=== PATIENT | male | born 1945 | race Caucasian/White ===

== ENCOUNTER 2019-12-03 16:23 | Inpatient (IN) ==
--- NOTE | 2019-12-03 16:55 | Emergency Department Note ---
History of Present Illness General Chief complaint: Illness Time Seen by Provider: 12/03/19 16:38 History of Present Illness This is a 74-year-old male with a complex past medical history that presents to the emergency department via ambulance/president and chief executive officer escort from [facility] where he currently is incarcerated with complaints of "illness". Patient notes that about 5 days ago perhaps even little bit longer he began with vomiting. He notes generalized weakness as well. Nausea and vomiting occur e very time he eats. No bowel movement x5 days. Per report he was evaluated at the [facility] and labs were drawn and he was found to be with elevated creatinine above 4, GFR near 15 with BUN above 150. Patient currently denies any pain, fever, chills, chest pain or shortness of breath. He notes he feels slightly nauseous and last vomited on the ambulance ride here. He denies eating or drinking over the past several days noting that every time he goes to try this he starts to vomit. Home Medications Home Medications Medication Instructions Recorded Confirmed Type atorvastatin 20 mg tablet 20 mg PO HS 04/16/19 12/03/19 History glimepiride 2 mg tablet 2 mg PO DAILY 04/16/19 12/03/19 History nitroglycerin 0.4 mg sublingual 0.4 mg SL DIRECTED PRN 04/16/19 12/03/19 History tablet potassium chloride 10 mEq 20 meq PO DAILY 04/16/19 12/03/19 History tablet,extended release aspirin [Aspirin Low Dose] 81 mg PO DAILY 12/03/19 12/03/19 History bumetanide 4 mg PO BID 12/03/19 12/03/19 History carvedilol 12.5 mg PO BID 12/03/19 12/03/19 History levalbuterol tartrate [Xopenex HFA] 2 inh INHALATION QID PRN 12/03/19 12/03/19 History lisinopril 10 mg PO DAILY 12/03/19 12/03/19 History metolazone 2.5 mg PO DAILY 12/03/19 12/03/19 History warfarin 6 mg PO DAILY 12/03/19 12/03/19 History Allergies Allergy/AdvReac Type Severity Reaction Status Date / Time No Known Allergies Allergy Verified 12/03/19 19:05 Past Med/Surg History Medical History Myocardial infarct Syncope Surgical History H/O heart artery stent S/P triple vessel bypass Family History Grandmother Diabetes Social History Smoking Status: Former smoker Hx Alcohol Use: No Hx Substance Use: No Preferred Language: Estonian Communication Ability: Effective Backup Operator Required: No Beliefs That Will Affect Care: Adventism Adventism Beliefs: jainism- no blood marital status: Single Current Living Situation: Other Current Living Situation Comment: snf Feels Safe at Home: Yes Assistive Devices: None Review of Systems A total of 10 systems reviewed and were otherwise negative Physical Exam Vital Signs Vital Signs - 24 hr 12/03/19 16:25 12/03/19 16:30 12/03/19 16:49 Temperature 36.5 C Temperature Source Oral Pulse Rate 81 87 81 Pulse Rate from SpO2 Sensor 84 Pulse Rhythm Regular Regular Respiratory Rate 14 24 14 Respiratory Effort / Characteristics Non-Labored Spontaneous Respiratory Depth Normal Respiratory Pattern Regular Blood Pressure 130/100 130/100 Blood Pressure Mean 110 121 Pulse Oximetry 99 94 99 Oxygen Delivery Method Room Air Room Air Sepsis Recent Fever Within 48 Hours No Sepsis New/Unexplained Change in Mental Status No Sepsis Action Taken by Nursing No Action Required 12/03/19 17:01 12/03/19 18:01 12/03/19 18:31 Temperature Temperature Source Pulse Rate 82 85 83 Pulse Rate from SpO2 Sensor 88 61 48 L Pulse Rhythm Respiratory Rate 14 18 16 Respiratory Effort / Characteristics Respiratory Depth Respiratory Pattern Blood Pressure 115/82 128/71 113/71 Blood Pressure Mean 93 89 79 Pulse Oximetry 100 98 97 Oxygen Delivery Method Sepsis Recent Fever Within 48 Hours Sepsis New/Unexplained Change in Mental Status Sepsis Action Taken by Nursing 12/03/19 19:01 Temperature Temperature Source Pulse Rate 87 Pulse Rate from SpO2 Sensor 64 Pulse Rhythm Respiratory Rate 19 Respiratory Effort / Characteristics Respiratory Depth Respiratory Pattern Blood Pressure 123/55 L Blood Pressure Mean 61 Pulse Oximetry 100 Oxygen Delivery Method Sepsis Recent Fever Within 48 Hours Sepsis New/Unexplained Change in Mental Status Sepsis Action Taken by Nursing VITAL SIGNS - Vital signs and nursing notes were reviewed. Stable and afebrile. GENERAL -74-year-old male appearing his stated age who is in no acute distress. Communicates well with provider and answers questions appropriately. SKIN - Without rashes. No meningeal or petechial rash. HEAD - NC/AT. EYES - PERRL with EOMI bilaterally. Sclera anicteric. EARS - No deformities of external structures noted on gross examination bilaterally. NOSE - Midline and without cyanosis. No epistaxis or purulent drainage noted. MOUTH/OROPHARYNX - Without perioral cyanosis. Buccal mucosa pink and moist and without leukoplakia. Tongue midline with equal elevation of palate bilaterally. No tonsillar hypertrophy, erythema, or exudates noted. Fair dentition noted. NECK - Neck with FROM. No nuchal rigidity. LUNGS - Chest wall symmetric without accessory muscle use, intercostals retractions, or central cyanosis. Normal vesicular breath sounds CTA B/L. No wheezes, rales, or rhonchi appreciated. CARDIAC -no definite murmur. ABDOMEN - Abdominal contour normal without pulsations or visible masses. BS normoactive all four quadrants. No tenderness, palpable masses, hepatosplenomegaly, or ascites noted. EXTREMITIES - No clubbing or peripheral cyanosis. No pretibial edema present. +5/5 strength noted in UE/LE bilaterally. NEUROLOGIC - Cranial nerves II through XII grossly intact. PSYCH - A&O, and cooperates fully with examiner. Pt is very pleasant and interacts well with examiner. Course Administered Medications Carvedilol (Carvedilol 12.5 Mg Tab) 12.5 mg PO BID [facility] Stop: 01/02/20 21:59 Last Admin: 12/03/19 22:30 Dose: Not Given Documented by: [id number] Potassium Chloride/Sodium Chloride (Normal Saline W/20 Meq Kcl) 20 meq in 1,000 mls @ 80 mls/hr IV .[id number] DANIELLE Stop: 01/02/20 21:59 Last Admin: 12/03/19 22:07 Dose: 80 mls/hr Documented by: [id number] Insulin Glargine (Insulin Glargine Solostar 100 Units/Ml 3 Ml Pen) 5 units SC BID [facility] Stop: 01/02/20 22:14 Last Admin: 12/03/19 22:30 Dose: Not Given Documented by: [id number] Ondansetron HCl (Ondansetron Inj 2 Mg/Ml 2 Ml Vial) 4 mg IV Q6H PRN PRN Reason: Nausea Stop: 01/02/20 22:11 Last Admin: 12/03/19 22:26 Dose: 4 mg Documented by: [id number] Polyethylene Glycol (Polyethylene (Miralax) 17 Gm Pack) 34 gm PO BID [facility] Stop: 01/02/20 21:35 Last Admin: 12/03/19 22:07 Dose: Not Given Documented by: [id number] Discontinued Medications Sodium Chloride (Nss) 500 mls @ 80 mls/hr IV .[id number] [facility] Stop: 01/02/20 17:29 Last Infusion: 12/03/19 21:36 Dose: 0 mls/hr Documented by: [id number] Admin: 12/03/19 18:28 Dose: 80 mls/hr Documented by: [id number] Warfarin Sodium (Warfarin Sod 3 Mg Tab) 3 mg PO ONE ONE Stop: 12/03/19 21:37 Last Admin: 12/03/19 22:08 Dose: Not Given Documented by: [id number] Medical Decision Making Laboratory Data Result diagrams: 12/03/19 17:13 12/03/19 17:13 Lab Results 12/03/19 12/03/19 12/03/19 Range/Units 17:13 17:13 17:13 WBC 6.32 (4.8-10.8) K/uL RBC 4.89 (4.7-6.1) M/uL Hgb 15.5 (14.0-18.0) g/dL Hct 43.7 (42-52) % MCV 89.4 (80-100) fL MCH 31.7 (25-34) pg MCHC 35.5 (32-36) g/dL RDW Std Deviation 43.8 (36.4-46.3) fL RDW Coeff of Tommie 13.4 (11.5-14.5) % Plt Count 156 (130-400) K/uL MPV 11.8 H (7.4-10.4) fL Immature Gran % (Auto) 0.0 % Neut % (Auto) 84.6 % Lymph % (Auto) 11.1 % Pendleton % (Auto) 4.0 % Eos % (Auto) 0.3 % Baso % (Auto) 0.0 % Neut # (Auto) 5.35 (1.4-6.5) K/uL Lymph # (Auto) 0.70 L (1.2-3.4) K/uL Pendleton # (Auto) 0.25 (0.11-0.59) K/uL Eos # (Auto) 0.02 (0-0.5) K/uL Baso # (Auto) 0.00 (0-0.2) K/uL Immature Gran # (Auto) 0.00 (0.00-0.02) K/uL PT 33.6 H (9.0-12.0) Seconds INR 3.4 H (0.9-1.1) APTT 37.9 H (21.0-31.0) Seconds PTT Ratio 1.4 Sodium 129 L (136-145) mmol/L Potassium 3.0 L (3.5-5.1) mmol/L Chloride 82 L (98-107) mmol/L Carbon Dioxide 30 (21-32) mmol/L Anion Gap 17.0 H (3-11) BUN 195 H (7-18) mg/dl Creatinine 4.64 H* (0.6-1.4) mg/dl Est Cr Clr Drug Dosing 13.3 ml/min Est GFR ( Amer) 13.5 Est GFR (Non-Af Amer) 11.6 BUN/Creatinine Ratio 42.3 H (10-20) Glucose 177 H (70-99) mg/dl Lactate (0.4-2.0) mmol/L Calcium 8.6 (8.5-10.1) mg/dl Magnesium 3.3 H (1.8-2.4) mg/dl Total Bilirubin 1.6 H (0.2-1) mg/dl AST 20 (15-37) U/L ALT 25 (12-78) U/L Alkaline Phosphatase 63 (45-117) U/L Troponin I 0.043 (0-0.045) ng/ml Total Protein 8.3 H (6.4-8.2) gm/dl Albumin 4.1 (3.4-5.0) gm/dl Globulin 4.2 H (2.5-4.0) gm/dl Albumin/Globulin Ratio 1.0 (0.9-2) Lipase 413 H (73-393) U/L TSH 0.476 (0.300-4.500) uIu/ml 12/03/19 Range/Units 17:53 WBC (4.8-10.8) K/uL RBC (4.7-6.1) M/uL Hgb (14.0-18.0) g/dL Hct (42-52) % MCV (80-100) fL MCH (25-34) pg MCHC (32-36) g/dL RDW Std Deviation (36.4-46.3) fL RDW Coeff of Tommie (11.5-14.5) % Plt Count (130-400) K/uL MPV (7.4-10.4) fL Immature Gran % (Auto) % Neut % (Auto) % Lymph % (Auto) % Pendleton % (Auto) % Eos % (Auto) % Baso % (Auto) % Neut # (Auto) (1.4-6.5) K/uL Lymph # (Auto) (1.2-3.4) K/uL Pendleton # (Auto) (0.11-0.59) K/uL Eos # (Auto) (0-0.5) K/uL Baso # (Auto) (0-0.2) K/uL Immature Gran # (Auto) (0.00-0.02) K/uL PT (9.0-12.0) Seconds INR (0.9-1.1) APTT (21.0-31.0) Seconds PTT Ratio Sodium (136-145) mmol/L Potassium (3.5-5.1) mmol/L Chloride (98-107) mmol/L Carbon Dioxide (21-32) mmol/L Anion Gap (3-11) BUN (7-18) mg/dl Creatinine (0.6-1.4) mg/dl Est Cr Clr Drug Dosing ml/min Est GFR ( Amer) Est GFR (Non-Af Amer) BUN/Creatinine Ratio (10-20) Glucose (70-99) mg/dl Lactate 1.4 (0.4-2.0) mmol/L Calcium (8.5-10.1) mg/dl Magnesium (1.8-2.4) mg/dl Total Bilirubin (0.2-1) mg/dl AST (15-37) U/L ALT (12-78) U/L Alkaline Phosphatase (45-117) U/L Troponin I (0-0.045) ng/ml Total Protein (6.4-8.2) gm/dl Albumin (3.4-5.0) gm/dl Globulin (2.5-4.0) gm/dl Albumin/Globulin Ratio (0.9-2) Lipase (73-393) U/L TSH (0.300-4.500) uIu/ml Imaging Data Radiologist's Impression: SINGLE VIEW CHEST CLINICAL HISTORY: Vomiting. FINDINGS: An AP, portable, upright chest radiograph is obtained. No prior studies are available for comparison at the time of dictation. A single lead cardiac AICD partially obscures the left mid chest. The patient is status post midline sternotomy. The heart is enlarged noting atherosclerotic calcification of the thoracic aorta. The pulmonary vasculature is noncongested. The lungs and pleural spaces are clear. No pneumothorax is seen. The skeletal structures are osteopenic. The bony thorax is grossly intact. IMPRESSION: 1. Cardiomegaly and AICD. There is no radiographic evidence of congestive failure. 2. No airspace consolidation or pleural effusion is identified. ACT 112: Negative or not required by law. Electronically signed by: Jairo Mccrary M.D. 12/03/2019 5:[address] SCAN OF THE ABDOMEN AND PELVIS WITHOUT IV CONTRAST CLINICAL HISTORY: Vomiting. COMPARISON STUDY: No priors. TECHNIQUE: CT scan of the abdomen and pelvis is performed from the lung bases to the proximal femora. Images are reviewed in the axial, sagittal, and coronal planes. IV contrast was not administered for this examination due to poor renal function. Note that the examination is suboptimal without oral and IV contrast. A dose lowering technique was utilized adhering to the principles of ALARA. CT DOSE: 290.01 mGy.cm FINDINGS: Lung bases: The patient is status post midline sternotomy. The heart is enlarged and without pericardial effusion. An AICD lead is noted. The coronary arteries are densely calcified. A small hiatal hernia is observed. A 3 mm right middle lobe pulmonary nodule is seen on image #30. The lung bases are otherwise clear noting dependent atelectasis. Liver: The unenhanced liver is normal in size, contour, and attenuation. There is no intrahepatic biliary ductal dilatation. A 2.6 cm cyst is noted in the left lobe. Gallbladder: Unremarkable. Spleen: Normal in size and attenuation. Pancreas: The unenhanced pancreas is mildly atrophic and grossly unremarkable. Adrenal glands: Unremarkable. Kidneys: The unenhanced kidneys demonstrate cortical atrophy and are without hydronephrosis. There are no renal calculi identified. Numerous bilateral renal cysts measure up to 9 cm. Abdominal vasculature: The abdominal aorta is normal in course and caliber noting advanced atherosclerotic calcification. Bowel: There is mild to moderate colonic fecal retention. No bowel obstruction is seen. The appendix is well-visualized and normal. Peritoneum: There is no intraperitoneal free air or abdominal ascites. There is a fat-containing umbilical hernia. Lymphadenopathy: None. Pelvic viscera: The prostate gland is mildly enlarged and heterogeneous noting median lobe hypertrophy. The bladder is normal as imaged. A small fat-containing inguinal hernia seen on the right. Skeletal structures: The skeletal structures are osteopenic. There is mild to moderate lumbosacral spondylosis. A large posterior discussed by complex is seen at L4-L5. A benign-appearing lesion in the right femoral neck likely represents an enchondroma or hemangioma. No lytic or blastic lesions are seen. IMPRESSION: 1. There are no acute infectious or inflammatory findings in the abdomen or pelvis. 2. Moderate colonic fecal retention. No bowel obstruction is seen. 3. Cardiomegaly and AICD. 4. Additional findings as above. ACT 112: Negative or not required by law. Electronically signed by: Jairo Mccrary M.D. 12/03/2019 5:51 PM [facility] Narrative Patient was seen and evaluated as above in room A02. Review was performed of nursing notes and vital signs. I did review pertinent previous visits and patient history. After obtaining a thorough history and physical examination the above work up was performed. He presents to us today via ambulance and chief privacy officer escort with nausea, vomiting, no bowel movement x5 days. The patient denies eating or drinking anything for the past several days because every time he goes to do so he vomits. IV access was established. Labs were drawn. Chest x-ray was obtained and was negative for any emergent process. A CT scan of the abdomen and pelvis was also obtained with results as above. Moderate colonic fecal retention noted. Laboratory work-up reveals no leukocytosis or anemia. INR 3.4. Patient does have several metabolic disturbances to include that of hyponatremia, hypokalemia as well as an anion gap of 17. BUN and creatinine are significantly elevated. Glucose 177. Urinalysis does not reveal any infectious process. Given the patient's significant elevation in his creatinine and BUN I do believe that further evaluation and management in the inpatient setting is warranted. Gentle hydration was ordered here with plan for inpatient management. Patient was educated upon recommendations and will be admitted to the hospital. Case discussed with the hospitalist. Please refer to further documentation regarding his stay. In the evaluation and treatment of this patient the following differential diagnoses were entertained: Renal failure, obstruction, metabolic disturbance, malignancy, COVID-19, MA, among others. Impression & Plan Acute kidney injury, Hypokalemia, Acute hyponatremia Discharge Plan Visit Data Chief Complaint: Illness ED Provider: You Paz ED Midlevel Provider: Morro Gaona Discharge Problem: Acute kidney injury, Hypokalemia, Acute hyponatremia Patient Disposition: Admitted As Inpatient Condition: Good Discharge Instructions Interventions: ED Discharge Assessment Last Done: 12/03/19 20:40
--- NOTE | 2019-12-03 17:04 | XRay Report ---
SINGLE VIEW CHEST CLINICAL HISTORY: Vomiting. FINDINGS: An AP, portable, upright chest radiograph is obtained. No prior studies are available for c omparison at the time of dictation. A single lead cardiac AICD partially obscures the left mid chest. The patient is status post midline sternotomy. The heart is enlarged noting atherosclerotic calcific ation of the thoracic aorta. The pulmonary vasculature is noncongested. The lungs and pleural spaces are clear. No pneumothorax is seen. The skeletal structures are osteopenic. The bony thorax is grossl y intact. IMPRESSION: 1. Cardiomegaly and AICD. There is no radiographic evidence of congestive failure. 2. No airspace consolidation or pleural effusion is identified. ACT 112: Negative or not required by law. Electronically signed by: Jairo Mccrary M.D. 12/03/2019 5:02 PM
[2019-12-03 17:28] LABS: Eosinophils # (auto) 0.02 K/uL (0-0.5); Eosinophils % (auto) 0.3 %; Hematocrit (blood only) 43.7 % (42-52); Hemoglobin 15.5 g/dL (14.0-18.0); Lymphocytes % (auto) 11.1 %; Mean Corpuscular Hemoglobin 31.7 pg (25-34); Mean Corpuscular Hgb Conc 35.5 g/dL (32-36); Mean Corpuscular Volume 89.4 fL (80-100); Mean Platelet Volume 11.8 fL (7.4-10.4); Monocytes # (auto) 0.25 K/uL (0.11-0.59); Neutrophils # (auto) 5.35 K/uL (1.4-6.5); Neutrophils % (auto) 84.6 %; Platelet Count 156 K/uL (130-400); RDW Coefficient of Variation 13.4 % (11.5-14.5); RDW Standard Deviation 43.8 fL (36.4-46.3); Red Blood Count 4.89 M/uL (4.7-6.1); White Blood Count 6.32 K/uL (4.8-10.8)
[2019-12-03] MEDS ORDERED: SODIUM CHLORIDE 0.9% 500 ML IV SCH (17:30)
[2019-12-03 17:40] LABS: INR 3.4 (0.9-1.1); Partial Thromboplastin Ratio 1.4; Partial Thromboplastin Time 37.9 Seconds (21.0-31.0); Prothrombin Time 33.6 Seconds (9.0-12.0)
--- NOTE | 2019-12-03 17:52 | CT Scan Report ---
CT SCAN OF THE ABDOMEN AND PELVIS WITHOUT IV CONTRAST CLINICAL HISTORY: Vomiting. COMPARISON STUDY: No priors. TECHNIQUE: CT scan of the abdomen and pelvis is performed from the lung bases to the proximal femora. Images are reviewed in the axial, sagittal, and coronal planes. IV contrast was not administered for this examination due to poor renal function. Note that the examination is suboptimal without oral an d IV contrast. A dose lowering technique was utilized adhering to the principles of ALARA. CT DOSE: 290.01 mGy.cm FINDINGS: Lung bases: The patient is status post midline sternotomy. The heart is enlarged and without pericard ial effusion. An AICD lead is noted. The coronary arteries are densely calcified. A small hiatal félix ia is observed. A 3 mm right middle lobe pulmonary nodule is seen on image #30. The lung bases are ot herwise clear noting dependent atelectasis. Liver: The unenhanced liver is normal in size, contour, and attenuation. There is no intrahepatic ignacia iary ductal dilatation. A 2.6 cm cyst is noted in the left lobe. Gallbladder: Unremarkable. Spleen: Normal in size and attenuation. Pancreas: The unenhanced pancreas is mildly atrophic and grossly unremarkable. Adrenal glands: Unremarkable. Kidneys: The unenhanced kidneys demonstrate cortical atrophy and are without hydronephrosis. There ar e no renal calculi identified. Numerous bilateral renal cysts measure up to 9 cm. Abdominal vasculature: The abdominal aorta is normal in course and caliber noting advanced atheroscle rotic calcification. Bowel: There is mild to moderate colonic fecal retention. No bowel obstruction is seen. The appendix is well-visualized and normal. Peritoneum: There is no intraperitoneal free air or abdominal ascites. There is a fat-containing umbi lical hernia. Lymphadenopathy: None. Pelvic viscera: The prostate gland is mildly enlarged and heterogeneous noting median lobe hypertroph y. The bladder is normal as imaged. A small fat-containing inguinal hernia seen on the right. Skeletal structures: The skeletal structures are osteopenic. There is mild to moderate lumbosacral sp ondylosis. A large posterior discussed by complex is seen at L4-L5. A benign-appearing lesion in the right femoral neck likely represents an enchondroma or hemangioma. No lytic or blastic lesions are se en. IMPRESSION: 1. There are no acute infectious or inflammatory findings in the abdomen or pelvis. 2. Moderate colonic fecal retention. No bowel obstruction is seen. 3. Cardiomegaly and AICD. 4. Additional findings as above. ACT 112: Negative or not required by law. Electronically signed by: Jairo Mccrary M.D. 12/03/2019 5:51 PM
[2019-12-03 18:22] LABS: Albumin Level 4.1 gm/dl (3.4-5.0); BUN Creatinine Ratio 42.3 (10-20); Bilirubin,Total 1.6 mg/dl (0.2-1); Calcium 8.6 mg/dl (8.5-10.1); Creatinine Clr Calc Pharmacy 13.3 ml/min; Est GFR (African American) 13.5; Est GFR (Non-African American) 11.6; Globulin 4.2 gm/dl (2.5-4.0); Magnesium 3.3 mg/dl (1.8-2.4); Thyroid Stimulating Hormone 0.476 uIu/ml (0.300-4.500); Total Protein 8.3 gm/dl (6.4-8.2); Troponin I 0.043 ng/ml (0-0.045)
--- NOTE | 2019-12-03 19:14 | History & Physical Report ---
Date of Service December 03, 2019 Assessment & Plan (1) Acute kidney injury: Suspect secondary to overdiuresis in setting of nausea and not eating. Walker catheter placed in ER due to concern for urinary retention with BPH and moderate fecal impaction - can likely be removed if Cr/BUN improving, having bowel movements and UO good. Hold bumex, metolazone, lisinopril. Gentle hydration to avoid hypervolemia in setting of chronic congestive heart failure. Consult nephrology given large bilateral renal cysts and to assist in management of suspected uremic encephalopathy. (2) Uremic encephalopathy: Suspect this is causing his lethargy and nausea. Monitor with BMP daily. Management for EVERETT as above. (3) Nausea & vomiting: Suspect secondary to uremic encephalopathy +/- moderate fecal retention. MiraLAX 34 g BID. (4) Constipation: MiraLAX 34 g twice daily as above Monitor for BM. (5) Chronic congestive heart failure: Request prior notes from Dr Rich. No current acute exacerbation. (6) Type 2 diabetes mellitus: HbA1c with a.m. labs Hold outpatient medications: glimepiride. BSG ACHS Start Lantus 5 units SQ BID, NovoLog ACHS for correction and carb coverage. (7) Enlarged prostate: Previously seen by urology in March. Should follow-up with urology due to heterogeneous nature of his prostate. Start tamsulosin 0.4 mg p.o. at bedtime (8) Acute hyponatremia: Suspect secondary to diuretic use and dehydration and will replace with NSS as above with repeat BMP in a.m. (9) Hypokalemia: Suspect secondary to diuretics. Repeat BMP with a.m. labs. Replace cautiously in IV fluids as above. (10) Hypertension: Continue carvedilol 12.5 mg p.o. twice daily (11) Atherosclerotic heart disease: Troponin negative on admission. No chest pain or shortness of breath. Continue aspirin 81 mg p.o. daily, carvedilol 12.5 mg p.o. twice daily, atorvastatin 20 mg p.o. at bedtime Hold lisinopril as above. (12) Ischemic cardiomyopathy: Notable history of this. HIM request for prior note from his calender wind up tender. (13) Atrial fibrillation: Continue anticoagulation with warfarin but a reduced dose due to supratherapeutic INR. Warfarin 3 mg daily (usually 4.5mg PO daily as per patient). Repeat PT/INR with a.m. labs (14) Hypercholesterolemia: Continue atorvastatin 20 mg p.o. at bedtime (15) DVT prophylaxis: Continue warfarin as above. INR 3.3. Admission and Anticipated Discharge Date Admission Date: December 03, 2019 History of Present Illness Chief Complaint: Abnormal labs, nausea and vomiting Primary Care Provider: REGINALD Severino Alis Bonilla is a 74-year-old male from [facility] sent to the ER today due to nausea and vomiting with very poor oral intake over the last 5-7 days. He had labs taken at the [facility] concerning for acute kidney injury therefore was sent to the ER for further work-up. The patient confirms having nausea and vomiting with reduced appetite for the last 5 to 7 days. He is unsure what started this but does not normally have any nausea or vomiting. No hematemesis. No abdominal pain. Associated no bowel movement for the last 2 days. He denies any tenesmus, melena, bright red blood in stool, constipation or diarrhea. With regards to his acute kidney injury. He does reports a history of urinary frequency but this is not changed recently other than the last few days when his urine is more concentrated and he has been urinating less often. No gross hematuria, dysuria, back pain, change in urine smell. Discussed with nurse of the infirmary at the [facility] who was unfamiliar with the patient however was able to looks up some prior baseline labs below: 08/22 BUN 36, Cr 1.9. 11/15 BUN 135, Cr 3.73 11/19 BUN 157, Cr 4.11 Allergies Allergy/AdvReac Type Severity Reaction Status Date / Time No Known Allergies Allergy Verified 12/03/19 19:05 Home Medications Home Medications Medication Instructions Recorded Confirmed Type atorvastatin 20 mg tablet 20 mg PO HS 04/16/19 12/03/19 History glimepiride 2 mg tablet 2 mg PO DAILY 04/16/19 12/03/19 History nitroglycerin 0.4 mg sublingual 0.4 mg SL DIRECTED PRN 04/16/19 12/03/19 History tablet potassium chloride 10 mEq 20 meq PO DAILY 04/16/19 12/03/19 History tablet,extended release aspirin [Aspirin Low Dose] 81 mg PO DAILY 12/03/19 12/03/19 History bumetanide 4 mg PO BID 12/03/19 12/03/19 History carvedilol 12.5 mg PO BID 12/03/19 12/03/19 History levalbuterol tartrate [Xopenex HFA] 2 inh INHALATION QID PRN 12/03/19 12/03/19 History lisinopril 10 mg PO DAILY 12/03/19 12/03/19 History metolazone 2.5 mg PO DAILY 12/03/19 12/03/19 History warfarin 6 mg PO DAILY 12/03/19 12/03/19 History Past Med/Surg History Medical History Myocardial infarct Syncope Surgical History H/O heart artery stent S/P triple vessel bypass Family History Grandmother Diabetes Social History Smoking Status: Former smoker Hx Alcohol Use: No Hx Substance Use: No Preferred Language: [place] Communication Ability: Effective Analysis Specialist Required: No Beliefs That Will Affect Care: Anglican Anglican Beliefs: hinduism-n o blood marital status: Single Current Living Situation: Other Current Living Situation Comment: [facility] Feels Safe at Home: Yes Assistive Devices: Glasses Review of Systems Review of Systems: All systems reviewed & are unremarkable except as noted in HPI & below He does note a history of congestive heart failure under Dr. Rich who he last saw 8-9 months ago. He reports last hospitalization for heart failure was 7-8 months ago in [place]. He has history of CAD with prior bypass. He denies any chest pain, shortness of breath, claudication, palpitations, syncope. He does note presyncope with dizziness Physical Exam Constitutional: well developed; + not well nourished and no acute distress Eyes: + anicteric sclerae; normal pupil size ENMT: Ears: no external ear abnormality Nose: no external nose abnormality Mouth: + dry oral mucous membranes Neck: trachea midline, no thyromegaly Respiratory: normal respiratory effort, lungs clear to auscultation Cardiovascular: Rate/Rhythm: regular rate and + irregularly irregular Heart Sounds: no murmur Vessels: no JVD Extremities: normal capillary refill and + pedal edema (1+ to mid shins b/l equal); no calf tenderness Gastrointestinal (Abdomen): normal bowel sounds, soft, nontender, no hepatosplenomegaly Musculoskeletal: no cyanosis or clubbing, extremities motor strength 5/5 Skin: no rashes, warm and dry (healing scabs on b/l LE without any areas of concerning cellulitis) Neurologic: moves all extremities and awake; no focal motor deficits and not confused Psychiatric: A+Ox3, euthymic affect Genitourinary: no CVA tenderness Lymphatic: no inguinal lymphadenopathy Results & Data Results & Data ([facility]) Vital Signs (Past 12 Hours) Vital Signs Temp Pulse Resp BP Pulse Ox 12/03/19 18:01 85 18 128/71 98 12/03/19 17:01 82 14 115/82 100 12/03/19 16:49 81 14 99 12/03/19 16:30 87 24 130/100 94 12/03/19 16:25 36.5 C 81 14 130/100 99 Diagnostic Findings SINGLE VIEW CHEST IMPRESSION: 1. Cardiomegaly and AICD. There is no radiographic evidence of congestive failure. 2. No airspace consolidation or pleural effusion is identified. CT SCAN OF THE ABDOMEN AND PELVIS WITHOUT IV CONTRAST IMPRESSION: 1. There are no acute infectious or inflammatory findings in the abdomen or pelvis. 2. Moderate colonic fecal retention. No bowel obstruction is seen. 3. Cardiomegaly and AICD. 4. Additional findings as above. ECG Indication: other (EVERETT, irregular rhythm) Rate (beats per minute): 88 Rhythm: atrial fibrillation Findings: + other (Nonspecific intraventricular conduction block); no acute ischemic change Comparison ECG Date: no prior available Code Status & VTE Plan Code Status DNR/DNI as per patient wishes VTE Prophylaxis Plan VTE Prophylaxis will be ordered: Yes PG Care Time/CCT Total # of Minutes Spent Total Time Spent with Patient: Total time spent is greater than 50% in coordination of care (as documented) at patient's floor/unit and/or counseling patient: Coding Level of Care Code 95502 Initial Inpt Care Lvl 3 Diagnoses Acute kidney injury N17.9 Uremic encephalopathy G93.49; N19 Nausea & vomiting R11.2 Constipation K59.00 Chronic congestive heart failure I50.9 Type 2 diabetes mellitus E11.9 Enlarged prostate N40.0 Acute hyponatremia E87.1 Hypokalemia E87.6 Hypertension I10 Atherosclerotic heart disease I25.10 Ischemic cardiomyopathy I25.5 Atrial fibrillation I48.91 Hypercholesterolemia E78.00 DVT prophylaxis Z29.9
[2019-12-03 19:49] LABS: Appearance Urine Clear (Clear); Bacteria Urine Automated Negative (Negative); Bilirubin Urine Negative (Negative); Blood Urine Trace (Negative); Color Urine Yellow; Glucose Urine UA Negative (Negative); Ketones Urine Negative (Negative); Leukocyte Esterase Urine Negative (Negative); Nitrite Urine Negative (Negative); Protein Urine Negative (Negative); RBC Urine Automated 0-4 /hpf (0-4); Specific Gravity Urine 1.012 (1.000-1.030); Urobilinogen Urine Negative (Negative); WBC Urine Automated 0 /hpf (0-5); pH Urine 5.5 (4.5-7.5)
[2019-12-03] MEDS ORDERED: ACETAMINOPHEN 325 MG TAB PO PRN (21:36)
[2019-12-03] MEDS ORDERED: WARFARIN SOD 3 MG TAB PO ONE (21:36)
[2019-12-03] MEDS ORDERED: GLUCOSE 40% GEL 15 GM TUBE PO PRN (22:06)
[2019-12-03] MEDS ORDERED: DEXTROSE 50% 50 ML SYRINGE IV PRN (22:06)
[2019-12-03] MEDS ORDERED: CARBOHYDRATES FOR HYPOGLYCEMIA PO PRN (22:06)
[2019-12-03] MEDS ORDERED: GLUCOSE 10 TABS/TUBE PO PRN (22:06)
[2019-12-03] MEDS ORDERED: GLUCAGON FOR INJ 1 MG VIAL SQ PRN (22:06)
[2019-12-03] MEDS: NSS + 20MEQ KCL 20 MEQ/1,000 ML BAG IV SCH (22:07)
[2019-12-03] MEDS: POLYETHYLENE (MIRALAX) 17 GM PACK PO SCH (22:07)
[2019-12-03] MEDS ORDERED: ONDANSETRON INJ 2 MG/ML 2 ML VIAL IV PRN (22:12)
[2019-12-03] MEDS: carvediloL 12.5 MG TAB PO SCH (22:30)
[2019-12-03] MEDS: INSULIN GLARGINE SOLOSTAR 100 UNITS/ML 3 ML PEN SC SCH (22:30)
[2019-12-04 07:50] LABS: INR 3.7 (0.9-1.1); Prothrombin Time 36.7 Seconds (9.0-12.0)
[2019-12-04 07:59] LABS: BUN Creatinine Ratio 42.8 (10-20); Creatinine Clr Calc Pharmacy 13.7 ml/min; Est GFR (African American) 14.6; Est GFR (Non-African American) 12.6; Potassium 2.8 mmol/L (3.5-5.1)
[2019-12-04] MEDS: carvediloL 12.5 MG TAB PO SCH ×2 (08:43→21:15)
[2019-12-04] MEDS: ASPIRIN 81 MG ECTAB PO SCH (08:43)
[2019-12-04] MEDS: HEPARIN SOD 5,000 UNIT/0.5 ML VIAL SQ SCH ×2 (08:44→08:59)
[2019-12-04] MEDS: POLYETHYLENE (MIRALAX) 17 GM PACK PO SCH ×2 (08:44→21:16)
[2019-12-04] MEDS: INSULIN ASPART 100 UNITS/ML 3 ML PEN SC SCH ×5 (08:46→21:16)
[2019-12-04] MEDS: INSULIN GLARGINE SOLOSTAR 100 UNITS/ML 3 ML PEN SC SCH ×3 (08:47→21:15)
[2019-12-04] MEDS: NSS + 20MEQ KCL 20 MEQ/1,000 ML BAG IV SCH ×2 (10:46→23:18)
--- NOTE | 2019-12-04 11:46 | Nephrology Consultation ---
Date of Consultation December 04, 2019 Assessment & Plan (1) Acute kidney injury: * EVERETT due to dehydration in the setting of ongoing JINA, thiazide and loop diuretic * Hold lisinopril, metolazone and bumex * Urinalysis negative for protein. Urine microscopy negative for blood * Abdominal CT without contrast was negative for obstruction * Cr trending down w/ gentle hydration * Will order urine Na & Cr * Continue IV hydration w/ 0.9NS + 20 mEq KCl at 80 cc/hr * Monitor PRP (2) Chronic kidney disease: * Hospitalist admission note reports baseline Cr 1.9 08/22 * Abdominal CT films reviewed today: bilateral large simple cysts and cortical thinning. No intervention required for cysts. No mass is present. Cysts do not appear to be causing mechanical obstruction (3) Hypokalemia: * Agree w/ IV repletion (4) Hypertension: * Currently w/ relative hypotension * Continue to hold JINA, thiazide and loop diuretic History of Present Illness Reason for Consultation: EVERETT on CKD Attending Physician: Carlos Donovan, DO History of Present Illness Mr. 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 Gaines for evaluation of EVERETT on CKD. Medical records in the EMR were reviewed today and are summarized as follows: Mr. Bonilla had CKD w/ baseline Cr 1.9 (08/22). He has never undergone evaluation by a Aed Trainer or Urologist in the past. He denies difficulty voiding, gross hematuria, foamy urine, flank pain or kidney stones. He has not been using NSAIDS. His medical history is significant for AODM, HTN, BPH, atrial fibrillation, ICM s/p AICD. He is a [employer] and does not accept blood products. Mr. Bonilla reports a 5 day h/o constipation and recurrent N/V. He continued his medications including JINA, thiazide diuretic and loop diuretic. Mr. Bonilla presented to the [facility] yesterday where lab testing revealed BUN 157, Cr 4.11. Mr. Bonilla was then admitted to [facility] for ongoing medical management and IV hydration. Urinalysis was negative for protein. Urine microscopy was negative for blood. Abdominal CT without contrast revealed cortical atrophy and was negative for hydronephrosis. Numerous bilateral kidney cysts seen, some measuring up to 9 cm Allergies Allergy/AdvReac Type Severity Reaction Status Date / Time No Known Allergies Allergy Verified 12/03/19 19:05 Home Medications Home Medications Medication Instructions Recorded Confirmed Type atorvastatin 20 mg tablet 20 mg PO HS 04/16/19 12/03/19 History glimepiride 2 mg tablet 2 mg PO DAILY 04/16/19 12/03/19 History nitroglycerin 0.4 mg sublingual 0.4 mg SL DIRECTED PRN 04/16/19 12/03/19 History tablet potassium chloride 10 mEq 20 meq PO DAILY 04/16/19 12/03/19 History tablet,extended release aspirin [Aspirin Low Dose] 81 mg PO DAILY 12/03/19 12/03/19 History bumetanide 4 mg PO BID 12/03/19 12/03/19 History carvedilol 12.5 mg PO BID 12/03/19 12/03/19 History levalbuterol tartrate [Xopenex HFA] 2 inh INHALATION QID PRN 12/03/19 12/03/19 History lisinopril 10 mg PO DAILY 12/03/19 12/03/19 History metolazone 2.5 mg PO DAILY 12/03/19 12/03/19 History warfarin 6 mg PO DAILY 12/03/19 12/03/19 History Patient History Medical History Atherosclerotic heart disease Chronic congestive heart failure Enlarged prostate Hypertension Ischemic cardiomyopathy Myocardial infarct Syncope Type 2 diabetes mellitus Surgical History H/O heart artery stent S/P triple vessel bypass Family History Grandmother Diabetes Social History Smoking Status: Former smoker Hx Alcohol Use: No Hx Substance Use: No Preferred Language: Yakut Communication Ability: Effective Patient Service Representative Required: No Beliefs That Will Affect Care: Sikh Sikh Beliefs: faith- no blood marital status: Single Current Living Situation: Other Current Living Situation Comment: [facility] Feels Safe at Home: Yes Assistive Devices: Glasses Review of Systems Constitutional: + weakness; no fever Eyes: no problem reported Ear, Nose, Mouth, Throat: no problem reported Respiratory: no dyspnea Cardiovascular: no chest pain and no edema Gastrointestinal: + nausea and + vomiting; no abdominal pain and no diarrhea/loose stools Genitourinary: no dysuria, no urinary hesitancy and no hematuria Musculoskeletal: no back pain Integumentary: no rash Neurologic: no dizziness Physical Exam Constitutional: + ill appearing; not in distress Eyes: PERRL, conjunctivae normal, anicteric sclerae ENMT: external ear and nose normal, oropharynx normal Neck: trachea midline, no thyromegaly Respiratory: normal respiratory effort, lungs clear to auscultation Cardiovascular: Rate/Rhythm: + irregularly irregular (AICD palpable beneath L clavicle) Gastrointestinal (Abdomen): Inspection/Auscultation: + hypoactive bowel sounds Percussion/Palpation: abdomen soft; abdomen nontender and no guarding Musculoskeletal: Extremities: no cyanosis Skin: no rashes, warm and dry Neurologic: awake; not confused Results & Data ([facility]) Vital Signs (Past 12 Hours) Vital Signs Temp Pulse Pulse Resp BP Pulse Ox 12/04/19 07:53 36.5 C 73 18 100/67 97 12/04/19 07:31 75 Laboratory Results Laboratory Tests 12/03/19 12/03/19 12/04/19 17:13 19:30 07:20 WBC 6.32 Hgb 15.5 Hct 43.7 Plt Count 156 Sodium 132 L Potassium 2.8 L Chloride 89 L Carbon Dioxide 31 BUN 186 H Creatinine 4.34 H D Glucose 154 H Calcium 8.0 L Urine Color Yellow Urine Appearance Clear Urine pH 5.5 Ur Specific Santa Claus 1.012 Urine Protein Negative Urine Glucose (UA) Negative Urine Ketones Negative Urine Blood Trace H Urine RBC (Auto) 0-4 PG Care Time/CCT Total # of Minutes Spent Total Time Spent with Patient: Total time spent is greater than 50% in coordination of care (as documented) at patient's floor/unit and/or counseling patient: Coding Level of Care Code 88485 Inpt Consult Level 5 Diagnoses Acute kidney injury N17.9 Chronic kidney disease N18.9 Hypokalemia E87.6 Hypertension I10
[2019-12-04 12:21] LABS: Creatinine Urine Random 53.1 mg/dl
[2019-12-04] MEDS ORDERED: POTASSIUM CHLORIDE 20 MEQ TABCR PO STA (15:37)
--- NOTE | 2019-12-04 15:40 | Hospitalist Progress Note ---
Date of Service December 04, 2019 Assessment & Plan (1) Acute kidney injury: Suspect secondary to overdiuresis in setting of nausea and not eating. Holloway catheter placed in ER due to concern for urinary retention with BPH and moderate fecal impaction - keep holloway today, likely d/c tomorrow Hold bumex, metolazone, lisinopril. Gentle hydration to avoid hypervolemia in setting of chronic congestive heart failure. Cr down to 4.3 from 4.6, K low at 2.[address] Avina, continue IV fluids, repeat labs tomorrow (2) Uremic encephalopathy: Suspect this was cause of lethargy, nausea resolved today, mental status clear, eating well, no nausea (3) Nausea & vomiting: Suspect secondary to uremic encephalopathy +/- moderate fecal retention. MiraLAX 34 g BID until he moves bowels (4) Constipation: MiraLAX 34 g twice daily as above Monitor for BM. (5) Chronic congestive heart failure: Request prior notes from Dr Rich. No current acute exacerbation. (6) Type 2 diabetes mellitus: HbA1c with a.m. labs Hold outpatient medications: glimepiride. BSG ACHS Start Lantus 5 units SQ BID, NovoLog ACHS for correction and carb coverage. (7) Enlarged prostate: Previously seen by urology in March. Should follow-up with urology due to heterogeneous nature of his prostate. Start tamsulosin 0.4 mg p.o. at bedtime (8) Acute hyponatremia: Suspect secondary to diuretic use and dehydration and will replace with NSS Na 132 today (9) Hypokalemia: Suspect secondary to diuretics. 2.8 today, will give 40mEq PO and start 20mEq TID repeat tomorrow AM (10) Hypertension: Continue carvedilol 12.5 mg p.o. twice daily (11) Atherosclerotic heart disease: Troponin negative on admission. No chest pain or shortness of breath. Continue aspirin 81 mg p.o. daily, carvedilol 12.5 mg p.o. twice daily, atorvastatin 20 mg p.o. at bedtime Hold lisinopril as above. (12) Ischemic cardiomyopathy: Notable history of this. 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 (13) Atrial fibrillation: Continue anticoagulation with warfarin but a reduced dose due to supratherapeutic INR. Warfarin 3 mg daily (usually 4.5mg PO daily as per patient). Repeat PT/INR today is 3.7 hold Coumadin (14) Hypercholesterolemia: Continue atorvastatin 20 mg p.o. at bedtime (15) DVT prophylaxis: INR 3.7 Admission and Anticipated Discharge Date Admission Date: December 03, 2019 Subjective patient doing well, says his appetite is better, he could not eat for a few days he is making clear urine via holloway discussed with Dr. Avina, he agrees with IV fluids, holding diuretics and JINA labs reviewed, K low at 2.8, Cr down slightly at 4.3 CBC is normal, INR is 3.7 discussed with patient that he will be here several days to watch renal function improve no other complaints Review of Systems Review of Systems: All systems reviewed & are unremarkable except as noted in Subjective Physical Exam Constitutional: WD/WN, vitals as above Eyes: PERRL, conjunctivae normal, anicteric sclerae ENMT: external ear and nose normal, oropharynx normal Neck: trachea midline, no thyromegaly Respiratory: normal respiratory effort, lungs clear to auscultation Cardiovascular: RRR, no murmur, no edema Gastrointestinal (Abdomen): normal bowel sounds, soft, nontender, no hepatosplenomegaly Musculoskeletal: no cyanosis or clubbing, extremities motor strength 5/5 Skin: no rashes, warm and dry Neurologic: patellar DTR's 2+ bilat, sensation intact and PERRL, EOMI, accommodation nl, no face palsy, no dysarthria Psychiatric: A+Ox3, euthymic affect Lymphatic: no cervical or axillary lymphadenopathy Results & Data Results & Data ([facility]) Vital Signs (Past 12 Hours) Vital Signs Temp Pulse Pulse Resp BP Pulse Ox 12/04/19 07:53 36.5 C 73 18 100/67 97 12/04/19 07:31 75 Laboratory Results Laboratory Results - last 24 hr 12/03/19 12/03/19 12/03/19 17:13 17:13 17:13 WBC 6.32 RBC 4.89 Hgb 15.5 Hct 43.7 MCV 89.4 MCH 31.7 MCHC 35.5 RDW Std Deviation 43.8 RDW Coeff of [place] 13.4 Plt Count 156 MPV 11.8 H Immature Gran % (Auto) 0.0 Neut % (Auto) 84.6 Lymph % (Auto) 11.1 [place] % (Auto) 4.0 Eos % (Auto) 0.3 Baso % (Auto) 0.0 Neut # (Auto) 5.35 Lymph # (Auto) 0.70 L [place] # (Auto) 0.25 Eos # (Auto) 0.02 Baso # (Auto) 0.00 Immature Gran # (Auto) 0.00 PT 33.6 H INR 3.4 H APTT 37.9 H PTT Ratio 1.4 Sodium 129 L Potassium 3.0 L Chloride 82 L Carbon Dioxide 30 Anion Gap 17.0 H BUN 195 H Creatinine 4.64 H* Est Cr Clr Drug Dosing 13.3 Est GFR ( Amer) 13.5 Est GFR (Non-Af Amer) 11.6 BUN/Creatinine Ratio 42.3 H Glucose 177 H POC Glucose Lactate Calcium 8.6 Magnesium 3.3 H Total Bilirubin 1.6 H AST 20 ALT 25 Alkaline Phosphatase 63 Troponin I 0.043 Total Protein 8.3 H Albumin 4.1 Globulin 4.2 H Albumin/Globulin Ratio 1.0 Lipase 413 H TSH 0.476 Urine Color Urine Appearance Urine pH Ur Specific [place] Urine Protein Urine Glucose (UA) Urine Ketones Urine Blood Urine Nitrite Urine Bilirubin Urine Urobilinogen Ur Leukocyte Esterase Urine WBC (Auto) Urine RBC (Auto) U Hyaline Cast (Auto) U Epithel Cells (Auto) Urine Bacteria (Auto) Ur Random Creatinine Ur Random Sodium Nasal Screen MRSA (PCR) Digoxin 12/03/19 12/03/19 12/03/19 17:53 19:27 19:30 WBC RBC Hgb Hct MCV MCH MCHC RDW Std Deviation RDW Coeff of [place] Plt Count MPV Immature Gran % (Auto) Neut % (Auto) Lymph % (Auto) [place] % (Auto) Eos % (Auto) Baso % (Auto) Neut # (Auto) Lymph # (Auto) [place] # (Auto) Eos # (Auto) Baso # (Auto) Immature Gran # (Auto) PT INR APTT PTT Ratio Sodium Potassium Chloride Carbon Dioxide Anion Gap BUN Creatinine Est Cr Clr Drug Dosing Est GFR ( Amer) Est GFR (Non-Af Amer) BUN/Creatinine Ratio Glucose POC Glucose Lactate 1.4 Calcium Magnesium Total Bilirubin AST ALT Alkaline Phosphatase Troponin I Total Protein Albumin Globulin Albumin/Globulin Ratio Lipase TSH Urine Color Yellow Urine Appearance Clear Urine pH 5.5 Ur Specific [place] 1.012 Urine Protein Negative Urine Glucose (UA) Negative Urine Ketones Negative Urine Blood Trace H Urine Nitrite Negative Urine Bilirubin Negative Urine Urobilinogen Negative Ur Leukocyte Esterase Negative Urine WBC (Auto) 0 Urine RBC (Auto) 0-4 U Hyaline Cast (Auto) 1-5 U Epithel Cells (Auto) 5-10 H Urine Bacteria (Auto) Negative Ur Random Creatinine Ur Random Sodium Nasal Screen MRSA (PCR) Digoxin 0.1 L 12/03/19 12/03/19 12/04/19 22:17 22:50 07:20 WBC RBC Hgb Hct MCV MCH MCHC RDW Std Deviation RDW Coeff of [place] Plt Count MPV Immature Gran % (Auto) Neut % (Auto) Lymph % (Auto) [place] % (Auto) Eos % (Auto) Baso % (Auto) Neut # (Auto) Lymph # (Auto) [place] # (Auto) Eos # (Auto) Baso # (Auto) Immature Gran # (Auto) PT INR APTT PTT Ratio Sodium 132 L Potassium 2.8 L Chloride 89 L Carbon Dioxide 31 Anion Gap 13.0 H BUN 186 H Creatinine 4.34 H D Est Cr Clr Drug Dosing 13.7 Est GFR ( Amer) 14.6 Est GFR (Non-Af Amer) 12.6 BUN/Creatinine Ratio 42.8 H Glucose 154 H POC Glucose 155 H Lactate Calcium 8.0 L Magnesium Total Bilirubin AST ALT Alkaline Phosphatase Troponin I Total Protein Albumin Globulin Albumin/Globulin Ratio Lipase TSH Urine Color Urine Appearance Urine pH Ur Specific [place] Urine Protein Urine Glucose (UA) Urine Ketones Urine Blood Urine Nitrite Urine Bilirubin Urine Urobilinogen Ur Leukocyte Esterase Urine WBC (Auto) Urine RBC (Auto) U Hyaline Cast (Auto) U Epithel Cells (Auto) Urine Bacteria (Auto) Ur Random Creatinine Ur Random Sodium Nasal Screen MRSA (PCR) Negative Digoxin 12/04/19 12/04/19 12/04/19 07:20 07:26 11:38 WBC RBC Hgb Hct MCV MCH MCHC RDW Std Deviation RDW Coeff of [place] Plt Count MPV Immature Gran % (Auto) Neut % (Auto) Lymph % (Auto) [place] % (Auto) Eos % (Auto) Baso % (Auto) Neut # (Auto) Lymph # (Auto) [place] # (Auto) Eos # (Auto) Baso # (Auto) Immature Gran # (Auto) PT 36.7 H INR 3.7 H APTT PTT Ratio Sodium Potassium Chloride Carbon Dioxide Anion Gap BUN Creatinine Est Cr Clr Drug Dosing Est GFR ( Amer) Est GFR (Non-Af Amer) BUN/Creatinine Ratio Glucose POC Glucose 184 H 208 H Lactate Calcium Magnesium Total Bilirubin AST ALT Alkaline Phosphatase Troponin I Total Protein Albumin Globulin Albumin/Globulin Ratio Lipase TSH Urine Color Urine Appearance Urine pH Ur Specific [place] Urine Protein Urine Glucose (UA) Urine Ketones Urine Blood Urine Nitrite Urine Bilirubin Urine Urobilinogen Ur Leukocyte Esterase Urine WBC (Auto) Urine RBC (Auto) U Hyaline Cast (Auto) U Epithel Cells (Auto) Urine Bacteria (Auto) Ur Random Creatinine Ur Random Sodium Nasal Screen MRSA (PCR) Digoxin 12/04/19 11:51 WBC RBC Hgb Hct MCV MCH MCHC RDW Std Deviation RDW Coeff of [place] Plt Count MPV Immature Gran % (Auto) Neut % (Auto) Lymph % (Auto) [place] % (Auto) Eos % (Auto) Baso % (Auto) Neut # (Auto) Lymph # (Auto) [place] # (Auto) Eos # (Auto) Baso # (Auto) Immature Gran # (Auto) PT INR APTT PTT Ratio Sodium Potassium Chloride Carbon Dioxide Anion Gap BUN Creatinine Est Cr Clr Drug Dosing Est GFR ( Amer) Est GFR (Non-Af Amer) BUN/Creatinine Ratio Glucose POC Glucose Lactate Calcium Magnesium Total Bilirubin AST ALT Alkaline Phosphatase Troponin I Total Protein Albumin Globulin Albumin/Globulin Ratio Lipase TSH Urine Color Urine Appearance Urine pH Ur Specific [place] Urine Protein Urine Glucose (UA) Urine Ketones Urine Blood Urine Nitrite Urine Bilirubin Urine Urobilinogen Ur Leukocyte Esterase Urine WBC (Auto) Urine RBC (Auto) U Hyaline Cast (Auto) U Epithel Cells (Auto) Urine Bacteria (Auto) Ur Random Creatinine 53.1 Ur Random Sodium 42 Nasal Screen MRSA (PCR) Digoxin Medications Administered Current Inpatient Medications Acetaminophen (Acetaminophen 325 Mg Tab) 650 mg PO Q4H PRN PRN Reason: Pain or Fever Stop: 01/02/20 21:35 Aspirin (Aspirin 81 Mg Ectab) 81 mg PO DAILY [facility] Stop: 01/03/20 08:59 Last Admin: 12/04/19 08:43 Dose: 81 mg Documented by: Atorvastatin Calcium (Atorvastatin 20 Mg Tab) 20 mg PO HS [facility] Stop: 01/03/20 20:59 Carvedilol (Carvedilol 12.5 Mg Tab) 12.5 mg PO BID [facility] Stop: 01/02/20 21:59 Last Admin: 12/04/19 08:43 Dose: 12.5 mg Documented by: Dextrose (Dextrose 50% 50 Ml Syringe) 25 - 50 ml IV UD PRN; Protocol PRN Reason: Hypoglycemia Protocol Stop: 01/02/20 22:05 Glucagon (Glucagon For Inj 1 Mg Vial) 1 mg SQ UD PRN; Protocol PRN Reason: Hypoglycemia Protocol Stop: 01/02/20 22:05 Glucose (Glucose 10 Tabs/Tube) 4 - 8 tabs PO UD PRN; Protocol PRN Reason: Hypoglycemia Protocol Stop: 01/02/20 22:05 Glucose (Glucose 40% Gel 15 Gm Tube) 15 - 30 gm PO UD PRN; Protocol PRN Reason: Hypoglycemia Protocol Stop: 01/02/20 22:05 Potassium Chloride/Sodium Chloride (Normal Saline W/20 Meq Kcl) 20 meq in 1,000 mls @ 80 mls/hr IV .[id number] DANIELLE Stop: 01/02/20 21:59 Last Admin: 12/04/19 10:46 Dose: 80 mls/hr Documented by: Insulin Aspart (Insulin Aspart 100 Units/Ml 3 Ml Pen) 0 units SC ACHS [facility] Stop: 01/03/20 07:29 Last Admin: 12/04/19 12:23 Dose: Not Given Documented by: Insulin Glargine (Insulin Glargine Solostar 100 Units/Ml 3 Ml Pen) 5 units SC BID [facility] Stop: 01/02/20 22:14 Last Admin: 12/04/19 08:59 Dose: Not Given Documented by: Miscellaneous (Carbohydrates For Hypoglycemia ) 15 - 30 gm PO UD PRN PRN Reason: Hypoglycemia Protocol Stop: 01/02/20 22:05 Ondansetron HCl (Ondansetron Inj 2 Mg/Ml 2 Ml Vial) 4 mg IV Q6H PRN PRN Reason: Nausea Stop: 01/02/20 22:11 Last Admin: 12/03/19 22:26 Dose: 4 mg Documented by: Polyethylene Glycol (Polyethylene (Miralax) 17 Gm Pack) 34 gm PO BID [facility] Stop: 01/02/20 21:35 Last Admin: 12/04/19 08:44 Dose: 17 gm Documented by: Potassium Chloride (Potassium Chloride 20 Meq Tabcr) 20 meq PO TID DANIELLE Stop: 01/03/20 20:59 Tamsulosin HCl (Tamsulosin Hcl 0.4 Mg Cap) 0.4 mg PO HS DANIELLE Stop: 01/03/20 20:59 Warfarin Sodium (Warfarin Sod 3 Mg Tab) 3 mg PO DAILY@1600 [facility] Stop: 01/03/20 15:59 PG Care Time/CCT Total # of Minutes Spent Total Time Spent with Patient: Total time spent is greater than 50% in coordination of care (as documented) at patient's floor/unit and/or counseling patient: Coding Level of Care Code 66104 Subseq Hosp Care Lvl 3 Diagnoses Acute kidney injury N17.9 Uremic encephalopathy G93.49; N19 Nausea & vomiting R11.2 Constipation K59.00 Chronic congestive heart failure I50.9 Type 2 diabetes mellitus E11.9 Enlarged prostate N40.0 Acute hyponatremia E87.1 Hypokalemia E87.6 Hypertension I10 Atherosclerotic heart disease I25.10 Ischemic cardiomyopathy I25.5 Atrial fibrillation I48.91 Hypercholesterolemia E78.00 DVT prophylaxis Z29.9
[2019-12-04] MEDS ORDERED: WARFARIN SOD 3 MG TAB PO SCH (16:00)
--- NOTE | 2019-12-04 16:00 | Electrocardiogram Report ---
Test Reason : Blood Pressure : / mmHG Vent. Rate : 088 BPM Atrial Rate : 100 BPM P-R Int : 000 ms QRS Dur : 180 ms QT Int : 502 ms P-R-T Axes : 000 -70 104 degrees QTc Int : 607 ms Atrial fibrillation Left axis deviation Non-specific intra-ventricular conduction block Abnormal ECG No previous ECGs available Confirmed by Cholo Mosquera ([id number]) on 12/04/2019 4:00:19 PM Referred By: Mere MONTELONGO Confirmed By:Cholo Mosquera
[2019-12-04] MEDS: TAMSULOSIN HCL 0.4 MG CAP PO SCH (21:15)
[2019-12-04] MEDS: POTASSIUM CHLORIDE 20 MEQ TABCR PO SCH (21:15)
[2019-12-04] MEDS: ATORVASTATIN 20 MG TAB PO SCH (21:16)
[2019-12-05 06:56] LABS: Hematocrit (blood only) 37.1 % (42-52); Hemoglobin 12.9 g/dL (14.0-18.0); Mean Corpuscular Hemoglobin 31.3 pg (25-34); Mean Corpuscular Hgb Conc 34.8 g/dL (32-36); Mean Platelet Volume 11.3 fL (7.4-10.4); Platelet Count 113 K/uL (130-400); RDW Coefficient of Variation 13.5 % (11.5-14.5); RDW Standard Deviation 44.5 fL (36.4-46.3); Red Blood Count 4.12 M/uL (4.7-6.1); White Blood Count 6.36 K/uL (4.8-10.8)
[2019-12-05 07:13] LABS: INR 3.7 (0.9-1.1); Prothrombin Time 36.7 Seconds (9.0-12.0)
[2019-12-05 07:57] LABS: Albumin Globulin Ratio 0.9 (0.9-2); Albumin Level 3.1 gm/dl (3.4-5.0); BUN Creatinine Ratio 42.8 (10-20); Bilirubin,Total 0.9 mg/dl (0.2-1); Calcium 7.2 mg/dl (8.5-10.1); Creatinine Clr Calc Pharmacy 16.7 ml/min; Est GFR (African American) 18.6; Globulin 3.3 gm/dl (2.5-4.0); Potassium 3.4 mmol/L (3.5-5.1); Total Protein 6.4 gm/dl (6.4-8.2)
[2019-12-05] MEDS: POLYETHYLENE (MIRALAX) 17 GM PACK PO SCH ×2 (08:28→20:13)
[2019-12-05] MEDS: POTASSIUM CHLORIDE 20 MEQ TABCR PO SCH ×3 (08:28→20:12)
[2019-12-05] MEDS: carvediloL 12.5 MG TAB PO SCH ×2 (08:29→20:11)
[2019-12-05] MEDS: ASPIRIN 81 MG ECTAB PO SCH (08:29)
[2019-12-05] MEDS: INSULIN ASPART 100 UNITS/ML 3 ML PEN SC SCH ×4 (08:50→21:21)
[2019-12-05] MEDS: INSULIN GLARGINE SOLOSTAR 100 UNITS/ML 3 ML PEN SC SCH ×2 (08:51→21:21)
--- NOTE | 2019-12-05 10:07 | Nephrology Progress Note ---
Date of Service December 05, 2019 Assessment & Plan (1) Acute kidney injury: * [place] due to dehydration in the setting of ongoing JINA, thiazide and loop diuretic * Hold lisinopril, metolazone and bumex * Urinalysis negative for protein. Urine microscopy negative for blood * Abdominal CT without contrast was negative for obstruction * Cr trending down w/ gentle hydration (4.6 --> 3.5) * FeNa 2% but patient remains clinically volume contracted * Continue IV hydration w/ 0.9NS + 20 mEq KCl at 80 cc/hr * Monitor PRP (2) Chronic kidney disease: * Hospitalist admission note reports baseline Cr 1.9 08/22 * Abdominal CT films reviewed today: bilateral large simple cysts and cortical thinning. No intervention required for cysts. No mass is present. Cysts do not appear to be causing mechanical obstruction (3) Hypokalemia: * Agree w/ IV repletion (4) Hypertension: * Currently w/ relative hypotension * Continue to hold JINA, thiazide and loop diuretic Admission and Anticipated Discharge Date Admission Date: December 03, 2019 Subjective Mr. Bonilla was seen & examined in his hospital room this morning. He reports that his nausea is mildly improved. He denied flank discomfort Review of Systems Constitutional: + weakness; no fever Eyes: no problem reported Respiratory: no dyspnea Cardiovascular: no chest pain Gastrointestinal: no vomiting Physical Exam Constitutional: + ill appearing; not in distress Eyes: PERRL, conjunctivae normal, anicteric sclerae ENMT: external ear and nose normal, oropharynx normal Neck: trachea midline, no thyromegaly Respiratory: normal respiratory effort, lungs clear to auscultation Cardiovascular: Rate/Rhythm: + irregularly irregular (AICD palpable beneath L clavicle) Gastrointestinal (Abdomen): Inspection/Auscultation: + hypoactive bowel sounds Percussion/Palpation: abdomen soft; abdomen nontender and no guarding Musculoskeletal: Extremities: no cyanosis Skin: no rashes, warm and dry Neurologic: awake; not confused Results & Data ([facility]) Vital Signs (Past 12 Hours) Vital Signs Temp Pulse Pulse Resp BP Pulse Ox 12/05/19 07:14 36.6 C 88 18 103/61 95 12/05/19 07:11 99 H 12/05/19 00:00 75 12/04/19 23:17 36.5 C 78 18 105/75 99 Laboratory Results Laboratory Tests 12/05/19 12/05/19 06:31 06:31 WBC 6.36 Hgb 12.9 L Hct 37.1 L Plt Count 113 L Sodium 139 D Potassium 3.4 L D Chloride 101 Carbon Dioxide 29 BUN 152 H Creatinine 3.56 H D Glucose 116 H PG Care Time/CCT Total # of Minutes Spent Total Time Spent with Patient: Total time spent is greater than 50% in coordination of care (as documented) at patient's floor/unit and/or counseling patient: Coding Level of Care Code 07365 Subseq Hosp Care Lvl 3 Diagnoses Acute kidney injury N17.9 Chronic kidney disease N18.9 Hypokalemia E87.6 Hypertension I10
--- NOTE | 2019-12-05 12:00 | Hospitalist Progress Note ---
Date of Service December 05, 2019 Assessment & Plan (1) Acute kidney injury: Suspect secondary to overdiuresis in setting of nausea and not eating. Holloway catheter placed in ER due to concern for urinary retention with BPH and moderate fecal impaction - keep holloway today, likely d/c tomorrow Hold bumex, metolazone, lisinopril. Gentle hydration to avoid hypervolemia in setting of chronic congestive heart failure. Cr down to 3.5 from 4.3, K low at 3.4 but improved from yesterday appreciate consult from Dr. Avina, continue IV fluids, repeat labs tomorrow will d/c holloway as he is making a lot of urine, no concerns for oliguria (2) Uremic encephalopathy: Suspect this was cause of lethargy, nausea resolved today, mental status clear, eating well, no nausea (3) Nausea & vomiting: Suspect secondary to uremic encephalopathy +/- moderate fecal retention. MiraLAX 34 g BID until he moves bowels, no report of BM today (4) Constipation: MiraLAX 34 g twice daily as above Monitor for BM. (5) Chronic congestive heart failure: Request prior notes from Dr Rich. No current acute exacerbation. (6) Type 2 diabetes mellitus: HbA1c with a.m. labs Hold outpatient medications: glimepiride. BSG ACHS Start Lantus 5 units SQ BID, NovoLog ACHS for correction and carb coverage. monitor for hypoglycemia (7) Enlarged prostate: Previously seen by urology in March. Should follow-up with urology due to heterogeneous nature of his prostate. Start tamsulosin 0.4 mg p.o. at bedtime (8) Acute hyponatremia: Suspect secondary to diuretic use and dehydration and will replace with NSS Na 139 (9) Hypokalemia: Suspect secondary to diuretics. continue Pot Chloride 20mEq TID K up to 3.4 today from 2.8 (10) Hypertension: Continue carvedilol 12.5 mg p.o. twice daily (11) Atherosclerotic heart disease: Troponin negative on admission. No chest pain or shortness of breath. Continue aspirin 81 mg p.o. daily, carvedilol 12.5 mg p.o. twice daily, atorvastatin 20 mg p.o. at bedtime Hold lisinopril as above. (12) Ischemic cardiomyopathy: Notable history of this. 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 (13) Atrial fibrillation: Continue anticoagulation with warfarin but a reduced dose due to supratherapeutic INR. Warfarin 3 mg daily (usually 4.5mg PO daily as per patient). Repeat PT/INR today is 3.7 continue to hold Coumadin (14) Hypercholesterolemia: Continue atorvastatin 20 mg p.o. at bedtime (15) DVT prophylaxis: INR 3.7 Admission and Anticipated Discharge Date Admission Date: December 03, 2019 Subjective patient doing okay, says he gets full quickly, not a great appetite, no vomiting has an intermittent cough, says this is chronic, no dyspnea he has no fever/chills, no abdominal pain making a lot of urine via holloway, will discontinue today Cr down to 3.5 and BUN down to 152, K is up to 3.4 on oral replacement discussed with Dr. Avina, appreciate his input on tele he is sinus but with intermittent afib with RVR, mostly well controlled Review of Systems Review of Systems: All systems reviewed & are unremarkable except as noted in Subjective Physical Exam Constitutional: WD/WN, vitals as above Eyes: PERRL, conjunctivae normal, anicteric sclerae ENMT: external ear and nose normal, oropharynx normal Neck: trachea midline, no thyromegaly Respiratory: normal respiratory effort, lungs clear to auscultation Cardiovascular: RRR, no murmur, no edema Gastrointestinal (Abdomen): normal bowel sounds, soft, nontender, no hepatosplenomegaly Musculoskeletal: no cyanosis or clubbing, extremities motor strength 5/5 Skin: no rashes, warm and dry Neurologic: patellar DTR's 2+ bilat, sensation intact and PERRL, EOMI, accommodation nl, no face palsy, no dysarthria Psychiatric: A+Ox3, euthymic affect Lymphatic: no cervical or axillary lymphadenopathy Results & Data Results & Data ([facility]) Vital Signs (Past 12 Hours) Vital Signs Temp Pulse Pulse Resp BP Pulse Ox 12/05/19 11:23 36.7 C 69 18 95/55 L 98 12/05/19 07:14 36.6 C 88 18 103/61 95 12/05/19 07:11 99 H 12/05/19 00:00 75 Laboratory Results Laboratory Results - last 24 hr 12/04/19 12/04/19 12/04/19 11:51 16:46 20:22 WBC RBC Hgb Hct MCV MCH MCHC RDW Std Deviation RDW Coeff of Tommie Plt Count MPV PT INR Sodium Potassium Chloride Carbon Dioxide Anion Gap BUN Creatinine Est Cr Clr Drug Dosing Est GFR ( Amer) Est GFR (Non-Af Amer) BUN/Creatinine Ratio Glucose POC Glucose 133 H 180 H Calcium Total Bilirubin AST ALT Alkaline Phosphatase Total Protein Albumin Globulin Albumin/Globulin Ratio Ur Random Creatinine 53.1 Ur Random Sodium 42 12/05/19 12/05/19 12/05/19 06:31 06:31 06:31 WBC 6.36 RBC 4.12 L Hgb 12.9 L Hct 37.1 L MCV 90.0 MCH 31.3 MCHC 34.8 RDW Std Deviation 44.5 RDW Coeff of Tommie 13.5 Plt Count 113 L MPV 11.3 H PT 36.7 H INR 3.7 H Sodium 139 D Potassium 3.4 L D Chloride 101 Carbon Dioxide 29 Anion Gap 9.0 BUN 152 H Creatinine 3.56 H D Est Cr Clr Drug Dosing 16.7 Est GFR ( Amer) 18.6 Est GFR (Non-Af Amer) 16.0 BUN/Creatinine Ratio 42.8 H Glucose 116 H POC Glucose Calcium 7.2 L Total Bilirubin 0.9 D AST 16 ALT 18 Alkaline Phosphatase 46 Total Protein 6.4 D Albumin 3.1 L Globulin 3.3 Albumin/Globulin Ratio 0.9 Ur Random Creatinine Ur Random Sodium 12/05/19 12/05/19 07:31 11:30 WBC RBC Hgb Hct MCV MCH MCHC RDW Std Deviation RDW Coeff of Tommie Plt Count MPV PT INR Sodium Potassium Chloride Carbon Dioxide Anion Gap BUN Creatinine Est Cr Clr Drug Dosing Est GFR ( Amer) Est GFR (Non-Af Amer) BUN/Creatinine Ratio Glucose POC Glucose 138 H 271 H Calcium Total Bilirubin AST ALT Alkaline Phosphatase Total Protein Albumin Globulin Albumin/Globulin Ratio Ur Random Creatinine Ur Random Sodium Medications Administered Current Inpatient Medications Acetaminophen (Acetaminophen 325 Mg Tab) 650 mg PO Q4H PRN PRN Reason: Pain or Fever Stop: 01/02/20 21:35 Aspirin (Aspirin 81 Mg Ectab) 81 mg PO DAILY DANIELLE Stop: 01/03/20 08:59 Last Admin: 12/05/19 08:29 Dose: 81 mg Documented by: Atorvastatin Calcium (Atorvastatin 20 Mg Tab) 20 mg PO HS DANIELLE Stop: 01/03/20 20:59 Last Admin: 12/04/19 21:16 Dose: 20 mg Documented by: Carvedilol (Carvedilol 12.5 Mg Tab) 12.5 mg PO BID DANIELLE Stop: 01/02/20 21:59 Last Admin: 12/05/19 08:29 Dose: 12.5 mg Documented by: Dextrose (Dextrose 50% 50 Ml Syringe) 25 - 50 ml IV UD PRN; Protocol PRN Reason: Hypoglycemia Protocol Stop: 01/02/20 22:05 Glucagon (Glucagon For Inj 1 Mg Vial) 1 mg SQ UD PRN; Protocol PRN Reason: Hypoglycemia Protocol Stop: 01/02/20 22:05 Glucose (Glucose 10 Tabs/Tube) 4 - 8 tabs PO UD PRN; Protocol PRN Reason: Hypoglycemia Protocol Stop: 01/02/20 22:05 Glucose (Glucose 40% Gel 15 Gm Tube) 15 - 30 gm PO UD PRN; Protocol PRN Reason: Hypoglycemia Protocol Stop: 01/02/20 22:05 Potassium Chloride/Sodium Chloride (Normal Saline W/20 Meq Kcl) 20 meq in 1,000 mls @ 80 mls/hr IV .[id number] DANIELLE Stop: 01/02/20 21:59 Last Admin: 12/04/19 23:18 Dose: 80 mls/hr Documented by: Insulin Aspart (Insulin Aspart 100 Units/Ml 3 Ml Pen) 0 units SC ACHS [facility] Stop: 01/03/20 07:29 Last Admin: 12/05/19 08:50 Dose: Not Given Documented by: Insulin Glargine (Insulin Glargine Solostar 100 Units/Ml 3 Ml Pen) 5 units SC BID DANIELLE Stop: 01/02/20 22:14 Last Admin: 12/05/19 08:51 Dose: Not Given Documented by: Miscellaneous (Carbohydrates For Hypoglycemia ) 15 - 30 gm PO UD PRN PRN Reason: Hypoglycemia Protocol Stop: 01/02/20 22:05 Ondansetron HCl (Ondansetron Inj 2 Mg/Ml 2 Ml Vial) 4 mg IV Q6H PRN PRN Reason: Nausea Stop: 01/02/20 22:11 Last Admin: 12/03/19 22:26 Dose: 4 mg Documented by: Polyethylene Glycol (Polyethylene (Miralax) 17 Gm Pack) 34 gm PO BID [facility] Stop: 01/02/20 21:35 Last Admin: 12/05/19 08:28 Dose: 34 gm Documented by: Potassium Chloride (Potassium Chloride 20 Meq Tabcr) 20 meq PO TID DANIELLE Stop: 01/03/20 20:59 Last Admin: 12/05/19 08:28 Dose: 20 meq Documented by: Tamsulosin HCl (Tamsulosin Hcl 0.4 Mg Cap) 0.4 mg PO HS DANIELLE Stop: 01/03/20 20:59 Last Admin: 12/04/19 21:15 Dose: 0.4 mg Documented by: PG Care Time/CCT Total # of Minutes Spent Total Time Spent with Patient: Total time spent is greater than 50% in coordination of care (as documented) at patient's floor/unit and/or counseling patient: Coding Level of Care Code 10685 Subseq Hosp Care Lvl 3 Diagnoses Acute kidney injury N17.9 Uremic encephalopathy G93.49; N19 Nausea & vomiting R11.2 Constipation K59.00 Chronic congestive heart failure I50.9 Type 2 diabetes mellitus E11.9 Enlarged prostate N40.0 Acute hyponatremia E87.1 Hypokalemia E87.6 Hypertension I10 Atherosclerotic heart disease I25.10 Ischemic cardiomyopathy I25.5 Atrial fibrillation I48.91 Hypercholesterolemia E78.00 DVT prophylaxis Z29.9
[2019-12-05] MEDS: NSS + 20MEQ KCL 20 MEQ/1,000 ML BAG IV SCH (12:30)
[2019-12-05] MEDS: TAMSULOSIN HCL 0.4 MG CAP PO SCH (20:11)
[2019-12-05] MEDS: ATORVASTATIN 20 MG TAB PO SCH (20:12)
[2019-12-06] MEDS: NSS + 20MEQ KCL 20 MEQ/1,000 ML BAG IV SCH ×2 (00:18→12:54)
[2019-12-06 06:23] LABS: INR 2.2 (0.9-1.1)
[2019-12-06 06:46] LABS: BUN Creatinine Ratio 42.1 (10-20); Calcium 7.3 mg/dl (8.5-10.1); Est GFR (African American) 23.1; Est GFR (Non-African American) 19.9; Potassium 3.8 mmol/L (3.5-5.1)
[2019-12-06] MEDS: INSULIN ASPART 100 UNITS/ML 3 ML PEN SC SCH ×4 (08:47→20:34)
[2019-12-06] MEDS: POTASSIUM CHLORIDE 20 MEQ TABCR PO SCH ×3 (08:48→20:28)
[2019-12-06] MEDS: carvediloL 12.5 MG TAB PO SCH ×2 (08:48→20:26)
[2019-12-06] MEDS: ASPIRIN 81 MG ECTAB PO SCH (08:48)
[2019-12-06] MEDS: INSULIN GLARGINE SOLOSTAR 100 UNITS/ML 3 ML PEN SC SCH ×2 (08:48→20:34)
[2019-12-06] MEDS: POLYETHYLENE (MIRALAX) 17 GM PACK PO SCH (08:49)
[2019-12-06] MEDS ORDERED: DOCUSATE SODIUM 100 MG CAP PO PRN (09:11)
--- NOTE | 2019-12-06 09:29 | Nephrology Progress Note ---
Date of Service December 06, 2019 Assessment & Plan (1) Acute kidney injury: * [place] due to dehydration in the setting of ongoing JINA, thiazide and loop diuretic * Continue to hold lisinopril, metolazone and bumex * Urinalysis negative for protein. Urine microscopy negative for blood * Abdominal CT without contrast was negative for obstruction * Cr trending down w/ gentle hydration (4.6 --> 2.9) * FeNa 2% but patient remains clinically volume contracted * Continue IV hydration w/ 0.9NS + 20 mEq KCl at 80 cc/hr * Monitor PRP (2) Chronic kidney disease: * Hospitalist admission note reports baseline Cr 1.9 08/22 * Abdominal CT 12/03/19: bilateral large simple cysts and cortical thinning. No intervention required for cysts. No mass is present. Cysts do not appear to be causing mechanical obstruction (3) Hypokalemia: * Corrected w/ IV supplementation * Patient is receiving 20 mEq KCl in IVF (4) Hypertension: * Currently w/ relative hypotension * Continue to hold JINA, thiazide and loop diuretic (5) Constipation: * Patient has been on BID Miralax * c/o hard stool. Will add PRN stool softener Admission and Anticipated Discharge Date Admission Date: December 03, 2019 Subjective Mr. Bonilla was seen & examined in his hospital room this morning. He is tolerating IV hydration without dyspnea. His only complaint is constipation. He denies difficulty voiding or flank discomfort Review of Systems Constitutional: + weakness; no fever Eyes: no problem reported Respiratory: no dyspnea Cardiovascular: no chest pain Gastrointestinal: + constipation; no abdominal pain and no vomiting Genitourinary: no dysuria and no hematuria Physical Exam Constitutional: + ill appearing; not in distress Eyes: PERRL, conjunctivae normal, anicteric sclerae ENMT: external ear and nose normal, oropharynx normal Neck: trachea midline, no thyromegaly Respiratory: normal respiratory effort, lungs clear to auscultation Cardiovascular: Rate/Rhythm: + irregularly irregular (AICD palpable beneath L clavicle) Gastrointestinal (Abdomen): Inspection/Auscultation: + hypoactive bowel sounds Percussion/Palpation: abdomen soft; abdomen nontender and no guarding Musculoskeletal: Extremities: no cyanosis Skin: no rashes, warm and dry Neurologic: awake; not confused Results & Data ([place]) Vital Signs (Past 12 Hours) Vital Signs Temp Pulse Pulse Resp BP Pulse Ox 12/06/19 07:57 36.5 C 71 18 119/72 97 12/06/19 07:23 62 12/06/19 04:09 36.8 C 102 H 19 119/84 94 12/06/19 01:21 89 12/06/19 00:06 36.6 C 79 19 110/76 96 Laboratory Results Laboratory Tests 12/05/19 12/06/19 06:31 05:38 WBC 6.36 Hgb 12.9 L Hct 37.1 L Plt Count 113 L Sodium 141 Potassium 3.8 Chloride 107 Carbon Dioxide 27 BUN 125 H Creatinine 2.97 H D Glucose 123 H PG Care Time/CCT Total # of Minutes Spent Total Time Spent with Patient: Total time spent is greater than 50% in coordination of care (as documented) at patient's floor/unit and/or counseling patient: Coding Level of Care Code 80357 Subseq Hosp Care Lvl 3 Diagnoses Acute kidney injury N17.9 Chronic kidney disease N18.9 Hypokalemia E87.6 Hypertension I10 Constipation K59.00
--- NOTE | 2019-12-06 15:51 | Hospitalist Progress Note ---
Date of Service December 06, 2019 Assessment & Plan (1) Acute kidney injury: Suspect secondary to overdiuresis in setting of nausea and not eating. Holloway catheter placed in ER due to concern for urinary retention with BPH and moderate fecal impaction - keep holloway today, likely d/c tomorrow Hold bumex, metolazone, lisinopril. Gentle hydration to avoid hypervolemia in setting of chronic congestive heart failure. Cr down to 2.97 from 4.3, K up to 3.8 but improved from yesterday appreciate consult from Dr. Avina, continue IV fluids, repeat labs tomorrow making urine after holloway removed (2) Uremic encephalopathy: Suspect this was cause of lethargy, nausea resolved today, mental status clear, eating well, no nausea (3) Nausea & vomiting: Suspect secondary to uremic encephalopathy +/- moderate fecal retention. MiraLAX 34 g BID, he moved bowels today, very hard stool back off Miralax to daily (4) Constipation: BM today (5) Chronic congestive heart failure: Request prior notes from Dr Rich. No current acute exacerbation. (6) Type 2 diabetes mellitus: HbA1c with a.m. labs Hold outpatient medications: glimepiride. BSG ACHS Start Lantus 5 units SQ BID, NovoLog ACHS for correction and carb coverage. monitor for hypoglycemia (7) Enlarged prostate: Previously seen by urology in March. Should follow-up with urology due to heterogeneous nature of his prostate. Start tamsulosin 0.4 mg p.o. at bedtime (8) Acute hyponatremia: Suspect secondary to diuretic use and dehydration and will replace with NSS Na 141 (9) Hypokalemia: Suspect secondary to diuretics. continue Pot Chloride 20mEq TID K up to 3.8 (10) Hypertension: Continue carvedilol 12.5 mg p.o. twice daily (11) Atherosclerotic heart disease: Troponin negative on admission. No chest pain or shortness of breath. Continue aspirin 81 mg p.o. daily, carvedilol 12.5 mg p.o. twice daily, atorvastatin 20 mg p.o. at bedtime Hold lisinopril as above. (12) Ischemic cardiomyopathy: Notable history of this. 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 (13) Atrial fibrillation: Repeat PT/INR today is 2.2 resume Coumadin at 3mg daily (14) Hypercholesterolemia: Continue atorvastatin 20 mg p.o. at bedtime (15) DVT prophylaxis: INR 2.2 Admission and Anticipated Discharge Date Admission Date: December 03, 2019 Subjective patient doing fine today eating a little bit, no nausea Cr improving steadily, down to 2.97, K is 3.8, INR 2.2 having some brief runs of V tach on monitor, brief afib with RVR Review of Systems Review of Systems: All systems reviewed & are unremarkable except as noted in Subjective Physical Exam Constitutional: WD/WN, vitals as above Eyes: PERRL, conjunctivae normal, anicteric sclerae ENMT: external ear and nose normal, oropharynx normal Neck: trachea midline, no thyromegaly Respiratory: normal respiratory effort, lungs clear to auscultation Cardiovascular: RRR, no murmur, no edema Gastrointestinal (Abdomen): normal bowel sounds, soft, nontender, no hepatosplenomegaly Musculoskeletal: no cyanosis or clubbing, extremities motor strength 5/5 Skin: no rashes, warm and dry Neurologic: patellar DTR's 2+ bilat, sensation intact and PERRL, EOMI, accommodation nl, no face palsy, no dysarthria Psychiatric: A+Ox3, euthymic affect Lymphatic: no cervical or axillary lymphadenopathy Results & Data Results & Data ([facility]) Vital Signs (Past 12 Hours) Vital Signs Temp Pulse Pulse Resp BP Pulse Ox 12/06/19 07:57 36.5 C 71 18 119/72 97 12/06/19 07:23 62 12/06/19 04:09 36.8 C 102 H 19 119/84 94 Laboratory Results Laboratory Results - last 24 hr 12/05/19 12/05/19 12/06/19 16:27 20:45 05:38 PT INR Sodium 141 Potassium 3.8 Chloride 107 Carbon Dioxide 27 Anion Gap 8.0 BUN 125 H Creatinine 2.97 H D Est Cr Clr Drug Dosing 20.0 Est GFR ( Amer) 23.1 Est GFR (Non-Af Amer) 19.9 BUN/Creatinine Ratio 42.1 H Glucose 123 H POC Glucose 200 H 274 H Calcium 7.3 L 12/06/19 12/06/19 12/06/19 05:38 07:54 12:02 PT 22.0 H INR 2.2 H Sodium Potassium Chloride Carbon Dioxide Anion Gap BUN Creatinine Est Cr Clr Drug Dosing Est GFR ( Amer) Est GFR (Non-Af Amer) BUN/Creatinine Ratio Glucose POC Glucose 122 H 262 H Calcium Medications Administered Current Inpatient Medications Acetaminophen (Acetaminophen 325 Mg Tab) 650 mg PO Q4H PRN PRN Reason: Pain or Fever Stop: 01/02/20 21:35 Aspirin (Aspirin 81 Mg Ectab) 81 mg PO DAILY DANIELLE Stop: 01/03/20 08:59 Last Admin: 12/06/19 08:48 Dose: 81 mg Documented by: Atorvastatin Calcium (Atorvastatin 20 Mg Tab) 20 mg PO HS DANIELLE Stop: 01/03/20 20:59 Last Admin: 12/05/19 20:12 Dose: 20 mg Documented by: Carvedilol (Carvedilol 12.5 Mg Tab) 12.5 mg PO BID DANIELLE Stop: 01/02/20 21:59 Last Admin: 12/06/19 08:48 Dose: 12.5 mg Documented by: Dextrose (Dextrose 50% 50 Ml Syringe) 25 - 50 ml IV UD PRN; Protocol PRN Reason: Hypoglycemia Protocol Stop: 01/02/20 22:05 Docusate Sodium (Docusate Sodium 100 Mg Cap) 100 mg PO DAILY PRN PRN Reason: Constipation Stop: 01/05/20 09:10 Last Admin: 12/06/19 14:21 Dose: 100 mg Documented by: Glucagon (Glucagon For Inj 1 Mg Vial) 1 mg SQ UD PRN; Protocol PRN Reason: Hypoglycemia Protocol Stop: 01/02/20 22:05 Glucose (Glucose 10 Tabs/Tube) 4 - 8 tabs PO UD PRN; Protocol PRN Reason: Hypoglycemia Protocol Stop: 01/02/20 22:05 Glucose (Glucose 40% Gel 15 Gm Tube) 15 - 30 gm PO UD PRN; Protocol PRN Reason: Hypoglycemia Protocol Stop: 01/02/20 22:05 Potassium Chloride/Sodium Chloride (Normal Saline W/20 Meq Kcl) 20 meq in 1,000 mls @ 80 mls/hr IV .[id number] DANIELLE Stop: 01/02/20 21:59 Last Admin: 12/06/19 12:54 Dose: 80 mls/hr Documented by: Insulin Aspart (Insulin Aspart 100 Units/Ml 3 Ml Pen) 0 units SC ACHS DANIELLE Stop: 01/03/20 07:29 Last Admin: 12/06/19 12:31 Dose: Not Given Documented by: Insulin Glargine (Insulin Glargine Solostar 100 Units/Ml 3 Ml Pen) 5 units SC BID [facility] Stop: 01/02/20 22:14 Last Admin: 12/06/19 08:48 Dose: Not Given Documented by: Miscellaneous (Carbohydrates For Hypoglycemia ) 15 - 30 gm PO UD PRN PRN Reason: Hypoglycemia Protocol Stop: 01/02/20 22:05 Ondansetron HCl (Ondansetron Inj 2 Mg/Ml 2 Ml Vial) 4 mg IV Q6H PRN PRN Reason: Nausea Stop: 01/02/20 22:11 Last Admin: 12/03/19 22:26 Dose: 4 mg Documented by: Polyethylene Glycol (Polyethylene (Miralax) 17 Gm Pack) 34 gm PO BID [facility] Stop: 01/02/20 21:35 Last Admin: 12/06/19 08:49 Dose: 34 gm Documented by: Potassium Chloride (Potassium Chloride 20 Meq Tabcr) 20 meq PO TID DANIELLE Stop: 01/03/20 20:59 Last Admin: 12/06/19 14:21 Dose: 20 meq Documented by: Tamsulosin HCl (Tamsulosin Hcl 0.4 Mg Cap) 0.4 mg PO HS [facility] Stop: 01/03/20 20:59 Last Admin: 12/05/19 20:11 Dose: 0.4 mg Documented by: PG Care Time/CCT Total # of Minutes Spent Total Time Spent with Patient: Total time spent is greater than 50% in coordination of care (as documented) at patient's floor/unit and/or counseling patient: Coding Level of Care Code 82354 Subseq Hosp Care Lvl 3 Diagnoses Acute kidney injury N17.9 Uremic encephalopathy G93.49; N19 Nausea & vomiting R11.2 Constipation K59.00 Chronic congestive heart failure I50.9 Type 2 diabetes mellitus E11.9 Enlarged prostate N40.0 Acute hyponatremia E87.1 Hypokalemia E87.6 Hypertension I10 Atherosclerotic heart disease I25.10 Ischemic cardiomyopathy I25.5 Atrial fibrillation I48.91 Hypercholesterolemia E78.00 DVT prophylaxis Z29.9
[2019-12-06] MEDS: TAMSULOSIN HCL 0.4 MG CAP PO SCH (20:27)
[2019-12-06] MEDS: ATORVASTATIN 20 MG TAB PO SCH (20:29)
[2019-12-06] MEDS ORDERED: WARFARIN SOD 4 MG TAB PO ONE (21:00)
[2019-12-06] MEDS: DOCUSATE SODIUM 100 MG CAP PO SCH (22:01)
[2019-12-07] MEDS: NSS + 20MEQ KCL 20 MEQ/1,000 ML BAG IV SCH ×2 (01:03→13:32)
[2019-12-07] MEDS: DOCUSATE SODIUM 100 MG CAP PO SCH ×2 (08:01→21:25)
[2019-12-07] MEDS: ASPIRIN 81 MG ECTAB PO SCH (08:01)
[2019-12-07] MEDS: POLYETHYLENE (MIRALAX) 17 GM PACK PO SCH (08:01)
[2019-12-07] MEDS: POTASSIUM CHLORIDE 20 MEQ TABCR PO SCH ×2 (08:01→13:32)
[2019-12-07] MEDS: INSULIN ASPART 100 UNITS/ML 3 ML PEN SC SCH ×4 (08:02→21:24)
[2019-12-07] MEDS: INSULIN GLARGINE SOLOSTAR 100 UNITS/ML 3 ML PEN SC SCH ×2 (08:02→21:23)
[2019-12-07] MEDS: carvediloL 12.5 MG TAB PO SCH ×2 (08:56→21:25)
[2019-12-07 09:26] LABS: BUN Creatinine Ratio 35.3 (10-20); Calcium 7.8 mg/dl (8.5-10.1); Creatinine Clr Calc Pharmacy 25.5 ml/min; Est GFR (Non-African American) 26.7; Potassium 4.3 mmol/L (3.5-5.1)
[2019-12-07 10:19] LABS: Hematocrit (blood only) 37.1 % (42-52); Hemoglobin 12.3 g/dL (14.0-18.0); Mean Corpuscular Hemoglobin 31.4 pg (25-34); Mean Corpuscular Hgb Conc 33.2 g/dL (32-36); Mean Corpuscular Volume 94.6 fL (80-100); Mean Platelet Volume 11.7 fL (7.4-10.4); Platelet Count 121 K/uL (130-400); RDW Coefficient of Variation 14.2 % (11.5-14.5); RDW Standard Deviation 48.6 fL (36.4-46.3); Red Blood Count 3.92 M/uL (4.7-6.1); White Blood Count 7.55 K/uL (4.8-10.8)
--- NOTE | 2019-12-07 11:59 | Nephrology Progress Note ---
Date of Service December 07, 2019 Assessment & Plan (1) Acute kidney injury: Acute kidney injury in the setting of volume depletion, creatinine peaked to 4.6, now improved to 2.3, with baseline creatinine around 1.6. Urinalysis unremarkable. No postrenal obstruction. Blood pressure well controlled. Voiding normally. Kidney function continues to improve slowly, creatinine 2.3 this morning, electrolyte acceptable. --continue to monitor renal function with daily renal panel while inpatient --okay to discharge when medically stable, encouraged to keep adequate p.o. intake, avoid all nephrotoxic medication including NSAIDs. 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 Renal function has been slowly improving, creatinine down to 2.3, electrolyte acceptable. Blood pressure controlled, voiding OK. Review of Systems Review of Systems: All systems reviewed & are unremarkable except as noted in HPI & below Physical Exam Constitutional: well developed and well nourished; no acute distress Respiratory: normal respiratory effort, lungs clear to auscultation Cardiovascular: RRR, no murmur, no edema Neurologic: moves all extremities and awake; not confused Psychiatric: A+Ox3, euthymic affect Results & Data ([facility]) Vital Signs (Past 12 Hours) Vital Signs Temp Pulse Pulse Resp BP Pulse Ox 12/07/19 08:08 36.5 C 109 H 18 103/69 97 12/07/19 00:00 87 PG Care Time/CCT Total # of Minutes Spent Total Time Spent with Patient: Total time spent is greater than 50% in coordination of care (as documented) at patient's floor/unit and/or counseling patient: Coding Level of Care Code 30291 Subseq Hosp Care Lvl 3 Diagnoses Acute kidney injury N17.9 Acute hyponatremia E87.1 Hypertension I10 Chronic kidney disease N18.9 Hypokalemia E87.6
--- NOTE | 2019-12-07 15:32 | Hospitalist Progress Note ---
Date of Service December 07, 2019 Assessment & Plan (1) Acute kidney injury: Suspect secondary to overdiuresis in setting of nausea and not eating. Holloway catheter placed in ER due to concern for urinary retention with BPH and moderate fecal impaction - holloway out Hold bumex, metolazone, lisinopril. Gentle hydration to avoid hypervolemia in setting of chronic congestive heart failure. Cr down to 2.33 from 4.3, K is 4.1 will stop fluids, check Cr in the morning, if it continues to improve then likely d/c back to [facility] tomorrow (2) Uremic encephalopathy: Suspect this was cause of lethargy, nausea resolved today, mental status clear, eating well, no nausea (3) Nausea & vomiting: Suspect secondary to uremic encephalopathy +/- moderate fecal retention. MiraLAX 34 g BID, he moved bowels yesterday and today back off Miralax to daily no vomiting today (4) Constipation: BM yesterday and today, feeling much better (5) Chronic congestive heart failure: Request prior notes from Dr Rich. No current acute exacerbation. (6) Type 2 diabetes mellitus: HbA1c with a.m. labs Hold outpatient medications: glimepiride. BSG ACHS Start Lantus 5 units SQ BID, NovoLog ACHS for correction and carb coverage. monitor for hypoglycemia, no episodes (7) Enlarged prostate: Previously seen by urology in March. Should follow-up with urology due to heterogeneous nature of his prostate. Start tamsulosin 0.4 mg p.o. at bedtime (8) Acute hyponatremia: Suspect secondary to diuretic use and dehydration and will replace with NSS resolved (9) Hypokalemia: Suspect secondary to diuretics. stop Pot Chloride 20mEq TID K up to 4.1 (10) Hypertension: Continue carvedilol 12.5 mg p.o. twice daily (11) Atherosclerotic heart disease: Troponin negative on admission. No chest pain or shortness of breath. Continue aspirin 81 mg p.o. daily, carvedilol 12.5 mg p.o. twice daily, atorvastatin 20 mg p.o. at bedtime Hold lisinopril as above. (12) Ischemic cardiomyopathy: Notable history of this. HIM request for prior note from his c ardiologist. (13) Atrial fibrillation: no INR today, check tomorrow continue Coumadin at 3mg daily (14) Hypercholesterolemia: Continue atorvastatin 20 mg p.o. at bedtime (15) DVT prophylaxis: INR 2.2 yesterday Admission and Anticipated Discharge Date Admission Date: December 03, 2019 Subjective patient doing well, moved his bowels, eating all of his food Cr and BUN coming down further, continue fluids for today electrolytes are stable discussed with him that he will be here at least another day no acute changes had a few runs fo V tach on monitor but this has been common he has an ICD Review of Systems Review of Systems: All systems reviewed & are unremarkable except as noted in Subjective Physical Exam Constitutional: WD/WN, vitals as above Eyes: PERRL, conjunctivae normal, anicteric sclerae ENMT: external ear and nose normal, oropharynx normal Neck: trachea midline, no thyromegaly Respiratory: normal respiratory effort, lungs clear to auscultation Cardiovascular: RRR, no murmur, no edema Gastrointestinal (Abdomen): normal bowel sounds, soft, nontender, no hepatosplenomegaly Musculoskeletal: no cyanosis or clubbing, extremities motor strength 5/5 Skin: no rashes, warm and dry Neurologic: patellar DTR's 2+ bilat, sensation intact and PERRL, EOMI, accommodation nl, no face palsy, no dysarthria Psychiatric: A+Ox3, euthymic affect Lymphatic: no cervical or axillary lymphadenopathy Results & Data Results & Data ([facility]) Vital Signs (Past 12 Hours) Vital Signs Temp Pulse Resp BP Pulse Ox 12/07/19 15:12 36.5 C 99 H 21 112/77 96 12/07/19 11:57 36.8 C 68 18 115/72 98 12/07/19 08:08 36.5 C 109 H 18 103/69 97 Laboratory Results Laboratory Results - last 24 hr 12/06/19 12/06/19 12/07/19 16:22 20:24 07:57 WBC RBC Hgb Hct MCV MCH MCHC RDW Std Deviation RDW Coeff of Tommie Plt Count MPV Sodium Potassium Chloride Carbon Dioxide Anion Gap BUN Creatinine Est Cr Clr Drug Dosing Est GFR ( Amer) Est GFR (Non-Af Amer) BUN/Creatinine Ratio Glucose POC Glucose 183 H 139 H 139 H Calcium 12/07/19 12/07/19 12/07/19 08:16 08:16 11:50 WBC 7.55 RBC 3.92 L Hgb 12.3 L Hct 37.1 L MCV 94.6 MCH 31.4 MCHC 33.2 RDW Std Deviation 48.6 H RDW Coeff of Tommie 14.2 Plt Count 121 L MPV 11.7 H Sodium 141 Potassium 4.3 Chloride 109 H Carbon Dioxide 26 Anion Gap 6.0 BUN 82 H Creatinine 2.33 H D Est Cr Clr Drug Dosing 25.5 Est GFR ( Amer) 31.0 Est GFR (Non-Af Amer) 26.7 BUN/Creatinine Ratio 35.3 H Glucose 146 H POC Glucose 221 H Calcium 7.8 L Medications Administered Current Inpatient Medications Acetaminophen (Acetaminophen 325 Mg Tab) 650 mg PO Q4H PRN PRN Reason: Pain or Fever Stop: 01/02/20 21:35 Aspirin (Aspirin 81 Mg Ectab) 81 mg PO DAILY DANIELLE Stop: 01/03/20 08:59 Last Admin: 12/07/19 08:01 Dose: 81 mg Documented by: Atorvastatin Calcium (Atorvastatin 20 Mg Tab) 20 mg PO HS DANIELLE Stop: 01/03/20 20:59 Last Admin: 12/06/19 20:29 Dose: 20 mg Documented by: Carvedilol (Carvedilol 12.5 Mg Tab) 12.5 mg PO BID DANIELLE Stop: 01/02/20 21:59 Last Admin: 12/07/19 08:56 Dose: 12.5 mg Documented by: Dextrose (Dextrose 50% 50 Ml Syringe) 25 - 50 ml IV UD PRN; Protocol PRN Reason: Hypoglycemia Protocol Stop: 01/02/20 22:05 Docusate Sodium (Docusate Sodium 100 Mg Cap) 100 mg PO BID DANIELLE Stop: 01/05/20 20:59 Last Admin: 12/07/19 08:01 Dose: 100 mg Documented by: Glucagon (Glucagon For Inj 1 Mg Vial) 1 mg SQ UD PRN; Protocol PRN Reason: Hypoglycemia Protocol Stop: 01/02/20 22:05 Glucose (Glucose 10 Tabs/Tube) 4 - 8 tabs PO UD PRN; Protocol PRN Reason: Hypoglycemia Protocol Stop: 01/02/20 22:05 Glucose (Glucose 40% Gel 15 Gm Tube) 15 - 30 gm PO UD PRN; Protocol PRN Reason: Hypoglycemia Protocol Stop: 01/02/20 22:05 Potassium Chloride/Sodium Chloride (Normal Saline W/20 Meq Kcl) 20 meq in 1,000 mls @ 80 mls/hr IV .[id number] DANIELLE Stop: 01/02/20 21:59 Last Admin: 12/07/19 13:32 Dose: 80 mls/hr Documented by: Insulin Aspart (Insulin Aspart 100 Units/Ml 3 Ml Pen) 0 units SC ACHS DANIELLE Stop: 01/03/20 07:29 Last Admin: 12/07/19 12:26 Dose: Not Given Documented by: Insulin Glargine (Insulin Glargine Solostar 100 Units/Ml 3 Ml Pen) 5 units SC BID DANIELLE Stop: 01/02/20 22:14 Last Admin: 12/07/19 08:02 Dose: Not Given Documented by: Miscellaneous (Carbohydrates For Hypoglycemia ) 15 - 30 gm PO UD PRN PRN Reason: Hypoglycemia Protocol Stop: 01/02/20 22:05 Ondansetron HCl (Ondansetron Inj 2 Mg/Ml 2 Ml Vial) 4 mg IV Q6H PRN PRN Reason: Nausea Stop: 01/02/20 22:11 Last Admin: 12/03/19 22:26 Dose: 4 mg Documented by: Polyethylene Glycol (Polyethylene (Miralax) 17 Gm Pack) 17 gm PO DAILY DANIELLE Stop: 01/06/20 08:59 Last Admin: 12/07/19 08:01 Dose: 17 gm Documented by: Potassium Chloride (Potassium Chloride 20 Meq Tabcr) 20 meq PO TID DANIELLE Stop: 01/03/20 20:59 Last Admin: 12/07/19 13:32 Dose: 20 meq Documented by: Tamsulosin HCl (Tamsulosin Hcl 0.4 Mg Cap) 0.4 mg PO HS DANIELLE Stop: 01/03/20 20:59 Last Admin: 12/06/19 20:27 Dose: 0.4 mg Documented by: PG Care Time/CCT Total # of Minutes Spent Total Time Spent with Patient: Total time spent is greater than 50% in coordination of care (as documented) at patient's floor/unit and/or counseling patient: Coding Level of Care Code 67893 Subseq Hosp Care Lvl 3 Diagnoses Acute kidney injury N17.9 Uremic encephalopathy G93.49; N19 Nausea & vomiting R11.2 Constipation K59.00 Chronic congestive heart failure I50.9 Type 2 diabetes mellitus E11.9 Enlarged prostate N40.0 Acute hyponatremia E87.1 Hypokalemia E87.6 Hypertension I10 Atherosclerotic heart disease I25.10 Ischemic cardiomyopathy I25.5 Atrial fibrillation I48.91 Hypercholesterolemia E78.00 DVT prophylaxis Z29.9
[2019-12-07] MEDS ORDERED: WARFARIN SOD 3 MG TAB PO SCH (16:00)
[2019-12-07] MEDS: TAMSULOSIN HCL 0.4 MG CAP PO SCH (21:24)
[2019-12-07] MEDS: ATORVASTATIN 20 MG TAB PO SCH (21:25)
[2019-12-08 07:48] LABS: INR 1.9 (0.9-1.1); Prothrombin Time 19.1 Seconds (9.0-12.0)
[2019-12-08 07:55] LABS: Albumin Level 2.8 gm/dl (3.4-5.0); BUN Creatinine Ratio 30.4 (10-20); Calcium 7.7 mg/dl (8.5-10.1); Est GFR (African American) 36.2; Est GFR (Non-African American) 31.2; Phosphorus 2.1 mg/dl (2.5-4.9); Potassium 4.2 mmol/L (3.5-5.1)
[2019-12-08] MEDS: INSULIN ASPART 100 UNITS/ML 3 ML PEN SC SCH ×2 (08:02→12:03)
[2019-12-08] MEDS: INSULIN GLARGINE SOLOSTAR 100 UNITS/ML 3 ML PEN SC SCH (08:25)
[2019-12-08] MEDS: carvediloL 12.5 MG TAB PO SCH (08:39)
[2019-12-08] MEDS: ASPIRIN 81 MG ECTAB PO SCH (08:39)
[2019-12-08] MEDS: DOCUSATE SODIUM 100 MG CAP PO SCH (08:40)
[2019-12-08] MEDS: POLYETHYLENE (MIRALAX) 17 GM PACK PO SCH (08:41)
--- NOTE | 2019-12-08 12:08 | Nephrology Progress Note ---
Date of Service December 08, 2019 Assessment & Plan (1) Acute kidney injury: Acute kidney injury in the setting of volume depletion, creatinine peaked to 4.6, now improved to 2.3, with baseline creatinine around 1.6. Urinalysis unremarkable. No postrenal obstruction. Blood pressure well controlled. Voiding normally. Kidney function continues to improve slowly, creatinine 2.1 this morning, electrolyte acceptable. --continue to monitor renal function with daily renal panel while inpatient --okay to discharge when medically stable, encouraged to keep adequate p.o. intake, avoid all nephrotoxic medication including NSAIDs. Will follow while inpatient, after discharge patient will follow with supervisor frame sample and pattern with correctional facility. (2) Acute hyponatremia: (3) Hypertension: * Currently w/ relative hypotension * Continue to hold JINA, thiazide and loop diuretic (4) Chronic kidney disease: * Hospitalist admission note reports baseline Cr 1.9 08/22 * Abdominal CT 12/03/19: bilateral large simple cysts and cortical thinning. No intervention required for cysts. No mass is present. Cysts do not appear to be causing mechanical obstruction (5) Hypokalemia: * Corrected w/ IV supplementation * Patient is receiving 20 mEq KCl in IVF Admission and Anticipated Discharge Date Admission Date: December 03, 2019 Yasmany Snell was seen and examined in his room this am. Renal function has been slowly improving, creatinine down to 2.1, electrolyte acceptable. Blood pressure controlled, voiding OK. overall feeling well, denies any specific symptom except feeling thirsty. Review of Systems Review of Systems: All systems reviewed & are unremarkable except as noted in HPI & below Physical Exam Constitutional: well developed and well nourished; no acute distress Respiratory: normal respiratory effort, lungs clear to auscultation Cardiovascular: RRR, no murmur, no edema Neurologic: moves all extremities and awake; not confused Psychiatric: A+Ox3, euthymic affect Results & Data ([facility]) Vital Signs (Past 12 Hours) Vital Signs Temp Pulse Pulse Pulse Resp BP BP 12/08/19 10:28 37 C 97 H 109 H 18 116/80 127/88 12/08/19 07:17 37 C 84 109 H 18 116/80 Pulse Ox 12/08/19 10:28 94 12/08/19 07:17 94 PG Care Time/CCT Total # of Minutes Spent Total Time Spent with Patient: Total time spent is greater than 50% in coordination of care (as documented) at patient's floor/unit and/or counseling patient: Coding Level of Care Code 37958 Subseq Hosp Care Lvl 3 Diagnoses Acute kidney injury N17.9 Acute hyponatremia E87.1 Hypertension I10 Chronic kidney disease N18.9 Hypokalemia E87.6
--- NOTE | 2019-12-10 21:40 | Discharge Summary ---
Date of Service December 08, 2019 Admission HPI Per Admitting Provider Alis Bonilla is a 74-year-old male from [facility] sent to the ER today due to nausea and vomiting with very poor oral intake over the last 5-7 days. He had labs taken at the senior living concerning for acute kidney injury therefore was sent to the ER for further work-up. The patient confirms having nausea and vomiting with reduced appetite for the last 5 to 7 days. He is unsure what started this but does not normally have any nausea or vomiting. No hematemesis. No abdominal pain. Associated no bowel movement for the last 2 days. He denies any tenesmus, melena, bright red blood in stool, constipation or yadiel rrhea. With regards to his acute kidney injury. He does reports a history of urinary frequency but this is not changed recently other than the last few days when his urine is more concentrated and he has been urinating less often. No gross hematuria, dysuria, back pain, change in urine smell. Discussed with nurse of the infirmary at the senior living who was unfamiliar with the patient however was able to looks up some prior baseline labs below: 08/22 BUN 36, Cr 1.9. 11/15 BUN 135, Cr 3.73 11/19 BUN 157, Cr 4.11 Principal Diagnosis acute kidney injury Discharge Exam Constitutional WD/WN, vitals as above Eyes PERRL, conjunctivae normal, anicteric sclerae ENMT external ear and nose normal, oropharynx normal Neck trachea midline, no thyromegaly Respiratory normal respiratory effort, lungs clear to auscultation Cardiovascular RRR, no murmur, no edema Gastrointestinal (Abdomen) normal bowel sounds, soft, nontender, no hepatosplenomegaly Musculoskeletal no cyanosis or clubbing, extremities motor strength 5/5 Skin no rashes, warm and dry Neurologic patellar DTR's 2+ bilat, sensation intact and PERRL, EOMI, accommodation nl, no face palsy, no dysarthria Psychiatric A+Ox3, euthymic affect Lymphatic no cervical or axillary lymphadenopathy Discharge Data Allergies Allergy/AdvReac Type Severity Reaction Status Date / Time No Known Allergies Allergy Verified 12/03/19 19:05 Consultations 12/03/19 18:54 ED Decision to Admit Stat 12/03/19 21:36 Consult Nephrology Routine 12/03/19 22:17 Consult Health Information Management Routine Ordered Studies 12/03/19 16:47 CT abd pelvis wo con Stat Hospital Course (1) Acute kidney injury: Suspect secondary to overdiuresis in setting of nausea and not eating. Holloway catheter placed in ER due to concern for urinary retention with BPH and moderate fecal impaction - holloway out Hold bumex, metolazone, lisinopril. Gentle hydration to avoid hypervolemia in setting of chronic congestive heart failure. Cr down to 2.0 from 4.3, K is normal no further fluids continue to hold Bumex, metolazone, lisinopril nephrology recommends repeat labs in a few days, follow up with [facility] motorboat operator might want to use diuretic PRN in the future (2) Uremic encephalopathy: Suspect this was cause of lethargy, nausea resolved for three days, mental status clear, eating well, no nausea (3) Nausea & vomiting: Suspect secondary to uremic encephalopathy +/- moderate fecal retention. MiraLAX 34 g BID, he moved bowels yesterday and today back off Miralax to daily, use Colace to keep stools soft no vomiting today (4) Constipation: BM yesterday and today, feeling much better (5) Chronic congestive heart failure: Request prior notes from Dr Rich. No current acute exacerbation. again, due to severe EVERETT would suggest using Bumex PRN, base off his weights (6) Type 2 diabetes mellitus: HbA1c with a.m. labs BSG ACHS Start Lantus 5 units SQ BID, NovoLog ACHS for correction and carb coverage. monitor for hypoglycemia, no episodes will reduce glimepiride on discharge due to Cr being 2.0 (7) Enlarged prostate: Previously seen by urology in March. Should follow-up with urology due to heterogeneous nature of his prostate. Start tamsulosin 0.4 mg p.o. at bedtime, tolerating well, use on discharge (8) Acute hyponatremia: Suspect secondary to diuretic use and dehydration and will replace with NSS resolved (9) Hypokalemia: Suspect secondary to diuretics. stop Pot Chloride 20mEq TID K up to 4.1 (10) Hypertension: Continue carvedilol 12.5 mg p.o. twice daily (11) Atherosclerotic heart disease: Troponin negative on admission. No chest pain or shortness of breath. Continue aspirin 81 mg p.o. daily, carvedilol 12.5 mg p.o. twice daily, atorvastatin 20 mg p.o. at bedtime Hold lisinopril as above. (12) Ischemic cardiomyopathy: Notable history of this. 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 (13) Atrial fibrillation: INR is 1.9 reduced his dose of Coumadin to 3mg repeat INR in two to three days, may need to increase Coumadin to 4mg (14) Hypercholesterolemia: Continue atorvastatin 20 mg p.o. at bedtime Total Time Total Time Spent Total Time Spent (In Minutes): 33 minutes Total Time Includes: Examination of the Patient, Discharge Planning, Medication Reconciliation and Communication With Other Providers (provided verbal sign out to provider at [facility]) Discharge Plan Discharge Items Patient Disposition: Correctional Facility Reason For Visit: EVERETT Discharge Diagnosis: Acute kidney injury due to excessive diuretics Condition on Discharge: Good Goals: repeat BMP in three days follow up with motorboat operator through senior living system Activity: Resume your previous activity Non-emergency contact: Primary Care Provider Call non-emergency contact if: you have any medication questions and your symptoms worsen Follow-up/Referrals: Mere MONTELONGO [Primary Care Provider] - (this week) Diet: Carb Consistent or DM2 and Heart Healthy Addtl Attending Provider Instructions: Medications: - GLIMEPIRIDE: reduced to 1mg daily due to lower GFR - FLOMAX: added to relax prostate and make urinating easier - COLACE: take twice a day to keep stools soft, had really hard stool, constipation while here - MIRALAX: take daily to keep stools regular, if he has loose stools then use as needed - COUMADIN: dose reduced to 3mg daily, INR 3.7 on admission, today it is 1.9, may need to increase to 4mg daily, repeat INR on 12/10 Acute kidney injury on CKD stage III Cr was 4.5 on admission, improved a lot over the past few days, down to 2.0 today, making urine, electrolytes stable had some uremic encephalopathy on admission, resolved quickly, BUN down to 62 from initial value of 195 recommend that you stay well hydrated, drink around 2L total of fluid a day no signs of heart failure while here hold bumex and lisinopril and Zaroxolyn as these were the cause of the EVERETT managing heart failure going forward, would weigh the patient daily and use Bumex 1mg PO as needed for weight gain/edema DM type II: diabetic diet, reduce the glimepiride to 1mg daily due to renal function could probably increase back to 2mg once renal function completely recovers BPH with LUTS: started on Flomax, tolerating well needs repeat BMP and check INR on Monday12/11/19 Pending Studies at Discharge: No Stand-Alone Forms: My [facility] Skilled Items Patient informed of condition?: Yes Discharge Level of Care: Other Communicable Disease: No Discharge Prognosis: Improving Lines: None Urinary Catheter: No Medications and DC Order Prescriptions: New polyethylene glycol 3350 [Miralax] 17 gram Powder In Packet 17 g PO DAILY 30 Days Qty: 30 RF: 0 warfarin 3 mg Tablet 3 mg PO DAILY@1600 30 Days Qty: 30 RF: 3 tamsulosin 0.4 mg Capsule 0.4 mg PO HS 30 Days Qty: 30 RF: 3 docusate sodium 100 mg Capsule 100 mg PO BID 30 Days Qty: 60 RF: 3 glimepiride 1 mg tablet 1 mg PO DAILY Qty: 30 RF: 3 Continued atorvastatin 20 mg tablet 20 mg PO HS RF: 0 nitroglycerin 0.4 mg tablet, sublingual 0.4 mg SL DIRECTED PRN (Reason: Chest Pain) RF: 0 aspirin [Aspirin Low Dose] 81 mg Tablet,Delayed Release (Dr/Ec) 81 mg PO DAILY RF: 0 carvedilol 12.5 mg Tablet 12.5 mg PO BID RF: 0 levalbuterol tartrate [Xopenex HFA] 45 mcg/actuation Hfa Aerosol Inhaler 2 inh INHALATION QID PRN (Reason: Shortness Of Breath) RF: 0 Discontinued glimepiride 2 mg tablet 2 mg PO DAILY RF: 0 potassium chloride 10 mEq tablet extended release 20 meq PO DAILY RF: 0 warfarin 6 mg Tablet 6 mg PO DAILY RF: 0 bumetanide 2 mg Tablet 4 mg PO BID RF: 0 metolazone 2.5 mg Tablet 2.5 mg PO DAILY RF: 0 lisinopril 10 mg Tablet 10 mg PO DAILY RF: 0 Discharge Orders: Discharge Order (Routine); Ordered 12/08/19 Ordered By: Carlos Donovan Admission Data Admit Date/Time: 12/03/19 19:11 Attending Provider: Carlos Donovan Admit Provider: Jim Gaines Primary Care Provider: Mere MONTELONGO Other Providers: Teddy Avina ; Jim Gaines Other Interventions: Discharge Summary Assessment (RN) Last Done: 12/08/19 10:28 Coding Level of Care Code D/C Day Management >30 mins Diagnoses Acute kidney injury N17.9 Uremic encephalopathy G93.49; N19 Nausea & vomiting R11.2 Constipation K59.00 Chronic congestive heart failure I50.9 Type 2 diabetes mellitus E11.9 Enlarged prostate N40.0 Acute hyponatremia E87.1 Hypokalemia E87.6 Hypertension I10 Atherosclerotic heart disease I25.10 Ischemic cardiomyopathy I25.5 Atrial fibrillation I48.91 Hypercholesterolemia E78.00
== END 2019-12-08 12:32 | DRG 683 ==
LOC: ED 16:23 → SUATTDRO 19:11 → 2W 19:11

== ENCOUNTER 2021-03-01 14:06 | Inpatient (IN) ==
[2021-03-01 15:52] LABS: Basophils # (auto) 0.03 K/uL (0-0.2); Basophils % (auto) 0.5 %; Eosinophils # (auto) 0.27 K/uL (0-0.5); Eosinophils % (auto) 4.1 %; Hematocrit (blood only) 37.9 % (42-52); Hemoglobin 11.3 g/dL (14.0-18.0); Immature Granulocytes # (auto) 0.01 K/uL (0.00-0.02); Immature Granulocytes % (auto) 0.2 %; Lymphocytes # (auto) 0.76 K/uL (1.2-3.4); Lymphocytes % (auto) 11.4 %; Mean Corpuscular Hgb Conc 29.8 g/dL (32-36); Mean Corpuscular Volume 97.4 fL (80-100); Mean Platelet Volume 10.9 fL (7.4-10.4); Monocytes # (auto) 0.39 K/uL (0.11-0.59); Monocytes % (auto) 5.9 %; Neutrophils # (auto) 5.19 K/uL (1.4-6.5); Neutrophils % (auto) 77.9 %; Platelet Count 254 K/uL (130-400); RDW Coefficient of Variation 17.8 % (11.5-14.5); RDW Standard Deviation 63.6 fL (36.4-46.3); Red Blood Count 3.89 M/uL (4.7-6.1); White Blood Count 6.65 K/uL (4.8-10.8)
[2021-03-01 16:03] LABS: INR 2.4 (0.9-1.1); Partial Thromboplastin Ratio 1.3; Partial Thromboplastin Time 34.3 Seconds (21.0-31.0); Prothrombin Time 22.7 Seconds (9.0-12.0)
[2021-03-01 16:11] LABS: Alanine Aminotransferase 29 (12-78); Albumin Level 3.2 gm/dl (3.4-5.0); Aspartate Aminotransferase 17 U/L (15-37); BUN Creatinine Ratio 12.7 (10-20); Blood Urea Nitrogen 32 mg/dl (7-18); Calcium 9.3 mg/dl (8.5-10.1); Carbon Dioxide 29 mmol/L (21-32); Chloride 105 mmol/L (98-107); Est GFR (African American) 28.1 ml/min; Est GFR (Non-African American) 24.3 ml/min; Glucose 176 mg/dl (70-99); Sodium 140 mmol/L (136-145)
[2021-03-01 16:13] LABS: Albumin Globulin Ratio 0.7 (0.9-2); Alkaline Phosphatase 68 U/L (45-117); Bilirubin,Total 1.1 mg/dl (0.2-1); Globulin 4.4 gm/dl (2.5-4.0); Total Protein 7.6 gm/dl (6.4-8.2)
--- NOTE | 2021-03-01 16:50 | Electrocardiogram Report ---
Test Reason : Blood Pressure : / mmHG Vent. Rate : 083 BPM Atrial Rate : 083 BPM P-R Int : 192 ms QRS Dur : 150 ms QT Int : 434 ms P-R-T Axes : 073 -68 102 degrees QTc Int : 509 ms Poor data quality, interpretation may be adversely affected Normal sinus rhythm Left axis deviation Non-specific intra-ventricular conduction block Abnormal ECG When compared with ECG of 08-SEP-2020 11:54, Premature ventricular complexes are no longer Present Non-specific intra-ventricular conduction block has replaced Left bundle branch block Confirmed by Americo Chandra ([id number]) on 03/01/2021 4:49:59 PM Referred By: Confirmed By:Eddie Chandra
--- NOTE | 2021-03-01 22:56 | Emergency Department Note ---
Impression & Plan COVID-19, Fluid overload, Failure of outpatient treatment ED Provider Note Name: LAURA [id number] CHANCE Age: 75 Sex: M Arrives Via: Walk-In Informant: Patient, [facility] ED Provider: Chadwick Castro MD Chief Complaint: Leg Swelling Impression: As per impressions above Medical Decision Makin-year-old [facility] with extensive past medical history including type 2 diabetes, hypertension, CAD, cardiomyopathy, A. fib on anticoagulants, CKD arrives for evaluation of worsening leg swelling. He has had a weight gain and increasing leg swelling despite quadrupling his Bumex dose the last few days. On exam he is significantly fluid overloaded with serous drainage from both lower legs. He has crackles of all lungs and chest x-ray is consistent with congestion. Of note he did test positive for COVID-19 as well though has no fevers, chills, significant shortness of breath beyond what would be consistent with his congestive failure. Patient was given 40 mg IV Lasix. [facility] was consulted for further management patient stable throughout Prior Medical Record and Triage/Nursing Notes reviewed by Me Additional history obtained from chart Differentials: Reactive airway disease, pneumonia, pneumothorax, COPD, CHF, infections, cardiac ischemia, pulmonary embolism, musculoskeletal, gastrointestinal, as well as other pathologies. Vital Signs: reviewed and remarkable for no significant abnormalities Interventions: Lasix 40 mg IV Labs:Reviewed and remarkable for Covid positive Imagin view chest x-ray bilateral infiltrates versus fluid overload EKG:Per My Interpretation: Indication Shob: NSR 83 bpm, qtc 509 with intraventricular block similar to previous EKG. No Ectopy. No Ischemia. Compared to EKG 09/08/20, no significant changes. Cardiac/Tele Monitoring: Cardiac Monitoring: An Order was placed for continuous cardiac monitoring. The monitor shows a rate of 80 with a normal sinus rhythm. Consults:Dr. Michaels of [facility] Plan: Disposition:Hospitalization. Condition: Fair History of Present Illness:75-year-old gentleman arrives from jail for evaluation of increasing swelling. Patient notes that over the last week he has had increasing swelling in his legs. He now has weeping from the legs and his legs hurt him. Is associated with worsening shortness of breath and nonproductive cough. Says he feels like he cannot take a deep breath. He has been increasing his Bumex to 10 mg from 2 mg daily only mild urinary output. Patient believes he is gained roughly 10+ pounds in the last week. He denies any fevers, chills, nausea, vomiting, back pain, abdominal pain, abdominal swelling, diarrhea, headache, neck pain, chest pain, syncope nor other symptoms. Patient has a long history of fluid overload usually Bumex works well for him. He previously was admitted about a year and a half ago for fluid overload and renal failure. Patient is not on dialysis. ROS: See above HPI for pertinent positives & negatives. 10 systems reviewed and were otherwise negative. Past Medical History:Cardiomyopathy, CHF, A. fib, type 2 diabetes, CKD, hyp ertension, [place] Past Surgical History:CABG, cardiac stents Family History:See Below Social History:See Below Home Medications:See Below Allergies:No known drug allergies Vitals:Blood Pressure: 147/91, Pulse 90, RR 18, T 36.6C, O2 93% on RA Physical Exam: GENERAL: Patient is tired and unwell appearing and in mild distress. Patient in jail garb EYES: No scleral icterus, unremarkable pupils. ENT: Mucous membranes moist, no nasal congestion. NECK: No masses appreciated, nomeningismus, trachea is midline. RESPIRATORY: Tachypneic, dyspneic. Diffuse crackles all lung young and decreased breath sounds throughout. CARDIOVASCULAR: Irregular.No murmurs, rubs, gallops appreciated. GASTROINTESTINAL: Abdomen soft, non-tender, no peritonitis.Bowel sounds positive.No masses appreciated. BACK: No midline tenderness, no CVA tenderness EXTREMITIES: 4+ pitting edema bilateral lower legs from knees down with serous weeping bilaterally. Otherwise upper extremities normal motion, no cyanosis, no edema. NEUROLOGIC: Alert and oriented, no acute motor or sensory deficits, no focal weakness, cranial nerves grossly intact. SKIN: No rash, no jaundice, no diaphoresis. PSYCH: Appropriate GCS: 15 ED Course: Times/Reassessments: Stable throughout ED visit. I will note the patient was seen after an 8+ hour wait given the extreme volumes associated with COVID-19 pandemic and the exceptional told this is placing on medical facilities. Patient was understanding of this. Chadwick Castro MD Past Med/Surg History Medical History Acute hyponatremia Acute kidney injury Atherosclerotic heart disease coronary artery bypass grafting: Marvin to LAD. Saphenous vein graft to unknown vessel PCI to the 1st diagonal 11/24/2016 Chronic congestive heart failure Enlarged prostate Hypertension Hypokalemia Ischemic cardiomyopathy Myocardial infarct Syncope Type 2 diabetes mellitus Surgical History H/O heart artery stent S/P triple vessel bypass Family History Grandmother Diabetes Social History Smoking Status: Former smoker Tobacco Type: Cigarettes Hx Alcohol Use: No Hx Substance Use: No Preferred Language: Estonian Communication Ability: Effective Grocery Shopper Required: No Beliefs That Will Affect Care: Mosque Mosque Beliefs: confucianist- no blood marital status: Single Current Living Situation: Other Current Living Situation Comment: jail Feels Safe at Home: Yes Assistive Devices: None Allergies Allergies Allergy/AdvReac Type Severity Reaction Status Date / Time No Known Allergies Allergy Verified 03/01/21 22:15 Home Meds Home Medications Medication Instructions Recorded Confirmed atorvastatin 20 mg tablet 20 mg PO HS 04/16/19 03/01/21 nitroglycerin 0.4 mg sublingual 0.4 mg SL DIRECTED PRN 04/16/19 03/01/21 tablet levalbuterol tartrate 45 2 inh INHALATION QID PRN 12/03/19 03/01/21 mcg/actuation aerosol inhaler (Xopenex HFA) bumetanide 2 mg tablet 2 mg PO DAILY tab 06/29/20 03/01/21 glimepiride 1 mg tablet 1 mg PO DAILY tab 06/29/20 03/01/21 metoprolol succinate 50 mg 50 mg PO DAILY 09/08/20 03/01/21 tablet,extended release 24 hr warfarin 4 mg tablet 4 mg PO DAILY 09/08/20 03/01/21 losartan 25 mg tablet 25 mg PO DAILY 03/01/21 03/01/21 paricalcitol 1 mcg capsule 1 mcg PO DAILY 03/01/21 03/01/21 vitamin B complex and vitamin C 1 cap PO DAILY 03/01/21 03/01/21 no.20-folic acid 1 mg capsule Results & Data (ED) Vital Signs Vital Signs - 24 hr 03/01/21 14:22 03/02/21 00:07 03/02/21 00:08 Temperature 36.6 C Temperature Source Temporal Artery Scan Pulse Rate 90 Pulse Rate [Right Finger] 86 Respiratory Rate 18 16 Blood Pressure 147/91 H Blood Pressure [Right Arm] 159/95 H Blood Pressure Mean 109 Blood Pressure Mean [Right Arm] 116 Pulse Oximetry 93 86 L 96 Oxygen Delivery Method Room Air Room Air Nasal Cannula Oxygen Flow Rate 4 Sepsis Recent Fever Within 48 Hours No Sepsis New/Unexplained Change in Mental Status No Sepsis Action Taken by Nursing No Action Required Laboratory Data Result diagrams: 03/01/21 15:30 03/01/21 15:30 Lab Results 03/01/21 03/01/21 03/01/21 Range/Units 15:30 15:30 15:30 WBC 6.65 (4.8-10.8) K/uL RBC 3.89 L (4.7-6.1) M/uL Hgb 11.3 L (14.0-18.0) g/dL Hct 37.9 L (42-52) % MCV 97.4 (80-100) fL MCH 29.0 (25-34) pg MCHC 29.8 L (32-36) g/dL RDW Std Deviation 63.6 H (36.4-46.3) fL RDW Coeff of Tommie 17.8 H (11.5-14.5) % Plt Count 254 (130-400) K/uL MPV 10.9 H (7.4-10.4) fL Immature Gran % (Auto) 0.2 % Neut % (Auto) 77.9 % Lymph % (Auto) 11.4 % [place] % (Auto) 5.9 % Eos % (Auto) 4.1 % Baso % (Auto) 0.5 % Neut # (Auto) 5.19 (1.4-6.5) K/uL Lymph # (Auto) 0.76 L (1.2-3.4) K/uL [place] # (Auto) 0.39 (0.11-0.59) K/uL Eos # (Auto) 0.27 (0-0.5) K/uL Baso # (Auto) 0.03 (0-0.2) K/uL Immature Gran # (Auto) 0.01 (0.00-0.02) K/uL PT 22.7 H (9.0-12.0) Seconds INR 2.4 H (0.9-1.1) APTT 34.3 H (21.0-31.0) Seconds PTT Ratio 1.3 Sodium 140 (136-145) mmol/L Potassium 4.0 (3.5-5.1) mmol/L Chloride 105 (98-107) mmol/L Carbon Dioxide 29 (21-32) mmol/L Anion Gap 6.0 (3-11) BUN 32 H (7-18) mg/dl Creatinine 2.51 H (0.6-1.4) mg/dl Est Cr Clr Drug Dosing Not Reportable Est GFR ( Amer) 28.1 ml/min Est GFR (Non-Af Amer) 24.3 ml/min BUN/Creatinine Ratio 12.7 (10-20) Glucose 176 H (70-99) mg/dl Calcium 9.3 (8.5-10.1) mg/dl Total Bilirubin 1.1 H (0.2-1) mg/dl AST 17 (15-37) U/L ALT 29 (12-78) Alkaline Phosphatase 68 (45-117) U/L Total Protein 7.6 (6.4-8.2) gm/dl Albumin 3.2 L (3.4-5.0) gm/dl Globulin 4.4 H (2.5-4.0) gm/dl Albumin/Globulin Ratio 0.7 L (0.9-2) SARS-CoV-2, RNA, NAAT (NEGATIVE) 03/01/21 Range/Units 23:16 WBC (4.8-10.8) K/uL RBC (4.7-6.1) M/uL Hgb (14.0-18.0) g/dL Hct (42-52) % MCV (80-100) fL MCH (25-34) pg MCHC (32-36) g/dL RDW Std Deviation (36.4-46.3) fL RDW Coeff of Tommie (11.5-14.5) % Plt Count (130-400) K/uL MPV (7.4-10.4) fL Immature Gran % (Auto) % Neut % (Auto) % Lymph % (Auto) % [place] % (Auto) % Eos % (Auto) % Baso % (Auto) % Neut # (Auto) (1.4-6.5) K/uL Lymph # (Auto) (1.2-3.4) K/uL [place] # (Auto) (0.11-0.59) K/uL Eos # (Auto) (0-0.5) K/uL Baso # (Auto) (0-0.2) K/uL Immature Gran # (Auto) (0.00-0.02) K/uL PT (9.0-12.0) Seconds INR (0.9-1.1) APTT (21.0-31.0) Seconds PTT Ratio Sodium (136-145) mmol/L Potassium (3.5-5.1) mmol/L Chloride (98-107) mmol/L Carbon Dioxide (21-32) mmol/L Anion Gap (3-11) BUN (7-18) mg/dl Creatinine (0.6-1.4) mg/dl Est Cr Clr Drug Dosing Est GFR ( Amer) ml/min Est GFR (Non-Af Amer) ml/min BUN/Creatinine Ratio (10-20) Glucose (70-99) mg/dl Calcium (8.5-10.1) mg/dl Total Bilirubin (0.2-1) mg/dl AST (15-37) U/L ALT (12-78) Alkaline Phosphatase (45-117) U/L Total Protein (6.4-8.2) gm/dl Albumin (3.4-5.0) gm/dl Globulin (2.5-4.0) gm/dl Albumin/Globulin Ratio (0.9-2) SARS-CoV-2, RNA, NAAT POSITIVE A* (NEGATIVE) Administered Medications Discontinued Medications Furosemide (Furosemide 40 Mg/4 Ml Vial) 40 mg IV ONE ONE Stop: 03/01/21 23:29 Last Admin: 03/02/21 00:04 Dose: 40 mg Documented by: [id number] Discharge Plan Visit Data Chief Complaint: Swelling/Edema to Extremity Stated Complaint: FLUID RETENTION, PAIN IN BOTH LEGS ED Provider: Chadwick Castro Discharge Problem: COVID-19, Fluid overload, Failure of outpatient treatment Discharge Instructions Interventions: ED Discharge Assessment Last Done: 12/28/21 02:30 Discharge Problem: Fluid overload Qualifiers: Hypervolemia type: unspecified Qualified Code(s): E87.70 - Fluid overload, unspecified
[2021-03-01] MEDS ORDERED: FUROSEMIDE 40 MG/4 ML VIAL IV ONE (23:28)
--- NOTE | 2021-03-02 00:25 | History & Physical Report ---
Date of Service March 02, 2021 Assessment & Plan (1) COVID-19: Plan: 75yo male presenting with Covid-19. Patient complaining of SOB. He is vaccinated x 3 -Admit to medical -Maintain isolation precautions -Check BNP, Procalcitonin, CRP, Ferritin, LDH -Will hold off on steroids for now and see if symptoms improve with diuresis. Saturations are adequate -Tylenol PRN fever - patient has been afebrile thus far (2) Heart failure: Plan: Patient with one month of worsening bilateral LE edema as well as SOB and orthopnea. Suspect worsening CHF - acutely decompensated systolic failure secondary to ischemic cardiomyopathy. Echocardiogram 04/25/2019: Ejection fraction 20%. Severe left atrial dilation. Moderate right atrial dilation. Moderate to severe mitral regurgitation. Moderate to severe tricuspid regurgitation. -Supplemental O2 as needed -Check BNP -Bumex 2mg IV BID -Check chemistry panel BID to assess renal function and electrolytes with diuresis -Daily weights -Strict I/O monitoring -Continue Losartan - monitor renal function -Continue metoprolol (3) Type 2 diabetes mellitus: Plan: Chronic. Blood sugar mildly elevated at present at 178. -Hold Glilpizide -Lantus 5u BID -ISS -Goal blood sugar 100 - 140 -Check A1C in AM (4) Atrial fibrillation: Plan: Rate controlled -Continue Metoprolol -Continue Coumadin. INR at goal at 2.4 -Monitor daily INR (5) Chronic kidney disease: Plan: BUN and Cr near baseline -Monitor renal function with BID BMP -Avoid nephrotoxic agents -Renal dosing where needed (6) Hypertension: Plan: Chronic. Mildly elevated BP -Continue Losartan, Metoprolol -Monitor Plan: F/E/N - Diuresis as above, monitor BMP BID, Heart healthy/CC diet as tolerated ppx - Continue Coumadin as above Code - DNR/DNI Dispo - Admit to medical History of Present Illness Chief Complaint: LE edema, SOB Primary Care Provider: REGINALD Severino Alis Bonilla is a 75yo inmate at [facility] presenting with progressive bilateral LE edema as well as SOB. Patient reports swelling and itching in his lower legs ongoing for at least a month. His legs have started weeping fluid over the last several days. He is on Bumex at baseline which as reportedly been increased to "10 mg/day". Patient states that he urinates very little. He developed some shortness of breath last week and was [facility]. He had a Covid-19 test performed which was NEGATIVE. He denies fever, cough, loss of taste or smell, diarrhea. He has received his Covid-19 vaccinations x 2 as well as booster. Patient was quite surprised to learn that he tested positive for Covid-19 ER Course: Lasix 40mg IV x 1 Allergies Allergy/AdvReac Type Severity Reaction Status Date / Time No Known Allergies Allergy Verified 03/01/21 22:15 Home Medications Medication Instructions Recorded Confirmed Type atorvastatin 20 mg tablet 20 mg PO HS 04/16/19 03/01/21 History nitroglycerin 0.4 mg sublingual 0.4 mg SL DIRECTED PRN 04/16/19 03/01/21 Hist ory tablet levalbuterol tartrate 45 2 inh INHALATION QID PRN 12/03/19 03/01/21 History mcg/actuation aerosol inhaler (Xopenex HFA) bumetanide 2 mg tablet 2 mg PO DAILY tab 06/29/20 03/01/21 History glimepiride 1 mg tablet 1 mg PO DAILY tab 06/29/20 03/01/21 History metoprolol succinate 50 mg 50 mg PO DAILY 09/08/20 03/01/21 History tablet,extended release 24 hr warfarin 4 mg tablet 4 mg PO DAILY 09/08/20 03/01/21 History losartan 25 mg tablet 25 mg PO DAILY 03/01/21 03/01/21 History paricalcitol 1 mcg capsule 1 mcg PO DAILY 03/01/21 03/01/21 History vitamin B complex and vitamin C 1 cap PO DAILY 03/01/21 03/01/21 History no.20-folic acid 1 mg capsule Past Med/Surg History Medical History Acute hyponatremia Acute kidney injury Atherosclerotic heart disease coronary artery bypass grafting: Marvin to LAD. Saphenous vein graft to unknown vessel PCI to the 1st diagonal 11/24/2016 Chronic congestive heart failure Enlarged prostate Hypertension Hypokalemia Ischemic cardiomyopathy Myocardial infarct Syncope Type 2 diabetes mellitus Surgical History H/O heart artery stent S/P triple vessel bypass Family History Grandmother Diabetes Social History Smoking Status: Former smoker Tobacco Type: Cigarettes Hx Alcohol Use: No Hx Substance Use: No Preferred Language: Malian Communication Ability: Effective Recreation Attendant Supervisor Required: No Beliefs That Will Affect Care: Nondenominational Nondenominational Beliefs: sabianism- no blood marital status: Single Current Living Situation: Other Current Living Situation Comment: [facility] Feels Safe at Home: Yes Assistive Devices: None Review of Systems Review of Systems: All systems reviewed & are unremarkable except as noted in HPI & below Physical Exam Physical Exam: General: patient resting comfortably, NAD, non-toxic in appearance, AA&O x 4 Skin: warm, dry, multiple lesions on bilateral LE to include eschar, fluid filled blisters and open sores with serous drainage. No active bleeding or evidence of secondary infection. HEENT: NC/AT, PERRL, EOMI, anicteric sclera, conjunctiva without injection, external ear normal to inspection and nontender, nares patent, moist mucus membranes, dentition intact, no oropharyngeal lesions, neck supple, trachea midline, no LAD, no thyromegaly, no JVD Heart: +S1/S2, regular, no m/r/g Lungs: coarse breath sounds anteriorly with bibasilar crackles Abd: +BS, soft, NT/ND, no masses/organomegaly/ascites Ext: warm, 2+ pulses in UE/LE bilaterally, no clubbing/cyanosis , 3+ pitting edema to knees bilaterally Neuro: nonfocal, patient AA&O x 4, speech intact, no facial droop, moving all extremities on command with equal strength 5/5 Results & Data Results & Data ([facility]) Vital Signs (Past 12 Hours) Vital Signs Temp Pulse Pulse Resp BP BP Pulse Ox 03/02/21 00:08 96 03/02/21 00:07 86 16 159/95 H 86 L 03/01/21 14:22 36.6 C 90 18 147/91 H 93 Laboratory Results Laboratory Results WBC 6.65 K/uL (4.8-10.8) 03/01/21 15:30 RBC 3.89 M/uL (4.7-6.1) L 03/01/21 15:30 Hgb 11.3 g/dL (14.0-18.0) L 03/01/21 15:30 Hct 37.9 % (42-52) L 03/01/21 15:30 MCV 97.4 fL (80-100) 03/01/21 15:30 MCH 29.0 pg (25-34) 03/01/21 15: MCHC 29.8 g/dL (32-36) L 03/01/21 15:30 RDW Std Deviation 63.6 fL (36.4-46.3) H 03/01/21 15: RDW Coeff of Tommie 17.8 % (11.5-14.5) H 03/01/21 15: Plt Count 254 K/uL (130-400) 03/01/21 15: MPV 10.9 fL (7.4-10.4) H 03/01/21 15:30 Immature Gran % (Auto) 0.2 % 03/01/21 15: Neut % (Auto) 77.9 % 03/01/21 15:30 Lymph % (Auto) 11.4 % 03/01/21 15:30 [place] % (Auto) 5.9 % 03/01/21 15:30 Eos % (Auto) 4.1 % 03/01/21 15: Baso % (Auto) 0.5 % 03/01/21 15:30 Neut # (Auto) 5.19 K/uL (1.4-6.5) 03/01/21 15: Lymph # (Auto) 0.76 K/uL (1.2-3.4) L 03/01/21 15:30 [place] # (Auto) 0.39 K/uL (0.11-0.59) 03/01/21 15:30 Eos # (Auto) 0.27 K/uL (0-0.5) 03/01/21 15: Baso # (Auto) 0.03 K/uL (0-0.2) 03/01/21 15: Immature Gran # (Auto) 0.01 K/uL (0.00-0.02) 03/01/21 15: PT 22.7 Seconds (9.0-12.0) H 03/01/21 15:30 INR 2.4 (0.9-1.1) H 03/01/21 15:30 APTT 34.3 Seconds (21.0-31.0) H 03/01/21 15:30 PTT Ratio 1.3 03/01/21 15:30 Sodium 140 mmol/L (136-145) 03/01/21 15:30 Potassium 4.0 mmol/L (3.5-5.1) 03/01/21 15:30 Chloride 105 mmol/L (98-107) 03/01/21 15:30 Carbon Dioxide 29 mmol/L (21-32) 03/01/21 15:30 Anion Gap 6.0 (3-11) 03/01/21 15:30 BUN 32 mg/dl (7-18) H 03/01/21 15:30 Creatinine 2.51 mg/dl (0.6-1.4) H 03/01/21 15:30 Est Cr Clr Drug Dosing Not Reportable 03/01/21 15:30 Est GFR ( Amer) 28.1 ml/min 03/01/21 15:30 Est GFR (Non-Af Amer) 24.3 ml/min 03/01/21 15:30 BUN/Creatinine Ratio 12.7 (10-20) 03/01/21 15:30 Glucose 176 mg/dl (70-99) H 03/01/21 15:30 Calcium 9.3 mg/dl (8.5-10.1) 03/01/21 15:30 Total Bilirubin 1.1 mg/dl (0.2-1) H 03/01/21 15:30 AST 17 U/L (15-37) 03/01/21 15:30 ALT 29 (12-78) 03/01/21 15:30 Alkaline Phosphatase 68 U/L (45-117) 03/01/21 15:30 Total Protein 7.6 gm/dl (6.4-8.2) 03/01/21 15:30 Albumin 3.2 gm/dl (3.4-5.0) L 03/01/21 15:30 Globulin 4.4 gm/dl (2.5-4.0) H 03/01/21 15:30 Albumin/Globulin Ratio 0.7 (0.9-2) L 03/01/21 15:30 SARS-CoV-2, RNA, NAAT POSITIVE (NEGATIVE) A* 03/01/21 23:16 Code Status & VTE Plan VTE Prophylaxis Plan VTE Prophylaxis will be ordered: Yes PG Care Time/CCT Total # of Minutes Spent Total Time Spent with Patient: Total time spent is greater than 50% in coordination of care (as documented) at patient's floor/unit and/or counseling patient: Coding Level of Care Code 15247 Initial Inpt Care Lvl 3 Diagnoses Chronic kidney disease N18.9 Type 2 diabetes mellitus E11.9 Hypertension I10 Atrial fibrillation I48.0 Atrial fibrillation type: paroxysmal COVID-19 U07.1 Heart failure I50.9 (1) Atrial fibrillation Atrial fibrillation type: paroxysmal Qualified Code(s): I48.0 - Paroxysmal atrial fibrillation
[2021-03-02] MEDS ORDERED: GLUCAGON FOR INJ 1 MG VIAL SQ PRN (03:34)
[2021-03-02] MEDS ORDERED: ACETAMINOPHEN 325 MG TAB PO PRN (03:34)
[2021-03-02] MEDS ORDERED: CARBOHYDRATES FOR HYPOGLYCEMIA PO PRN (03:34)
[2021-03-02] MEDS ORDERED: GLUCOSE 40% GEL 15 GM TUBE PO PRN (03:34)
[2021-03-02] MEDS ORDERED: LEVALBUTEROL TARTRATE 15 GM HFA.AER.AD INH PRN (03:34)
[2021-03-02] MEDS ORDERED: GLUCOSE 10 TABS/TUBE PO PRN (03:34)
[2021-03-02] MEDS ORDERED: DEXTROSE 50% 50 ML SYRINGE IV PRN (03:34)
[2021-03-02 06:28] LABS: C Reactive Protein 1.26 mg/dl (0-0.29); Ferritin 174.6 ng/ml (8-388); Magnesium 2.1 mg/dl (1.8-2.4); Phosphorus 2.4 mg/dl (2.5-4.9)
[2021-03-02 06:50] LABS: Appearance Urine Clear (Clear); Bacteria Urine Automated Negative (Negative); Bilirubin Urine Negative (Negative); Blood Urine Negative (Negative); Color Urine Yellow; Epithelial Cell Urine Auto 0-5 /lpf (0-5); Glucose Urine UA Negative (Negative); Ketones Urine Negative (Negative); Leukocyte Esterase Urine Negative (Negative); Nitrite Urine Negative (Negative); Protein Urine 2+ (Negative); RBC Urine Automated 0-4 /hpf (0-4); Specific Gravity Urine 1.013 (1.000-1.030); Urobilinogen Urine Negative (Negative)
--- NOTE | 2021-03-02 07:15 | XRay Report ---
XR chest 1V portable CLINICAL HISTORY: Shortness of breath. COMPARISON STUDY: 01/08/2021 TECHNIQUE: 1 view of the chest FINDINGS: Single frontal view of the chest demonstrates the heart size to again be enlarged status post previou s cardiothoracic surgery and pacer placement. There is evidence for mild central vascular congestion. No peripheral interstitial edema is seen. There is no evidence for pleural effusion. No alveolar opa cities are identified. There is no acute osseous pathology. IMPRESSION: Evidence for mild central interstitial edema characteristic of cardiac decompensation. ACT 112: Negative or not required by law. Electronically signed by: Eliceo Villa M.D. 03/02/2021 7:14 AM
[2021-03-02 07:17] LABS: Estimated Average Glucose 140 mg/dl; Hemoglobin A1C 6.5 % (4.5-5.6)
[2021-03-02] MEDS ORDERED: BUMETANIDE 2 MG in SYRINGE 0 ML IV SCH (09:00)
[2021-03-02] MEDS ORDERED: BUMETANIDE IV BOLUS FROM BAG IV SCH (09:00)
[2021-03-02] MEDS: INSULIN ASPART PER UNIT SC SCH ×4 (09:30→21:23)
[2021-03-02] MEDS: INSULIN GLARGINE SOLOSTAR 100 UNITS/ML 3 ML PEN SC SCH ×2 (09:30→21:24)
[2021-03-02] MEDS: METOPROLOL SUCC 50MG EXT REL TAB PO SCH (09:45)
[2021-03-02] MEDS: LOSARTAN POTASSIUM 25 MG TAB PO SCH (09:45)
[2021-03-02] MEDS: WARFARIN SOD 4 MG TAB PO SCH (16:34)
--- NOTE | 2021-03-02 16:51 | Hospitalist Progress Note ---
Date of Service March 02, 2021 Assessment & Plan (1) Heart failure: Plan: EF of 20% with moderate to severe MR and TR on prior echo -Clinical syndrome fits most with acute exacerbation of chronic systolic CHF, far more than Covid -Increase diuresis given that he still dyspneic and has ongoing rales. Follow closely, follow serial basic metabolic panel -CKD appears to preclude the safe ability to utilize Entresto. Will initiate hydralazine for afterload reduction, and as long as his blood pressure can handle the hydralazine as well as diuresis, then would start nitratesto try to get some semblance of an JINA-like benefit in spite of his CKD -Continue losartan -Continue oxygen and supportive care (2) COVID-19: Plan: Again as above, seems acutely ill from acute on chronic systolic CHF, not Covid pneumonia. Has not really had any characteristic symptoms of Covid, appears much more clinically ill from CHF. Continue to follow closely, but no specific treatment warranted at this time. Further, given that corticosteroids could worsen the CHF situation, will hold off on those for now (3) Type 2 diabetes mellitus: Plan: A1c 6.5, glucose is at goal. Continue current. (4) Atrial fibrillation: Plan: Rate controlled, anticoagulated (5) Chronic kidney disease: Plan: Appears to be around a baseline of stage IV. Follow closely with diuresis. Unfortunately this appears to preclude the ability to use Entresto safely (6) Hypertension: Plan: -Continue Losartan, Metoprolol -Monitor with initiation of hydralazine for additional afterload reduction Plan: F/E/N - Diuresis as above, monitor BMP BID, Heart healthy/CC diet as tolerated ppx - Continue Coumadin as above Code - DNR/DNI Admission and Anticipated Discharge Date Admission Date: March 02, 2021 Subjective Still has fairly significant dyspnea although in discussion with nursing, on 2 to 3 L nasal cannula his pulse ox has been no lower than the low 90s all day. Patient notes that he is feeling much better whenever he sits up and leans forward, but still even significant dyspnea then. Notes shortness of breath started about 3 to 4 days prior to admission. Legs are more swollen than usual 2, although he notes he cannot really correlate if the leg swelling occurred at the same timeframe as the breathing worsening. No fevers chills or body aches. Review of Systems Review of Systems: All systems reviewed & are unremarkable except as noted in HPI & below Physical Exam Physical Exam: In general he is awake and alert, sitting at the edge of the bed leaning forward, appearing a bit tachypneic, complaining of shortness of breath. HEENT normocephalic atraumatic mucous membranes moist. Lungs are diminished bibasilar with faint rales left greater than right no rhonchi no whe ezes mild accessory muscle use. Skin shows no rashes, pallor, icterus outside of venous stasis changes bilateral lower extremities. Bilateral lower extremities have fairly diffuse about 3+ edema with skin tenderness, no erythema, some weeping areas and no open ulcerations. Neuro shows cranial nerves II through XII be grossly intact gross motor and sensory intact. Results & Data Results & Data ([facility]) Vital Signs (Past 12 Hours) Vital Signs Temp Pulse Resp BP BP Pulse Ox 03/02/21 15:34 97.7 F 79 20 141/93 H 98 03/02/21 11:15 97.5 F L 75 20 143/94 H 95 03/02/21 08:51 100.0 F H 84 20 145/102 H 93 03/02/21 06:37 72 16 95 PG Care Time/CCT Total # of Minutes Spent Total Time Spent with Patient: Total time spent is greater than 50% in coordination of care (as documented) at patient's floor/unit and/or counseling patient: Coding Level of Care Code 98606 Subseq Hosp Care Lvl 3 Diagnoses COVID-19 U07.1 Heart failure I50.9 Type 2 diabetes mellitus E11.9 Atrial fibrillation I48.0 Atrial fibrillation type: paroxysmal Chronic kidney disease N18.9 Hypertension I10 (1) Atrial fibrillation Atrial fibrillation type: paroxysmal Qualified Code(s): I48.0 - Paroxysmal atrial fibrillation
[2021-03-02] MEDS: BUMETANIDE 4 MG in SYRINGE 0 ML IV SCH (17:50)
[2021-03-02] MEDS: ATORVASTATIN 20 MG TAB PO SCH (20:45)
[2021-03-02] MEDS: hydrALAZINE 10 MG TAB PO SCH (20:45)
[2021-03-03 06:51] LABS: Basophils # (auto) 0.03 K/uL (0-0.2); Basophils % (auto) 0.5 %; Eosinophils # (auto) 0.49 K/uL (0-0.5); Eosinophils % (auto) 7.5 %; Hematocrit (blood only) 33.8 % (42-52); Hemoglobin 10.4 g/dL (14.0-18.0); Immature Granulocytes # (auto) 0.01 K/uL (0.00-0.02); Immature Granulocytes % (auto) 0.2 %; Lymphocytes # (auto) 0.85 K/uL (1.2-3.4); Lymphocytes % (auto) 12.9 %; Mean Corpuscular Hgb Conc 30.8 g/dL (32-36); Mean Corpuscular Volume 97.4 fL (80-100); Mean Platelet Volume 10.9 fL (7.4-10.4); Monocytes # (auto) 0.33 K/uL (0.11-0.59); Neutrophils # (auto) 4.86 K/uL (1.4-6.5); Neutrophils % (auto) 73.9 %; Platelet Count 211 K/uL (130-400); RDW Coefficient of Variation 17.8 % (11.5-14.5); RDW Standard Deviation 63.4 fL (36.4-46.3); Red Blood Count 3.47 M/uL (4.7-6.1); White Blood Count 6.57 K/uL (4.8-10.8)
[2021-03-03 06:58] LABS: INR 1.9 (0.9-1.1); Prothrombin Time 18.3 Seconds (9.0-12.0)
[2021-03-03 07:22] LABS: BUN Creatinine Ratio 13.9 (10-20); Calcium 8.8 mg/dl (8.5-10.1); Creatinine Clr Calc Pharmacy 24.3 ml/min; Est GFR (African American) 28.4 ml/min; Est GFR (Non-African American) 24.5 ml/min; Potassium 3.7 mmol/L (3.5-5.1)
[2021-03-03] MEDS: hydrALAZINE 10 MG TAB PO SCH ×3 (08:40→20:15)
[2021-03-03] MEDS: LOSARTAN POTASSIUM 25 MG TAB PO SCH (08:41)
[2021-03-03] MEDS: BUMETANIDE 4 MG in SYRINGE 0 ML IV SCH ×3 (08:41→20:09)
[2021-03-03] MEDS: METOPROLOL SUCC 50MG EXT REL TAB PO SCH (08:41)
[2021-03-03] MEDS: INSULIN GLARGINE SOLOSTAR 100 UNITS/ML 3 ML PEN SC SCH ×2 (09:27→20:14)
[2021-03-03] MEDS: INSULIN ASPART PER UNIT SC SCH ×4 (09:27→20:14)
--- NOTE | 2021-03-03 16:34 | Hospitalist Progress Note ---
Date of Service March 03, 2021 Assessment & Plan (1) Heart failure: Plan: EF of 20% with moderate to severe MR and TR on prior echo -Clinical syndrome fits most with acute exacerbation of chronic systolic CHF, far more than Covid Increase Bumex to 3 times daily given that he still sounds fairly wet, is still fairly dyspneic, and creatinine has not risen -CKD appears to preclude the safe ability to utilize Entresto. Continue hydralazine for afterload reduction, and today start nitratesto reduce preload/afterload -Continue losartan -Continue oxygen and supportive care -If does not improve with above measures, consider cardiology consultation and/or dobutamine drip (2) COVID-19: Plan: Again as above, seems acutely ill from acute on chronic systolic CHF, not Covid pneumonia. Has not really had any characteristic symptoms of Covid, appears much more clinically ill from CHF. Continue to follow closely, but no specific treatment warranted at this time. Further, given that corticosteroids could worsen the CHF situation, will hold off on those for now (to clarify I believe his hypoxia is predominantly, if not purely, related to his CHFnot to Covid) (3) Type 2 diabetes mellitus: Plan: A1c 6.5, glucose currently under reasonable controlcontinue current treatment (4) Atrial fibrillation: Plan: Rate controlled, anticoagulatedfollow INR (5) Chronic kidney disease: Plan: Appears to be around a baseline of stage IV. Follow closely with diuresis. Unfortunately this appears to preclude the ability to use Entresto safely. Fortunately creatinine has not shown much of a change (6) Hypertension: Plan: -Continue Losartan, Metoprolol -Monitor with initiation of hydralazine for additional afterload reduction, and nitrates to reduce preload Plan: F/E/N - Diuresis as above, monitor BMP BID, Heart healthy/CC diet as tolerated ppx - Continue Coumadin as above Code - DNR/DNI Admission and Anticipated Discharge Date Admission Date: March 02, 2021 Subjective Legs less swollen, breathing still fairly bad. Does not really feel like the breathing is any better, still having to work hard to breathe, still feeling like there is fluid in his lungs. No fevers chills sweats cough body aches. Review of Systems Review of Systems: All systems reviewed & are unremarkable except as noted in HPI & below Physical Exam Physical Exam: In general he is awake and alert pleasant no distress. Much less dyspneic than when I see him yesterdayhe is now sitting upright in bed (as opposed to yesterday whenever he was sitting on the edge of the bed leaning forward) and he is able to be much more conversational with far less conversational dyspnea. HEENT normocephalic atraumatic mucous membranes moist. Lungs are bibasilar rales and diminished air entry up to about the mid lungfairly similar to yesterdayupper lung clear without rales rhonchi or wheezes, good effort, only really accessory muscle use whenever were talking for a while, at rest none. Extremities show no cyanosis or clubbing, chronic venous stasis changes, edema down to about 2+. Results & Data Results & Data ([facility]) Vital Signs (Past 12 Hours) Vital Signs Temp Pulse Resp BP Pulse Ox 03/03/21 15:47 97.7 F 84 19 139/87 91 03/03/21 07:35 98.2 F 66 18 130/76 98 PG Care Time/CCT Total # of Minutes Spent Total Time Spent with Patient: Total time spent is greater than 50% in coordination of care (as documented) at patient's floor/unit and/or counseling patient: Coding Level of Care Code 66752 Subseq Hosp Care Lvl 3 Diagnoses Heart failure I50.9 COVID-19 U07.1 Type 2 diabetes mellitus E11.9 Atrial fibrillation I48.0 Atrial fibrillation type: paroxysmal Chronic kidney disease N18.9 Hypertension I10 (1) Atrial fibrillation Atrial fibrillation type: paroxysmal Qualified Code(s): I48.0 - Paroxysmal atrial fibrillation
[2021-03-03] MEDS: NITROGLYCERIN 2% OINTMENT 30GM TUBE EXT SCH ×2 (17:38→22:20)
[2021-03-03 17:52] LABS: BUN Creatinine Ratio 15.6 (10-20); Calcium 8.6 mg/dl (8.5-10.1); Est GFR (African American) 26.5 ml/min; Est GFR (Non-African American) 22.8 ml/min; Potassium 3.6 mmol/L (3.5-5.1)
[2021-03-03] MEDS: WARFARIN SOD 4 MG TAB PO SCH (18:21)
[2021-03-03] MEDS: ATORVASTATIN 20 MG TAB PO SCH (20:15)
[2021-03-04] MEDS: NITROGLYCERIN 2% OINTMENT 30GM TUBE EXT SCH ×4 (05:15→22:20)
[2021-03-04 07:20] LABS: BUN Creatinine Ratio 16.7 (10-20); Calcium 8.2 mg/dl (8.5-10.1); Creatinine Clr Calc Pharmacy 24.2 ml/min; Est GFR (African American) 28.3 ml/min; Est GFR (Non-African American) 24.4 ml/min; Potassium 3.4 mmol/L (3.5-5.1)
[2021-03-04] MEDS: INSULIN ASPART PER UNIT SC SCH ×4 (07:37→20:12)
[2021-03-04] MEDS: INSULIN GLARGINE SOLOSTAR 100 UNITS/ML 3 ML PEN SC SCH ×2 (08:53→20:13)
[2021-03-04] MEDS: METOPROLOL SUCC 50MG EXT REL TAB PO SCH (08:54)
[2021-03-04] MEDS: LOSARTAN POTASSIUM 25 MG TAB PO SCH (08:54)
[2021-03-04] MEDS: hydrALAZINE 10 MG TAB PO SCH ×3 (08:54→20:15)
[2021-03-04] MEDS: BUMETANIDE 4 MG in SYRINGE 0 ML IV SCH ×3 (08:54→20:16)
[2021-03-04] MEDS ORDERED: POTASSIUM CHLORIDE CRTAB 20 MEQ TABCR PO STA (09:40)
--- NOTE | 2021-03-04 14:40 | Cardiology Consultation ---
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 Dyspnea: Certainly at risk for decompensated heart failure. His dyspnea seem to worsen in the setting worsening peripheral edema as well. This would all speak to significant decompensation of his known ischemic cardiomyopathy. However, he has affected some diuresis here in the hospital without notable improvement in his symptoms. In fact, he states that his symptoms are worse today. This is despite significant improvement in his lower extremity edema. Unclear of all of his symptoms could be related to pulmonary vascular congestion. However, I think would be reasonable to continue aggressive attempts at volume removal. Currently on high-dose intravenous bumetanide. Think we can add a daily dose of chlorthalidone. Will also add spironolactone. He may benefit from noninvasive ventilation if his symptoms worsen. I think we need to consider additional etiologies for his symptoms to include possible viral pneumonia. With respect to adding inotropes to his regimen to affect diuresis, this could be considered if his symptoms remain refractory. However, I would advocate right heart catheterization in that setting to check ventricular filling pressures. It is also unclear if he progressed to needing intravenous inotropes whether they could be affectively weaned. In that setting, palliative Care consultation would also be of value. 2. Ischemic cardiomyopathy: No current symptoms suggestive of worsening ischemia. He is on low-dose losartan as an outpatient. Also on carvedilol. Nitrates and hydralazine have been added. 3. Coronary disease: History of surgical revascularization. No evidence of worsening ischemia or an acute coronary syndrome 4. Single-chamber ICD. Therapies have been deactivated at the patient's request. No pacing indication. He does have a wide complex QRS, but in the setting of atrial fibrillation without left bundle branch morphology I do not believe there is a role for biventricular pacing. 5. Valvular heart disease: Known to have significant mitral and tricuspid regurgitation. Not a candidate for any intervention. 6. Pulmonary hypertension: Noted on past echocardiography. Likely related to his severe left ventricular dysfunction. History of Present Illness Reason for Consultation: Dyspnea, heart failure Requesting Physician: Jesús Attending Physician: Arvind Espinosa, DO History of Present Illness The patient is a 75-year-old gentleman with a known history of an ischemic cardiomyopathy, congestive heart failure, atrial fibrillation, coronary artery disease and prior implantation of a single-chamber [place] ICD who is incarcerated. He has struggled with decompensated heart failure previously and states that for the past month he has had more difficulty controlling edema and experience worsening dyspnea. Despite escalating doses of oral diuretics at the facility his symptoms had not improved and he was brought to the hospital for evaluation. He denied any symptoms of dizziness, lightheadedness or chest discomfort. He has not been aware of any palpitations. No therapies from his device which actually has been deactivated. He did not report coughing or subjective fevers or chills. At the time I interviewed the patient states that his breathing is worse than it was at the time of admission. He states that the edema in his lower extremities is much improved. Allergies Allergy/AdvReac Type Severity Reaction Status Date / Time No Known Allergies Allergy Verified 03/01/21 22:15 Home Medications Medication Instructions Recorded Confirmed Type atorvastatin 20 mg tablet 20 mg PO HS 04/16/19 03/01/21 History nitroglycerin 0.4 mg sublingual 0.4 mg SL DIRECTED PRN 04/16/19 03/01/21 History tablet levalbuterol tartrate 45 2 inh INHALATION QID PRN 12/03/19 03/01/21 History mcg/actuation aerosol inhaler (Xopenex HFA) bumetanide 2 mg tablet 2 mg PO DAILY tab 06/29/20 03/01/21 History glimepiride 1 mg tablet 1 mg PO DAILY tab 06/29/20 03/01/21 History metoprolol succinate 50 mg 50 mg PO DAILY 09/08/20 03/01/21 History tablet,extended release 24 hr warfarin 4 mg tablet 4 mg PO DAILY 09/08/20 03/01/21 History losartan 25 mg tablet 25 mg PO DAILY 03/01/21 03/01/21 History paricalcitol 1 mcg capsule 1 mcg PO DAILY 03/01/21 03/01/21 History vitamin B complex and vitamin C 1 cap PO DAILY 03/01/21 03/01/21 History no.20-folic acid 1 mg capsule Patient History Medical History Acute hyponatremia Acute kidney injury Atherosclerotic heart disease coronary artery bypass grafting: Marvin to LAD. Saphenous vein graft to unknown vessel PCI to the 1st diagonal 11/24/2016 Chronic congestive heart failure Enlarged prostate Hypertension Hypokalemia Ischemic cardiomyopathy Myocardial infarct Syncope Type 2 diabetes mellitus Surgical History H/O heart artery stent S/P triple vessel bypass Family History Grandmother Diabetes Social History Smoking Status: Former smoker Tobacco Type: Cigarettes Hx Alcohol Use: No Hx Substance Use: No Preferred Language: Czech Communication Ability: Effective Telecom Specialist Required: No Beliefs That Will Affect Care: Yarsani Yarsani Beliefs: Juan Manuelhs Witness marital status: Single Current Living Situation: Other Current Living Situation Comment: Group Home Feels Safe at Home: Yes Assistive Devices: None Review of Systems Review of Systems: Per HPI. Physical Exam Physical Exam: The patient is alert and oriented. Mood and affect appeared normal. He was in mild respiratory distress. He answered all questions appropriately. HEENT: Pupils are equal and reactive to light and accommodation. Extraocular movements are intact. The sclerae are anicteric. Neuro: Cranial nerves intact Lungs: Reduced breath sounds on the right lung. Mid lung to bases. Crackles in the apices and crackles in the left lung field. No expiratory wheezing. Increased respiratory effort Cardiac: Heart demonstrates an irregular rate and rhythm. Normal S1 and S2. No murmurs on examination. Pulses: The patient has palpable radial pulses bilaterally that are equal in intensity Extremities: There was no evidence of hypoperfusion. There is no cyanosis or clubbing. Mild lower extremity edema, primarily in the ankles and feet. Skin: I did not appreciate any rashes on examination today excoriations noted on the right anterior tibial area Results & Data ([facility]) Vital Signs (Past 12 Hours) Vital Signs Temp Pulse Resp BP Pulse Ox 03/04/21 08:11 36.4 C L 74 24 152/87 H 94 Laboratory Results Abnormal Lab Results 03/03/21 03/03/21 03/03/21 17:00 17:08 20:08 Sodium 139 Potassium 3.6 Chloride 105 Carbon Dioxide 30 Anion Gap 4.0 BUN 41 H Creatinine 2.64 H Est Cr Clr Drug Dosing 23.0 Est GFR ( Amer) 26.5 Est GFR (Non-Af Amer) 22.8 BUN/Creatinine Ratio 15.6 Glucose 152 H POC Glucose 154 H 179 H Calcium 8.6 03/04/21 03/04/21 03/04/21 05:51 07:33 11:05 Sodium 142 Potassium 3.4 L Chloride 108 H Carbon Dioxide 27 Anion Gap 8.0 BUN 42 H Creatinine 2.50 H Est Cr Clr Drug Dosing 24.2 Est GFR ( Amer) 28.3 Est GFR (Non-Af Amer) 24.4 BUN/Creatinine Ratio 16.7 Glucose 156 H POC Glucose 149 H 235 H Calcium 8.2 L Diagnostic Findings Chest x-ray obtained on 03/01/2021 revealed pulmonary vascular congestion. Echocardiogram performed 04/25/2019: Ejection fraction 20%. Severe biatrial dilation. Moderate to severe mitral regurgitation. Moderate to severe tricuspid regurgitation. Severely elevated artery pressures ECG Additional Comments: EKG obtained the time admission revealed normal sinus rhythm with nonspecific interventricular conduction delay. PG Care Time/CCT Total # of Minutes Spent Total Time Spent with Patient: Total time spent is greater than 50% in coordination of care (as documented) at patient's floor/unit and/or counseling patient: Coding Level of Care Code 89840 Initial Inpt Care Lvl 3 Diagnoses Atherosclerotic heart disease I25.10 Presence of single chamber implantable cardioverter-defibrillator (ICD) Z95.810 Ischemic cardiomyopathy I25.5 Chronic congestive heart failure I50.9 Atrial fibrillation I48.0 Atrial fibrillation type: paroxysmal Valvular heart disease I38 (1) Atrial fibrillation Atrial fibrillation type: paroxysmal Qualified Code(s): I48.0 - Paroxysmal atrial fibrillation
--- NOTE | 2021-03-04 16:06 | CT Scan Report ---
CT chest diagnostic wo con CT DOSE: 488.13 mGycm HISTORY: persistent dyspnea, CHF, covid TECHNIQUE: Multiaxial CT images of the chest were performed without contrast. A dose lowering techni que was utilized adhering to the principles of ALARA. COMPARISON: Chest 03/01/2021. FINDINGS: There is a moderate to large right and small left pleural effusion. The heart is moderately enlarged. Left-sided pacemaker is noted. No pericardial effusion. Limited views of the upper abdomen demonstrate a 2.6 cm hypodense lesion within the left hepatic lobe. This likely represents a cyst. T he visualized adrenal glands unremarkable. Partially visualized bilateral renal hypodense lesions are also stable and statistically represent cysts. Normal esophagus. No mediastinal or hilar lymphadenop athy. Mild calcified plaque seen throughout the normal caliber thoracic aorta. Subcentimeter mediasti nal lymph nodes do not meet CT criteria for pathologic involvement. There are poststernotomy changes. No fractures within the visualized osseous structures. No pneumothorax. The central airways are junior nt. Mild respiratory motion artifact is noted. Punctate calcified granuloma within the lingula. Mild interlobular septal thickening suggestive of congestive change. A 4 mm groundglass nodule within the right upper lobe on image 75. Consolidation within the right lower lobe posteriorly is nonspecific bu t favors compressive atelectasis from the pleural effusion. IMPRESSION: 1. Mild congestive change with moderate to large right and small left pleural effusions. 2. Moderate cardiomegaly. 3. Consolidation within the right lower lobe posteriorly is nonspecific but favors compressive atelec tasis from the pleural effusion. 4. A 4 mm groundglass nodule within the right upper lobe. Please refer to below summary of Fleischner criteria recommendations for follow-up of incidental CT n odules (Arlyn Jones, Guidelines for management of small pulmonary nodules detected on CT scans: A sta tement from the Fleischner Society, Radiology 237: [phone].) SOLID NODULES Solitary nodule size: <6 mm * Low risk patients: no follow-up needed * high risk patients: optional CT at 12 months Solitary nodule size: 6-8 mm * Low risk patients: follow-up at 6-12 months, then consider further follow-up at 18-24 months * high risk patients: initial follow-up CT at 6-12 months and then at 18-24 months if no change Solitary nodule size: >8 mm * either low or high risk patients - consider follow-up CT at 3 months, and/or CT-PET, and/or biopsy Multiple nodules size: <6 mm * Low risk patients: no routine follow-up * high risk patients: optional CT at 12 months Multiple nodules size: 6-8 mm * Low risk patients: follow-up at 3-6 months, then consider further follow-up at 18-24 months * high risk patients: follow-up at 3-6 months, then at 18-24 months if no change Multiple nodules size: >8 mm * Low risk patients: follow-up at 3-6 months, then consider further follow-up at 18-24 months * high risk patients: follow-up at 3-6 months, then at 18-24 months if no change Note: newly detected indeterminate nodule in persons 35 years of age or older. * Low risk patients: minimal or absent history of smoking and/or other known risk factors * high risk patients: history of smoking or of other known risk factors (e.g. first degree relative with lung cancer, or exposure to asbestos, radon, uranium) * if a nodule up to 8 mm is partly solid or is ground glass further follow-up is required after 24 m onths to exclude possible slow growing adenocarcinoma ([place]) SUBSOLID NODULES Solitary pure ground-glass nodule * nodule size <6 mm - no CT follow-up required * nodule size >=6 mm - follow-up CT at 6-12 months, then every 2 years until 5 years Solitary part-solid nodule * nodule size <6 mm - no CT follow-up required * nodule size >=6 mm - follow-up CT at 3-6 months. If unchanged, and solid component remains <6 mm, then annual follow-up for 5 years Multiple subsolid nodules * nodule size <6 mm - follow-up CT at 3-6 months, consider further follow-up at 2 and 4 years if sta ble * nodule size >=6 mm - follow-up CT at 3-6 months, subsequent management based on the most suspiciou s nodule(s) ACT 112: Negative or not required by law. Electronically signed by: David Nina M.D. 03/04/2021 4:04 PM
[2021-03-04] MEDS: CHLOROTHIAZIDE SODIUM 500 MG in DEXTROSE 5% 50 ML IV SCH (16:07)
[2021-03-04] MEDS: WARFARIN SOD 4 MG TAB PO SCH (16:39)
[2021-03-04] MEDS ORDERED: PHYTONADIONE 5 MG TAB PO ONE (16:45)
--- NOTE | 2021-03-04 16:53 | Hospitalist Progress Note ---
Date of Service March 04, 2021 Assessment & Plan (1) Heart failure: Plan: EF of 20% with moderate to severe MR and TR on prior echo -Clinical syndrome fits most with acute exacerbation of chronic systolic CHF, far more than Covid Was not showing improvementdiscussed with cardiology, asked to see in consult. After consult, cardiology was not sure it was purely CHFwe sent for repeat chest imagingshowing a large right effusion. Probably secondary to CHF, but likely the effusion itself now is largely contributing to his dyspnea. Continue supportive care, reverse Coumadin to try to get INR less than 1.5, ask pulmonary to evaluate for possible thoracentesis. -Continue diuresis, preload, afterload reduction. (2) COVID-19: Plan: Still overall seems acutely ill from acute on chronic systolic CHF, not Covid pneumonia. Has not really had any characteristic symptoms of Covid, appears much more clinically ill from CHF. Continue to follow closely, but no specific treatment warranted at this time. Further, given that corticosteroids could worsen the CHF situation, will hold off on those for now (to clarify I believe his hypoxia is predominantly, if not purely, related to his CHF and effusion to CovidCT lacking appearance of a viral pneumonia pattern corroborating this) (3) Type 2 diabetes mellitus: Plan: A1c 6.5, glucose have been a little high, but in discussion with nursing, he is refusing all of his insulin. (4) Atrial fibrillation: Plan: Rate controlled, anticoagulatedwe will need to reverse INR for thoracentesis (5) Chronic kidney disease: Plan: Appears to be around a baseline of stage IV. Follow closely with diuresis. Unfortunately this appears to preclude the ability to use Entresto safely. Fortunately creatinine has not shown much of a changeserial BMP (6) Hypertension: Plan: -Continue Losartan, Metoprolol -Monitor with initiation of hydralazine for additional afterload reduction, and nitrates to reduce preload Plan: F/E/N - Diuresis as above, monitor BMP BID, Heart healthy/CC diet as tolerated ppx -anticoagulated with Coumadinalthough this will be temporarily held/reversed for possible thoracentesis Code - DNR/DNI Admission and Anticipated Discharge Date Admission Date: March 02, 2021 Subjective ongoing dyspnea not really any better still worse laying flat legs less swollen but otherwise still no real improvement Review of Systems Review of Systems: All systems reviewed & are unremarkable except as noted in HPI & below Physical Exam Physical Exam: gen aao pleasnat but visibly dyspnic. heent nc at mmm. lungs rales base R more than L still somewhat diminished no rhonchi no wheeze good effort skin no rashes no pallor or icterus ext with ~1-2+ improved edema neuro no focal deficits Results & Data Results & Data ([facility]) Vital Signs (Past 12 Hours) Vital Signs Temp Pulse Resp BP BP Pulse Ox 03/04/21 16:42 97.5 F L 81 24 153/97 H 96 03/04/21 15:32 78 18 97 03/04/21 13:50 98.2 F 75 22 158/88 H 94 03/04/21 08:11 97.5 F L 74 24 152/87 H 94 PG Care Time/CCT Total # of Minutes Spent Total Time Spent with Patient: Total time spent is greater than 50% in coordination of care (as documented) at patient's floor/unit and/or counseling patient: Coding Level of Care Code 71125 Subseq Hosp Care Lvl 3 Diagnoses Heart failure I50.9 COVID-19 U07.1 Type 2 diabetes mellitus E11.9 Atrial fibrillation I48.0 Atrial fibrillation type: paroxysmal Chronic kidney disease N18.9 Hypertension I10 (1) Atrial fibrillation Atrial fibrillation type: paroxysmal Qualified Code(s): I48.0 - Paroxysmal atrial fibrillation
[2021-03-04] MEDS: SPIRONOLACTONE 25 MG TAB PO SCH (17:43)
[2021-03-04] MEDS: ATORVASTATIN 20 MG TAB PO SCH (20:14)
[2021-03-05] MEDS: NITROGLYCERIN 2% OINTMENT 30GM TUBE EXT SCH ×3 (04:30→16:35)
[2021-03-05 06:32] LABS: Basophils # (auto) 0.02 K/uL (0-0.2); Basophils % (auto) 0.3 %; Eosinophils # (auto) 0.32 K/uL (0-0.5); Eosinophils % (auto) 4.6 %; Hemoglobin 10.5 g/dL (14.0-18.0); Lymphocytes % (auto) 11.4 %; Mean Corpuscular Hemoglobin 29.7 pg (25-34); Mean Corpuscular Hgb Conc 30.9 g/dL (32-36); Mean Corpuscular Volume 96.3 fL (80-100); Monocytes # (auto) 0.46 K/uL (0.11-0.59); Monocytes % (auto) 6.5 %; Neutrophils # (auto) 5.43 K/uL (1.4-6.5); Neutrophils % (auto) 77.2 %; Platelet Count 219 K/uL (130-400); RDW Coefficient of Variation 17.7 % (11.5-14.5); RDW Standard Deviation 62.5 fL (36.4-46.3); Red Blood Count 3.53 M/uL (4.7-6.1); White Blood Count 7.03 K/uL (4.8-10.8)
[2021-03-05 06:49] LABS: INR 1.5 (0.9-1.1); Prothrombin Time 14.8 Seconds (9.0-12.0)
[2021-03-05 07:02] LABS: BUN Creatinine Ratio 17.8 (10-20); Calcium 8.8 mg/dl (8.5-10.1); Creatinine Clr Calc Pharmacy 22.5 ml/min; Est GFR (African American) 25.9 ml/min; Est GFR (Non-African American) 22.3 ml/min; Potassium 3.5 mmol/L (3.5-5.1)
[2021-03-05] MEDS: INSULIN GLARGINE SOLOSTAR 100 UNITS/ML 3 ML PEN SC SCH ×2 (08:29→20:18)
[2021-03-05] MEDS: INSULIN ASPART PER UNIT SC SCH ×4 (08:29→20:18)
[2021-03-05] MEDS: METOPROLOL SUCC 50MG EXT REL TAB PO SCH (08:30)
[2021-03-05] MEDS: LOSARTAN POTASSIUM 25 MG TAB PO SCH (08:30)
[2021-03-05] MEDS: SPIRONOLACTONE 25 MG TAB PO SCH (08:30)
[2021-03-05] MEDS: BUMETANIDE 4 MG in SYRINGE 0 ML IV SCH (08:31)
[2021-03-05] MEDS: hydrALAZINE 10 MG TAB PO SCH ×3 (08:31→20:18)
--- NOTE | 2021-03-05 09:35 | Pulmonary Consultation ---
Date of Consultation March 05, 2021 Assessment & Plan (1) Valvular heart disease: (2) COVID-19: (3) Fluid overload: Hypervolemia type: unspecified Qualified Code(s): E87.70 - Fluid overload, unspecified (4) Pulmonary nodule: (5) Pleural effusion: Impression: 75-year-old male with known congestive heart failure and severe MR. Admitted with exacerbation/fluid overload. Incidentally found to be Covid positive. He has a 4 mm groundglass pulmonary nodule as well. Recommendations: 1. Pleural effusion: Patient will undergo therapeutic and diagnostic thoracentesis. Suspect the effusion is likely related to elevated left-sided filling pressures. We will send fluid for routine microbiologic and cytologic analysis. Recommend continued diuretics, salt restriction, and fluid restriction. Would not recommend serial thoracentesis as a long-term fluid management strategy. 2. COVID-19: Patient appears to be relatively asymptomatic and there is not significant groundglass opacities on his CT scan. No indication for steroids or additional aggressive intervention currently. Isolation per protocol. 3. Hypoxemic respiratory failure: Secondary to #1 and #2. Continue supplemental oxygen titrated to keep saturations at or above 90%. May need to assess for supplemental oxygen prior to discharge. 4. Pulmonary nodule: Groundglass pulmonary nodule. No prior imaging available for comparison. Recommend a follow-up noncontrast CT scan of the chest in 3 to 6 months. Additional recommendations will be based on results of the patient's pleural fluid analysis and follow-up imaging. History of Present Illness Attending Physician: Arvind Espinosa DO History of Present Illness Asked by the hospitalist service to evaluate this patient with pleural effusion and congestive heart failure. History is obtained from reviewed electronic medical record as well as discussion with patient at bedside. Patient is a 75-year-old male who was admitted 03/02/2021. He is an inmate at [facility]. He has had progressive lower extremity edema and shortness of breath. His legs have been weeping fluid. His Bumex had recently been increased. He is fully vaccinated for Covid but when tested in the emergency room was found to be positive for Covid. Cardiology consultation was obtained. The patient has been diuresing fairly aggressively. His lower extremity edema is markedly better. He has a persistent left pleural effusion. His Coumadin has been held and his INR is 1.5 today. Patient denies fevers chills night sweats. He is coughing and expectorating some brown phlegm. No hemoptysis. He has been eating well. Allergies Allergy/AdvReac Type Severity Reaction Status Date / Time No Known Allergies Allergy Verified 03/01/21 22:15 Home Medications Medication Instructions Recorded Confirmed Type atorvastatin 20 mg tablet 20 mg PO HS 04/16/19 03/01/21 History nitroglycerin 0.4 mg sublingual 0.4 mg SL DIRECTED PRN 04/16/19 03/01/21 History tablet levalbuterol tartrate 45 2 inh INHALATION QID PRN 12/03/19 03/01/21 History mcg/actuation aerosol inhaler (XopeSeeWhy HFA) bumetanide 2 mg tablet 2 mg PO DAILY tab 06/29/20 03/01/21 History glimepiride 1 mg tablet 1 mg PO DAILY tab 06/29/20 03/01/21 History metoprolol succinate 50 mg 50 mg PO DAILY 09/08/20 03/01/21 History tablet,extended release 24 hr warfarin 4 mg tablet 4 mg PO DAILY 09/08/20 03/01/21 History losartan 25 mg tablet 25 mg PO DAILY 03/01/21 03/01/21 History paricalcitol 1 mcg capsule 1 mcg PO DAILY 03/01/21 03/01/21 History vitamin B complex and vitamin C 1 cap PO DAILY 03/01/21 03/01/21 History no.20-folic acid 1 mg capsule Patient History Medical History Acute hyponatremia Acute kidney injury Atherosclerotic heart disease coronary artery bypass grafting: Marvin to LAD. Saphenous vein graft to unknown vessel PCI to the 1st diagonal 11/24/2016 Chronic congestive heart failure Enlarged prostate Hypertension Hypokalemia Ischemic cardiomyopathy Myocardial infarct Syncope Type 2 diabetes mellitus Surgical History H/O heart artery stent S/P triple vessel bypass Family History Grandmother Diabetes Social History Smoking Status: Former smoker Tobacco Type: Cigarettes Hx Alcohol Use: No Hx Substance Use: No Preferred Language: Chilean Communication Ability: Effective Petroleum Analyst Required: No Beliefs That Will Affect Care: Pentecostalism Pentecostalism Beliefs: Jehovahs Witness marital status: Single Current Living Situation: Other Current Living Situation Comment: Alf Feels Safe at Home: Yes Assistive Devices: None Review of Systems Review of Systems: All systems reviewed & are unremarkable except as noted in Subjective Physical Exam Constitutional: WD/WN, vitals as above Neck: trachea midline, no thyromegaly Respiratory: Decreased breath sounds with dullness to percussion at the right lung base. Few basilar crackles. No wheezing Cardiovascular: Heart Sounds: normal S1, normal S2 and + murmur Extremities: + edema Gastrointestinal (Abdomen): normal bowel sounds, soft, nontender, no hepatosplenomegaly Musculoskeletal: Extremities: extremities normal to inspection Skin: no rashes, warm and dry Neurologic: Nonfocal exam Lymphatic: no cervical lymphadenopathy Results & Data Results & Data ([facility]) Vital Signs (Past 12 Hours) Vital Signs Temp Pulse Resp BP Pulse Ox 03/05/21 08:12 36.5 C 70 22 137/79 98 03/04/21 23:32 36.6 C 85 18 154/91 H 94 Critical Care Results & Data Vital Signs (Past 12 Hours) Vital Signs Temp Pulse Resp BP Pulse Ox 03/05/21 08:12 36.5 C 70 22 137/79 98 03/04/21 23:32 36.6 C 85 18 154/91 H 94 Lab & Micro Results (Past 24 Hours) RBC 3.53 M/uL (4.7-6.1) L 03/05/21 WBC 7.03 K/uL (4.8-10.8) 03/05/21 Hgb 10.5 g/dL (14.0-18.0) L 03/05/21 Hct 34.0 % (42-52) L 03/05/21 MCV 96.3 fL (80-100) 03/05/21 MCH 29.7 pg (25-34) 03/05/21 MCHC 30.9 g/dL (32-36) L 03/05/21 RDW Standard Deviation 62.5 fL (36.4-46.3) H 03/05/21 RDW Coefficient of Variation 17.7 % (11.5-14.5) H 03/05/21 Plt Count 219 K/uL (130-400) 03/05/21 MPV 11.0 fL (7.4-10.4) H 03/05/21 Neutrophils (%) (Auto) 77.2 % 03/05/21 Lymphocytes (%) (Auto) 11.4 % 03/05/21 Monocytes # (Auto) 0.46 K/uL (0.11-0.59) 03/05/21 Eosinophils # (Auto) 0.32 K/uL (0-0.5) 03/05/21 Immature Granulocyte % (Auto) 0.0 % 03/05/21 Neutrophils # (Auto) 5.43 K/uL (1.4-6.5) 03/05/21 Lymphocytes # (Auto) 0.80 K/uL (1.2-3.4) L 03/05/21 Monocytes # (Auto) 0.46 K/uL (0.11-0.59) 03/05/21 Eosinophils # (Auto) 0.32 K/uL (0-0.5) 03/05/21 Basophils # (Auto) 0.02 K/uL (0-0.2) 03/05/21 Immature Granulocyte # (Auto) 0.00 K/uL (0.00-0.02) 03/05/21 Na 139 mmol/L (136-145) 03/05/21 K 3.5 mmol/L (3.5-5.1) 03/05/21 Cl 105 mmol/L (98-107) 03/05/21 CO2 27 mmol/L (21-32) 03/05/21 Anion Gap 7.0 (3-11) 03/05/21 BUN 48 mg/dl (7-18) H 03/05/21 Creatinine 2.69 mg/dl (0.6-1.4) H 03/05/21 Estimated GFR ( Amer) 25.9 ml/min 03/05/21 Estimated GFR (Non-Af Amer) 22.3 ml/min 03/05/21 BUN/Creatinine Ratio 17.8 (10-20) 03/05/21 Glu 157 mg/dl (70-99) H 03/05/21 Ca 8.8 mg/dl (8.5-10.1) 03/05/21 Calcium Level 8.8 mg/dl (8.5-10.1) 03/05/21 05:52 03/05/21 Prothromb Time International Ratio 1.5 (0.9-1.1) H 03/05/21 05:52 03/05/21 Diagnostic Findings (Past 24 Hours) Chest CT 03/04/21 14:44 CT chest diagnostic wo con CT DOSE: 488.13 mGycm HISTORY: persistent dyspnea, CHF, covid TECHNIQUE: Multiaxial CT images of the chest were performed without contrast. A dose lowering technique was utilized adhering to the principles of ALARA. COMPARISON: Chest 03/01/2021. FINDINGS: There is a moderate to large right and small left pleural effusion. The heart is moderately enlarged. Left-sided pacemaker is noted. No pericardial effusion. Limited views of the upper abdomen demonstrate a 2.6 cm hypodense lesion within the left hepatic lobe. This likely represents a cyst. The visualized adrenal glands unremarkable. Partially visualized bilateral renal hypodense lesions are also stable and statistically represent cysts. Normal esophagus. No mediastinal or hilar lymphadenopathy. Mild calcified plaque seen throughout the normal caliber thoracic aorta. Subcentimeter mediastinal lymph nodes do not meet CT criteria for pathologic involvement. There are poststernotomy changes. No fractures within the visualized osseous structures. No pneumothorax. The central airways are patent. Mild respiratory motion artifact is noted. Punctate calcified granuloma within the lingula. Mild interlobular septal thickening suggestive of congestive change. A 4 mm groundglass nodule within the right upper lobe on image 75. Consolidation within the right lower lobe posteriorly is nonspecific but favors compressive atelectasis from the pleural effusion. IMPRESSION: 1. Mild congestive change with moderate to large right and small left pleural effusions. 2. Moderate cardiomegaly. 3. Consolidation within the right lower lobe posteriorly is nonspecific but favors compressive atelectasis from the pleural effusion. 4. A 4 mm groundglass nodule within the right upper lobe. Please refer to below summary of Fleischner criteria recommendations for follow- up of incidental CT nodules (Arlyn Jones, Guidelines for management of small pulmonary nodules detected on CT scans: A statement from the Fleischner Society, Radiology 237: [phone].) SOLID NODULES Solitary nodule size: <6 mm * Low risk patients: no follow-up needed * high risk patients: optional CT at 12 months Solitary nodule size: 6-8 mm * Low risk patients: follow-up at 6-12 months, then consider further follow-up at 18-24 months * high risk patients: initial follow-up CT at 6-12 months and then at 18-24 months if no change Solitary nodule size: >8 mm * either low or high risk patients - consider follow-up CT at 3 months, and/or CT-PET, and/or biopsy Multiple nodules size: <6 mm * Low risk patients: no routine follow-up * high risk patients: optional CT at 12 months Multiple nodules size: 6-8 mm * Low risk patients: follow-up at 3-6 months, then consider further follow-up at 18-24 months * high risk patients: follow-up at 3-6 months, then at 18-24 months if no change Multiple nodules size: >8 mm * Low risk patients: follow-up at 3-6 months, then consider further follow-up at 18-24 months * high risk patients: follow-up at 3-6 months, then at 18-24 months if no change Note: newly detected indeterminate nodule in persons 35 years of age or older. * Low risk patients: minimal or absent history of smoking and/or other known risk factors * high risk patients: history of smoking or of other known risk factors (e.g. first degree relative with lung cancer, or exposure to asbestos, radon, uranium) * if a nodule up to 8 mm is partly solid or is ground glass further follow-up is required after 24 months to exclude possible slow growing adenocarcinoma ([place]) SUBSOLID NODULES Solitary pure ground-glass nodule * nodule size <6 mm - no CT follow-up required * nodule size >=6 mm - follow-up CT at 6-12 months, then every 2 years until 5 years Solitary part-solid nodule * nodule size <6 mm - no CT follow-up required * nodule size >=6 mm - follow-up CT at 3-6 months. If unchanged, and solid component remains <6 mm, then annual follow-up for 5 years Multiple subsolid nodules * nodule size <6 mm - follow-up CT at 3-6 months, consider further follow-up at 2 and 4 years if stable * nodule size >=6 mm - follow-up CT at 3-6 months, subsequent management based on the most suspicious nodule(s) ACT 112: Negative or not required by law. Electronically signed by: David Nina M.D. 03/04/2021 4:04 PM I & O Totals 24 Hours 03/04/21 03/05/21 03/06/21 06:59 06:59 06:59 Intake Total 560 / 560 993 / 993 Output Total 1300 / 1300 3350 / 3350 Balance -740 / -740 -2357 / -2357 Cumulative 03/01/21 14:06 thru 03/05/21 06:45 Intake Total 2268 Output Total 6675 Balance -4407 RT Ventilator Mngmt (Last Documented) Ventilator Ordered Settings Respiratory Rate 22 03/05/21 08:12 Ventilator - PT Measurements Respiratory Rate 22 PG Care Time/CCT Total # of Minutes Spent Total Time Spent with Patient: Total time spent is greater than 50% in coordination of care (as documented) at patient's floor/unit and/or counseling patient: Coding Level of Care Code 46890 Initial Inpt Care Lvl 3 Diagnoses Valvular heart disease I38 COVID-19 U07.1 Fluid overload E87.70 Hypervolemia type: unspecified Pulmonary nodule R91.1 Pleural effusion J90
--- NOTE | 2021-03-05 09:48 | XRay Report ---
XR chest 1V portable CLINICAL HISTORY: Status post right thoracentesis. Evaluate for pneumothorax.. COMPARISON STUDY: 03/01/2021 TECHNIQUE: 1 view of the chest FINDINGS: Single frontal view of the chest demonstrates the heart to again be enlarged status post previous car diothoracic surgery and pacer placement. The patient is reportedly status post right thoracentesis wi th only minimal blunting of right costophrenic angle present. There is no evidence for pneumothorax. However, there is evidence for left pleural effusion and left basilar atelectasis. No alveolar opacit y are identified. There is no evidence for vascular congestion. There is no acute osseous pathology. IMPRESSION: Status post reported right thoracentesis with only minimal blunting of the right costophr enic angle present and no evidence for pneumothorax seen. There is evidence for left pleural effusion with left lower lobe atelectasis/collapse as well. ACT 112: Negative or not required by law. Electronically signed by: Eliceo Villa M.D. 03/05/2021 9:47 AM
--- NOTE | 2021-03-05 09:55 | Procedure Note ---
Procedure Note Date of Service March 05, 2021 Note Procedure: Ultrasound assisted thoracentesis Attending: Dr. Head APC: Elier HOGUE ([facility])- Direct Supervision by Dr. Head Indication: Pleural Effusion Anesthesia: X Lidocaine 1% [x] Written consent was obtained, signed, witnessed, and on the chart per attending providers. Consent was obtained by Dr. Head Prior to procedure, labs reviewed, INR 1.5, CT scan reviewed reviewed by myself and demonstrated right pleural effusion the right side was targeted. A time-out was completed verifying correct patient, procedure, site, positioning, and equipment if applicable. Utilizing bedside ultrasound, chest wall was evaluated for location for optimal drainage as well as location of the diaphragm. Location between the ribs was marked on the skin using gentle pressure. The right sided chest wall was prepped with chlorhexidine and draped in the typical sterile fashion. 9 mL of 1% Lidocaine without epinephrine was used to anesthetize the skin down to the dorsal surface of the rib, Lidocaine was injected into the pleural space for increased anesthetization, as noted by pleural fluid and was injected on the way out. A stab incision was made with 11 blade scalpel. Introducer needle on syringe was inserted in perpendicular fashion taking care to ride just above the dorsal surface of the rib. Entry into the pleural space yielded light yellow pleural fluid return into the syringe while under gentle aspiration. The catheter was inserted over the needle apparatus without resistance and the introducer needle was subsequently removed. Approximately 1600ml of pleural fluid was removed. Patient tolerated the procedure well without any immediate complications. Ultrasound was performed following the procedure which revealed pleural slide and reduction in the pleural fluid. Procedure was terminated secondary to patient coughing with re- expansion. Blood Loss: Minimal Complications: None X Post procedure Chest X-ray was ordered and interpreted- No pneumothorax and decrease in the pleural effusion. Complications: None Coding
[2021-03-05 09:58] LABS: Glucose Pleural Fluid 185 mg/dl
[2021-03-05 10:06] LABS: LDH Pleural Fluid 120 U/L; Total Protein Pleural Fluid 2.1 g/dl
[2021-03-05 10:49] LABS: Appearance Pleural Fluid CLEAR; Basophils, Fluid 0 %; Color Pleural Fluid YELLOW; Eosinophils, Fluid 1 %; Lymphocytes, Fluid 32 %; Mono,Macrophage,Mesothelial 49 %; Neutrophils, Fluid 18 %; RBC Pleural Fluid (A) 3000 /uL; Source Pleural Fluid RIGHT LUNG; WBC Pleural Fluid (A) 187 /uL
[2021-03-05] MEDS: CHLOROTHIAZIDE SODIUM 500 MG in DEXTROSE 5% 50 ML IV SCH (11:11)
--- NOTE | 2021-03-05 19:11 | Hospitalist Progress Note ---
Date of Service March 05, 2021 Assessment & Plan (1) Heart failure: Plan: EF of 20% with moderate to severe MR and TR on prior echo -Clinical syndrome fits most with acute exacerbation of chronic systolic CHF, far more than Covid Doing better post thoracentesis for large pleural effusion transition to p.o. medshopefully with stability home tomorrow - (2) COVID-19: Plan: Still overall seems acutely ill from acute on chronic systolic CHF, not Covid pneumonia. Has not really had any characteristic symptoms of Covid, appears much more clinically ill from CHF. Continue to follow closely, but no specific treatment warranted at this time. Further, given that corticosteroids could worsen the CHF situation, will hold off on those for now (to clarify I believe his hypoxia is predominantly, if not purely, related to his CHF and effusion to CovidCT lacking appearance of a viral pneumonia pattern corroborating this) (3) Type 2 diabetes mellitus: Plan: A1c 6.5, glucoses at times have been a little high, but in discussion with nursing, he is refusing all of his insulin. (4) Atrial fibrillation: Plan: Rate controlled, anticoagulated chronically, resume Coumadin (was held for thoracentesis) (5) Chronic kidney disease: Plan: Appears to be around a baseline of stage IV. Follow closely with diuresis. BMP in a.m. (6) Hypertension: Plan: -Follow with med adjustments Plan: F/E/N - Diuresis as above, monitor BMP BID, Heart healthy/CC diet as tolerated ppx -anticoagulated with Coumadinalthough this was temporarily held/reversed for possible thoracentesis Code - DNR/DNI Admission and Anticipated Discharge Date Admission Date: March 02, 2021 Subjective Breathing feels better since thoracentesis. Doing okay otherwise. No new complaints. Discussed further treatment. Patient expressed good understanding. Review of Systems Review of Systems: All systems reviewed & are unremarkable except as noted in HPI & below Physical Exam Physical Exam: In general he is awake and alert pleasant no distress. HEENT normocephalic atraumatic mucous membranes moist. Lungs surprisingly clear no real rales rhonchi or wheezes good effort no accessory muscle use. Skin without rashes pallor or icterus. Neuro without focal deficits. Results & Data Results & Data ([facility]) Vital Signs (Past 12 Hours) Vital Signs Temp Pulse Resp BP BP Pulse Ox 03/05/21 15:41 97.7 F 71 20 128/73 98 03/05/21 13:38 68 137/84 03/05/21 08:12 97.7 F 70 22 137/79 98 PG Care Time/CCT Total # of Minutes Spent Total Time Spent with Patient: Total time spent is greater than 50% in coordination of care (as documented) at patient's floor/unit and/or counseling patient: Coding Level of Care Code 54550 Subseq Hosp Care Lvl 3 Diagnoses Heart failure I50.9 COVID-19 U07.1 Type 2 diabetes mellitus E11.9 Atrial fibrillation I48.0 Atrial fibrillation type: paroxysmal Chronic kidney disease N18.9 Hypertension I10 (1) Atrial fibrillation Atrial fibrillation type: paroxysmal Qualified Code(s): I48.0 - Paroxysmal atrial fibrillation
[2021-03-05] MEDS: ATORVASTATIN 20 MG TAB PO SCH (20:18)
[2021-03-06 07:08] LABS: Basophils # (auto) 0.02 K/uL (0-0.2); Basophils % (auto) 0.3 %; Eosinophils # (auto) 0.46 K/uL (0-0.5); Eosinophils % (auto) 6.8 %; Hematocrit (blood only) 36.3 % (42-52); Hemoglobin 11.6 g/dL (14.0-18.0); Immature Granulocytes # (auto) 0.02 K/uL (0.00-0.02); Immature Granulocytes % (auto) 0.3 %; Lymphocytes # (auto) 0.88 K/uL (1.2-3.4); Mean Corpuscular Hemoglobin 30.4 pg (25-34); Mean Platelet Volume 11.3 fL (7.4-10.4); Monocytes # (auto) 0.45 K/uL (0.11-0.59); Monocytes % (auto) 6.6 %; Neutrophils # (auto) 4.96 K/uL (1.4-6.5); Platelet Count 234 K/uL (130-400); RDW Coefficient of Variation 17.6 % (11.5-14.5); RDW Standard Deviation 60.6 fL (36.4-46.3); Red Blood Count 3.82 M/uL (4.7-6.1); White Blood Count 6.79 K/uL (4.8-10.8)
[2021-03-06 07:27] LABS: INR 1.2 (0.9-1.1); Prothrombin Time 11.8 Seconds (9.0-12.0)
[2021-03-06 07:42] LABS: BUN Creatinine Ratio 18.9 (10-20); Calcium 8.7 mg/dl (8.5-10.1); Creatinine Clr Calc Pharmacy 19.8 ml/min; Est GFR (African American) 22.1 ml/min; Est GFR (Non-African American) 19.1 ml/min; Potassium 3.5 mmol/L (3.5-5.1)
[2021-03-06] MEDS ORDERED: BUMETANIDE 4 MG in SYRINGE 0 ML IV SCH (09:00)
[2021-03-06] MEDS ORDERED: BUMETANIDE 1 MG TAB PO SCH (09:00)
[2021-03-06] MEDS: INSULIN GLARGINE SOLOSTAR 100 UNITS/ML 3 ML PEN SC SCH (09:37)
[2021-03-06] MEDS: INSULIN ASPART PER UNIT SC SCH ×2 (09:37→13:29)
[2021-03-06 09:49] VITALS: PULSE 70; TEMP 98.1; O2SAT 97
[2021-03-06] MEDS: hydrALAZINE 10 MG TAB PO SCH ×2 (09:50→14:53)
[2021-03-06] MEDS: METOPROLOL SUCC 50MG EXT REL TAB PO SCH ×2 (09:52→11:34)
[2021-03-06] MEDS: SPIRONOLACTONE 25 MG TAB PO SCH ×2 (09:52→11:34)
[2021-03-06] MEDS: ISOSORBIDE MONO EXTENDED REL 30 MG TABCR PO SCH ×2 (09:52→11:35)
--- NOTE | 2021-03-06 10:25 | Pulmonology Progress Note ---
Date of Service March 06, 2021 Assessment & Plan (1) Valvular heart disease: (2) COVID-19: (3) Fluid overload: Hypervolemia type: unspecified Qualified Code(s): E87.70 - Fluid overload, unspecified (4) Pulmonary nodule: (5) Pleural effusion: Plan: Impression: 75-year-old male with known congestive heart failure and severe MR. Admitted with exacerbation/fluid overload. Incidentally found to be Covid positive. He has a 4 mm groundglass pulmonary nodule as well. He underwent diagnostic and therapeutic thoracentesis 03/05/2021 and feels better Recommendations: 1. Pleural effusion: Fluid appears consistent with transudate of etiology. Final cultures and cytology are currently pending. X-ray looks better. Continue diuresis under the direction of cardiology and primary service. 2. COVID-19: Patient appears to be relatively asymptomatic and there is not significant groundglass opacities on his CT scan. No indication for steroids or additional aggressive intervention currently. Isolation per protocol. 3. Hypoxemic respiratory failure: Secondary to #1 and #2. Saturations are currently 97% and oxygen may be able to be aggressively weaned. May need to assess for supplemental oxygen prior to discharge. Recommend two-step evaluation prior to dismissal 4. Pulmonary nodule: Groundglass pulmonary nodule. No prior imaging available for comparison. Recommend a follow-up noncontrast CT scan of the chest in 3 to 6 months. From pulmonary perspective, the patient may be able to be dismissed from the hospital. He should be assessed for need for supplemental oxygen prior to discharge. Pulmonary will sign off. Feel free to contact us if we can be of additional assistance Admission and Anticipated Discharge Date Admission Date: March 02, 2021 Subjective Patient seen and examined. He states he feels better after the thoracentesis yesterday. No chest pain palpitations. No cough or sputum production. He is asking about when he can be dismissed from the hospital Review of Systems Review of Systems: All systems reviewed & are unremarkable except as noted in Subjective Physical Exam Constitutional: WD/WN, vitals as above Neck: trachea midline, no thyromegaly Cardiovascular: Heart Sounds: normal S1, normal S2 and + murmur Extremities: + edema Gastrointestinal (Abdomen): normal bowel sounds, soft, nontender, no hepa tosplenomegaly Musculoskeletal: Extremities: extremities normal to inspection Skin: no rashes, warm and dry Lymphatic: no cervical lymphadenopathy Results & Data Results & Data ([facility]) Vital Signs (Past 12 Hours) Vital Signs Temp Pulse Resp BP Pulse Ox 03/06/21 09:49 36.7 C 70 20 99/60 L 97 Laboratory Results 03/06/21 05:50 03/06/21 05:50 Pleural fluid analysis: Differential: 18% neutrophils, 32% lymphocytes, 49% mesothelial cells, 1% eosinophils pH 7.5 Total protein 2.1 LDH 120 Glucose 185 Cytology pending Gram stain showed moderate polys with no organisms. AFB pending Diagnostic Findings Post procedure thoracentesis x-ray independently reviewed. No pneumothorax on the right. Minimal blunting of the costophrenic angle. Cardiomegaly again noted. Possible small left effusion present. Sternotomy and pacer in place PG Care Time/CCT Total # of Minutes Spent Total Time Spent with Patient: Total time spent is greater than 50% in coordination of care (as documented) at patient's floor/unit and/or counseling patient: Coding Level of Care Code 14070 Subseq Hosp Care Lvl 2 Diagnoses Valvular heart disease I38 COVID-19 U07.1 Fluid overload E87.70 Hypervolemia type: unspecified Pulmonary nodule R91.1 Pleural effusion J90
[2021-03-06 14:56] VITALS: BP 128/73
[2021-03-06] MEDS: WARFARIN SOD 4 MG TAB PO SCH (16:08)
--- NOTE | 2021-03-06 18:53 | Discharge Summary ---
Date of Service March 06, 2021 Admission HPI Per Admitting Provider Alis Bonilla is a 75yo inmate at [facility] presenting with progressive bilateral LE edema as well as SOB. Patient reports swelling and itching in his lower legs ongoing for at least a month. His legs have started weeping fluid over the last several days. He is on Bumex at baseline which as reportedly been increased to "10 mg/day". Patient states that he urinates very little. He developed some shortness of breath last week and was taken to the [facility]. He had a Covid-19 test performed which was NEGATIVE. He denies fever, cough, loss of taste or smell, diarrhea. He has received his Covid-19 vaccinations x 2 as well as booster. Patient was quite surprised to learn that he tested positive for Covid-19 ER Course: Lasix 40mg IV x 1 Principal Diagnosis acute on chronic systolic chf Discharge Exam In general he is awake and alert pleasant no distress. HEENT normocephalic atraumatic mucous membranes moist. Breathing unlaboredlungs are surprisingly clear with no rales rhonchi or wheeze good effort. Skin shows no rashes no pallor or icterus. Extremities are without cyanosis clubbing may be trace bilateral lower extremity edema with venous stasis changes no focal neuro deficits Discharge Data Allergies Allergy/AdvReac Type Severity Reaction Status Date / Time No Known Allergies Allergy Verified 03/01/21 22:15 Consultations 03/01/21 23:28 ED Decision to Admit Stat 03/04/21 13:21 Consult Cardiology Routine 03/04/21 16:34 Consult Pulmonology Routine 03/06/21 15:18 [facility] CHF Program Referral Routine Ordered Studies 03/04/21 14:44 CT chest diagnostic wo con Urgent Hospital Course (1) Heart failure: Right side of euvolemic based on his exam and creatinineEF of 20% with moderate to severe MR and TR on prior echo -Clinical syndrome fits most with acute exacerbation of chronic systolic CHF, far more than Covid Doing better post thoracentesis for large pleural effusion transition to p.o. medsstable for homewe will restart Bumex 2 mg twice daily starting tomorrow, although anticipate his dosing to be titrated to his volume status. -We will also send on preload reduction with Imdur, afterload reduction with hydralazine, spironolactone -Ideally will get plugged in with [facility] CHF clinic if feasible, if not would ask that he has weekly to biweekly basic metabolic panel and weekly to biweekly clinical follow-up with the [facility] until the situation is much more static. -Ideally less than 1500 to 2000 mg sodium restriction if at all possible in the nursing home system (2) COVID-19: Still overall seems acutely ill from acute on chronic systolic CHF, not Covid pneumonia. Has not really had any characteristic symptoms of Covid, appears much more clinically ill from CHF. Continue to follow closely, but no specific treatment warranted at this time. Further, given that corticosteroids could worsen the CHF situation, will hold off on those for now (to clarify I believe his hypoxia is predominantly, if not purely, related to his CHF and effusion to CovidCT lacking appearance of a viral pneumonia pattern corroborating this) (3) Type 2 diabetes mellitus: A1c 6.5, glucoses at times have been a little high, but in discussion with nursing, he is refusing all of his insulin. Given that his A1c is 6.5, no change in outpatient regimen required (4) Atrial fibrillation: Rate controlled, anticoagulated chronically, resumed Coumadin (was held for thoracentesis) followed by outpatient INR (5) Chronic kidney disease: Baseline appears to be around stage IV, bumped with diureticsas would be expected. Stable for outpatient follow-upfor now holding Bumex todaygiven temporarily is with CHF anticipate resuming tomorrow. Holding losartan until his creatinine gets closer to his baseline range, although his estimated GFR is not that much different than baseline. 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 -As the fluid accumulates, since your left ventricle is the weakest part of your heart, the fluid backs up from the left ventricle into the lungswhich was what was making you so short of breath initially. -As the fluid was in your lungs, it was able to essentially "dripped out" into the chest cavity surrounding the lung, which was why we reached a "ceiling" of getting the fluid off/getting a breathing better, until they did the thoracentesis (needle drainage of fluid) -Probably the reason that you were not improving with extra diuretic prior to admission was that when the heart muscle is more stretched out with additional fluid, it is even less able to pump the normal, and so the diuretic probably was not even really getting pumped forward to your kidneys at that time -Fortunately now things are doing much better, your breathing better, your kidneys suggest that we have you about is dried out as we can with the diuretics, and it appears safe to get you out of the hospital -right now it's still looking like you need oxygen - which is not at all surprising given your heart, and how sick you were with the fluid initially. for now we'll want them to use it to keep your oxygen above about 90-92%; over time hopefully they can wean it down. Medications: We have adjusted a few medications to help better take strain off of your heart -We have added a medicine called [id number] mg 3 times a daywhat this does is opens up the blood vessels in your body more, so the your heart has less back pressure to push against -We added a medicine called isosorbide mononitrate (Imdur)30 mg once a daywhat this does this opens up veins more so that less blood returns to your heart at once, reducing how much blood your heart has to pump at any given time -We added a medicine called spironolactone (while as a diuretic, it is a fairly mild 1, it does change some of the hormones that cause her kidneys to inappropriately retain fluid, making it less likely that you will hold onto fluid as much) -Because you are a little bit on the "dry side" right nowwe will have you hold off on your losartan (Cozaar) until your lab work shows that things are starting to normalize more. The med list will say to "stop" it, this is only because there is not really a meaningful way to say "temporarily hold off on it" in our computer system Diuretics: -As we have been discussing, looking at the diuretic dosing for a patient with CHF should be kind of similar to looking at insulin dosing for a diabetic: Each day could easily be a little bit different, given that what we eat/drink/etc. will have a fairly significant impact on her fluid retentionand therefore how much diuretic we need. -For now, I would suggest having you on Bumex 2 mg twice a day (starting tomorrow morning)but this should be evaluated/adjusted periodically based on ho w you are breathing/how your lung exam is/how your weight is (as far as looking for signs of accumulating fluid) and what your blood pressure is/what your lab work shows (as far as looking for signs of being too dried out with the diuretics). -As we have been discussing, you probably should be seen about once a week, with lab work once or twice a week for the next few weeks until it is clear things have totally stabilized. I have asked to try to get you plugged in with the [facility] cardiology CHF clinicas they are excellent at this kind of "high maintenance CHF management". Regardless of whether it is here or in the [facility], I would like you seen next early this coming week, with lab work (BMP, as well as a PT/INR) on Monday. Covid -As we have been discussing, you tested positive for Covid, but really showed absolutely no signs, symptoms, or findings of active Covid disease. This means that your vaccine has done well for you (like we were discussing, respiratory viruses get into our mucous membranes and start to reproducewhen they reproduce a lot this is how we get sick. A vaccine makes our immune system able to detect the virus at much lower levels, and clear out the virus before there is enough of it to really make you sick. The Covid testing is so sensitive anymore that it can often supervisor aircraft cleaning Covid at very low levelswhich is why you still tested positivebut really what this shows you as your vaccine did exactly what it was supposed to do). -It is really not very likely you are contagious at all, and given that you had no symptoms, I have no clear way of knowing when you are true "day 1" wasso we have to really use day 1 from testing. It is probably "overkill" but 10 days from day 1 (around 03/10/2021) would be a more than reasonable timeframe to assume you are no longer contagiousbecause like we have been discussing, it is quite likely that you already are not. Pending Studies at Discharge: No Stand-Alone Forms: My [facility] Skilled Items Patient informed of condition?: Yes Discharge Level of Care: Other Communicable Disease: Yes Discharge Prognosis: Improving Lines: None Urinary Catheter: No Medications and DC Order Prescriptions: New hydralazine 10 mg Tablet 10 mg PO TID Qty: 90 RF: 0 isosorbide mononitrate 30 mg Tablet Extended Release 24 Hr 30 mg PO QAM Qty: 30 RF: 0 spironolactone 25 mg Tablet 25 mg PO QAM Qty: 30 RF: 0 Continued glimepiride 1 mg tablet 1 mg PO DAILY RF: 0 atorvastatin 20 mg tablet 20 mg PO HS RF: 0 nitroglycerin 0.4 mg tablet, sublingual 0.4 mg SL DIRECTED PRN (Reason: Chest Pain) RF: 0 levalbuterol tartrate [Xopenex HFA] 45 mcg/actuation Hfa Aerosol Inhaler 2 inh INHALATION QID PRN (Reason: Shortness Of Breath) RF: 0 metoprolol succinate 50 mg Tablet Extended Release 24 Hr 50 mg PO DAILY RF: 0 warfarin 4 mg Tablet 4 mg PO DAILY RF: 0 paricalcitol 1 mcg Capsule 1 mcg PO DAILY RF: 0 B complex with C 20-folic acid 1 mg Capsule 1 cap PO DAILY RF: 0 Changed bumetanide 2 mg tablet 2 mg PO BID Qty: 60 RF: 0 Discontinued losartan 25 mg Tablet 25 mg PO DAILY RF: 0 Discharge Orders: Discharge Order (Routine); Ordered 03/06/21 Ordered By: Arvind Espinosa Admission Data Admit Date/Time: 03/02/21 00:24 Attending Provider: Arvind Espinosa Admit Provider: Lena Michaels Primary Care Provider: Mere MONTELONGO Other Providers: Lena Michaels ; Noel Chandra ; [place] ; Allison Ordaz Other Interventions: Discharge Summary Assessment (RN) Last Done: 03/06/21 14:54 Coding Level of Care Code D/C DAY MANAGEMENT >30 MINS Diagnoses Heart failure I50.9 COVID-19 U07.1 Type 2 diabetes mellitus E11.9 Atrial fibrillation I48.0 Atrial fibrillation type: paroxysmal Chronic kidney disease N18.9 Hypertension I10 Pulmonary nodule R91.1
== END 2021-03-06 17:27 | DRG 291 ==
LOC: ED 14:06 → EDINP 03-02 00:24 → SUATTDRO 03-02 00:24 → 2E 03-02 02:30 → 2S 03-03 00:17 → 2W 03-03 14:17

== ENCOUNTER 2023-05-20 09:19 | Inpatient (IN) ==
--- NOTE | 2023-05-20 09:24 | Emergency Department Note ---
Impression & Plan Syncope, Ischemic cardiomyopathy, CKD (chronic kidney disease), Elevated troponin, Atrial fibrillation with rapid ventricular response, Brain lesion, Closed fracture nasal bone, Nasal abrasion ED Provider Note NAME: LAURA BRIAN35Mario Alberto FLETCHER AGE: 77 SEX: M : 1945 ARRIVES VIA: Ambulance INFORMANT: Patient ED PROVIDER(S): Juan Manuel Reynoso MD CHIEF COMPLAINT: Syncope, referred. PLAN: Disposition: Admit MEDICAL DECISION MAKING: The patient is a pleasant 77-year-old gentleman, current detention inmate at [facility] with a past medical history of ischemic cardiomyopathy with EF of 20% with history of single-chamber implantable ICD with function has since been deactivated per records in 2020, atrial fibrillation not on anticoagulation due to patient's preference, hypertension, hyperlipidemia, who presents to the emergency department from his facility for evaluation of syncope where the patient reports he had gone to get his medications from the [facility] and was walking back to his cell when he became dizzy and passed out. There was no report of seizure activity. Patient denies any preceding palpitations or chest pain prior to this. He reports he is confident he did not "have a heart attack". He reports that he feels he is probably dehydrated in the setting of his chronic kidney disease. He reports feeling his normal state of health prior to his syncopal episode and denies fevers, chills, cough congestion, GI or symptoms. He reports he does take a baby aspirin but stopped taking his warfarin under his own accord but reports he is on Bumex, glimepiride, hydralazine, and atorvastatin. He denies any headache or dizziness upon our discussion. He has some pain on the bridge of his nose where he has a small linear abrasion. On evaluation the patient is no acute distress, afebrile with heart in the 120s and RVR and atrial fibrillation with blood pressure 160s/100s. O2 saturation is 97% on room air with normal respiratory effort. EKG demonstrates atrial fibrillation with RVR at 113 bpm. Left bundle branch block is present with QRS of 154 which is new when compared to March 01, 2021. Chest x-ray demonstrates mild pulmonary edema and small bilateral pleural effusions. CT of the head was performed and demonstrates a 6 mm hyperdense focus in the right weeks radiata which is nonspecific. Possible IPH is considered however atypical for trauma and there is no adjacent edema. Additionally suspected is a hyperdense lesion. These findings were reviewed with radiology and while MRI could be used to clarify this distinction the patient does have a pacemaker ICD and while it is MRI compatible this cannot be performed over the weekend at our facility. Thus, a reasonable alternate approach was pursued with repeat CT scan 6 hours from the patient's initial scan. WBC 11 K, nonspecific without left shift. H/H and platelets within normal limits. Chemistry with creatinine of 2.25, consistent with patient's history of CKD and similar to prior. Bicarbonate is 20 consistent with the patient's clinically dry appearance. The patient's initial positive troponin was 24.9, nonspecific however his delta 2-hour high-sensitivity troponin did increase to 1000. The patient continued to deny preceding chest pain or chest pain at this time. Given the patient's history of ischemic cardiomyopathy suspicion was raised for possible ventricular arrhythmia and device interrogation was performed. I did review the report with the [facility] tablet technician over the phone. Unfortunately, since the patient's functions have been deactivated not only will the device not provide treatment but she reported that he would not record events and so cannot provide any information regarding the patient's syncopal episode. Subsequently, repeat CT scan of the head performed [address] scan demonstrated no change in the lesion making hemorrhage significantly less likely. However for complete evaluation a repeat CT scan in several days is recommended. Lesion is suspected to likely be related to calcification containing lesion such as hemangioma. I did reassess the patient numerous times during this department and he continued denied chest pain and continue to feel well. He was provided with gentle IV fluid hydration in the setting of his history of ischemic cardiomyopathy. I did review with him his rising troponin and while he insisted that this has happened before and it "goes down" he did agree to have a repeat troponin performed to further characterize this finding. However he did add that he again was confident that he "did not have a heart attack". Subsequently, the patient's repeat high-sensitivity troponin drawn approximately 6 hours after his elevation of 1000 did rise to 2000. Thus, we will proceed with admission at this time for further monitoring from a cardiac perspective. Ventricular arrhythmia well, with the patient's history of cardiomyopathy prolonged atrial fibrillation with RVR may have similarly caused his troponin elevation in the setting of his history of CKD. Patient was in agreement with admission though he does clarify that he maintains that he would not want his ICD reactivated. Case was discussed with KINGA Owens hospitalist, who will evaluate the patient for admission. Initially, case was reviewed with ABRIL Rousseau cardiology on-call. Appreciate consultation and recommendations. Agrees with admission for observation. Recommends continued beta-carolynn and telemetry monitoring. Agrees that ACS is considered less likely given the patient has not had chest pain preceding or following his episode and so agrees that anticoagulation can be deferred at this time. Admitting team updated. Triage Nursing notes reviewed and agree them. Prior/external medical records reviewed Vital Signs: reviewed Differential diagnosis: Vasovagal event, dehydration, infection, hypoglycemia, electrolyte abnormalities, cardiac sources, intracerebral event, pulmonary embolism, seizure, toxicologic, neurologic, as well as other pathologies. ER treatment provided: See below. Diagnostics interpreted by me: ECG: Atrial fibrillation with RVR, 113 bpm, left bundle branch block, no scar Bosa criteria, QTc 526, QRS 124. Cardiac Monitoring: An order for continuous cardiac monitoring was placed and demonstrated Atrial fibrillation with RVR, 113 bpm. Laboratory studies: See below Imaging studies: See below Consultation(s): KINGA Owens hospitalist. ABRIL Rousseau cardiology. HPI: The patient is a pleasant 77-year-old gentleman, current detention inmate at [facility] with a past medical history of ischemic cardiomyopathy with EF of 20% with history of single-chamber implantable ICD with function has since been deactivated per records in 2020, atrial fibrillation not on anticoagulation due to patient's preference, hypertension, hyperlipidemia, who presents to the emergency department from his facility for evaluation of syncope where the patient reports he had gone to get his medications from the [facility] and was walking back to his cell when he became dizzy and passed out. There was no report of seizure activity. Patient denies any preceding palpitations or chest pain prior to this. He reports he is confident he did not "have a heart attack". He reports that he feels he is probably dehydrated in the setting of his chronic kidney disease. He reports feeling his normal state of health prior to his syncopal episode and denies fevers, chills, cough congestion, GI or symptoms. He reports he does take a baby aspirin but stopped taking his warfarin under his own accord but reports he is on Bumex, glimepiride, hydralazine, and atorvastatin. He denies any headache or dizziness upon our discussion. He has some pain on the bridge of his nose where he has a small linear abrasion. ROS: See above HPI for pertinent positives & negatives. A total of 10 systems reviewed and were otherwise negative. VITALS:See Below PHYSICAL EXAMINATION: GENERAL: Awake, alert, in no distress HENT: Normocephalic, atraumatic. Minor contusion and linear abrasion to the bridge of the nose without epistaxis. Oropharynx unremarkable. EYES: Normal conjunctiva. Sclera non-icteric. NECK: Supple. No nuchal rigidity. FROM. No JVD. RESPIRATORY: Clear to auscultation. CARDIAC: Tachycardic rate, irregular rhythm. Extremities warm and well perfused. Pulses equal. ABDOMEN: Soft, non-distended. No tenderness to palpation. No rebound or guarding. No masses. MUSCULOSKELETAL: Chest examination reveals no tenderness. The back is symmetrical on inspection without obvious abnormality. There is no CVA tenderness to palpation. No joint edema. LOWER EXTREMITIES: Calves are equal size bilaterally and non-tender. No edema. No discoloration. NEURO: Normal sensorium. No focal sensory or motor deficits noted. 5/5 strength and SILT x 4 extremities. SKIN: No rash or jaundice noted. ED COURSE: Critical Care: I have personally spent greater than 45 minutes of critical care time in the direct management of this patient. This includes bedside care, interpretation of diagnostic studies, and testing, discussion with consultants, patient, and family members, and other required patient management activities. This 45 minutes is in excess of all separately billable procedures. Juan Manuel Reynoso MD Past Med/Surg History Medical History Constipation Chronic congestive heart failure Uremic encephalopathy Nausea & vomiting Acute hyponatremia Acute kidney injury Syncope Ischemic cardiomyopathy Myocardial infarct Atherosclerotic heart disease coronary artery bypass grafting: Marvin to LAD. Saphenous vein graft to unknown vessel PCI to the 1st diagonal 11/24/2016 Hypertension Hypokalemia Hypercholesterolemia Type 2 diabetes mellitus Enlarged prostate Surgical History S/P triple vessel bypass H/O heart artery stent Family History Grandmother Diabetes Social History Smoking Status: Unknown if ever smoked Tobacco Type: Cigarettes Hx Alcohol Use: No Hx Substance Use: No Preferred Language: Egyptian Communication Ability: Effective Fur Trimmer Required: No Beliefs That Will Affect Care: Restorationist Restorationist Beliefs: Jehovahs Witness marital status: Single Current Living Situation: Other Current Living Situation Comment: Long Term Feels Safe at Home: Yes Assistive Devices: None Allergies Allergies Allergy/AdvReac Type Severity Reaction Status Date / Time No Known Allergies Allergy Verified 05/20/23 15:13 Home Meds Home Medications Medication Instructions Recorded Confirmed glimepiride 1 mg tablet 1 mg PO DAILY 06/29/20 05/20/23 aspirin 81 mg tablet,delayed 81 mg PO DAILY 05/20/23 05/20/23 release atorvastatin 40 mg tablet (Lipitor) 40 mg PO DAILY 05/20/23 05/20/23 bumetanide 2 mg tablet 2 mg PO DAILY 05/20/23 05/20/23 Previous Rx's Medication Instructions Recorded hydralazine 10 mg tablet 10 mg PO TID #90 tabs 03/06/21 Results & Data (ED) Vital Signs Vital Signs - 24 hr 05/20/23 09:33 05/20/23 09:33 05/20/23 09:41 Temperature 36.5 C Temperature Source Oral Pulse Rate 120 H 115 H Pulse Rate [Apical] Pulse Rate from SpO2 Sensor 126 H Pulse Rhythm [Apical] Respiratory Rate 20 34 H Respiratory Effort / Characteristics Respiratory Depth Respiratory Pattern Blood Pressure 166/101 H Blood Pressure [Right Arm] Blood Pressure Mean 122 Blood Pressure Mean [Right Arm] Blood Pressure Position [Right Arm] Pulse Oximetry 97 96 90 Oxygen Delivery Method Room Air Room Air Sepsis Recent Fever Within 48 Hours No Sepsis New/Unexplained Change in Mental Status N/A Sepsis Action Taken by Nursing No Action Required 05/20/23 09:42 05/20/23 09:50 05/20/23 10:00 Temperature Temperature Source Pulse Rate 122 H 115 H 118 H Pulse Rate [Apical] Pulse Rate from SpO2 Sensor 118 H 118 H Pulse Rhythm [Apical] Respiratory Rate 27 H 25 H Respiratory Effort / Characteristics Respiratory Depth Respiratory Pattern Blood Pressure Blood Pressure [Right Arm] Blood Pressure Mean Blood Pressure Mean [Right Arm] Blood Pressure Position [Right Arm] Pulse Oximetry 90 94 Oxygen Delivery Method Sepsis Recent Fever Within 48 Hours Sepsis New/Unexplained Change in Mental Status Sepsis Action Taken by Nursing 05/20/23 10:28 05/20/23 10:30 05/20/23 10:31 Temperature Temperature Source Pulse Rate 119 H 108 H Pulse Rate [Apical] 126 H Pulse Rate from SpO2 Sensor 121 H 119 H Pulse Rhythm [Apical] Respiratory Rate 13 28 H 18 Respiratory Effort / Characteristics Non-Labored Respiratory Depth Normal Respiratory Pattern Regular Blood Pressure Blood Pressure [Right Arm] 145/103 H Blood Pressure Mean Blood Pressure Mean [Right Arm] 117 Blood Pressure Position [Right Arm] Pulse Oximetry 90 95 98 Oxygen Delivery Method Room Air Sepsis Recent Fever Within 48 Hours Sepsis New/Unexplained Change in Mental Status Sepsis Action Taken by Nursing 05/20/23 10:31 05/20/23 10:31 05/20/23 10:32 Temperature Temperature Source Pulse Rate 110 H 115 H Pulse Rate [Apical] Pulse Rate from SpO2 Sensor 107 H Pulse Rhythm [Apical] Respiratory Rate 30 H Respiratory Effort / Characteristics Respiratory Depth Respiratory Pattern Blood Pressure 145/103 H 145/103 H Blood Pressure [Right Arm] Blood Pressure Mean 130 Blood Pressure Mean [Right Arm] Blood Pressure Position [Right Arm] Pulse Oximetry 95 Oxygen Delivery Method Sepsis Recent Fever Within 48 Hours Sepsis New/Unexplained Change in Mental Status Sepsis Action Taken by Nursing 05/20/23 10:40 05/20/23 10:50 05/20/23 10:56 Temperature Temperature Source Pulse Rate 101 H 95 H Pulse Rate [Apical] Pulse Rate from SpO2 Sensor 94 H 108 H Pulse Rhythm [Apical] Respiratory Rate 12 13 Respiratory Effort / Characteristics Respiratory Depth Respiratory Pattern Blood Pressure 124/94 Blood Pressure [Right Arm] Blood Pressure Mean 99 Blood Pressure Mean [Right Arm] Blood Pressure Position [Right Arm] Pulse Oximetry Oxygen Delivery Method Sepsis Recent Fever Within 48 Hours Sepsis New/Unexplained Change in Mental Status Sepsis Action Taken by Nursing 05/20/23 10:56 05/20/23 10:57 05/20/23 10:57 Temperature Temperature Source Pulse Rate 92 H 92 H Pulse Rate [Apical] 86 Pulse Rate from SpO2 Sensor 92 H Pulse Rhythm [Apical] Respiratory Rate 24 18 Respiratory Effort / Characteristics Non-Labored Respiratory Depth Normal Respiratory Pattern Regular Blood Pressure 124/94 Blood Pressure [Right Arm] 124/94 Blood Pressure Mean Blood Pressure Mean [Right Arm] 104 Blood Pressure Position [Right Arm] Pulse Oximetry 93 94 Oxygen Delivery Method Room Air Sepsis Recent Fever Within 48 Hours Sepsis New/Unexplained Change in Mental Status Sepsis Action Taken by Nursing 05/20/23 11:00 05/20/23 11:00 05/20/23 11:10 Temperature Temperature Source Pulse Rate 92 H 86 Pulse Rate [Apical] Pulse Rate from SpO2 Sensor 95 H 96 H Pulse Rhythm [Apical] Respiratory Rate 26 H 14 Respiratory Effort / Characteristics Respiratory Depth Respiratory Pattern Blood Pressure 126/88 Blood Pressure [Right Arm] Blood Pressure Mean 99 Blood Pressure Mean [Right Arm] Blood Pressure Position [Right Arm] Pulse Oximetry 94 95 Oxygen Delivery Method Sepsis Recent Fever Within 48 Hours Sepsis New/Unexplained Change in Mental Status Sepsis Action Taken by Nursing 05/20/23 11:15 05/20/23 11:15 05/20/23 11:20 Temperature Temperature Source Pulse Rate 88 110 H Pulse Rate [Apical] Pulse Rate from SpO2 Sensor 95 H 95 H Pulse Rhythm [Apical] Respiratory Rate 16 20 Respiratory Effort / Characteristics Respiratory Depth Respiratory Pattern Blood Pressure 136/97 Blood Pressure [Right Arm] Blood Pressure Mean 112 Blood Pressure Mean [Right Arm] Blood Pressure Position [Right Arm] Pulse Oximetry 92 94 Oxygen Delivery Method Sepsis Recent Fever Within 48 Hours Sepsis New/Unexplained Change in Mental Status Sepsis Action Taken by Nursing 05/20/23 11:30 05/20/23 11:30 05/20/23 11:40 Temperature Temperature Source Pulse Rate 91 H 91 H Pulse Rate [Apical] Pulse Rate from SpO2 Sensor 102 H 93 H Pulse Rhythm [Apical] Respiratory Rate 27 H 24 Respiratory Effort / Characteristics Respiratory Depth Respiratory Pattern Blood Pressure 145/90 H Blood Pressure [Right Arm] Blood Pressure Mean 113 Blood Pressure Mean [Right Arm] Blood Pressure Position [Right Arm] Pulse Oximetry 93 91 Oxygen Delivery Method Sepsis Recent Fever Within 48 Hours Sepsis New/Unexplained Change in Mental Status Sepsis Action Taken by Nursing 05/20/23 11:45 05/20/23 11:45 05/20/23 11:50 Temperature Temperature Source Pulse Rate 94 H 95 H Pulse Rate [Apical] Pulse Rate from SpO2 Sensor 88 111 H Pulse Rhythm [Apical] Respiratory Rate 21 15 Respiratory Effort / Characteristics Respiratory Depth Respiratory Pattern Blood Pressure 139/88 Blood Pressure [Right Arm] Blood Pressure Mean 114 Blood Pressure Mean [Right Arm] Blood Pressure Position [Right Arm] Pulse Oximetry 92 94 Oxygen Delivery Method Sepsis Recent Fever Within 48 Hours Sepsis New/Unexplained Change in Mental Status Sepsis Action Taken by Nursing 05/20/23 12:00 05/20/23 12:01 05/20/23 12:01 Temperature Temperature Source Pulse Rate 100 H 92 H Pulse Rate [Apical] Pulse Rate from SpO2 Sensor 110 H 89 Pulse Rhythm [Apical] Respiratory Rate 20 36 H Respiratory Effort / Characteristics Respiratory Depth Respiratory Pattern Blood Pressure 128/88 Blood Pressure [Right Arm] Blood Pressure Mean 93 Blood Pressure Mean [Right Arm] Blood Pressure Position [Right Arm] Pulse Oximetry 93 92 Oxygen Delivery Method Sepsis Recent Fever Within 48 Hours Sepsis New/Unexplained Change in Mental Status Sepsis Action Taken by Nursing 05/20/23 12:10 05/20/23 12:15 05/20/23 12:15 Temperature Temperature Source Pulse Rate 96 H 100 H Pulse Rate [Apical] Pulse Rate from SpO2 Sensor 96 H 105 H Pulse Rhythm [Apical] Respiratory Rate 34 H 23 Respiratory Effort / Characteristics Respiratory Depth Respiratory Pattern Blood Pressure 129/83 Blood Pressure [Right Arm] Blood Pressure Mean 93 Blood Pressure Mean [Right Arm] Blood Pressure Position [Right Arm] Pulse Oximetry 93 92 Oxygen Delivery Method Sepsis Recent Fever Within 48 Hours Sepsis New/Unexplained Change in Mental Status Sepsis Action Taken by Nursing 05/20/23 12:20 05/20/23 12:30 05/20/23 12:31 Temperature Temperature Source Pulse Rate 114 H 97 H Pulse Rate [Apical] Pulse Rate from SpO2 Sensor 106 H 102 H Pulse Rhythm [Apical] Respiratory Rate 23 16 Respiratory Effort / Characteristics Respiratory Depth Respiratory Pattern Blood Pressure 127/94 Blood Pressure [Right Arm] Blood Pressure Mean 110 Blood Pressure Mean [Right Arm] Blood Pressure Position [Right Arm] Pulse Oximetry 93 Oxygen Delivery Method Sepsis Recent Fever Within 48 Hours Sepsis New/Unexplained Change in Mental Status Sepsis Action Taken by Nursing 05/20/23 12:31 05/20/23 12:40 05/20/23 12:45 Temperature Temperature Source Pulse Rate 110 H 92 H Pulse Rate [Apical] Pulse Rate from SpO2 Sensor 113 H 90 Pulse Rhythm [Apical] Respiratory Rate 15 20 Respiratory Effort / Characteristics Respiratory Depth Respiratory Pattern Blood Pressure 131/92 Blood Pressure [Right Arm] Blood Pressure Mean 115 Blood Pressure Mean [Right Arm] Blood Pressure Position [Right Arm] Pulse Oximetry 92 92 Oxygen Delivery Method Sepsis Recent Fever Within 48 Hours Sepsis New/Unexplained Change in Mental Status Sepsis Action Taken by Nursing 05/20/23 12:45 05/20/23 12:50 05/20/23 13:00 Temperature Temperature Source Pulse Rate 112 H 98 H 108 H Pulse Rate [Apical] Pulse Rate from SpO2 Sensor 101 H 103 H 108 H Pulse Rhythm [Apical] Respiratory Rate 31 H 23 21 Respiratory Effort / Characteristics Respiratory Depth Respiratory Pattern Blood Pressure Blood Pressure [Right Arm] Blood Pressure Mean Blood Pressure Mean [Right Arm] Blood Pressure Position [Right Arm] Pulse Oximetry 93 93 93 Oxygen Delivery Method Sepsis Recent Fever Within 48 Hours Sepsis New/Unexplained Change in Mental Status Sepsis Action Taken by Nursing 05/20/23 13:00 05/20/23 13:10 05/20/23 13:15 Temperature Temperature Source Pulse Rate 113 H Pulse Rate [Apical] Pulse Rate from SpO2 Sensor 109 H Pulse Rhythm [Apical] Respiratory Rate 24 Respiratory Effort / Characteristics Respiratory Depth Respiratory Pattern Blood Pressure 141/97 H 127/98 Blood Pressure [Right Arm] Blood Pressure Mean 109 105 Blood Pressure Mean [Right Arm] Blood Pressure Position [Right Arm] Pulse Oximetry 92 Oxygen Delivery Method Sepsis Recent Fever Within 48 Hours Sepsis New/Unexplained Change in Mental Status Sepsis Action Taken by Nursing 05/20/23 13:15 05/20/23 13:20 05/20/23 13:30 Temperature Temperature Source Pulse Rate 114 H 97 H Pulse Rate [Apical] Pulse Rate from SpO2 Sensor 113 H 113 H Pulse Rhythm [Apical] Respiratory Rate 35 H 21 Respiratory Effort / Characteristics Respiratory Depth Respiratory Pattern Blood Pressure 122/88 Blood Pressure [Right Arm] Blood Pressure Mean 90 Blood Pressure Mean [Right Arm] Blood Pressure Position [Right Arm] Pulse Oximetry 93 94 Oxygen Delivery Method Sepsis Recent Fever Within 48 Hours Sepsis New/Unexplained Change in Mental Status Sepsis Action Taken by Nursing 05/20/23 13:30 05/20/23 13:40 05/20/23 13:45 Temperature Temperature Source Pulse Rate 114 H 106 H Pulse Rate [Apical] Pulse Rate from SpO2 Sensor 109 H 104 H Pulse Rhythm [Apical] Respiratory Rate 20 25 H Respiratory Effort / Characteristics Respiratory Depth Respiratory Pattern Blood Pressure 144/94 H Blood Pressure [Right Arm] Blood Pressure Mean 130 Blood Pressure Mean [Right Arm] Blood Pressure Position [Right Arm] Pulse Oximetry 92 93 Oxygen Delivery Method Sepsis Recent Fever Within 48 Hours Sepsis New/Unexplained Change in Mental Status Sepsis Action Taken by Nursing 05/20/23 13:45 05/20/23 13:50 05/20/23 14:00 Temperature Temperature Source Pulse Rate 93 H 100 H 90 Pulse Rate [Apical] Pulse Rate from SpO2 Sensor 94 H 114 H 116 H Pulse Rhythm [Apical] Respiratory Rate 15 22 18 Respiratory Effort / Characteristics Respiratory Depth Respiratory Pattern Blood Pressure Blood Pressure [Right Arm] Blood Pressure Mean Blood Pressure Mean [Right Arm] Blood Pressure Position [Right Arm] Pulse Oximetry 92 95 92 Oxygen Delivery Method Sepsis Recent Fever Within 48 Hours Sepsis New/Unexplained Change in Mental Status Sepsis Action Taken by Nursing 05/20/23 14:00 05/20/23 14:10 05/20/23 14:11 Temperature Temperature Source Pulse Rate 116 H Pulse Rate [Apical] 111 H Pulse Rate from SpO2 Sensor 115 H Pulse Rhythm [Apical] Regular Respiratory Rate 22 18 Respiratory Effort / Characteristics Non-Labored Spontaneous Respiratory Depth Normal Respiratory Pattern Regular Blood Pressure 150/103 H Blood Pressure [Right Arm] 150/103 H Blood Pressure Mean 122 Blood Pressure Mean [Right Arm] 118 Blood Pressure Position [Right Arm] Lying Pulse Oximetry 92 93 Oxygen Delivery Method Room Air Sepsis Recent Fever Within 48 Hours Sepsis New/Unexplained Change in Mental Status Sepsis Action Taken by Nursing 05/20/23 14:15 05/20/23 14:15 05/20/23 14:20 Temperature Temperature Source Pulse Rate 120 H 102 H Pulse Rate [Apical] Pulse Rate from SpO2 Sensor 107 H 99 H Pulse Rhythm [Apical] Respiratory Rate 29 H 24 Respiratory Effort / Characteristics Respiratory Depth Respiratory Pattern Blood Pressure 128/97 Blood Pressure [Right Arm] Blood Pressure Mean 112 Blood Pressure Mean [Right Arm] Blood Pressure Position [Right Arm] Pulse Oximetry 93 93 Oxygen Delivery Method Sepsis Recent Fever Within 48 Hours Sepsis New/Unexplained Change in Mental Status Sepsis Action Taken by Nursing 05/20/23 14:30 05/20/23 14:30 05/20/23 14:35 Temperature Temperature Source Pulse Rate 99 H 106 H Pulse Rate [Apical] Pulse Rate from SpO2 Sensor 103 H Pulse Rhythm [Apical] Respiratory Rate 26 H Respiratory Effort / Characteristics Respiratory Depth Respiratory Pattern Blood Pressure 148/91 H Blood Pressure [Right Arm] Blood Pressure Mean 121 Blood Pressure Mean [Right Arm] Blood Pressure Position [Right Arm] Pulse Oximetry 92 Oxygen Delivery Method Sepsis Recent Fever Within 48 Hours Sepsis New/Unexplained Change in Mental Status Sepsis Action Taken by Nursing 05/20/23 14:40 05/20/23 14:45 05/20/23 14:45 Temperature Temperature Source Pulse Rate 95 H 107 H Pulse Rate [Apical] Pulse Rate from SpO2 Sensor 92 H 101 H Pulse Rhythm [Apical] Respiratory Rate 19 21 Respiratory Effort / Characteristics Respiratory Depth Respiratory Pattern Blood Pressure 126/98 Blood Pressure [Right Arm] Blood Pressure Mean 110 Blood Pressure Mean [Right Arm] Blood Pressure Position [Right Arm] Pulse Oximetry 96 93 Oxygen Delivery Method Sepsis Recent Fever Within 48 Hours Sepsis New/Unexplained Change in Mental Status Sepsis Action Taken by Nursing 05/20/23 14:50 05/20/23 15:15 05/20/23 15:30 Temperature Temperature Source Pulse Rate 96 H 92 H 97 H Pulse Rate [Apical] Pulse Rate from SpO2 Sensor 102 H Pulse Rhythm [Apical] Respiratory Rate 21 17 23 Respiratory Effort / Characteristics Respiratory Depth Respiratory Pattern Blood Pressure 132/84 131/105 H Blood Pressure [Right Arm] Blood Pressure Mean 100 113 Blood Pressure Mean [Right Arm] Blood Pressure Position [Right Arm] Pulse Oximetry 92 92 92 Oxygen Delivery Method Sepsis Recent Fever Within 48 Hours Sepsis New/Unexplained Change in Mental Status Sepsis Action Taken by Nursing 05/20/23 15:45 05/20/23 16:00 05/20/23 16:15 Temperature Temperature Source Pulse Rate 101 H 113 H 93 H Pulse Rate [Apical] Pulse Rate from SpO2 Sensor Pulse Rhythm [Apical] Respiratory Rate 20 25 H 23 Respiratory Effort / Characteristics Respiratory Depth Respiratory Pattern Blood Pressure 115/88 129/88 128/85 Blood Pressure [Right Arm] Blood Pressure Mean 97 101 99 Blood Pressure Mean [Right Arm] Blood Pressure Position [Right Arm] Pulse Oximetry 92 92 93 Oxygen Delivery Method Sepsis Recent Fever Within 48 Hours Sepsis New/Unexplained Change in Mental Status Sepsis Action Taken by Nursing 05/20/23 16:30 05/20/23 17:00 05/20/23 18:00 Temperature Temperature Source Pulse Rate 92 H 94 H 88 Pulse Rate [Apical] Pulse Rate from SpO2 Sensor Pulse Rhythm [Apical] Respiratory Rate 23 21 21 Respiratory Effort / Characteristics Respiratory Depth Respiratory Pattern Blood Pressure 127/93 126/88 133/99 Blood Pressure [Right Arm] Blood Pressure Mean 104 100 110 Blood Pressure Mean [Right Arm] Blood Pressure Position [Right Arm] Pulse Oximetry 91 94 92 Oxygen Delivery Method Sepsis Recent Fever Within 48 Hours Sepsis New/Unexplained Change in Mental Status Sepsis Action Taken by Nursing 05/20/23 18:32 05/20/23 18:44 05/20/23 19:01 Temperature Temperature Source Pulse Rate 120 H 93 H 95 H Pulse Rate [Apical] Pulse Rate from SpO2 Sensor Pulse Rhythm [Apical] Respiratory Rate 20 20 Respiratory Effort / Characteristics Respiratory Depth Respiratory Pattern Blood Pressure 139/108 H 130/87 Blood Pressure [Right Arm] Blood Pressure Mean 118 101 Blood Pressure Mean [Right Arm] Blood Pressure Position [Right Arm] Pulse Oximetry 92 93 Oxygen Delivery Method Sepsis Recent Fever Within 48 Hours Sepsis New/Unexplained Change in Mental Status Sepsis Action Taken by Nursing Laboratory Data Attestation: I reviewed the patient's lab results. 05/20/23 09:33 05/20/23 10:30 Lab Results 05/20/23 05/20/23 05/20/23 Range/Units 09:33 09:35 10:30 WBC 11.15 H (4.8-10.8) K/ul RBC 4.60 L (4.70-6.10) M/uL Hgb 14.6 (14.0-18.0) g/dl Hct 44.0 (42.0-52.0) % MCV 95.7 (80.0-100.0) fL MCH 31.7 (25.0-34.0) pg MCHC 33.2 (32.0-36.0) g/dL RDW Std Deviation 47.6 H (36.4-46.3) fL RDW Coeff of Tommie 13.7 (11.5-14.5) % Plt Count 186 (130-400) K/uL MPV 12.4 (9.4-12.4) fL Immature Gran % (Auto) 0.3 % Neut % (Auto) 79.4 % Lymph % (Auto) 12.1 % [place] % (Auto) 6.0 % Eos % (Auto) 1.7 % Baso % (Auto) 0.5 % Neut # (Auto) 8.85 H (1.40-6.50) K/uL Lymph # (Auto) 1.35 (1.20-3.40) K/uL [place] # (Auto) 0.67 H (0.11-0.59) K/uL Eos # (Auto) 0.19 (0.00-0.50) K/uL Baso # (Auto) 0.06 (0.00-0.20) K/uL Immature Gran # (Auto) 0.03 (0.01-0.20) K/uL PT 10.7 (9.0-12.0) Seconds INR 1.0 (0.9-1.1) Sodium 140 (136-145) mmol/L Potassium TNP 4.4 Chloride 107 (98-107) mmol/L Carbon Dioxide 20 L (21-32) mmol/L Anion Gap 13 H (3-11) BUN 41 H (6-23) mg/dl Creatinine 2.25 H (0.6-1.4) mg/dl Est Cr Clr Drug Dosing 27.9 ml/min Est GFR ( Amer) 31.6 ml/min Est GFR (Non-Af Amer) 27.3 ml/min BUN/Creatinine Ratio 18.2 (10-20) Glucose 212 H (70-99(Fasting)) mg/dl Calcium 8.1 L (8.6-10.3) mg/dl Phosphorus 3.6 (2.5-4.9) mg/dl Magnesium 2.1 (1.7-2.4) mg/dl Total Bilirubin 0.9 (0.2-1.0) mg/dl AST TNP 13 ALT 7 (7-52) U/L Alkaline Phosphatase 49 (34-104) U/L Troponin I High Sens 24.9 H (0-20) pg/ml B-Natriuretic Peptide 612 H (0-100) pg/ml Total Protein 6.6 (6.0-8.3) gm/dl Albumin 4.1 (3.4-5.0) gm/dl Globulin 2.5 (2.5-4.0) gm/dl Albumin/Globulin Ratio 1.6 (0.9-2) Lipase 143 H (11-82) U/L TSH 1.018 (0.300-4.500) uIu/ml Urine Color Urine Appearance (Clear) Urine pH (4.5-7.5) Ur Specific [place] (1.000-1.030) Urine Protein (Negative) Urine Glucose (UA) (Negative) Urine Ketones (Negative) Urine Blood (Negative) Urine Nitrite (Negative) Urine Bilirubin (Negative) Urine Urobilinogen (Negative) Ur Leukocyte Esterase (Negative) Urine WBC (Auto) (0-5) /hpf Urine RBC (Auto) (0-4) /hpf U Hyaline Cast (Auto) (0-5) /lpf U Epithel Cells (Auto) (0-5) /lpf Urine Bacteria (Auto) (Negative) SARS-CoV-2, RNA, NAAT NEGATIVE (NEGATIVE) 05/20/23 05/20/23 05/20/23 Range/Units 12:52 13:24 18:36 WBC (4.8-10.8) K/ul RBC (4.70-6.10) M/uL Hgb (14.0-18.0) g/dl Hct (42.0-52.0) % MCV (80.0-100.0) fL MCH (25.0-34.0) pg MCHC (32.0-36.0) g/dL RDW Std Deviation (36.4-46.3) fL RDW Coeff of Tommie (11.5-14.5) % Plt Count (130-400) K/uL MPV (9.4-12.4) fL Immature Gran % (Auto) % Neut % (Auto) % Lymph % (Auto) % [place] % (Auto) % Eos % (Auto) % Baso % (Auto) % Neut # (Auto) (1.40-6.50) K/uL Lymph # (Auto) (1.20-3.40) K/uL [place] # (Auto) (0.11-0.59) K/uL Eos # (Auto) (0.00-0.50) K/uL Baso # (Auto) (0.00-0.20) K/uL Immature Gran # (Auto) (0.01-0.20) K/uL PT (9.0-12.0) Seconds INR (0.9-1.1) Sodium (136-145) mmol/L Potassium Chloride (98-107) mmol/L Carbon Dioxide (21-32) mmol/L Anion Gap (3-11) BUN (6-23) mg/dl Creatinine (0.6-1.4) mg/dl Est Cr Clr Drug Dosing ml/min Est GFR ( Amer) ml/min Est GFR (Non-Af Amer) ml/min BUN/Creatinine Ratio (10-20) Glucose (70-99(Fasting)) mg/dl Calcium (8.6-10.3) mg/dl Phosphorus (2.5-4.9) mg/dl Magnesium (1.7-2.4) mg/dl Total Bilirubin (0.2-1.0) mg/dl AST ALT (7-52) U/L Alkaline Phosphatase (34-104) U/L Troponin I High Sens 1112.5 H* D 2014.6 H* D (0-20) pg/ml B-Natriuretic Peptide (0-100) pg/ml Total Protein (6.0-8.3) gm/dl Albumin (3.4-5.0) gm/dl Globulin (2.5-4.0) gm/dl Albumin/Globulin Ratio (0.9-2) Lipase (11-82) U/L TSH (0.300-4.500) uIu/ml Urine Color Yellow Urine Appearance Clear (Clear) Urine pH 5.5 (4.5-7.5) Ur Specific [place] 1.019 (1.000-1.030) Urine Protein 3+ H (Negative) Urine Glucose (UA) Trace H (Negative) Urine Ketones 1+ H (Negative) Urine Blood Negative (Negative) Urine Nitrite Negative (Negative) Urine Bilirubin Negative (Negative) Urine Urobilinogen Negative (Negative) Ur Leukocyte Esterase Negative (Negative) Urine WBC (Auto) 1-5 (0-5) /hpf Urine RBC (Auto) 0-4 (0-4) /hpf U Hyaline Cast (Auto) 1-5 (0-5) /lpf U Epithel Cells (Auto) 0-5 (0-5) /lpf Urine Bacteria (Auto) Negative (Negative) SARS-CoV-2, RNA, NAAT (NEGATIVE) Administered Medications Discontinued Medications Sodium Chloride (Nss) 250 mls @ 999 mls/hr IV .Q16M ONE Stop: 05/20/23 10:19 Last Infusion: 05/20/23 10:58 Dose: Infused Documented By: Admin: 05/20/23 10:32 Dose: 999 mls/hr Documented By: ELIDA Sodium Chloride (Nss) 250 mls @ 80 mls/hr IV .Q3H8M DANIELLE Stop: 06/19/23 13:29 Last Admin: 05/20/23 14:56 Dose: Not Given Documented By: ELIDA Sodium Chloride (Nss) 250 mls @ 80 mls/hr IV .Q3H8M ONE Stop: 05/20/23 18:01 Last Infusion: 05/20/23 18:58 Dose: Infused Documented By: Admin: 05/20/23 15:24 Dose: 80 mls/hr Documented By: CPB Metoprolol Tartrate (Metoprolol Tartrate 1 Mg/Ml Vial) 5 mg IV NOW STA Stop: 05/20/23 10:05 Last Admin: 05/20/23 10:32 Dose: 5 mg Documented By: BRJ Imaging Data Radiologist's Impression: Chest X-Ray 05/20/23 09:22 XR chest 1V portable CLINICAL HISTORY: Chest pain, nonspecific COMPARISON STUDY: Chest CT March 04, 2021. Chest radiograph March 05, 2021. FINDINGS: Left subclavian pacer and median sternotomy wires are again noted. Moderate cardiomegaly is unchanged. There is mild interstitial thickening. There is no pneumothorax. There are small bilateral pleural effusions. No consolidation is identified to suggest pneumonia. IMPRESSION: 1. Cardiomegaly with interstitial pulmonary edema and small bilateral pleural effusions. 2. No pneumothorax. ACT 112: Negative or not required by law. Electronically signed by: Graham Emmanuel M.D. 05/20/2023 10:[address] 05/20/23 10:04 CT OF THE CERVICAL SPINE WITHOUT CONTRAST CLINICAL HISTORY: syncope, head strike, pain COMPARISON STUDY: No previous studies for comparison. TECHNIQUE: Helical axial images of the cervical spine were obtained without IV contrast. Sagittal and coronal reconstructions were viewed. Automated exposure control was utilized for the study. A dose lowering technique was utilized adhering to the principles of ALARA. FINDINGS: No cervical spine fracture is identified. There is moderate multilevel degenerative disc disease and facet arthrosis within the cervical spine. Alignment is anatomic. Craniocervical junction is intact. There is no prevertebral edema. A right pleural effusion is partially imaged. There is mild interlobular septal thickening within the visualized lung apices. IMPRESSION: No acute cervical spine fracture or subluxation. ACT 112: Negative or not required by law. Electronically signed by: Graham Emmanuel M.D. 05/20/2023 11:[address] 05/20/23 10:04 CT OF THE HEAD WITHOUT CONTRAST CLINICAL HISTORY: syncope, head strike, pain COMPARISON STUDY: No previous studies for comparison. TECHNIQUE: Helical axial images of the head were obtained without IV contrast. Automated exposure control was utilized for the study. A dose lowering technique was utilized adhering to the principles of ALARA. FINDINGS: There is a small 6 mm hyperdense focus within the right weeks radiata. There is no associated edema. Mild ventricular dilatation is due to central atrophy. Basal cisterns are patent. There are no axial collections. White matter hypodensity suggests small vessel disease. Suspected encephalomalacia within the right occipital lobe may reflect an old infarct. A polypoid density within the right maxillary sinus is incidentally noted. There is no calvarial fracture. Nasal soft tissue swelling is present. There is an acute minimally displaced fracture of the anterior nasal bones. IMPRESSION: 1. Small 6 mm hyperdense focus within the right weeks radiata. This is nonspecific. Differential include a small focus of acute intraparenchymal hemorrhage however there is no adjacent edema and the location is not typical for a traumatic etiology. A hyperdense lesion is also within the differential. Imaging follow up to ensure resolution/stability is recommended. 2. Acute mildly displaced fracture of the anterior bilateral nasal bones. Nasal soft tissue contusion. 3. No calvarial fractures. ACT 112: Negative or not required by law. Electronically signed by: Graham Emmanuel M.D. 05/20/2023 10:[address] 05/20/23 16:28 CT OF THE HEAD WITHOUT CONTRAST CLINICAL HISTORY: evaluation hyperdense lesion vs bleed COMPARISON STUDY: Head CT performed earlier today. CT DOSE: 625.8 mGy.cm TECHNIQUE: Helical axial images of the head were obtained without IV contrast. Automated exposure control was utilized for the study. A dose lowering technique was utilized adhering to the principles of ALARA. FINDINGS: The previously described small 6 mm hyperdense focus within the right weeks radiata is unchanged. This may contain punctate calcifications. No additional hyperdense foci are identified. Ventricular system is stable. Basal cisterns are patent. White matter hypodensity suggests small vessel disease. There are no extra axial collections. Right occipital lobe encephalomalacia is again noted. Right maxillary sinus is partially opacified. This is chronic. Subtle nondisplaced acute anterior bilateral nasal bone fractures are better depicted on prior thin cut images. There is no calvarial fracture. IMPRESSION: No change in the small 6 mm hyperdense focus within the right weeks radiata since head CT performed earlier today. No associated edema or mass effect. A small hyperdense lesion such as cavernoma is favored. This may contain punctate calcifications. A small focus of intraparenchymal hemorrhage is considered less likely however a follow-up head CT in 72 hours to ensure stability and exclude this possibility is recommended. ACT 112: Negative or not required by law. Electronically signed by: Graham Emmanuel M.D. 05/20/2023 5:04 PM Discharge Plan Visit Data Chief Complaint: Syncope Stated Complaint: SYNCOPE, WEAKNESS, DIZZINESS ED Provider: Juan Manuel Reynoso Discharge Problem: Syncope, Ischemic cardiomyopathy, CKD (chronic kidney disease), Elevated troponin, Atrial fibrillation with rapid ventricular response, Brain lesion, Closed fracture nasal bone, Nasal abrasion Forms Stand Alone Forms: [facility] Prescriptions Prescriptions: No Action glimepiride 1 mg tablet 1 mg PO DAILY hydralazine 10 mg Tablet 10 mg PO TID Qty: 90 0RF atorvastatin [Lipitor] 40 mg Tablet 40 mg PO DAILY aspirin [Aspirin Low-Strength] 81 mg Tablet,Delayed Release (Dr/Ec) 81 mg PO DAILY bumetanide 2 mg tablet 2 mg PO DAILY Referrals Referrals: Mere MONTELONGO [Primary Care Provider] - Discharge Problem: Syncope Qualifiers: Syncope type: unspecified Qualified Code(s): R55 - Syncope and collapse CKD (chronic kidney disease) Qualifiers: Chronic kidney disease stage: unspecified stage Qualified Code(s): N18.9 - Chronic kidney disease, unspecified Closed fracture nasal bone Qualifiers: Encounter type: initial encounter Qualified Code(s): S02.2XXA - Fracture of nasal bones, initial encounter for closed fracture Nasal abrasion Qualifiers: Encounter type: initial encounter Qualified Code(s): S00.31XA - Abrasion of nose, initial encounter
[2023-05-20 10:02] LABS: Basophils # (auto) 0.06 K/uL (0.00-0.20); Basophils % (auto) 0.5 %; Eosinophils # (auto) 0.19 K/uL (0.00-0.50); Eosinophils % (auto) 1.7 %; Hemoglobin 14.6 g/dl (14.0-18.0); Immature Granulocytes # (auto) 0.03 K/uL (0.01-0.20); Immature Granulocytes % (auto) 0.3 %; Lymphocytes # (auto) 1.35 K/uL (1.20-3.40); Lymphocytes % (auto) 12.1 %; Mean Corpuscular Hemoglobin 31.7 pg (25.0-34.0); Mean Corpuscular Hgb Conc 33.2 g/dL (32.0-36.0); Mean Corpuscular Volume 95.7 fL (80.0-100.0); Mean Platelet Volume 12.4 fL (9.4-12.4); Monocytes # (auto) 0.67 K/uL (0.11-0.59); Neutrophils # (auto) 8.85 K/uL (1.40-6.50); Neutrophils % (auto) 79.4 %; Platelet Count 186 K/uL (130-400); RDW Coefficient of Variation 13.7 % (11.5-14.5); RDW Standard Deviation 47.6 fL (36.4-46.3); White Blood Count 11.15 K/ul (4.8-10.8)
[2023-05-20 10:19] LABS: Alanine Aminotransferase 7 U/L (7-52); Albumin Globulin Ratio 1.6 (0.9-2); Albumin Level 4.1 gm/dl (3.4-5.0); Alkaline Phosphatase 49 U/L (34-104); Anion Gap 13 (3-11); BUN Creatinine Ratio 18.2 (10-20); Bilirubin,Total 0.9 mg/dl (0.2-1.0); Blood Urea Nitrogen 41 mg/dl (6-23); Calcium 8.1 mg/dl (8.6-10.3); Carbon Dioxide 20 mmol/L (21-32); Chloride 107 mmol/L (98-107); Creatinine Clr Calc Pharmacy 27.9 ml/min; Est GFR (African American) 31.6 ml/min; Est GFR (Non-African American) 27.3 ml/min; Globulin 2.5 gm/dl (2.5-4.0); Glucose 212 mg/dl (70-99(Fasting)); Lipase 143 U/L (11-82); Magnesium 2.1 mg/dl (1.7-2.4); Phosphorus 3.6 mg/dl (2.5-4.9); Sodium 140 mmol/L (136-145); Total Protein 6.6 gm/dl (6.0-8.3)
[2023-05-20 10:24] LABS: Troponin I High Sensitivity 24.9 pg/ml (0-20)
[2023-05-20 10:26] LABS: Prothrombin Time 10.7 Seconds (9.0-12.0)
[2023-05-20 10:31] LABS: Thyroid Stimulating Hormone 1.018 uIu/ml (0.300-4.500)
[2023-05-20] MEDS: METOPROLOL TARTRATE 1 MG/ML VIAL IV STA (10:32)
[2023-05-20] MEDS: SODIUM CHLORIDE 0.9% 250 ML IV ONE ×2 (10:32→15:24)
--- NOTE | 2023-05-20 10:45 | CT Scan Report ---
CT OF THE HEAD WITHOUT CONTRAST CLINICAL HISTORY: syncope, head strike, pain COMPARISON STUDY: No previous studies for comparison. TECHNIQUE: Helical axial images of the head were obtained without IV contrast. Automated exposure con trol was utilized for the study. A dose lowering technique was utilized adhering to the principles o f ALARA. FINDINGS: There is a small 6 mm hyperdense focus within the right weeks radiata. There is no associa vadim edema. Mild ventricular dilatation is due to central atrophy. Basal cisterns are patent. There ar e no axial collections. White matter hypodensity suggests small vessel disease. Suspected encephaloma lacia within the right occipital lobe may reflect an old infarct. A polypoid density within the right maxillary sinus is incidentally noted. There is no calvarial fracture. Nasal soft tissue swelling is present. There is an acute minimally displaced fracture of the anterior nasal bones. IMPRESSION: 1. Small 6 mm hyperdense focus within the right weeks radiata. This is nonspecific. Differential inc lude a small focus of acute intraparenchymal hemorrhage however there is no adjacent edema and the lo cation is not typical for a traumatic etiology. A hyperdense lesion is also within the differential. Imaging follow up to ensure resolution/stability is recommended. 2. Acute mildly displaced fracture of the anterior bilateral nasal bones. Nasal soft tissue contusion . 3. No calvarial fractures. ACT 112: Negative or not required by law. Electronically signed by: Graham Emmanuel M.D. 05/20/2023 10:42 AM
--- NOTE | 2023-05-20 10:48 | XRay Report ---
XR chest 1V portable CLINICAL HISTORY: Chest pain, nonspecific COMPARISON STUDY: Chest CT March 04, 2021. Chest radiograph March 05, 2021. FINDINGS: Left subclavian pacer and median sternotomy wires are again noted. Moderate cardiomegaly is unchanged. There is mild interstitial thickening. There is no pneumothorax. There are small bilatera l pleural effusions. No consolidation is identified to suggest pneumonia. IMPRESSION: 1. Cardiomegaly with interstitial pulmonary edema and small bilateral pleural effusions. 2. No pneumothorax. ACT 112: Negative or not required by law. Electronically signed by: Graham Emmanuel M.D. 05/20/2023 10:46 AM
--- NOTE | 2023-05-20 11:10 | CT Scan Report ---
CT OF THE CERVICAL SPINE WITHOUT CONTRAST CLINICAL HISTORY: syncope, head strike, pain COMPARISON STUDY: No previous studies for comparison. TECHNIQUE: Helical axial images of the cervical spine were obtained without IV contrast. Sagittal a nd coronal reconstructions were viewed. Automated exposure control was utilized for the study. A do se lowering technique was utilized adhering to the principles of ALARA. FINDINGS: No cervical spine fracture is identified. There is moderate multilevel degenerative disc di sease and facet arthrosis within the cervical spine. Alignment is anatomic. Craniocervical junction i s intact. There is no prevertebral edema. A right pleural effusion is partially imaged. There is mild interlobular septal thickening within the visualized lung apices. IMPRESSION: No acute cervical spine fracture or subluxation. ACT 112: Negative or not required by law. Electronically signed by: Graham Emmanuel M.D. 05/20/2023 11:09 AM
[2023-05-20 11:16] LABS: Potassium 4.4 mmol/L (3.5-5.1)
--- NOTE | 2023-05-20 13:38 | Electrocardiogram Report ---
Test Reason : Blood Pressure : / mmHG Vent. Rate : 113 BPM Atrial Rate : 000 BPM P-R Int : 000 ms QRS Dur : 154 ms QT Int : 384 ms P-R-T Axes : 000 -68 094 degrees QTc Int : 526 ms Atrial fibrillation with rapid ventricular response with premature ventricular or aberrantly conducte d complexes Left axis deviation Left bundle branch block Abnormal ECG When compared with ECG of 01-MAR-2021 15:29, Atrial fibrillation has replaced Sinus rhythm Left bundle branch block has replaced Non-specific intra-ventricular conduction block Confirmed by Kenneth Nolan ([id number]) on 05/20/2023 1:38:10 PM Referred By: Mere MONTELONGO Confirmed By:Kenneth Nolan
[2023-05-20 13:58] LABS: Appearance Urine Clear (Clear); Bacteria Urine Automated Negative (Negative); Bilirubin Urine Negative (Negative); Blood Urine Negative (Negative); Color Urine Yellow; Epithelial Cell Urine Auto 0-5 /lpf (0-5); Glucose Urine UA Trace (Negative); Ketones Urine 1+ (Negative); Leukocyte Esterase Urine Negative (Negative); Nitrite Urine Negative (Negative); Protein Urine 3+ (Negative); RBC Urine Automated 0-4 /hpf (0-4); Specific Gravity Urine 1.019 (1.000-1.030); Urobilinogen Urine Negative (Negative); pH Urine 5.5 (4.5-7.5)
[2023-05-20] MEDS: SODIUM CHLORIDE 0.9% 250 ML IV SCH (14:56)
--- NOTE | 2023-05-20 17:06 | CT Scan Report ---
CT OF THE HEAD WITHOUT CONTRAST CLINICAL HISTORY: evaluation hyperdense lesion vs bleed COMPARISON STUDY: Head CT performed earlier today. CT DOSE: 625.8 mGy.cm TECHNIQUE: Helical axial images of the head were obtained without IV contrast. Automated exposure con trol was utilized for the study. A dose lowering technique was utilized adhering to the principles o f ALARA. FINDINGS: The previously described small 6 mm hyperdense focus within the right weeks radiata is unc hanged. This may contain punctate calcifications. No additional hyperdense foci are identified. Ventr icular system is stable. Basal cisterns are patent. White matter hypodensity suggests small vessel di sease. There are no extra axial collections. Right occipital lobe encephalomalacia is again noted. Ri ght maxillary sinus is partially opacified. This is chronic. Subtle nondisplaced acute anterior bilat eral nasal bone fractures are better depicted on prior thin cut images. There is no calvarial fractur e. IMPRESSION: No change in the small 6 mm hyperdense focus within the right weeks radiata since head CT performed earlier today. No associated edema or mass effect. A small hyperdense lesion such as cav ernoma is favored. This may contain punctate calcifications. A small focus of intraparenchymal hemorr trae is considered less likely however a follow-up head CT in 72 hours to ensure stability and exclud e this possibility is recommended. ACT 112: Negative or not required by law. Electronically signed by: Graham Emmanuel M.D. 05/20/2023 5:04 PM
--- NOTE | 2023-05-20 20:05 | History & Physical Report ---
Date of Service May 20, 2023 Assessment & Plan (1) Syncope: Plan: Syncopal episode preceded by dizziness on 05/19 Full LOC; struck head on concrete Head CT on arrival revealed 6 mm hyperdense focus within the right weeks radiata Differential includes small focus of acute intraparenchymal hemorrhage; however location is not typical of traumatic etiology Also noted acute, displaced fracture of anterior nasal bone bilaterally Cannot obtain brain MRI due to ICD; despite being MRI compatible, unable to obtain due to lack of hospital staff over the weekend Repeat head CT 6 hours later showed no change in the hyperdense focus; no associated edema or mass effect Fall precautions Hold all chemical DVT PPx Acetaminophen as needed for pain A.m. CBC, BMP (2) Elevated troponin: Plan: Troponin 24.9-->1112.5-->2014.6 on arrival Trend troponin q6h While patient does note that he was having increased chest palpitations this morning, he denies any chest pain, pleuritic CP, or SOB Chest pain-free at time of admission (3) Atrial fibrillation with RVR: Plan: EKG on arrival showed A-fib with RVR at 113 bpm; QTc 526 (caution use of QT prolonging agents); ?New LBBB; review of EKG from November 2019 did reveal significant QRS duration at 180 Patient is not on anticoagulation at baseline; previously took warfarin for 15 years, but chose to stop due to frequent lab draws for PT/INR Only takes aspirin 81 mg daily Cardiology consulted Will hold heparin in the setting of potential brain bleed; hold aspirin Start on metoprolol 25 mg p.o. BID (4) Heart failure: Plan: BNP elevated at 612 Last echo in 05/03/2019 revealed LVEF at 20% Repeat echocardiogram ordered, pending Continue Bumex (5) Type 2 diabetes mellitus: Plan: Last A1c at 6.5% on 09/30/2020 Glucose 212 on admission Hold glimepiride Lantus 7u QAM while inpatient SSI; with target BSG range 110-140mg/dL, CF 55, carb ratio 20 T2DM diet BSG ACHS Adjust regimen as needed AM A1c (6) Presence of single chamber implantable cardioverter-defibrillator (ICD): Plan: Noted; MRI compatible, but unable to obtain MRI on the weekend due to staffing (7) CKD (chronic kidney disease): Plan: BUN 41, creatinine 2.25 (baseline ~2.50), and EGFR 27.3 Avoid nephrotoxic agents for possible Trend a.m. BMP (8) Hypocalcemia: Plan: Mild; 8.1 on arrival Recheck a.m. calcium Plan Disposition: Admit to PCU telemetry DNR/DNI AHA, T2DM diet VTE PPx: SCDs (while patient exhibits A-fib RVR on arrival, will hold chemical PPx due to potential brain bleed) History of Present Illness Chief Complaint: Syncope Primary Care Provider: [facility] Snell is a 77-year-old male with PMH of A-fib, heart failure, ischemic cardiomyopathy, ICD, T2DM, HTN, and chronic kidney disease. He presented via EMS from [facility] for a syncopal episode on 05/19. He was walking back from the pill line after receiving his morning medications when he fainted; full LOC, and head strike onto concrete floor. Patient is unsure how long he was out for, but does confirm that he struck the bridge of his nose, as well as his hand and knee. He is unsure what precipitated this, as he reports he was not feeling dizzy or lightheaded before hand. Several episodes of nausea and vomiting following syncope. He did not take any morning medications; no recent change in medications. He does note that he had increased chest palpitations this morning, which were more than usual. PMH of triple bypass in 1996 and . No smoking, tobacco use, or alcohol use. He does have a history of fainting several years ago, when he got up to stand. That said, he normally is able to stand without feeling dizzy or lightheaded. At time of admission, patient is chest pain-free, and denies having any chest pain earlier in the day. Patient's vitals are stable at time admission. ED course: NSS 250 mL IV x 3 Lopressor 5 mg IV ROS: Patient endorses 1 episode of syncope, chest palpitations this morning, dry cough, and nausea and vomiting after syncope x 3-4 episodes. Patient denies fever, night-sweats, chills, dizziness/lightheadedness, WOODS, chest pain, SOB, abdominal pain, diarrhea, urinary s/s, burning with urination, or N/T/pain/swelling in legs. Allergies Allergy/AdvReac Type Severity Reaction Status Date / Time No Known Allergies Allergy Verified 05/20/23 15:13 Home Medications Medication Instructions Recorded Confirmed Type glimepiride 1 mg tablet 1 mg PO DAILY 06/29/20 05/20/23 History hydralazine 10 mg tablet 10 mg PO TID #90 tabs 03/06/21 05/20/23 Rx aspirin 81 mg tablet,delayed 81 mg PO DAILY 05/20/23 05/20/23 History release atorvastatin 40 mg tablet (Lipitor) 40 mg PO DAILY 05/20/23 05/20/23 History bumetanide 2 mg tablet 2 mg PO DAILY 05/20/23 05/20/23 History Past Med/Surg History Medical History Constipation Chronic congestive heart failure Uremic encephalopathy Nausea & vomiting Acute hyponatremia Acute kidney injury Syncope Ischemic cardiomyopathy Myocardial infarct Atherosclerotic heart disease coronary artery bypass grafting: Marvin to LAD. Saphenous vein graft to unknown vessel PCI to the 1st diagonal 11/24/2016 Hypertension Hypokalemia Hypercholesterolemia Type 2 diabetes mellitus Enlarged prostate Surgical History S/P triple vessel bypass H/O heart artery stent Family History Grandmother Diabetes Social History Smoking Status: Former smoker Tobacco Type: Cigarettes Smoking End Date: 1979; Do You Dip or Chew Tobacco: No; Hx Alcohol Use: No Hx Substance Use: No Preferred Language: Dominican Communication Ability: Effective Portfolio Accountant Required: No Beliefs That Will Affect Care: Rastafarian Rastafarian Beliefs: Jehovas Witness marital status: Single Current Living Situation: Other Current Living Situation Comment: [facility] Feels Safe at Home: Yes Safety Concerns: Feels Safe At This Time Assistive Devices: None Review of Systems Review of Systems: See HPI above Physical Exam Physical Exam: General: no acute distress; non-toxic appearing; well-nourished; cooperative HEENT: Abrasion on the bridge of the nose; no scleral icterus; PERRLA; moist mucus membrane; vision and hearing grossly intact Neck: supple; no JVD; no lymphadenopathy; trachea midline Skin: warm, dry without signs of tenting; no cyanosis; no rashes, bruising, lesions, or erythema noted CV: chest wall NTP; irregularly irregular rhythm tachycardic at 114 bpm; S1/S2 normal; no murmurs/rubs/gallops; pulses intact and symmetric at radial, DP, and PT Lungs: no acute respiratory distress; symmetrical chest wall expansion; clear breath sounds across all lung young w/o adventitious sounds; no wheezing ABD: Soft, NTP; BS present; no rebound/guarding; no ascites; no distention; negative CVA tenderness MSK: no tics or fasciculations; +1 pitting edema noted in the calves bilaterally, nonerythematous Neuro: A&Ox3; normal mood and affect; fluent speech; no focal deficits; no facial droop; sensation grossly intact in the LEs b/l Results & Data Results & Data Vital Signs (Past 12 Hours) Vital Signs Temp Pulse Pulse Resp BP BP Pulse Ox 05/20/23 19:01 95 H 20 130/87 93 05/20/23 18:44 93 H 05/20/23 18:32 120 H 20 139/108 H 92 05/20/23 18:00 88 21 133/99 92 05/20/23 17:00 94 H 21 126/88 94 05/20/23 16:30 92 H 23 127/93 91 05/20/23 16:15 93 H 23 128/85 93 05/20/23 16:00 113 H 25 H 129/88 92 05/20/23 15:45 101 H 20 115/88 92 05/20/23 15:30 97 H 23 131/105 H 92 05/20/23 15:15 92 H 17 132/84 92 05/20/23 14:50 96 H 21 92 05/20/23 14:45 126/98 05/20/23 14:45 107 H 21 93 05/20/23 14:40 95 H 19 96 05/20/23 14:35 106 H 05/20/23 14:30 148/91 H 05/20/23 14:30 99 H 26 H 92 05/20/23 14:20 102 H 24 93 05/20/23 14:15 120 H 29 H 93 05/20/23 14:15 128/97 05/20/23 14:11 111 H 18 150/103 H 93 05/20/23 14:10 116 H 22 92 05/20/23 14:00 150/103 H 05/20/23 14:00 90 18 92 05/20/23 13:50 100 H 22 95 05/20/23 13:45 93 H 15 92 05/20/23 13:45 144/94 H 05/20/23 13:40 106 H 25 H 93 05/20/23 13:30 114 H 20 92 05/20/23 13:30 122/88 05/20/23 13:20 97 H 21 94 05/20/23 13:15 114 H 35 H 93 05/20/23 13:15 127/98 05/20/23 13:10 113 H 24 92 05/20/23 13:00 141/97 H 05/20/23 13:00 108 H 21 93 05/20/23 12:50 98 H 23 93 05/20/23 12:45 112 H 31 H 93 05/20/23 12:45 131/92 05/20/23 12:40 92 H 20 92 05/20/23 12:31 110 H 15 92 05/20/23 12:31 127/94 05/20/23 12:30 97 H 16 05/20/23 12:20 114 H 23 93 05/20/23 12:15 100 H 23 92 05/20/23 12:15 129/83 05/20/23 12:10 96 H 34 H 93 05/20/23 12:01 128/88 05/20/23 12:01 92 H 36 H 92 05/20/23 12:00 100 H 20 93 05/20/23 11:50 95 H 15 94 05/20/23 11:45 94 H 21 92 05/20/23 11:45 139/88 05/20/23 11:40 91 H 24 91 05/20/23 11:30 91 H 27 H 93 05/20/23 11:30 145/90 H 05/20/23 11:20 110 H 20 94 05/20/23 11:15 136/97 05/20/23 11:15 88 16 92 05/20/23 11:10 86 14 95 05/20/23 11:00 126/88 05/20/23 11:00 92 H 26 H 94 05/20/23 10:57 92 H 124/94 05/20/23 10:57 86 18 124/94 94 05/20/23 10:56 92 H 24 93 05/20/23 10:56 124/94 05/20/23 10:50 95 H 13 05/20/23 10:40 101 H 12 05/20/23 10:32 115 H 145/103 H 05/20/23 10:31 110 H 30 H 95 05/20/23 10:31 145/103 H 05/20/23 10:31 126 H 18 145/103 H 98 05/20/23 10:30 108 H 28 H 95 05/20/23 10:28 119 H 13 90 05/20/23 10:00 118 H 25 H 94 05/20/23 09:50 115 H 27 H 90 05/20/23 09:42 122 H 05/20/23 09:41 115 H 34 H 90 05/20/23 09:33 96 05/20/23 09:33 36.5 C 120 H 20 166/101 H 97 O2 Del Method 05/20/23 19:01 05/20/23 18:44 05/20/23 18:32 05/20/23 18:00 05/20/23 17:00 05/20/23 16:30 05/20/23 16:15 05/20/23 16:00 05/20/23 15:45 05/20/23 15:30 05/20/23 15:15 05/20/23 14:50 05/20/23 14:45 05/20/23 14:45 05/20/23 14:40 05/20/23 14:35 05/20/23 14:30 05/20/23 14:30 05/20/23 14:20 05/20/23 14:15 05/20/23 14:15 05/20/23 14:11 Room Air 05/20/23 14:10 05/20/23 14:00 05/20/23 14:00 05/20/23 13:50 05/20/23 13:45 05/20/23 13:45 05/20/23 13:40 05/20/23 13:30 05/20/23 13:30 05/20/23 13:20 05/20/23 13:15 05/20/23 13:15 05/20/23 13:10 05/20/23 13:00 05/20/23 13:00 05/20/23 12:50 05/20/23 12:45 05/20/23 12:45 05/20/23 12:40 05/20/23 12:31 05/20/23 12:31 05/20/23 12:30 05/20/23 12:20 05/20/23 12:15 05/20/23 12:15 05/20/23 12:10 05/20/23 12:01 05/20/23 12:01 05/20/23 12:00 05/20/23 11:50 05/20/23 11:45 05/20/23 11:45 05/20/23 11:40 05/20/23 11:30 05/20/23 11:30 05/20/23 11:20 05/20/23 11:15 05/20/23 11:15 05/20/23 11:10 05/20/23 11:00 05/20/23 11:00 05/20/23 10:57 05/20/23 10:57 Room Air 05/20/23 10:56 05/20/23 10:56 05/20/23 10:50 05/20/23 10:40 05/20/23 10:32 05/20/23 10:31 05/20/23 10:31 05/20/23 10:31 Room Air 05/20/23 10:30 05/20/23 10:28 05/20/23 10:00 05/20/23 09:50 05/20/23 09:42 05/20/23 09:41 05/20/23 09:33 Room Air 05/20/23 09:33 Room Air Laboratory Results Abnormal lab results 05/20/23 05/20/23 05/20/23 Range/Units 09:33 12:52 13:24 WBC 11.15 H (4.8-10.8) K/ul RBC 4.60 L (4.70-6.10) M/uL RDW Std Deviation 47.6 H (36.4-46.3) fL Neut # (Auto) 8.85 H (1.40-6.50) K/uL [place] # (Auto) 0.67 H (0.11-0.59) K/uL Carbon Dioxide 20 L (21-32) mmol/L Anion Gap 13 H (3-11) BUN 41 H (6-23) mg/dl Creatinine 2.25 H (0.6-1.4) mg/dl Glucose 212 H (70-99(Fasting)) mg/dl Calcium 8.1 L (8.6-10.3) mg/dl Troponin I High Sens 24.9 H 1112.5 H* D (0-20) pg/ml B-Natriuretic Peptide 612 H (0-100) pg/ml Lipase 143 H (11-82) U/L Urine Protein 3+ H (Negative) Urine Glucose (UA) Trace H (Negative) Urine Ketones 1+ H (Negative) 05/20/23 Range/Units 18:36 WBC (4.8-10.8) K/ul RBC (4.70-6.10) M/uL RDW Std Deviation (36.4-46.3) fL Neut # (Auto) (1.40-6.50) K/uL [place] # (Auto) (0.11-0.59) K/uL Carbon Dioxide (21-32) mmol/L Anion Gap (3-11) BUN (6-23) mg/dl Creatinine (0.6-1.4) mg/dl Glucose (70-99(Fasting)) mg/dl Calcium (8.6-10.3) mg/dl Troponin I High Sens 2014.6 H* D (0-20) pg/ml B-Natriuretic Peptide (0-100) pg/ml Lipase (11-82) U/L Urine Protein (Negative) Urine Glucose (UA) (Negative) Urine Ketones (Negative) Diagnostic Findings Chest X-Ray 05/20/23 09:22 XR chest 1V portable CLINICAL HISTORY: Chest pain, nonspecific COMPARISON STUDY: Chest CT March 04, 2021. Chest radiograph March 05, 2021. FINDINGS: Left subclavian pacer and median sternotomy wires are again noted. Moderate cardiomegaly is unchanged. There is mild interstitial thickening. There is no pneumothorax. There are small bilateral pleural effusions. No consolidation is identified to suggest pneumonia. IMPRESSION: 1. Cardiomegaly with interstitial pulmonary edema and small bilateral pleural effusions. 2. No pneumothorax. ACT 112: Negative or not required by law. Electronically signed by: Graham Emmanuel M.D. 05/20/2023 10:[address] 05/20/23 10:04 CT OF THE CERVICAL SPINE WITHOUT CONTRAST CLINICAL HISTORY: syncope, head strike, pain COMPARISON STUDY: No previous studies for comparison. TECHNIQUE: Helical axial images of the cervical spine were obtained without IV contrast. Sagittal and coronal reconstructions were viewed. Automated exposure control was utilized for the study. A dose lowering technique was utilized adhering to the principles of ALARA. FINDINGS: No cervical spine fracture is identified. There is moderate multilevel degenerative disc disease and facet arthrosis within the cervical spine. Alignment is anatomic. Craniocervical junction is intact. There is no prevertebral edema. A right pleural effusion is partially imaged. There is mild interlobular septal thickening within the visualized lung apices. IMPRESSION: No acute cervical spine fracture or subluxation. ACT 112: Negative or not required by law. Electronically signed by: Graham Emmanuel M.D. 05/20/2023 11:[address] 05/20/23 10:04 CT OF THE HEAD WITHOUT CONTRAST CLINICAL HISTORY: syncope, head strike, pain COMPARISON STUDY: No previous studies for comparison. TECHNIQUE: Helical axial images of the head were obtained without IV contrast. Automated exposure control was utilized for the study. A dose lowering technique was utilized adhering to the principles of ALARA. FINDINGS: There is a small 6 mm hyperdense focus within the right weeks radiata. There is no associated edema. Mild ventricular dilatation is due to central atrophy. Basal cisterns are patent. There are no axial collections. White matter hypodensity suggests small vessel disease. Suspected encephalomalacia within the right occipital lobe may reflect an old infarct. A polypoid density within the right maxillary sinus is incidentally noted. There is no calvarial fracture. Nasal soft tissue swelling is present. There is an acute minimally displaced fracture of the anterior nasal bones. IMPRESSION: 1. Small 6 mm hyperdense focus within the right weeks radiata. This is nonspecific. Differential include a small focus of acute intraparenchymal hemorrhage however there is no adjacent edema and the location is not typical for a traumatic etiology. A hyperdense lesion is also within the differential. Imaging follow up to ensure resolution/stability is recommended. 2. Acute mildly displaced fracture of the anterior bilateral nasal bones. Nasal soft tissue contusion. 3. No calvarial fractures. ACT 112: Negative or not required by law. Electronically signed by: Graham Emmnauel M.D. 05/20/2023 10:[address] 05/20/23 16:28 CT OF THE HEAD WITHOUT CONTRAST CLINICAL HISTORY: evaluation hyperdense lesion vs bleed COMPARISON STUDY: Head CT performed earlier today. CT DOSE: 625.8 mGy.cm TECHNIQUE: Helical axial images of the head were obtained without IV contrast. Automated exposure control was utilized for the study. A dose lowering technique was utilized adhering to the principles of ALARA. FINDINGS: The previously described small 6 mm hyperdense focus within the right weeks radiata is unchanged. This may contain punctate calcifications. No additional hyperdense foci are identified. Ventricular system is stable. Basal cisterns are patent. White matter hypodensity suggests small vessel disease. There are no extra axial collections. Right occipital lobe encephalomalacia is again noted. Right maxillary sinus is partially opacified. This is chronic. Subtle nondisplaced acute anterior bilateral nasal bone fractures are better depicted on prior thin cut images. There is no calvarial fracture. IMPRESSION: No change in the small 6 mm hyperdense focus within the right weeks radiata since head CT performed earlier today. No associated edema or mass effect. A small hyperdense lesion such as cavernoma is favored. This may contain punctate calcifications. A small focus of intraparenchymal hemorrhage is considered less likely however a follow-up head CT in 72 hours to ensure stability and exclude this possibility is recommended. ACT 112: Negative or not required by law. Electronically signed by: Graham Emmanuel M.D. 05/20/2023 5:04 PM Code Status & VTE Plan Code Status DNR/DNI VTE Prophylaxis Plan VTE Prophylaxis will be ordered: Yes Supervising Physician Co-Signing Physician Notes Patient seen and examined, chart reviewed, case discussed with YUVAL Lopez and I agree with the assessment and plan as above. In brief, patient is a 77yo male inmate at [facility] with history of ischemic cardiomyopathy with EF of 20% per echo in 2019, he has a single chamber ICD in place but it has been deactivated at his request because he does not wish to be shocked. He follows with Cardiology. Patient also with AF, HTN and CKD. He presents from [facility] after a syncopal event - does tell me that he had some palpitations before he fainted but denies chest pain or dizziness. On exam he is afebrile, atrial fibrillation with HR in 110's- 120's Skin - no rash HEENT- MMM, neck supple, no bruits Heart - +S1/S2, irregularly irregular, no m/r/g Lungs - CTA, no rales/rhonchi/wheezes Abd - +BS, soft, NT/ND Ext - warm, well perfused, no clubbing/cyanosis or edema Labs and images reviewed Leukocytosis with WBC=11.15, normal H/H Labs with anion gap metabolic acidosis, - HCO3=20, Gap=13 BUN and Cr near baseline at 41 and 2.25, respectively Marked troponin elevation and LIE=438 CT findings as above Assessment/Plan h/o CHF, ICM with depressed EF - patient with AICD in place but the device has been deactivated at the patient's request. Syncopal event prior to arrival with elevation of troponin - patient endorses some palpitations prior to the event. Suspect ventricular arrhythmia? Patient denies chest pain, cough or SOB Head trauma. CT finding with 6mm hyperdense focus in the right weeks radiata - differential to include acute intraparenchymal hemorrhage. REpeat CT at 6hr unchanged -Will repeat CT head in the morning to demonstrate stability -If unchanged would restart patient's ASA -Continue to trend troponin -Check 2D echo -Will start Metoprolol 25mg po BID for AF, frequent PVCs noted on monitor -Appreciate Cardiology consultation -Lantus/ISS -Remainder as above PG Care Time/CCT Total # of Minutes Spent Total Time Spent with Patient: Total time spent is greater than 50% in coordination of care (as documented) at patient's floor/unit and/or counseling patient: C[place] [address] INT INP/OBS CARE 3/75MIN Patient Type Established Medical Decision Making High Complexity Diagnoses Syncope R55 Elevated troponin R79.89 Atrial fibrillation with RVR I48.91 Heart failure I50.9 Type 2 diabetes mellitus E11.9 Presence of single chamber implantable cardioverter-defibrillator (ICD) Z95.810 CKD (chronic kidney disease) N18.9 Chronic kidney disease stage: unspecified stage Hypocalcemia E83.51 (7) CKD (chronic kidney disease) Chronic kidney disease stage: unspecified stage Qualified Code(s): N18.9 - Chronic kidney disease, unspecified
[2023-05-20] MEDS: METOPROLOL TARTRATE 25 MG TAB PO STA (21:17)
[2023-05-20] MEDS ORDERED: CARBOHYDRATES FOR HYPOGLYCEMIA PO PRN (22:02)
[2023-05-20] MEDS ORDERED: GLUCOSE 10 TAB/TUBE PO PRN (22:02)
[2023-05-20] MEDS ORDERED: DEXTROSE 50% 50 ML SYRINGE IV PRN (22:02)
[2023-05-20] MEDS ORDERED: GLUCOSE 40% GEL 15 GM TUBE PO PRN (22:02)
[2023-05-20] MEDS ORDERED: ACETAMINOPHEN 325 MG TAB PO PRN (22:02)
[2023-05-20] MEDS ORDERED: GLUCAGON FOR INJ 1 MG VIAL SQ PRN (22:02)
[2023-05-20] MEDS: INSULIN ASPART PER UNIT CHARGE SC SCH (23:52)
[2023-05-20] MEDS: hydrALAZINE 10 MG TAB PO SCH (23:52)
[2023-05-21] MEDS: LORazepam 0.5 MG TAB PO STA (03:41)
[2023-05-21] MEDS: LORazepam 0.5 MG TAB ONE (03:41)
--- NOTE | 2023-05-21 03:42 | Communication Note ---
Date of Service: May 21, 2023 MD called to bedside to deescalate the situation at hand. Patient upset about being woken for Q2H vitals. Instead of alerting staff the CO (the younger tall one with a johnson) began verbally berating the patient saying things such as "I'll make you uncomfortable now" and "these are the taxpayers dollars you are wasting". This led to agitation of the patient and tachycardia (sinus 120s). Upon my interview patient was visibly and audibly upset. Discussed with patient that it is acceptable to hold off until 6 am for vitals and the next set of labs. Patient expresses understanding. He is amenable to this plan and will reach out with any new symptoms or concerns via call marti. Patient calm upon my exit from the room. Did order a one time PO Ativan. Patient with elevated troponin and probable NSTEMI. Patient also with small head bleed on CT after a fall. Patient not cleared medically for return to [facility] at this time regardless of if the [place] would accept him back. [facility] to any discussion of discharge back to [facility]. If CO continues to berate patient and interfere with patient's care I would have a low threshold to call security/the [facility] to have a replacement CO. Resident Activity Tracking Resident Involvement: Resident Care Provided Care Provided: Adult Hospital Medicine
[2023-05-21 07:18] LABS: Basophils # (auto) 0.04 K/uL (0.00-0.20); Basophils % (auto) 0.5 %; Eosinophils # (auto) 0.11 K/uL (0.00-0.50); Eosinophils % (auto) 1.3 %; Immature Granulocytes # (auto) 0.03 K/uL (0.01-0.20); Immature Granulocytes % (auto) 0.3 %; Lymphocytes # (auto) 1.26 K/uL (1.20-3.40); Lymphocytes % (auto) 14.6 %; Mean Corpuscular Hemoglobin 30.8 pg (25.0-34.0); Mean Corpuscular Hgb Conc 31.7 g/dL (32.0-36.0); Mean Corpuscular Volume 97.2 fL (80.0-100.0); Mean Platelet Volume 11.9 fL (9.4-12.4); Monocytes # (auto) 0.56 K/uL (0.11-0.59); Monocytes % (auto) 6.5 %; Neutrophils # (auto) 6.64 K/uL (1.40-6.50); Neutrophils % (auto) 76.8 %; Platelet Count 169 K/uL (130-400); RDW Coefficient of Variation 13.8 % (11.5-14.5); RDW Standard Deviation 48.8 fL (36.4-46.3); Red Blood Count 4.22 M/uL (4.70-6.10); White Blood Count 8.64 K/ul (4.8-10.8)
[2023-05-21 07:30] LABS: BUN Creatinine Ratio 19.1 (10-20); Calcium 8.6 mg/dl (8.6-10.3); Creatinine Clr Calc Pharmacy 26.1 ml/min; Est GFR (African American) 31.6 ml/min; Est GFR (Non-African American) 27.3 ml/min; Potassium 4.8 mmol/L (3.5-5.1)
[2023-05-21 07:42] LABS: Troponin I High Sensitivity 1278.9 pg/ml (0-20)
[2023-05-21] MEDS: BUMETANIDE 1 MG TAB PO SCH (09:36)
[2023-05-21] MEDS: ATORVASTATIN 40 MG TAB PO SCH (09:36)
[2023-05-21] MEDS: METOPROLOL TARTRATE 25 MG TAB PO SCH ×2 (09:37→20:06)
[2023-05-21] MEDS: LANTUS PER UNIT CHARGE SQ SCH (09:37)
--- NOTE | 2023-05-21 10:46 | Cardiology Consultation ---
Date of Consultation May 21, 2023 Assessment & Plan (1) Syncope: (2) Atrial fibrillation with rapid ventricular response: (3) Elevated troponin: (4) Valvular heart disease: (5) Atherosclerotic heart disease: (6) Ischemic cardiomyopathy: (7) Heart failure: (8) Presence of single chamber implantable cardioverter-defibrillator (ICD): Plan 1. Syncope: He appears to have had a well documented loss of consciousness with loss of postural tone and a small injury. No prodrome. The biggest concern would be a malignant ventricular arrhythmia. He is certainly in the demographic with the appropriate substrate for ventricular tachycardia or ventricular fibrillation. A bradyarrhythmia is also possible but less likely given his ICD and associated backup pacing. Unfortunately, the patient previously requested deactivation of the ICD therapies and according to the staff technologist this also prevents recording of tachyarrhythmias. I did discuss the option of reactivating the ICD therapies with the patient. I explained that the device is designed to save his life in arrhythmias which could have caused syncope can also cause . However, he has received therapy in the past and does not want to experience therapy again. Will also reinstitute beta blockade. 2. Elevated troponin: Unclear etiology. In the past when he has required revascularization he certainly had more classic symptoms of ischemia. He did not report any symptoms of ischemia leading up to the event or afterwards. Perhaps this is simply related to a transient period of hypoxia and poor perfusion associated with what is believed to be a malignant arrhythmia. Generally speaking we would consider repeat angiography, but I think there was some concern about intracranial hemorrhage. Given his absence of symptoms it would seem reasonable to poor performed perfusion imaging at this time and consider angiography for notable abnormalities or recurrent symptoms. 3. Coronary artery disease: He has remote history of SEBASTIAN to LAD and vein graft to an unknown vessel. Reportedly this occurred in the . He had percutaneous intervention to an unknown vessel around 2019. His medical regimen at this time includes aspirin and high-dose atorvastatin. 4. Ischemic cardiomyopathy: He is known to have severely reduced LV systolic function. He has not been seen in our clinic for several years. It seems that his medical regimen has been reduced over the years. Magdiel inhibitors and ARB w ere avoided previously due to concerns over renal dysfunction. He was previously on carvedilol and this will be re-initiated. We can consider initiating hydralazine and nitrates depending on his response to carvedilol. He does not appear to be a good candidate for spironolactone given his renal dysfunction and the benefit from an SG LT 2 inhibitor is severely attenuated with his degree of renal dysfunction. 5. Atrial fibrillation: Permanent. Somewhat elevated rates currently. Again, will reinitiate beta-blockade. Not on anticoagulation as the patient refused warfarin and associated testing. I discussed re-initiated on anticoagulant therapy with the patient and he was agreeable. I think Eliquis would be a good option. Will wait till we resolve the issue of potential intracranial bleeding before starting anticoagulation. 6. Congestive heart failure: Despite very poor LV systolic function and minimal medical therapy, he appears to be well compensated. He was lying flat in bed without symptoms. Lung examination was somewhat abnormal, but overall minimal hypovolemia. 7. Valvular heart disease: Moderate mitral regurgitation. 8. Nonspecific interventricular conduction delay: Chronic 9. Single-chamber [place] ICD. Normal longevity at around 6 years. Normal function with normal sensing and threshold on the right ventricular lead. ADDENDUM I spoke with the patient again this afternoon and discussed reactivating his ICD therapies. He was agreeable. His main concern was feeling the therapy. He had 1 appropriate shock in the past which was very uncomfortable. I programmed very long detection intervals so that it is likely he would pass out prior to receiving therapy. I also programmed to a lower detection limit in a separate VT zone with only ATP therapy (painless). Again, with a longer detection interval. I think this is reasonable compromise. Additionally, with the very low likelihood of a bradycardic event causing his episode yesterday I raise the lower rate limit to 50 beats per minute. History of Present Illness Reason for Consultation: Syncope, elevated troponin Attending Physician: Sharron Mcintosh MD History of Present Illness The patient is a 77-year-old inmate with an extensive cardiac history to include coronary artery disease status post both percutaneous and surgical revascularization, an ischemic cardiomyopathy, prior implantation of a single- chamber [place] ICD, permanent atrial fibrillation and valvular heart disease who presented after an episode of syncope. According to the patient and bystanders he was simply walking when he lost postural tone and consciousness. The patient suffered an injury to his face. He did not report any specific prodrome. He specifically denied symptoms of dizziness or lightheadedness. While he was noticing some palpitations earlier in the day, he did not report significant palpitations immediately preceding the event. He did not have chest pain before the event, after the event or any time recently. Generally speaking he does not have symptoms of dizziness or lightheadedness unless he stands from a seated position rapidly. He cannot recall another episode of syncope. He has a long history of poor LV systolic function. He was last seen at our institution in 2020. He has not been seen in the outpatient setting since that time. He apparently has been compliant with some medications but has refused continued anticoagulation and previously requested deactivation of his ICD therapies. He is admittedly sedentary at the present. However, he did not report symptoms of dyspnea, orthopnea, paroxysmal nocturnal dyspnea or lower extremity edema. He feels that his current dose of diuretic has been quite effective at controlling his symptoms. Allergies Allergy/AdvReac Type Severity Reaction Status Date / Time No Known Allergies Allergy Verified 05/20/23 15:13 Home Medications Medication Instructions Recorded Confirmed Type glimepiride 1 mg tablet 1 mg PO DAILY 06/29/20 05/20/23 History hydralazine 10 mg tablet 10 mg PO TID #90 tabs 03/06/21 05/20/23 Rx aspirin 81 mg tablet,delayed 81 mg PO DAILY 05/20/23 05/20/23 History release atorvastatin 40 mg tablet (Lipitor) 40 mg PO DAILY 05/20/23 05/20/23 History bumetanide 2 mg tablet 2 mg PO DAILY 05/20/23 05/20/23 History Patient History Medical History Constipation Chronic congestive heart failure Uremic encephalopathy Nausea & vomiting Acute hyponatremia Acute kidney injury Syncope Ischemic cardiomyopathy Myocardial infarct Atherosclerotic heart disease coronary artery bypass grafting: Sebastian to LAD. 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 Mood and affect appeared normal. He answered all questions appropriately. HEENT: Pupils are equal and reactive to light and accommodation. Extraocular movements are intact. The sclerae are anicteric. Small bruise on the nose. No obvious displacement. Neuro: Cranial nerves intact Chest: Well-healed device implant site in the left upper pectoral area. Nontender. No erythema. Lungs: Some crackles at the right lung base. Normal respiratory effort. No expiratory wheezing. Cardiac: Heart demonstrates an irregular rate and rhythm. Normal S1 and S2. No murmurs on examination. Pulses: The patient has palpable radial pulses bilaterally that are equal in intensity Extremities: There was no evidence of hypoperfusion. There is no cyanosis or clubbing. There is no edema. Skin: I did not appreciate any rashes on examination today. Results & Data Vital Signs (Past 12 Hours) Vital Signs Temp Pulse Pulse Resp BP Pulse Ox O2 Del Method 05/21/23 08:35 88 05/21/23 07:00 36.7 C 118 H 20 125/81 94 Room Air 05/21/23 03:39 110 H 23 132/83 92 Room Air 05/20/23 22:52 36.6 C 112 H 16 132/76 91 Room Air Laboratory Results Abnormal Lab Results 05/20/23 05/20/23 05/20/23 10:30 12:52 13:24 WBC RBC Hgb Hct MCV MCH MCHC RDW Std Deviation RDW Coeff of Tommie Plt Count MPV Immature Gran % (Auto) Neut % (Auto) Lymph % (Auto) Travis % (Auto) Eos % (Auto) Baso % (Auto) Neut # (Auto) Lymph # (Auto) Travis # (Auto) Eos # (Auto) Baso # (Auto) Immature Gran # (Auto) Sodium Potassium 4.4 Chloride Carbon Dioxide Anion Gap BUN Creatinine Est Cr Clr Drug Dosing Est GFR ( Amer) Est GFR (Non-Af Amer) BUN/Creatinine Ratio Glucose POC Glucose Calcium AST 13 Troponin I High Sens 1112.5 H* D Urine Color Yellow Urine Appearance Clear Urine pH 5.5 Ur Specific [place] 1.019 Urine Protein 3+ H Urine Glucose (UA) Trace H Urine Ketones 1+ H Urine Blood Negative Urine Nitrite Negative Urine Bilirubin Negative Urine Urobilinogen Negative Ur Leukocyte Esterase Negative Urine WBC (Auto) 1-5 Urine RBC (Auto) 0-4 U Hyaline Cast (Auto) 1-5 U Epithel Cells (Auto) 0-5 Urine Bacteria (Auto) Negative 05/20/23 05/20/23 05/20/23 18:36 23:19 23:38 WBC RBC Hgb Hct MCV MCH MCHC RDW Std Deviation RDW Coeff of Tommie Plt Count MPV Immature Gran % (Auto) Neut % (Auto) Lymph % (Auto) Travis % (Auto) Eos % (Auto) Baso % (Auto) Neut # (Auto) Lymph # (Auto) Travis # (Auto) Eos # (Auto) Baso # (Auto) Immature Gran # (Auto) Sodium Potassium Chloride Carbon Dioxide Anion Gap BUN Creatinine Est Cr Clr Drug Dosing Est GFR ( Amer) Est GFR (Non-Af Amer) BUN/Creatinine Ratio Glucose POC Glucose 142 H Calcium AST Troponin I High Sens 2014.6 H* D 1758.6 H* Urine Color Urine Appearance Urine pH Ur Specific [place] Urine Protein Urine Glucose (UA) Urine Ketones Urine Blood Urine Nitrite Urine Bilirubin Urine Urobilinogen Ur Leukocyte Esterase Urine WBC (Auto) Urine RBC (Auto) U Hyaline Cast (Auto) U Epithel Cells (Auto) Urine Bacteria (Auto) 05/21/23 05/21/23 06:51 08:11 WBC 8.64 RBC 4.22 L Hgb 13.0 L Hct 41.0 L MCV 97.2 MCH 30.8 MCHC 31.7 L RDW Std Deviation 48.8 H RDW Coeff of Tommie 13.8 Plt Count 169 MPV 11.9 Immature Gran % (Auto) 0.3 Neut % (Auto) 76.8 Lymph % (Auto) 14.6 Travis % (Auto) 6.5 Eos % (Auto) 1.3 Baso % (Auto) 0.5 Neut # (Auto) 6.64 H Lymph # (Auto) 1.26 Travis # (Auto) 0.56 Eos # (Auto) 0.11 Baso # (Auto) 0.04 Immature Gran # (Auto) 0.03 Sodium 140 Potassium 4.8 Chloride 108 H Carbon Dioxide 24 Anion Gap 8 BUN 43 H Creatinine 2.25 H Est Cr Clr Drug Dosing 26.1 Est GFR ( Amer) 31.6 Est GFR (Non-Af Amer) 27.3 BUN/Creatinine Ratio 19.1 Glucose 127 H POC Glucose 129 H Calcium 8.6 AST Troponin I High Sens 1278.9 H* D Urine Color Urine Appearance Urine pH Ur Specific [place] Urine Protein Urine Glucose (UA) Urine Ketones Urine Blood Urine Nitrite Urine Bilirubin Urine Urobilinogen Ur Leukocyte Esterase Urine WBC (Auto) Urine RBC (Auto) U Hyaline Cast (Auto) U Epithel Cells (Auto) Urine Bacteria (Auto) Diagnostic Findings A head CT was performed at the time of admission. It did not demonstrate any fracture or trauma, but there was a punctate focus in the weeks radiata. Small intraparenchymal hemorrhage could not be definitively excluded. Spine CT was performed at the time of admission which did not reveal any fractures or dislocation. Chest x-ray obtained the time admission revealed cardiomegaly with interstitial pulmonary edema. Small bilateral pleural effusions. ECG Additional Comments: EKG demonstrated atrial fibrillation with frequent aberrancy versus PVCs. Nonspecific interventricular conduction delay PG Care Time/CCT Total # of Minutes Spent Total Time Spent with Patient: Total time spent is greater than 50% in coordination of care (as documented) at patient's floor/unit and/or counseling patient: Coding Level of Care Code 16589 INT INP/OBS CARE 3/75MIN Diagnoses Syncope R55 Syncope type: unspecified Atrial fibrillation with rapid ventricular response I48.91 Elevated troponin R79.89 Valvular heart disease I38 Atherosclerotic heart disease I25.10 Ischemic cardiomyopathy I25.5 Heart failure I50.9 Presence of single chamber implantable cardioverter-defibrillator (ICD) Z95.810 (1) Syncope Syncope type: unspecified Qualified Code(s): R55 - Syncope and collapse
--- NOTE | 2023-05-21 11:03 | XCELERA ---
[id number]
--- NOTE | 2023-05-21 11:08 | Hospitalist Progress Note ---
Date of Service May 21, 2023 Assessment & Plan (1) Syncope: Plan: Syncopal episode with no real prodrome on 05/19 while walking back to his cell from med pass Fell and struck face on concrete-concern for ventricular arrhythmia given severely reduced EF. His ICD was deactivated years ago as per his request Head CT on arrival revealed 6 mm hyperdense focus within the right weeks radiata-see discussion below Fractured nasal bones Cardiology consult appreciated-suspect VT/VF but ICD deactivated--> he now would like reactivation of ICD Monitor on tele Starting beta carolynn to suppress VT (2) Elevated troponin: Plan: Troponin 24.9-->1112.5-->2014.6 peak, demand ischemia from syncope in setting of severe HFrEF Denies ever having chest pain at time of syncope, no ischemic changes on ECG but has new LBBB Nuc Med stress possible this admission as per Cardiology With h/o CABG in 1996 Home aspirin on hold and did not start heparin gtt due to possible ICH-resume aspirin if MRI definitively shows no ICH (3) Atrial fibrillation with RVR: Plan: Rates up to 130s with minimal activity. With severely reduced EF, needs rate control Patient is not on anticoagulation at baseline; previously took warfarin for 15 years, but chose to stop due to frequent lab draws for PT/INR Only takes aspirin 81 mg daily which is on hold for possible ICH Cardiology consulted-start beta carolynn--> suggested Coreg which was ordered and then later Cardio ordered metoprolol--> dc Coreg follow on tele (4) Heart failure: Plan: With acute on chronic HFrEF. BNP elevated at 612, Last echo in 05/03/2019 revealed LVEF at 20% and now EF 15-20% Continue Bumex 2mg po daily and gave 2mg IV on evening of 05/20 for worsening SOB Started beta carolynn for Afib rate control as above Renal function precludes use of aldactone, Entresto/ACEi/ARB, and SGLT-2i, however he is on hydralazine and could add isosorbide Cardio consult appreciated (5) Type 2 diabetes mellitus: Plan: Last A1c at 6.5% on 09/30/2020 on glimepiride at halfway and is refusing insulin here-dc Lantus and Novolog as glucose very well controlled for now T2DM diet, BSG ACHS HgbA1c pending (6) Presence of single chamber implantable cardioverter-defibrillator (ICD): Plan: Noted; MRI compatible, but unable to obtain MRI on the weekend due to staffing reactivated ICD as per Cardio (7) CKD (chronic kidney disease): Plan: BUN 41, creatinine 2.25 (baseline ~2.50), and EGFR 27.3 Avoid nephrotoxic agents for possible stable from previous Trend a.m. BMP (8) Closed fracture nasal bone: Plan: supportive care, pain control declined (9) Brain lesion: Plan: Head CT on arrival after fall with head trauma shows: Small 6 mm hyperdense focus within the right weeks radiata. This is nonspecific. Differential include a small focus of acute intraparenchymal hemorrhage however there is no adjacent edema and the location is not typical for a traumatic etiology. A hyperdense lesion is also within the differential. Imaging follow up to ensure resolution/stability is recommended. Cannot obtain brain MRI due to ICD over the weekend but plan for this on Monday Repeat head CT 6 hours later showed no change in the hyperdense focus; no associated edema or mass effect-differential includes small focus of acute intraparenchymal hemorrhage; however location is not typical of traumatic etiology Plan to get MRI without contrast on Monday (10) CAD (coronary artery disease), bo[place] coronary artery: Plan: as above, severe, with ischemic CM has not been on any medication for CAD except ASA adding beta carolynn, needs statin (11) Hypertension: Plan: continue hydralazine, adding metoprolol Plan Disposition: continued stay PCU telemetry DNR/DNI VTE PPx: SCDs, holding anticoag due to possible ICH Admission and Anticipated Discharge Date Admission Date: May 20, 2023 Subjective In the AM, pt felt well, had no complaints. Later in the day, he was feeling SOB. I discussed his care with Cardiology Tele with Afib, rates in 90s-130s Physical Exam Constitutional: WD/WN, vitals as above Neck: trachea midline, no thyromegaly Respiratory: normal respiratory effort, lungs clear to auscultation Cardiovascular: Rate/Rhythm: + tachycardic and + irregularly irregular Heart Sounds: no murmur Extremities: no edema Chest (Breasts): Chest: + pacemaker; + abnormal inspection of chest (sternotomy scar) Gastrointestinal (Abdomen): normal bowel sounds, soft, nontender, no hepatosplenomegaly Musculoskeletal: Extremities: extremities normal to inspection; no cyanosis and no clubbing Skin: no rashes, warm and dry Neurologic: moves all extremities and awake; no focal motor deficits Psychiatric: A+Ox3, euthymic affect Lymphatic: no lymphedema Results & Data Results & Data Vital Signs (Past 12 Hours) Vital Signs Temp Pulse Pulse Resp BP Pulse Ox O2 Del Method 05/21/23 08:35 88 05/21/23 07:00 36.7 C 118 H 20 125/81 94 Room Air 05/21/23 03:39 110 H 23 132/83 92 Room Air Laboratory Results CBC, BMP, trop reviewed PG Care Time/CCT Total # of Minutes Spent Total Time Spent with Patient: Total time spent is greater than 50% in coordination of care (as documented) at patient's floor/unit and/or counseling patient: Coding Level of Care Code 48600 SUB INP/OBS CARE 3/50MIN Diagnoses Syncope R55 Elevated troponin R79.89 Atrial fibrillation with RVR I48.91 Heart failure I50.9 Type 2 diabetes mellitus E11.9 Presence of single chamber implantable cardioverter-defibrillator (ICD) Z95.810 CKD (chronic kidney disease) N18.9 Chronic kidney disease stage: unspecified stage Closed fracture nasal bone S02.2XXA Encounter type: initial encounter Brain lesion G93.9 CAD (coronary artery disease), bo[place] coronary artery I25.10 Hypertension I10 (7) CKD (chronic kidney disease) Chronic kidney disease stage: unspecified stage Qualified Code(s): N18.9 - Chronic kidney disease, unspecified (8) Closed fracture nasal bone Encounter type: initial encounter Qualified Code(s): S02.2XXA - Fracture of nasal bones, initial encounter for closed fracture
--- NOTE | 2023-05-21 12:24 | Electrocardiogram Report ---
Test Reason : Blood Pressure : / mmHG Vent. Rate : 100 BPM Atrial Rate : 000 BPM P-R Int : 000 ms QRS Dur : 152 ms QT Int : 406 ms P-R-T Axes : 000 -68 108 degrees QTc Int : 523 ms Atrial fibrillation with premature ventricular or aberrantly conducted complexes Left axis deviation Non-specific intra-ventricular conduction block Minimal voltage criteria for LVH, may be normal variant Abnormal ECG When compared with ECG of 20-MAY-2023 09:33, No significant change was found Confirmed by Americo Chandra ([id number]) on 05/21/2023 12:24:23 PM Referred By: Mere MONTELONGO Confirmed By:Eddie Chandra
--- NOTE | 2023-05-21 12:24 | Electrocardiogram Report ---
Test Reason : Blood Pressure : / mmHG Vent. Rate : 093 BPM Atrial Rate : 000 BPM P-R Int : 000 ms QRS Dur : 152 ms QT Int : 416 ms P-R-T Axes : 000 -66 107 degrees QTc Int : 517 ms Atrial fibrillation with premature ventricular or aberrantly conducted complexes Left axis deviation Non-specific intra-ventricular conduction block Minimal voltage criteria for LVH, may be normal variant Abnormal ECG When compared with ECG of 20-MAY-2023 19:43, (unconfirmed) No significant change was found Confirmed by Americo Chandra ([id number]) on 05/21/2023 12:24:30 PM Referred By: Mere MONTELONGO Confirmed By:Eddie Chandra
[2023-05-21] MEDS: carvediloL 6.25 MG TAB PO SCH (16:56)
[2023-05-21] MEDS: BUMETANIDE 1 MG in SYRINGE 0 ML IV ONE ×2 (17:19→20:06)
[2023-05-22 06:33] LABS: Basophils # (auto) 0.04 K/uL (0.00-0.20); Basophils % (auto) 0.5 %; Eosinophils # (auto) 0.37 K/uL (0.00-0.50); Hematocrit (blood only) 40.7 % (42.0-52.0); Hemoglobin 12.9 g/dl (14.0-18.0); Immature Granulocytes # (auto) 0.02 K/uL (0.01-0.20); Immature Granulocytes % (auto) 0.3 %; Lymphocytes # (auto) 1.18 K/uL (1.20-3.40); Lymphocytes % (auto) 15.9 %; Mean Corpuscular Hgb Conc 31.7 g/dL (32.0-36.0); Mean Corpuscular Volume 97.8 fL (80.0-100.0); Mean Platelet Volume 11.8 fL (9.4-12.4); Monocytes # (auto) 0.56 K/uL (0.11-0.59); Monocytes % (auto) 7.5 %; Neutrophils # (auto) 5.26 K/uL (1.40-6.50); Neutrophils % (auto) 70.8 %; Platelet Count 167 K/uL (130-400); RDW Coefficient of Variation 13.6 % (11.5-14.5); Red Blood Count 4.16 M/uL (4.70-6.10); White Blood Count 7.43 K/ul (4.8-10.8)
[2023-05-22 06:49] LABS: BUN Creatinine Ratio 18.6 (10-20); Calcium 8.3 mg/dl (8.6-10.3); Creatinine Clr Calc Pharmacy 21.1 ml/min; Est GFR (African American) 24.4 ml/min; Est GFR (Non-African American) 21.1 ml/min; Magnesium 2.1 mg/dl (1.7-2.4); Potassium 4.3 mmol/L (3.5-5.1)
[2023-05-22 07:25] LABS: Estimated Average Glucose 151 mg/dl; Hemoglobin A1C 6.9 % (4.5-5.6)
--- NOTE | 2023-05-22 12:03 | Cardiology Progress Note ---
Date of Service May 22, 2023 Assessment & Plan (1) Syncope: (2) Atrial fibrillation with rapid ventricular response: (3) Elevated troponin: (4) Valvular heart disease: (5) Atherosclerotic heart disease: (6) Ischemic cardiomyopathy: (7) Heart failure: (8) Presence of single chamber implantable cardioverter-defibrillator (ICD): Plan 1. Syncope: Possibly related to ventricular arrhythmias. Device reprogrammed to treat ventricular arrhythmias. Lower rate limit also raise to 50 beats per minute in the hopes of preventing any associated bradycardia. 2. Elevated troponin: Unclear etiology. Cardiac perfusion study performed today in order to determine if there is benefit to angiography/revascularization 3. Coronary artery disease: He has remote history of SEBASTIAN to LAD and vein graft to an unknown vessel. Reportedly this occurred in the . He had percut aneous intervention to an unknown vessel around 2019. His medical regimen at this time includes aspirin and high-dose atorvastatin. 4. Ischemic cardiomyopathy: Generally well compensated. Continue his diuretic. We will increase his metoprolol and eventually switch him to metoprolol succinate. Avoiding ARB, Magdiel, Entresto and spironolactone due to renal dysfunction. Limited benefit from SG LT 2 inhibitor given his renal dysfunction. 5. Atrial fibrillation: Permanent. Not overtly symptomatic. It looks like he would benefit from more aggressive rate control. Will increase metoprolol. A waiting results of MRI prior to initiating systemic anticoagulation with Eliquis. 6. Congestive heart failure: Despite very poor LV systolic function . He feels that he is retaining more fluid. He states that his breathing is slightly worse. Did get 2 mg of oral Bumex today already. If he has not affected a good diuresis by this afternoon could given intravenous dose. 7. Valvular heart disease: Moderate mitral regurgitation. 8. Nonspecific interventricular conduction delay: Chronic 9. Single-chamber [place] ICD. Normal longevity at around 6 years. Normal function with normal sensing and threshold on the right ventricular lead. Admission and Anticipated Discharge Date Admission Date: May 20, 2023 Subjective This morning placing reported some additional breathing trouble. He feels he is more winded and needs more diuretic. He denies any chest pain. No dizziness or lightheadedness, but he has not really been ambulatory either. Review of Systems Review of Systems: Per HPI Physical Exam Physical Exam: The patient is alert and oriented. Mood and affect appeared normal. He answered all questions appropriately. HEENT: Pupils are equal and reactive to light and accommodation. Extraocular movements are intact. The sclerae are anicteric. Small bruise on the nose. No obvious displacement. Neuro: Cranial nerves intact Chest: Well-healed device implant site in the left upper pectoral area. Nontender. No erythema. Lungs: Some crackles at the right lung base. Normal respiratory effort. No expiratory wheezing. Cardiac: Heart demonstrates an irregular rate and rhythm. Normal S1 and S2. No murmurs on examination. Pulses: The patient has palpable radial pulses bilaterally that are equal in intensity Extremities: There was no evidence of hypoperfusion. There is no cyanosis or clubbing. There is no edema. Skin: I did not appreciate any rashes on examination today. Results & Data Vital Signs (Past 12 Hours) Vital Signs Temp Pulse Pulse Resp BP Pulse Ox O2 Del Method 05/22/23 11:22 Room Air 05/22/23 07:51 36.4 C L 87 17 150/88 H 98 Nasal Cannula 05/22/23 07:20 89 Laboratory Results Abnormal Lab Results 05/21/23 05/21/23 05/22/23 06:51 19:47 06:00 WBC 7.43 RBC 4.16 L Hgb 12.9 L Hct 40.7 L MCV 97.8 MCH 31.0 MCHC 31.7 L RDW Std Deviation 49.0 H RDW Coeff of Tommie 13.6 Plt Count 167 MPV 11.8 Immature Gran % (Auto) 0.3 Neut % (Auto) 70.8 Lymph % (Auto) 15.9 Gregg % (Auto) 7.5 Eos % (Auto) 5.0 Baso % (Auto) 0.5 Neut # (Auto) 5.26 Lymph # (Auto) 1.18 L Gregg # (Auto) 0.56 Eos # (Auto) 0.37 Baso # (Auto) 0.04 Immature Gran # (Auto) 0.02 Sodium 141 Potassium 4.3 Chloride 108 H Carbon Dioxide 25 Anion Gap 8 BUN 52 H Creatinine 2.79 H D Est Cr Clr Drug Dosing 21.1 Est GFR ( Amer) 24.4 Est GFR (Non-Af Amer) 21.1 BUN/Creatinine Ratio 18.6 Glucose 138 H POC Glucose 252 H Estimat Average Glucose 151 Hemoglobin A1c 6.9 H Calcium 8.3 L Magnesium 2.1 PG Care Time/CCT Total # of Minutes Spent Total Time Spent with Patient: Total time spent is greater than 50% in coordination of care (as documented) at patient's floor/unit and/or counseling patient: Coding Level of Care Code 75461 SUB INP/OBS CARE 2/35MIN Diagnoses Syncope R55 Syncope type: unspecified Atrial fibrillation with rapid ventricular response I48.91 Elevated troponin R79.89 Valvular heart disease I38 Atherosclerotic heart disease I25.10 Ischemic cardiomyopathy I25.5 Heart failure I50.9 Presence of single chamber implantable cardioverter-defibrillator (ICD) Z95.810 CPT Codes Implantable Defib Single Lead Programming - 26069 ([id number]) 26 - PROFESSIONAL COMPONENT (1) Syncope Syncope type: unspecified Qualified Code(s): R55 - Syncope and collapse
[2023-05-22] MEDS: REGADENOSON 0.4 MG/5 ML SYR IV ONE (14:09)
--- NOTE | 2023-05-22 16:18 | Hospitalist Progress Note ---
Date of Service May 22, 2023 Assessment & Plan (1) Syncope: Plan: Due to suspected malignant ventricular arrhythmia, probably ventricular tachycardia. Cardiology consultation and recommendations appreciated. AICD has been reactivated. Cardiac stress test completed today, May 21, is negative for ischemia but markedly abnormal with regional wall motion abnormalities consistent with his known ischemic cardiomyopathy. Head CT on arrival revealed 6 mm hyperdense focus within the right weeks radiata. Unfortunately, the brain MRI scan cannot be done today and will be done tomorrow, May 22, when the pacemaker software sales representative is available. Fractured nasal bones present on admission from the fall at the intermediate. Continue telemetry. Metoprolol has been started by cardiology. The dosage will be uptitrated today, May 21. (2) Elevated troponin: Plan: Suspected demand ischemia from syncope thought to be due to ventricular tachycardia. No chest pain. No definite evidence of acute coronary syndrome. h/o CABG in 1996. Continue aspirin therapy (3) Atrial fibrillation with RVR: Plan: Telemetry. Cardiology consultation and recommendations appreciated. Metoprolol has been started and will be uptitrated today, May 21. Eliquis will be started if brain MRI scan is negative for any signs of hemorrhage. (4) Heart failure: Plan: Known chronic CHF, systolic. BNP is probably chronically elevated due to severe left ventricular dysfunction. No overt CHF on admission. Renal function precludes use of aldactone, Entresto/ACEi/ARB, and SGLT-2i. Cardio consult appreciated (5) Type 2 diabetes mellitus: Plan: Last A1c at 6.5% on 09/30/2020. ADA diet. Refusing insulin. Resume glimepiride at discharge. (6) Presence of single chamber implantable cardioverter-defibrillator (ICD): Plan: MRI compatible. Will obtain brain MRI scan tomorrow, May 22, when pacemaker rep is present. ICD has been reactivated by cardiology (7) CKD (chronic kidney disease): Plan: Stage IV. Monitor intake and output. Serial labs (8) Closed fracture nasal bone: Plan: From syncopal episode and following at the present. Supportive care (9) CAD (coronary artery disease), [place] coronary artery: Plan: Known ischemic cardiomyopathy. No current acute coronary syndrome. Continue current medical management. (10) Hypertension: Plan: Stable. Now on hydralazine and metoprolol Plan Hopeful return to [facility] tomorrow, May 22, if brain MRI scan is negative for hemorrhage and he is able to be started on Eliquis. Admission and Anticipated Discharge Date Admission Date: May 20, 2023 Subjective Alert and oriented. No complaints. Stress test today, May 21, negative for ischemia but there are regional wall motion abnormalities consistent with his previous [place] and known ischemic cardiomyopathy. Unfortunately, the brain MRI scan cannot be done until tomorrow, May 22, when the pacemaker software sales representative is present. Hopefully the MRI will be negative and he can be started on Eliquis therapy and sent back to the [facility]. Case discussed with cardiology. Metoprolol dosage will be uptitrated today, May 21. Review of Systems 2 Review of Systems: Constitutional-no fever or chills ENT-no blurred vision, no double vision, no epistaxis, no sore throat Respiratory-no cough, no wheezing, no shortness of breath Cardiac-no palpitations, no chest pain, no syncope GI-no nausea, vomiting, diarrhea, melena, hematochezia -no urinary retention, no urinary incontinence, no dysuria, no hematuria Musculoskeletal-no joint pain, no muscle tenderness Skin-no bruising, no rashes, no pruritus Neuro-no isolated weakness, no paresthesia, no weakness Psych-no depression, no anxiety Physical Exam 2 Physical Exam: General-alert and oriented x3, no fever, no chills HEENT-head atraumatic and normocephalic, pupils equal and reactive to light, extraocular muscles intact Neck-no lymphadenopathy or thyromegaly, trachea midline Chest-clear to auscultation. No rales, wheezing or rhonchi Cardiac-irregular rhythm. Slightly rapid rate. Normal S1 and S2 Abdomen-normal bowel sounds, nontender, no hepatosplenomegaly Extremities-no cyanosis, clubbing, or edema Neuro-cranial nerves II through XII intact, motor and sensory function within normal limits, strength symmetrical, no focal deficits Psych-normal affect, normal mood Results & Data Results & Data Vital Signs (Past 12 Hours) Vital Signs Temp Pulse Pulse Resp BP BP Pulse Ox 05/22/23 14:53 36.4 C L 104 H 18 146/83 H 94 05/22/23 12:13 36.5 C 94 H 18 119/55 L 93 05/22/23 11:22 05/22/23 07:51 36.4 C L 87 17 150/88 H 98 05/22/23 07:20 89 O2 Del Method 05/22/23 14:53 Room Air 05/22/23 12:13 Room Air 05/22/23 11:22 Room Air 05/22/23 07:51 Nasal Cannula 05/22/23 07:20 Laboratory Results 05/22/23 06:00 05/22/23 06:00 PG Care Time/CCT Total # of Minutes Spent Total Time Spent with Patient: Total time spent is greater than 50% in coordination of care (as documented) at patient's floor/unit and/or counseling patient: Coding Level of Care Code 79827 SUB INP/OBS CARE 3/50MIN Diagnoses Syncope R55 Elevated troponin R79.89 Atrial fibrillation with RVR I48.91 Heart failure I50.9 Type 2 diabetes mellitus E11.9 Presence of single chamber implantable cardioverter-defibrillator (ICD) Z95.810 CKD (chronic kidney disease) N18.9 Chronic kidney disease stage: unspecified stage Closed fracture nasal bone S02.2XXA Encounter type: initial encounter CAD (coronary artery disease), [place] coronary artery I25.10 Hypertension I10 (7) CKD (chronic kidney disease) Chronic kidney disease stage: unspecified stage Qualified Code(s): N18.9 - Chronic kidney disease, unspecified (8) Closed fracture nasal bone Encounter type: initial encounter Qualified Code(s): S02.2XXA - Fracture of nasal bones, initial encounter for closed fracture
[2023-05-22] MEDS: METOPROLOL TARTRATE 25 MG TAB PO SCH (18:10)
[2023-05-23 06:33] LABS: Basophils # (auto) 0.04 K/uL (0.00-0.20); Basophils % (auto) 0.4 %; Eosinophils # (auto) 0.25 K/uL (0.00-0.50); Eosinophils % (auto) 2.8 %; Hematocrit (blood only) 41.5 % (42.0-52.0); Hemoglobin 13.3 g/dl (14.0-18.0); Immature Granulocytes # (auto) 0.03 K/uL (0.01-0.20); Immature Granulocytes % (auto) 0.3 %; Lymphocytes # (auto) 1.19 K/uL (1.20-3.40); Lymphocytes % (auto) 13.3 %; Mean Corpuscular Hemoglobin 30.9 pg (25.0-34.0); Mean Corpuscular Volume 96.3 fL (80.0-100.0); Mean Platelet Volume 12.1 fL (9.4-12.4); Monocytes # (auto) 0.59 K/uL (0.11-0.59); Monocytes % (auto) 6.6 %; Neutrophils # (auto) 6.85 K/uL (1.40-6.50); Neutrophils % (auto) 76.6 %; Platelet Count 177 K/uL (130-400); RDW Coefficient of Variation 13.5 % (11.5-14.5); RDW Standard Deviation 47.9 fL (36.4-46.3); Red Blood Count 4.31 M/uL (4.70-6.10); White Blood Count 8.95 K/ul (4.8-10.8)
[2023-05-23 06:57] LABS: BUN Creatinine Ratio 22.9 (10-20); Calcium 8.4 mg/dl (8.6-10.3); Creatinine Clr Calc Pharmacy 21.1 ml/min; Est GFR (African American) 24.4 ml/min; Est GFR (Non-African American) 21.1 ml/min; Potassium 4.6 mmol/L (3.5-5.1)
--- NOTE | 2023-05-23 12:03 | Cardiology Progress Note ---
Date of Service May 23, 2023 Assessment & Plan (1) Syncope: (2) Atrial fibrillation with rapid ventricular response: (3) Elevated troponin: (4) Valvular heart disease: (5) Atherosclerotic heart disease: (6) Ischemic cardiomyopathy: (7) Heart failure: (8) Presence of single chamber implantable cardioverter-defibrillator (ICD): Plan 1. Syncope: Possibly related to ventricular arrhythmias. Device reprogrammed to treat ventricular arrhythmias. Lower rate limit also raise to 50 beats per minute in the hopes of preventing any associated bradycardia. 2. Elevated troponin: Unclear etiology. Cardiac perfusion study performed yesterday reveals severe LV dysfunction with extensive infarction but no ischemia. 3. Coronary artery disease: He has remote history of SEBASTIAN to LAD and vein graft to an unknown vessel. Reportedly this occurred in the . He had perc utaneous intervention to an unknown vessel around 2019. His medical regimen at this time includes aspirin and high-dose atorvastatin. 4. Ischemic cardiomyopathy: Generally well compensated. Continue his diuretic. We will increase his metoprolol and eventually switch him to metoprolol succinate. Avoiding ARB, Magdiel, Entresto and spironolactone due to renal dysfunction. Limited benefit from SG LT 2 inhibitor given his renal dysfunction. 5. Atrial fibrillation: Permanent. Not overtly symptomatic. It looks like he would benefit from more aggressive rate control. Will increase metoprolol. Awaiting results of MRI prior to initiating systemic anticoagulation with Eliquis. 6. Congestive heart failure: Feeling well today on his current medical regimen. Well compensated. Lying flat exam without peripheral edema. 7. Valvular heart disease: Moderate mitral regurgitation. 8. Nonspecific interventricular conduction delay: Chronic 9. Single-chamber [place] ICD. Normal longevity at around 6 years. Normal function with normal sensing and threshold on the right ventricular lead. He is scheduled for his MRI of the brain today. If that does not demonstrate any evidence of intracranial hemorrhage will be reasonable to start him on his systemic anticoagulation. I think he could be otherwise discharged on the following cardiac regimen: Bumex 2 mg daily Metoprolol succinate 100 mg daily Atorvastatin 40 mg daily Hydralazine 10 mg t.i.d. Eliquis 5 mg b.i.d. Admission and Anticipated Discharge Date Admission Date: May 20, 2023 Subjective This morning patient claimed he feeling well. He denies any significant breathing difficulty. No lower extremity edema. No abdominal complaints. No sense of palpitation. Review of Systems Review of Systems: Per HPI Physical Exam Physical Exam: The patient is alert and oriented. Mood and affect appeared normal. He answered all questions appropriately. HEENT: Pupils are equal and reactive to light and accommodation. Extraocular movements are intact. The sclerae are anicteric. Small bruise on the nose. No obvious displacement. Neuro: Cranial nerves intact Lungs: Some crackles at the right lung base. Normal respiratory effort. No expiratory wheezing. Cardiac: Heart demonstrates an irregular rate and rhythm. Normal S1 and S2. No murmurs on examination. Pulses: The patient has palpable radial pulses bilaterally that are equal in intensity Extremities: There was no evidence of hypoperfusion. There is no cyanosis or clubbing. There is no edema. Skin: I did not appreciate any rashes on examination today. Results & Data Vital Signs (Past 12 Hours) Vital Signs Temp Pulse Pulse Resp BP Pulse Ox O2 Del Method 05/23/23 11:47 36.3 C L 96 H 19 119/88 93 Room Air 05/23/23 10:48 Room Air 05/23/23 08:13 36.3 C L 95 H 19 139/89 94 Room Air 05/23/23 07:48 100 H 05/23/23 03:00 94 H Laboratory Results Abnormal Lab Results 05/23/23 05/23/23 05:22 08:14 WBC 8.95 RBC 4.31 L Hgb 13.3 L Hct 41.5 L MCV 96.3 MCH 30.9 MCHC 32.0 RDW Std Deviation 47.9 H RDW Coeff of Tommie 13.5 Plt Count 177 MPV 12.1 Immature Gran % (Auto) 0.3 Neut % (Auto) 76.6 Lymph % (Auto) 13.3 [place]once % (Auto) 6.6 Eos % (Auto) 2.8 Baso % (Auto) 0.4 Neut # (Auto) 6.85 H Lymph # (Auto) 1.19 L [place]once # (Auto) 0.59 Eos # (Auto) 0.25 Baso # (Auto) 0.04 Immature Gran # (Auto) 0.03 Sodium 140 Potassium 4.6 Chloride 107 Carbon Dioxide 22 Anion Gap 11 BUN 64 H Creatinine 2.79 H Est Cr Clr Drug Dosing 21.1 Est GFR ( Amer) 24.4 Est GFR (Non-Af Amer) 21.1 BUN/Creatinine Ratio 22.9 H Glucose 164 H POC Glucose 177 H Calcium 8.4 L PG Care Time/CCT Total # of Minutes Spent Total Time Spent with Patient: Total time spent is greater than 50% in coordination of care (as documented) at patient's floor/unit and/or counseling patient: Coding Level of Care Code 84267 SUB INP/OBS CARE 2/35MIN Diagnoses Syncope R55 Syncope type: unspecified Atrial fibrillation with rapid ventricular response I48.91 Elevated troponin R79.89 Valvular heart disease I38 Atherosclerotic heart disease I25.10 Ischemic cardiomyopathy I25.5 Heart failure I50.9 Presence of single chamber implantable cardioverter-defibrillator (ICD) Z95.810 (1) Syncope Syncope type: unspecified Qualified Code(s): R55 - Syncope and collapse
--- NOTE | 2023-05-23 14:43 | Myocardial Perfusion Study ---
Date of Service May 22, 2023 Myocardial Perfusion Study [facility] Myocardial Perfusion Study Report LEXISCAN STRESS MYOCARDIAL PERFUSION IMAGING STUDY Brief description: Rest portion-at 0930 the patient was injected with 10.2 mCi of technetium 99m C ardiolite IV. 1 hour following injection, myocardial perfusion imaging was performed in multiple projections. Stress portion-baseline heart rate, blood pressure, and EKG were obtained. These same parameters were monitored continuously throughout 3 minutes infusion and 3 minutes recovery. They were intermittently recorded. Patient was infused with 0.4 mg Lexiscan IV followed immediately by the injection of 33 mCi of technetium 99m Cardiolite IV. 30 minutes following injection, myocardial perfusion imaging was performed in multiple projections identical to those used for the rest portion. Patient reported dyspnea, nausea, and weakness with infusion. Hemodynamic and electrocardiographic findings: 1. Baseline heart rate 86 bpm. This increased to a maximum of 118 bpm with Lexiscan infusion. 2. Baseline blood pressure was 118/86 mmHg. This haile to a maximum of 129/87 mmHg with Lexiscan infusion. 3. Baseline EKG demonstrated atrial fibrillation with left bundle branch block and occasional PVCs/aberrancy. Increased frequency of PVCs/aberrancy with Lexiscan infusion and during early recovery. There were no diagnostic ischemic ST changes. No Lexiscan induced arrhythmias. Myocardial perfusion imaging findings: 1. Raw data analysis demonstrates mild soft tissue attenuation and mild motion artifact. This study is adequate for interpretation. 2. Gated myocardial perfusion imaging demonstrates severely dilated left ventricle with severe global hypokinesis and EF calculated at 16%. 3. There are multiple territory severe fixed myocardial perfusion defects. This includes severe proximal and mid anterior, mid and distal inferior, mid and distal septal myocardium. Moderate basal and proximal septal, mid and distal lateral myocardium. The distal anterior, distal inferior, and entire apex have no myocardial perfusion. The anterior base, inferior base, and lateral proximal normal and base have normal myocardial perfusion. These findings are consistent with extensive multivessel infarction without evidence of myocardial ischemia. There appears to be no viability in the distal and apical segments. 4. This study is severely abnormal. Extensive prior infarction. No evidence of myocardial ischemia. No prior study for comparison. [facility] Myocardial perfusion code Indication for Procedure (1) Shortness of breath: (2) Elevated troponin: Procedure Code Procedure 1: Myocardial Perfusion Codes: 68473 Cardiovascular Stress Test, multiple Procedure 2: Myocardial Perfusion Codes: 61366 Cardiovascular Stress Test, supervision only Procedure 3: Myocardial Perfusion Codes: 79812 Cardiovascular Stress Test, interpretation and report
--- NOTE | 2023-05-23 15:24 | Magnetic Resonance Report ---
MR brain wo con CLINICAL HISTORY: possible cavernoma vs ICH,s/p fall TECHNIQUE: Multiplanar and multisequence MR images of the brain were obtained without intravenous con trast. Comparison: Comparison is made to CT head 05/20/2023 FINDINGS: No abnormal restricted diffusion is identified. Foci of T2 and FLAIR hyperintensity are noted in the paraventricular areas consistent with chronic small vessel ischemic disease. Ex vacuo ventriculomegal y and sulcal enlargement is noted compatible with diffuse volume loss. No mass is seen. There is no m ass effect or midline shift. There is focal susceptibility artifact in the weeks radiata compatible calcification seen on prior CT. Susceptibility artifact is seen in the left cerebellum as well. No ex tra axial fluid collections are seen. The corpus callosum, pituitary gland, and cerebellar tonsils ap pear grossly unremarkable. Flow voids of the major intracranial arterial vessels are identified. The imaged portions of the para nasal sinuses, mastoid air cells, and orbits are unremarkable. 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 Left cerebell ar susceptibility artifact may also represent a small cavernoma. ACT 112: Negative or not required by law. Electronically signed by: Carlos Vicente M.D. 05/23/2023 3:22 PM
--- NOTE | 2023-05-23 16:22 | Discharge Summary ---
Date of Service May 23, 2023 Admission HPI Per Admitting Provider Alis is a 77-year-old male with PMH of A-fib, heart failure, ischemic cardiomyopathy, ICD, T2DM, HTN, and chronic kidney disease. He presented via EMS from [facility] for a syncopal episode on 05/19. He was walking back from the pill line after receiving his morning medications when he fainted; full LOC, and head strike onto concrete floor. Patient is unsure how long he was out for, but does confirm that he struck the bridge of his nose, as well as his hand and knee. He is unsure what precipitated this, as he reports he was not feeling dizzy or lightheaded before hand. Several episodes of nausea and vomiting following syncope. He did not take any morning medications; no recent change in medications. He does note that he had increased chest palpitations this morning, which were more than usual. PMH of triple bypass in 1996 and . No smoking, tobacco use, or alcohol use. He does have a history of fainting several years ago, when he got up to stand. That said, he normally is able to stand without feeling dizzy or lightheaded. At time of admission, patient is chest pain-free, and denies having any chest pain earlier in the day. Patient's vitals are stable at time admission. ED course: NSS 250 mL IV x 3 Lopressor 5 mg IV ROS: Patient endorses 1 episode of syncope, chest palpitations this morning, dry cough, and nausea and vomiting after syncope x 3-4 episodes. Patient denies fever, night-sweats, chills, dizziness/lightheadedness, WOODS, chest pain, SOB, abdominal pain, diarrhea, urinary s/s, burning with urination, or N/T/pain/swelling in legs. Principal Diagnosis Atrial fibrillation with rapid ventricular rate, acute on chronic systolic congestive heart failure, syncope due to suspected ventricular tachycardia Discharge Exam General-alert and oriented x3, no fever, no chills HEENT-head atraumatic and normocephalic, pupils equal and reactive to light, extraocular muscles intact Neck-no lymphadenopathy or thyromegaly, trachea midline Chest-clear to auscultation. No rales, wheezing or rhonchi Cardiac-irregular rhythm. Slightly rapid rate. Normal S1 and S2 Abdomen-normal bowel sounds, nontender, no hepatosplenomegaly Extremities-no cyanosis, clubbing, or edema Neuro-cranial nerves II through XII intact, motor and sensory function within normal limits, strength symmetrical, no focal deficits Psych-normal affect, normal mood Discharge Data Allergies Allergy/AdvReac Type Severity Reaction Status Date / Time No Known Allergies Allergy Verified 05/20/23 15:13 Consultations 05/20/23 19:38 ED Decision to Admit Stat 05/20/23 22:02 Consult Cardiology Routine Ordered Studies 05/20/23 10:04 CT cervical spine wo con Stat CT head/brain wo con Stat 05/20/23 16:28 CT head/brain wo con Stat 05/23/23 00:00 MR brain wo con Routine Hospital Course (1) Syncope: Due to suspected malignant ventricular arrhythmia, probably ventricular tachycardia. Cardiology consultation and recommendations appreciated. AICD has been reactivated. Cardiac stress test completed on May 21 was negative for ischemia but markedly abnormal with regional wall motion abnormalities consistent with his known ischemic cardiomyopathy. Head CT on arrival revealed 6 mm hyperdense focus within the right weeks radiata. Brain MRI scan completed today, May 22, is negative for any evidence of intracerebral hemorrhage. Eliquis has been started. Fractured nasal bones present on admission from the fall at the longterm. Continue telemetry. Metoprolol has been started by cardiology and the dosage was uptitrated on May 21. (2) Elevated troponin: Consistent with type II myocardial infarction. Suspected demand ischemia from syncope thought to be due to ventricular tachycardia. No chest pain. No definite evidence of acute coronary syndrome. h/o CABG in 1996. Continue aspirin therapy (3) Atrial fibrillation with RVR: Telemetry. Cardiology consultation and recommendations appreciated. Metoprolol has been started and has been uptitrated on May 21. Eliquis has been started today, May 22. Brain MRI scan is negative for any signs of hemorrhage. (4) Heart failure: Known chronic CHF, systolic. BNP is probably chronically elevated due to severe left ventricular dysfunction. No overt CHF on admission. Renal function precludes use of aldactone, Entresto/ACEi/ARB, and SGLT-2i. Cardio consult appreciated (5) Type 2 diabetes mellitus: Last A1c at 6.5% on 09/30/2020. ADA diet. Refusing insulin. Resume glimepiride at discharge. (6) Presence of single chamber implantable cardioverter-defibrillator (ICD): MRI compatible. ICD has been reactivated by cardiology (7) CKD (chronic kidney disease): Stage IV. Monitor intake and output. Serial labs (8) Closed fracture nasal bone: From syncopal episode. No intervention needed at this time. Supportive care (9) CAD (coronary artery disease), benton coronary artery: Known ischemic cardiomyopathy. No current acute coronary syndrome. Continue current medical management. (10) Hypertension: Stable. Now on hydralazine and metoprolol Plan Discharge back to [facility] today, May 22 Total Time Total Time Spent Total Time Spent (In Minutes): 45-minute Discharge Plan Discharge Items [facility] Disposition: [facility] Reason For Visit: SYNCOPE, A FIB RVR, TROPONIN Discharge Diagnosis: Syncope due to suspected ventricular tachycardia, atrial fibrillation with rapid ventricular rate, acute on chronic systolic CHF Activity: Resume your previous activity Non-emergency contact: Primary Care Provider Call non-emergency contact if: your symptoms worsen Follow-up/Referrals: Mere MONTELONGO [Primary Care Provider] - Diet: Carb Consistent or DM2 and Heart Healthy Addtl Attending Provider Instructions: ICD device has been turned back on. You are now on metoprolol and Eliquis Pending Studies at Discharge: No Stand-Alone Forms: My [facility] Skilled Items Patient informed of condition?: Yes Discharge Level of Care: Other Communicable Disease: No Discharge Prognosis: Stable Lines: None Urinary Catheter: No Medications and DC Order Prescriptions: New metoprolol tartrate 25 mg Tablet 50 mg PO BID Qty: 0 0RF Eliquis 5 mg Tablet 5 mg PO BID Qty: 0 0RF Continued glimepiride 1 mg tablet 1 mg PO DAILY hydralazine 10 mg Tablet 10 mg PO TID Qty: 90 0RF atorvastatin [Lipitor] 40 mg Tablet 40 mg PO DAILY aspirin [Aspirin Low-Strength] 81 mg Tablet,Delayed Release (Dr/Ec) 81 mg PO DAILY bumetanide 2 mg tablet 2 mg PO DAILY Discharge Orders: Discharge Order (Routine); Ordered 05/23/23 Ordered By: Aquilino Pantoja/Other Patient Handouts: Managing Type 2 Diabetes Admission Data Admit Date/Time: 05/20/23 20:48 Attending Provider: Aquilino James Admit Provider: Lena Michaels Primary Care Provider: Mere MONTELONGO Other Providers: Lena Michaels; Americo Chandra Coding Level of Care Code 88002 INP/OBS DISCH >30 MIN Diagnoses Syncope R55 Elevated troponin R79.89 Atrial fibrillation with RVR I48.91 Heart failure I50.9 Type 2 diabetes mellitus E11.9 Presence of single chamber implantable cardioverter-defibrillator (ICD) Z95.810 CKD (chronic kidney disease) N18.9 Chronic kidney disease stage: unspecified stage Closed fracture nasal bone S02.2XXA Encounter type: initial encounter CAD (coronary artery disease), benton coronary artery I25.10 Hypertension I10
[2023-05-23] MEDS: APIXABAN 5 MG TABLET PO ONE (16:30)
[2023-05-24] MEDS ORDERED: APIXABAN 5 MG TABLET PO SCH (05:00)
--- NOTE | 2023-06-03 17:46 | Coding Query ---
CODING QUERY To promote full compliance with coding requirements relating to patient care, provider participation is requested in all cases of computer typesetter keyliner uncertainty. Please assist us with the question(s) below: Coding Question(s): The medical record reflects the following clinical evidence: Clinical Indicators: Per cardiology: "transient period of hypoxia and poor perfusion associated with what is believed to be a malignant arrhythmia". High sensitivity troponin of 25 pg/ml, rising to 1113 and then 2015 pg/ml before receding in the setting of syncopal event, possibly related to malignant ventricular arrhythmia in the setting of known ICM with severely reduced LVEF and CAD. Echocardiogram noted most of the LV to be akinetic or mildly dyskinetic. Severe hypokinesis involving the basal anterolateral and inferior segments. EKG with AF with RVR and possible new LBBB. Risk Factor(s): Age, gender, underlying ICM with severely reduced LVEF, DM type 2, hypertension. Treatment: EKG, echocardiogram, cardiology consultation, serial high sensitivity troponins, Lopressor Please clarify and document your clinical opinion in the progress notes and discharge summary including the definitive and/or presumptive diagnosis, (suspected or probable), related to the above clinical findings. Please include clinical findings supporting your diagnosis. Physician's Response(s): _x__Myocardial infarction type 2 ___Other explanation of clinical findings ___Unable to determine (no explanation for clinical findings) Thank you Fanny SULLIVAN
== END 2023-05-23 18:38 | DRG 281 ==
LOC: ED 09:19 → 4W 20:48 → SUATTDRO 20:48 → 4W 21:54

== ENCOUNTER 2023-06-28 10:56 | Inpatient (IN) ==
--- NOTE | 2023-06-28 11:14 | Emergency Department Note ---
Impression & Plan Pulmonary edema, Atrial fibrillation, Hypoxia ED Provider Note NAME: LAURA [id number] CHANCE AGE: 77 SEX: M : 1945 ARRIVES VIA: Ambulance INFORMANT: Patient, EMS ED PROVIDER(S): Kenneth Grullon DO CHIEF COMPLAINT: Shortness of breath HPI: The patient is a 77-year-old male who presented to the emergency department for an evaluation of shortness of breath. The patient's had worsening shortness of breath over the course of several days. Did have a chest x-ray today at the present does not know what the chest x-ray showed. He does have a history of atrial fibrillation as well as CHF. He also has a history of chronic kidney disease. He has noticed decreased urine output as well as leg swelling. He denies having any fever or hemoptysis. The patient denies having any recent trauma. He is compliant with his outpatient medications according to the prehospital personnel he sometimes misses his Eliquis. ROS: See above HPI for pertinent positives & negatives. A total of 10 systems reviewed and were otherwise negative. PAST MEDICAL HISTORY: See Below PAST SURGICAL HISTORY: See Below FAMILY HISTORY: See Below SOCIAL HISTORY: See Below HOME MEDICATIONS: See Below ALLERGIES: See Below VITALS: See Below PHYSICAL EXAMINATION: GENERAL: Patient is awake and alert. He is somewhat anxious appearing. EYES: The conjunctivae are clear. The pupils are round and reactive. EARS, NOSE, MOUTH AND THROAT: The nose is without any evidence of any deformity. NECK: The neck is nontender and supple. JVD was noted. RESPIRATORY: Diminished breath sounds noted throughout. There were rales at both bases. Tachypnea was noted. CARDIOVASCULAR: Regular rate and rhythm noted there no murmurs rubs or gallops normal S1 normal S2. GASTROINTESTINAL: The abdomen is soft. Abdomen is nontender. MUSCULOSKELETAL/EXTREMITIES: There is no evidence of gross deformity full range of motion is noted in the hips and shoulders. SKIN: Lower extremity edema was noted. Skin was warm and dry. NEUROLOGIC: Patient is awake alert and oriented x3 MEDICAL DECISION MAKING: The patient is a 77-year-old male who presented to the emergency department from the [facility] for an evaluation of difficulty breathing. The patient's history and physical exam appear to be consistent with pulmonary edema. The patient was treated with IV Lasix as well as supplemental oxygen in the emergency department. He was reevaluated multiple times. The patient continues to have an oxygen requirement. [facility] have agreed to evaluate the patient in the emergency department for further management and disposition. The patient did improve clinically while he was in the emergency department. Triage Nursing notes reviewed. Prior medical records reviewed Vital Signs: reviewed and remarkable for tachycardia and hypoxia. Differential diagnosis: Reactive airway disease, pneumonia, pneumothorax, COPD, CHF, infections, cardiac ischemia, pulmonary embolism, musculoskeletal, gastrointestinal, as well as other pathologies. ER treatment provided: See below Diagnostics interpreted by me: ECG: EKG was obtained in the emergency department. My interpretation is atrial fibrillation at 118 bpm. PVCs were noted. Right bundle ranch block pattern was noted. This was compared to a tracing from May 19, 2013. No changes were noted. Cardiac Monitoring: An order was placed for continuous cardiac monitoring. The monitor shows a rate of 105 bpm with atrial fibrillation and RVR. Laboratory studies: As stated above and show below. Imaging studies: See below. Radiographic imaging was reviewed by myself Consultation(s): I discussed this case with Dr. Hills who is on-call for the [facility] hospitalist group. Past Med/Surg History Medical History (Updated 06/28/23 @ 16:04 by Kenneth Grullon DO) CKD (chronic kidney disease) Type 2 diabetes mellitus Hypocalcemia Valvular heart disease Heart failure CAD (coronary artery disease), elim ira coronary artery Constipation Chronic congestive heart failure Uremic encephalopathy Nausea & vomiting Acute hyponatremia Acute kidney injury Ischemic cardiomyopathy Myocardial infarct Atherosclerotic heart disease coronary artery bypass grafting: Marvin to LAD. Saphenous vein graft to unknown vessel PCI to the 1st diagonal 11/24/2016 Hypertension Hypokalemia Hypercholesterolemia Enlarged prostate Surgical History Presence of single chamber implantable cardioverter-defibrillator (ICD) [place]. Implant 12/2018 S/P triple vessel bypass H/O heart artery stent Family History Grandmother Diabetes Social History Smoking Status: Former smoker Tobacco Type: Cigarettes Do You Dip or Chew Tobacco: No; Hx Alcohol Use: No Hx Substance Use: No Preferred Language: Kyrgyz Communication Ability: Effective Clamp Remover Required: No Beliefs That Will Affect Care: Mosque Mosque Beliefs: Jehovas Witness marital status: Single Current Living Situation: Other Current Living Situation Comment: [facility] Feels Safe at Home: Yes Assistive Devices: None Allergies Allergies Allergy/AdvReac Type Severity Reaction Status Date / Time No Known Allergies Allergy Verified 05/20/23 15:13 Home Meds Home Medications Medication Instructions Recorded Confirmed glimepiride 1 mg tablet 1 mg PO DAILY 06/29/20 06/28/23 aspirin 81 mg tablet,delayed 81 mg PO DAILY 05/20/23 06/28/23 release atorvastatin 40 mg tablet (Lipitor) 40 mg PO DAILY 05/20/23 06/28/23 bumetanide 2 mg tablet 2 mg PO DAILY 05/20/23 06/28/23 Previous Rx's Medication Instructions Recorded hydralazine 10 mg tablet 10 mg PO TID #90 tabs 03/06/21 apixaban 5 mg tablet (Eliquis) 5 mg PO BID #0 tabs 05/23/23 metoprolol tartrate 25 mg tablet 50 mg (2 x 25 mg) PO BID #0 tabs 05/23/23 Results & Data (ED) Vital Signs Vital Signs - 24 hr 06/28/23 11:01 06/28/23 11:08 06/28/23 11:20 Temperature 36.4 C L Temperature Source Oral Pulse Rate 112 H 117 H Respiratory Rate 18 Respiratory Effort / Characteristics Non-Labored Spontaneous Respiratory Depth Normal Respiratory Pattern Regular Blood Pressure 96/81 L Blood Pressure Mean 86 Blood Pressure Position Sitting Pulse Oximetry 96 87 L Oxygen Delivery Method Nasal Cannula Nasal Cannula Oxygen Flow Rate 2 0 Sepsis Recent Fever Within 48 Hours No Sepsis New/Unexplained Change in Mental Status N/A Sepsis Action Taken by Nursing Physician Notified Oxygen Flow Rate - Titration 2 Pulse Oximetry Post Tiitration 97 06/28/23 11:31 06/28/23 11:40 06/28/23 12:31 Temperature Temperature Source Pulse Rate 108 H 105 H 109 H Respiratory Rate 22 20 20 Respiratory Effort / Characteristics Respiratory Depth Respiratory Pattern Blood Pressure 91/73 L 135/93 114/83 Blood Pressure Mean 79 107 93 Blood Pressure Position Pulse Oximetry 98 95 92 Oxygen Delivery Method Nasal Cannula Nasal Cannula Nasal Cannula Oxygen Flow Rate 2 2 2 Sepsis Recent Fever Within 48 Hours Sepsis New/Unexplained Change in Mental Status Sepsis Action Taken by Nursing Oxygen Flow Rate - Titration Pulse Oximetry Post Tiitration Home Medications Current Medication List: was personally reviewed by me Laboratory Data Attestation: I reviewed the patient's lab results. 06/28/23 11:20 06/28/23 11:20 Lab Results 06/28/23 06/28/23 Range/Units 11:20 11:28 WBC 7.39 (4.8-10.8) K/ul RBC 4.30 L (4.70-6.10) M/uL Hgb 13.3 L (14.0-18.0) g/dl Hct 42.1 (42.0-52.0) % MCV 97.9 (80.0-100.0) fL MCH 30.9 (25.0-34.0) pg MCHC 31.6 L (32.0-36.0) g/dL RDW Std Deviation 57.0 H (36.4-46.3) fL RDW Coeff of Tommie 16.2 H (11.5-14.5) % Plt Count 211 (130-400) K/uL MPV 11.8 (9.4-12.4) fL Immature Gran % (Auto) 0.3 % Neut % (Auto) 79.4 % Lymph % (Auto) 11.5 % Kay % (Auto) 6.9 % Eos % (Auto) 1.2 % Baso % (Auto) 0.7 % Neut # (Auto) 5.87 (1.40-6.50) K/uL Lymph # (Auto) 0.85 L (1.20-3.40) K/uL Kay # (Auto) 0.51 (0.11-0.59) K/uL Eos # (Auto) 0.09 (0.00-0.50) K/uL Baso # (Auto) 0.05 (0.00-0.20) K/uL Immature Gran # (Auto) 0.02 (0.01-0.20) K/uL PT Cancelled INR Cancelled APTT Cancelled PTT Ratio Cancelled VBG pH 7.33 L (7.36-7.41) VBG pCO2 42 (38-50) mmHg VBG pO2 27 mmHg VBG HCO3 22 mmol/L VBG O2 Saturation < 60.0 % VBG Base Excess -3.7 mEq/L Sodium 138 (136-145) mmol/L Potassium 5.6 H (3.5-5.1) mmol/L Chloride 105 (98-107) mmol/L Carbon Dioxide 21 (21-32) mmol/L Anion Gap 12 H (3-11) BUN 69 H (6-23) mg/dl Creatinine 3.10 H (0.6-1.4) mg/dl Est Cr Clr Drug Dosing 20.6 ml/min Est GFR ( Amer) 21.5 ml/min Est GFR (Non-Af Amer) 18.5 ml/min BUN/Creatinine Ratio 22.3 H (10-20) Glucose 298 H (70-99(Fasting)) mg/dl Calcium 8.9 (8.6-10.3) mg/dl Magnesium 2.6 H (1.7-2.4) mg/dl Total Bilirubin 1.6 H (0.2-1.0) mg/dl AST 21 (13-39) U/L ALT 29 (7-52) U/L Alkaline Phosphatase 73 (34-104) U/L Troponin I High Sens 42.7 H (0-20) pg/ml B-Natriuretic Peptide 1964 H (0-100) pg/ml Total Protein 7.3 (6.0-8.3) gm/dl Albumin 4.3 (3.4-5.0) gm/dl Globulin 3.0 (2.5-4.0) gm/dl Albumin/Globulin Ratio 1.4 (0.9-2) Administered Medications Discontinued Medications Furosemide (Furosemide 40 Mg/4 Ml Vial) 80 mg IV ONE ONE Stop: 06/28/23 12:13 Last Admin: 06/28/23 12:45 Dose: 80 mg Documented By: MICHAEL Insulin Human Regular 5 units/ (Syringe) 5 mls @ 30 mls/min IV NOW ONE Stop: 06/28/23 13:16 Last Admin: 06/28/23 13:37 Dose: Not Given Documented By: MICHAEL Imaging Data Attestation: I personally reviewed and interpreted this imaging study as follows: My Impression: 1 view chest x-ray was obtained in the emergency department. My interpretation is cardiomegaly with volume overload, final report below. Radiologist's Impression: Chest X-Ray 06/28/23 11:11 XR chest 1V portable CLINICAL HISTORY: Dyspnea COMPARISON STUDY: Chest CT March 04, 2021. Chest radiograph May 20, 2023. FINDINGS: Left pacer/AICD, median sternotomy wires and mediastinal surgical clips are present. Moderate cardiomegaly is unchanged. There is mild interstitial thickening. There are small bilateral pleural effusions. No pneumothorax is present. There is no consolidation to suggest pneumonia. Appearance of the chest is similar to prior chest radiograph. IMPRESSION: Cardiomegaly with mild interstitial pulmonary edema and small bilateral pleural effusions. ACT 112: Negative or not required by law. Electronically signed by: Graham Emmanuel M.D. 06/28/2023 11:35 AM Discharge Plan Visit Data Chief Complaint: Shortness of Breath/Dyspnea ED Provider: Kenneth Grullon Discharge Problem: Pulmonary edema, Atrial fibrillation, Hypoxia Patient Disposition: Admitted As Inpatient Discharge Instructions Interventions: ED Discharge Assessment Last Done: 06/28/23 14:25 Discharge Problem: Pulmonary edema Qualifiers: Chronicity: acute Qualified Code(s): J81.0 - Acute pulmonary edema Atrial fibrillation Qualifiers: Atrial fibrillation type: unspecified Qualified Code(s): I48.91 - Unspecified atrial fibrillation
--- NOTE | 2023-06-28 11:36 | XRay Report ---
XR chest 1V portable CLINICAL HISTORY: Dyspnea COMPARISON STUDY: Chest CT March 04, 2021. Chest radiograph May 20, 2023. FINDINGS: Left pacer/AICD, median sternotomy wires and mediastinal surgical clips are present. Modera te cardiomegaly is unchanged. There is mild interstitial thickening. There are small bilateral pleura l effusions. No pneumothorax is present. There is no consolidation to suggest pneumonia. Appearance o f the chest is similar to prior chest radiograph. IMPRESSION: Cardiomegaly with mild interstitial pulmonary edema and small bilateral pleural effusion s. ACT 112: Negative or not required by law. Electronically signed by: Graham Emmanuel M.D. 06/28/2023 11:35 AM
[2023-06-28 11:40] LABS: Basophils # (auto) 0.05 K/uL (0.00-0.20); Basophils % (auto) 0.7 %; Eosinophils # (auto) 0.09 K/uL (0.00-0.50); Eosinophils % (auto) 1.2 %; Hematocrit (blood only) 42.1 % (42.0-52.0); Hemoglobin 13.3 g/dl (14.0-18.0); Immature Granulocytes # (auto) 0.02 K/uL (0.01-0.20); Immature Granulocytes % (auto) 0.3 %; Lymphocytes # (auto) 0.85 K/uL (1.20-3.40); Lymphocytes % (auto) 11.5 %; Mean Corpuscular Hemoglobin 30.9 pg (25.0-34.0); Mean Corpuscular Hgb Conc 31.6 g/dL (32.0-36.0); Mean Corpuscular Volume 97.9 fL (80.0-100.0); Mean Platelet Volume 11.8 fL (9.4-12.4); Monocytes # (auto) 0.51 K/uL (0.11-0.59); Monocytes % (auto) 6.9 %; Neutrophils # (auto) 5.87 K/uL (1.40-6.50); Neutrophils % (auto) 79.4 %; Platelet Count 211 K/uL (130-400); RDW Coefficient of Variation 16.2 % (11.5-14.5); White Blood Count 7.39 K/ul (4.8-10.8)
[2023-06-28 11:57] LABS: Albumin Globulin Ratio 1.4 (0.9-2); Albumin Level 4.3 gm/dl (3.4-5.0); BUN Creatinine Ratio 22.3 (10-20); Bilirubin,Total 1.6 mg/dl (0.2-1.0); Calcium 8.9 mg/dl (8.6-10.3); Creatinine Clr Calc Pharmacy 20.6 ml/min; Est GFR (African American) 21.5 ml/min; Est GFR (Non-African American) 18.5 ml/min; Magnesium 2.6 mg/dl (1.7-2.4); Potassium 5.6 mmol/L (3.5-5.1); Total Protein 7.3 gm/dl (6.0-8.3)
[2023-06-28 12:03] LABS: Troponin I High Sensitivity 42.7 pg/ml (0-20)
--- NOTE | 2023-06-28 12:18 | History & Physical Report ---
Date of Service June 28, 2023 Assessment & Plan (1) Acute on chronic diastolic CHF (congestive heart failure): Plan: Worsening SOB at rest and with exertion, orthopnea, and bilateral lower extremity swelling x 7-10 days CXR revealed cardiomegaly with mild interstitial pulmonary edema and small bilateral pleural effusions BNP elevated at 1964 (most recently 612 on 05/20/2023) Echocardiogram on 05/21/2023 revealed severely reduced left ventricular systolic function; LVEF 15-20% ED Course: Lasix 80 mg IV given on arrival; renal function moderate with creatinine at 3.10 Patient had minimal output (200 cc) with a PVR of 36 cc on bladder scan after receiving Lasix 80 mg Discussed case with both nephrology and cardiology Trialed an additional dose of Lasix 120 mg IV, which improved output slightly (additional 200cc x 2) Patient reports breathing has improved upon reassessment; will defer dobutamine drip for now Daily weights Strict I&O monitoring AHA, low-sodium diet with 1500 mL fluid restriction Bumex 2 mg IV [id number] Cardiology consulted A.m. CBC, BMP, mag (2) Atrial fibrillation with rapid ventricular response: Plan: EKG on arrival revealed atrial fibrillation with RVR at 118 bpm; QTc 532 (caution use of QT prolonging agents) Patient reports has not been taking his Eliquis consistently at the senior care, as he is unable to walk to the pill line Continue Eliquis, metoprolol Hold hydralazine for now in the event that additional metoprolol needs to be given (3) Type 2 diabetes mellitus: Plan: Last A1c at 6.9% on 05/21/2023 Glucose 298 on admission; 5u regular insulin IV ordered in the ED, however patient refused Hold glimepiride Monitor for hypoglycemia Lantus 7 u QAM while inpatient SSI; with target BSG range 110-140mg/dL, CF 50, carb ratio 20 T2DM diet BSG ACHS Adjust regimen as needed (4) Elevated troponin: Plan: Troponin elevated at 42.7-->46.8 Clinically, patient denies chest pain Likely demand ischemia in the setting of acute on chronic heart failure Continuous telemetry monitoring (5) Acute kidney injury superimposed on chronic kidney disease: Plan: BUN 69, creatinine 3.10 (baseline around 2.25), and EGFR 18.5 Avoid nephrotoxic agents for possible Diuresis (as above) Trend BMP q4h x 2 (6) Hyperkalemia: Plan: Mild; K 5.6 on arrival Insulin given in the ED + Diuresis (as above) Trend BMP (7) Anemia: Plan: Chronic; Hgb 13.3 on arrival No signs of active bleeding on clinical exam Trend a.m. labs Plan Disposition: Admit to PCU telemetry DNR/DNI AHA, low-sodium, T2DM diet (1500 mL fluid restriction) VTE PPx: On Eliquis History of Present Illness Chief Complaint: SOB/dyspnea Primary Care Provider: REGINALD Snell is a 77-year-old male with PMH of A-fib (on Eliquis), heart failure, ischemic cardiomyopathy, syncope, ICD, T2DM, HTN, and chronic kidney disease. He presented via EMS from [facility] for worsening SOB both at rest and with exertion x 7-10 days. Patient reports he is unable to sleep on his back, or lay flat because it causes his breathing to stop. He also notes that his breathing gets faster with exertion. Associated symptoms include lack of energy, worsening ANGELA, and leg swelling. He reports that he takes Bumex 2 mg in the morning, and sometimes around noon as needed (he normally takes around 4 mg daily). However he has not been able to walk long distances to the pill line recently; for instance today he only took Bumex, metoprolol, and a baby aspirin. He has not been taking his Eliquis consistently due to inability to walk to the pill line. He denies any recent changes in diet, and reports he watches his salt intake very carefully, but notes that he has been consuming additional salt to provide more energy recently. She denies smoking, tobacco use, or recent alcohol use. He does report he is a DNR/DNI as well as a Mu-ism and would not like blood transfusions without consultation. Patient is mildly tachycardic at 105 bpm at time of admission; SpO2 95% on 2 L NC. ED course: Lasix 80 mg IV ROS: Patient endorses lightheadedness when standing, dizziness, chest palpitations, productive cough, worsening SOB with exertion and at rest, and swelling around the ankles. Patient denies fever, chills, night-sweats, WOODS, fainting, falling, chest pain, pleuritic CP, hemoptysis, abdominal pain, N/V/D, changes in urinary/bowel habits, or numbness/tingling in the arms or legs. Allergies Allergy/AdvReac Type Severity Reaction Status Date / Time No Known Allergies Allergy Verified 05/20/23 15:13 Home Medications Medication Instructions Recorded Confirmed Type glimepiride 1 mg tablet 1 mg PO DAILY 06/29/20 06/28/23 History hydralazine 10 mg tablet 10 mg PO TID #90 tabs 03/06/21 06/28/23 Rx aspirin 81 mg tablet,delayed 81 mg PO DAILY 05/20/23 06/28/23 History release atorvastatin 40 mg tablet (Lipitor) 40 mg PO DAILY 05/20/23 06/28/23 History bumetanide 2 mg tablet 2 mg PO DAILY 05/20/23 06/28/23 History apixaban 5 mg tablet (Eliquis) 5 mg PO BID #0 tabs 05/23/23 06/28/23 Rx metoprolol tartrate 25 mg tablet 50 mg (2 x 25 mg) PO BID #0 tabs 05/23/23 06/28/23 Rx Past Med/Surg History Medical History (Updated 06/28/23 @ 16:04 by Kenneth Grullon DO) CKD (chronic kidney disease) Type 2 diabetes mellitus Hypocalcemia Valvular heart disease Heart failure CAD (coronary artery disease), cheesh-na coronary artery Constipation Chronic congestive heart failure Uremic encephalopathy Nausea & vomiting Acute hyponatremia Acute kidney injury Ischemic cardiomyopathy Myocardial infarct Atherosclerotic heart disease coronary artery bypass grafting: Marvin to LAD. Saphenous vein graft to unknown vessel PCI to the 1st diagonal 11/24/2016 Hypertension Hypokalemia Hypercholesterolemia Enlarged prostate Surgical History Presence of single chamber implantable cardioverter-defibrillator (ICD) [place]. Implant 12/2018 S/P triple vessel bypass H/O heart artery stent Family History Grandmother Diabetes Social History Smoking Status: Former smoker Tobacco Type: Cigarettes Do You Dip or Chew Tobacco: No; Hx Alcohol Use: No Hx Substance Use: No Preferred Language: Macanese Communication Ability: Effective Road Patcher Required: No Beliefs That Will Affect Care: Moravian Moravian Beliefs: Jehovas Witness marital status: Single Current Living Situation: Other Current Living Situation Comment: [facility] Feels Safe at Home: Yes Assistive Devices: None Review of Systems Review of Systems: See HPI above Physical Exam Physical Exam: General: Moderate respiratory distress; sitting 90 degrees in bed; non-toxic appearing; well-nourished; SpO2 95% on 2 L NC HEENT: normocephalic, atraumatic; no scleral icterus; PERRLA w/ EOMs intact; moist mucus membrane; vision and hearing grossly intact Neck: supple; positive for JVP; no lymphadenopathy; trachea midline Skin: warm, dry without signs of tenting; no cyanosis; no rashes, bruising, lesions, or erythema noted CV: chest wall NTP; irregularly irregular rhythm tachycardic around 110-120 bpm; S1/S2 normal; no murmurs/rubs/gallops; pulses intact and symmetric at radial, DP, and PT Lungs: Moderate acute respiratory distress; conversationally dyspneic; symmetrical chest wall expansion; diminished breath sounds across all lung young with bibasilar basilar crackles in the lower lung young bilaterally ABD: Soft, NTP; BS present; no rebound/guarding; no distention MSK: no tics or fasciculations; +1 pitting edema noted in the LEs b/l around the ankles and calves, nonerythematous Neuro: A&Ox3; normal mood and affect; fluent speech; no focal deficits; sensation grossly intact in the LEs b/l Results & Data Results & Data Vital Signs (Past 12 Hours) Vital Signs Temp Pulse Resp BP Pulse Ox O2 Del Method O2 Flow Rate 06/28/23 11:40 105 H 20 135/93 95 Nasal Cannula 2 06/28/23 11:31 108 H 22 91/73 L 98 Nasal Cannula 2 06/28/23 11:20 87 L Nasal Cannula 0 06/28/23 11:08 117 H 06/28/23 11:01 36.4 C L 112 H 18 96/81 L 96 Nasal Cannula 2 Laboratory Results Abnormal lab results 06/28/23 Range/Units 11:20 RBC 4.30 L (4.70-6.10) M/uL Hgb 13.3 L (14.0-18.0) g/dl MCHC 31.6 L (32.0-36.0) g/dL RDW Std Deviation 57.0 H (36.4-46.3) fL RDW Coeff of Tommie 16.2 H (11.5-14.5) % Lymph # (Auto) 0.85 L (1.20-3.40) K/uL Potassium 5.6 H (3.5-5.1) mmol/L Anion Gap 12 H (3-11) BUN 69 H (6-23) mg/dl Creatinine 3.10 H (0.6-1.4) mg/dl BUN/Creatinine Ratio 22.3 H (10-20) Glucose 298 H (70-99(Fasting)) mg/dl Magnesium 2.6 H (1.7-2.4) mg/dl Total Bilirubin 1.6 H (0.2-1.0) mg/dl Troponin I High Sens 42.7 H (0-20) pg/ml B-Natriuretic Peptide 1964 H (0-100) pg/ml Diagnostic Findings Chest X-Ray 06/28/23 11:11 XR chest 1V portable CLINICAL HISTORY: Dyspnea COMPARISON STUDY: Chest CT March 04, 2021. Chest radiograph May 20, 2023. FINDINGS: Left pacer/AICD, median sternotomy wires and mediastinal surgical clips are present. Moderate cardiomegaly is unchanged. There is mild interstitial thickening. There are small bilateral pleural effusions. No pneumothorax is present. There is no consolidation to suggest pneumonia. Appearance of the chest is similar to prior chest radiograph. IMPRESSION: Cardiomegaly with mild interstitial pulmonary edema and small bilateral pleural effusions. ACT 112: Negative or not required by law. Electronically signed by: Graham Emmanuel M.D. 06/28/2023 11:35 AM Code Status & VTE Plan Code Status DNR/DNI (patient also wants it to be noted that he is a Mu-ism and would like consultation before any blood transfusion) VTE Prophylaxis Plan VTE Prophylaxis will be ordered: Yes Supervising Physician Co-Signing Physician Notes Patient seen and examined, chart reviewed, case discussed with David Lopez and I agree with the assessment and plan as above except as otherwise noted Labs and images reviewed Jesus is a 77-year-old male with a past medical history of CKD, CHF, A-fib, type II DM who presents with acute on chronic CHF. Clinically patient has had worsening shortness of breath both at rest and exertion and has had increased orthopnea for approximately 1 week to 10 days, has been taking Bumex as directed. No chest pain. Chest x-ray is consistent with CHF/pulmonary edema. BNP is markedly elevated, troponin is mildly elevated suspect demand. C reatinine is mildly elevated at 3.1 with baseline of approximately 2.8, clinically overtly volume overloaded. Mild hyperkalemia at 5.6; SpO2 normalized at time of assessment with 2 L of nasal cannula oxygen. At time of bedside assessment patient remains dyspneic but reports he is chest pain-free, and has not had any chest pain in the preceding month. Legs are with pitting edema 2+ bilaterally, bibasilar crackles which do not clear on deep inspiration are present. JVD is present. Agree with admission for CHF, no signs of acute ACS. Agree with diuresis, patient received Lasix 80 mg IV while in the ER. Will continue Bumex 2 mg IV twice daily on admission, strict ins and outs, daily standing weights, titrate Bumex to goal net negative fluid output of around 1-2 L. BMP added for 4 hours to reevaluate potassium, and then daily if normalized/stable. Subsequent reevaluation patient minimal output, additional Lasix given and cardiology consulted. Patient may require dobutamine for aug mentation, if failing diuresis will start dobutamine drip. Reviewed with nephrology. While BNP is elevated and does have pleural effusions, degree of pulmonary edema is relatively mild on x-ray and PE is within the differential. Dopplers ordered, patient's renal status precludes CTA. Could follow-up with a V/Q study although this is limited at this time. Patient has no inspiratory/pleuritic pain. Agree with above. PG Care Time/CCT Total # of Minutes Spent Total Time Spent with Patient: Total time spent is greater than 50% in coordination of care (as documented) at patient's floor/unit and/or counseling patient: [place] [address] INT INP/OBS CARE 3/75MIN Patient Type Established History Comprehensive Exam Comprehensive Medical Decision Making High Complexity Diagnoses Acute on chronic diastolic CHF (congestive heart failure) I50.33 Atrial fibrillation with rapid ventricular response I48.91 Type 2 diabetes mellitus E11.9 Elevated troponin R79.89 Acute kidney injury superimposed on chronic kidney disease N17.9; N18.9 Hyperkalemia E87.5 Anemia D64.9
[2023-06-28 12:43] LABS: Base Excess VBG -3.7 mEq/L; HCO3 VBG 22 mmol/L; Oxygen Saturation VBG < 60.0 %; PCO2 VBG 42 mmHg (38-50); PO2 VBG 27 mmHg; pH VBG 7.33 (7.36-7.41)
[2023-06-28] MEDS: FUROSEMIDE 40 MG/4 ML VIAL IV ONE ×2 (12:45→16:07)
[2023-06-28] MEDS ORDERED: NovoLIN-R INSULIN PER UNIT CHARGE IV STA (13:01)
[2023-06-28] MEDS ORDERED: GLUCOSE 10 TAB/TUBE PO PRN (13:03)
[2023-06-28] MEDS ORDERED: CARBOHYDRATES FOR HYPOGLYCEMIA PO PRN (13:03)
[2023-06-28] MEDS ORDERED: GLUCOSE 40% GEL 15 GM TUBE PO PRN (13:03)
[2023-06-28] MEDS ORDERED: GLUCAGON FOR INJ 1 MG VIAL SQ PRN (13:03)
[2023-06-28] MEDS ORDERED: DEXTROSE 50% 50 ML SYRINGE IV PRN (13:03)
[2023-06-28] MEDS: INSULIN HUMAN REGULAR PER UNIT 5 UNITS in SYRINGE 4.95 ML IV ONE (13:37)
[2023-06-28 13:58] LABS: Appearance Urine Clear (Clear); Bacteria Urine Automated None Seen (None Seen); Bilirubin Urine Negative (Negative); Blood Urine Negative (Negative); Color Urine Yellow; Epithelial Cell Urine Auto 0-2 /hpf (0-2); Glucose Urine UA Negative (Negative); Ketones Urine Negative (Negative); Leukocyte Esterase Urine Negative (Negative); Nitrite Urine Negative (Negative); Protein Urine 1+ (Negative); RBC Urine Automated 0-2 /hpf (0-2); Specific Gravity Urine 1.011 (1.000-1.030); Urobilinogen Urine Negative (Negative); WBC Urine Automated 0-5 /hpf (0-5); pH Urine 5.5 (4.5-7.5)
[2023-06-28] MEDS ORDERED: ACETAMINOPHEN 325 MG TAB PO PRN (14:24)
[2023-06-28 14:30] LABS: Influenza A virus by PCR Negative (Neg); Influenza B virus by PCR Negative (Neg); RSV by PCR Negative (Neg); SARS CoV2 RNA(COVID-19) Ceph NEGATIVE (Negative)
[2023-06-28 15:43] LABS: INR 1.1 (0.9-1.1); Partial Thromboplastin Time 28 Seconds (21-31); Prothrombin Time 11.5 Seconds (9.0-12.0)
--- NOTE | 2023-06-28 16:27 | Electrocardiogram Report ---
Test Reason : Blood Pressure : / mmHG Vent. Rate : 118 BPM Atrial Rate : 000 BPM P-R Int : 000 ms QRS Dur : 140 ms QT Int : 380 ms P-R-T Axes : 000 -69 115 degrees QTc Int : 532 ms Atrial fibrillation with rapid ventricular response with premature ventricular or aberrantly conducte d complexes Left axis deviation Right bundle branch block T wave abnormality, consider lateral ischemia Abnormal ECG When compared with ECG of 20-MAY-2023 20:15, No significant change was found Confirmed by Kenneth Nolan ([id number]) on 06/28/2023 4:27:13 PM Referred By: Confirmed By:Kenneth Nolan
[2023-06-28] MEDS ORDERED: BUMETANIDE 2 MG in SYRINGE 0 ML IV SCH (17:00)
[2023-06-28 17:31] LABS: BUN Creatinine Ratio 22.2 (10-20); Calcium 8.4 mg/dl (8.6-10.3); Est GFR (African American) 20.7 ml/min; Est GFR (Non-African American) 17.8 ml/min; Potassium 4.7 mmol/L (3.5-5.1)
[2023-06-28] MEDS: INSULIN ASPART PER UNIT CHARGE SC SCH (18:17)
[2023-06-28] MEDS: APIXABAN 5 MG TABLET PO SCH (20:21)
[2023-06-28] MEDS: METOPROLOL TARTRATE 50 MG TAB PO SCH (20:22)
[2023-06-28 21:34] LABS: BUN Creatinine Ratio 21.5 (10-20); Calcium 8.1 mg/dl (8.6-10.3); Creatinine Clr Calc Pharmacy 19.6 ml/min; Est GFR (African American) 20.2 ml/min; Est GFR (Non-African American) 17.4 ml/min; Potassium 4.7 mmol/L (3.5-5.1)
[2023-06-28] MEDS: CALCIUM GLUCONATE 1,000 MG/60 ML BAG IV STA (22:03)
[2023-06-29 06:57] LABS: Basophils # (auto) 0.04 K/uL (0.00-0.20); Basophils % (auto) 0.6 %; Eosinophils # (auto) 0.09 K/uL (0.00-0.50); Eosinophils % (auto) 1.3 %; Hematocrit (blood only) 38.1 % (42.0-52.0); Hemoglobin 11.8 g/dl (14.0-18.0); Immature Granulocytes # (auto) 0.02 K/uL (0.01-0.20); Immature Granulocytes % (auto) 0.3 %; Lymphocytes # (auto) 1.16 K/uL (1.20-3.40); Lymphocytes % (auto) 17.1 %; Mean Corpuscular Hemoglobin 30.6 pg (25.0-34.0); Mean Corpuscular Volume 98.7 fL (80.0-100.0); Mean Platelet Volume 11.8 fL (9.4-12.4); Monocytes # (auto) 0.48 K/uL (0.11-0.59); Monocytes % (auto) 7.1 %; Neutrophils # (auto) 4.98 K/uL (1.40-6.50); Neutrophils % (auto) 73.6 %; Platelet Count 185 K/uL (130-400); RDW Coefficient of Variation 15.9 % (11.5-14.5); RDW Standard Deviation 55.8 fL (36.4-46.3); Red Blood Count 3.86 M/uL (4.70-6.10); White Blood Count 6.77 K/ul (4.8-10.8)
[2023-06-29 07:10] LABS: BUN Creatinine Ratio 22.6 (10-20); Calcium 8.5 mg/dl (8.6-10.3); Creatinine Clr Calc Pharmacy 18.4 ml/min; Est GFR (African American) 20.8 ml/min; Est GFR (Non-African American) 17.9 ml/min; Magnesium 2.5 mg/dl (1.7-2.4); Potassium 5.1 mmol/L (3.5-5.1)
[2023-06-29] MEDS: ATORVASTATIN 40 MG TAB PO SCH (08:50)
[2023-06-29] MEDS: ASPIRIN 81 MG ECTAB PO SCH (08:51)
[2023-06-29] MEDS: BUMETANIDE 2 MG in SYRINGE 0 ML IV SCH (08:51)
--- NOTE | 2023-06-29 10:02 | Cardiology Consultation ---
Date of Consultation June 29, 2023 Assessment & Plan (1) Acute on chronic systolic CHF (congestive heart failure): (2) Pulmonary edema: (3) Ischemic cardiomyopathy: Mr. Bonilla is a 77-year-old male with a history of CAD s/p CABG x 2 Vessels s/p D1 Stent in 2019, Ischemic Cardiomyopathy s/p [facility] Single Chamber AICD 2019 (therapies were previously turned off per patient request), LVEF 15% to 20%, Permanent Atrial Fibrillation, Chronic Systolic CHF, Moderate Mitral Regurgitation, Type 2 Diabetes Mellitus, Chronic Kidney Disease, Anemia, Enlarged Prostate, and Hypoxia who was transported from [facility] on 06/28/23 for evaluation of SOB and Orthopnea. Patient states that his symptoms began about 7-10 days before presenting in the ER. Patient states that he was unable to sleep on his back, or lay flat because it causes his breathing to be extremely short. He also stated that his breathing gets faster and more labored with exertion. He has also had the following associated symptoms over the same time frame -- he describes lack of energy, worsening ANGELA, and leg swelling. Patient typically takes Bumex 2 mg in the morning, and sometimes around noon as needed (more often than not he takes Bumex 2 mg b.i.d..) However he has not been able to walk long distances to the group home's dispensary recently -- for example, on 06/28/23 he only took Bumex, Metoprolol, and a Baby Aspirin. He also admits that he has not been taking his Eliquis consistently due to his inability to walk to the dispensary. Patient denies any recent changes in his diet, dietary salt intake, or his fluid intake. He denies any recent changes in his medicines other than missing a few doses. Patient had a chest x-ray here which showed pulmonary edema and small bilateral pleural effusions. His BNP is elevated at 1964 pg/mL, high sensitivity troponin I levels are 42.7 and 46.8 pg/mL, potassium is elevated at 5.6 mmol/L, magnesium 2.6 mg/dL, BUN is elevated at 69 mg/dL, and his creatinine is elevated at 3.10 mg/dL. According to the chart -- he has a negative fluid balance of 315 mL. Patient certainly feels much better today than he did when he arrived at the ER. He is much less short of breath although he does not attempt to lie down because he is still experiencing orthopnea. He is in permanent atrial fibrillation and his ventricular response rate was elevated on admission, currently his heart rate in atrial fibrillation is running in the mid 90s to 105 bpm while he is at a state of rest. Patient has not had any classic angina pectoris, nor does he have any symptoms directly attributable to his permanent atrial fibrillation. Patient was given some IV Lasix in the ER, the initial dose did not produce much of a diuretic response, so the dose was increased. Patient subsequently converted over to IV Bumex 2 mg b.i.d. and he is having good diuretic response and in addition he is much less short of breath now than he was at presentation. It does look as though his creatinine jumped up from a baseline of 2.8 to 3.26 mg/dL, but follow-up laboratories show that his creatinine is now trending down. We recommend the followin. Continue to diurese and closely monitor renal function. 2. Monitor daily body weights, I&Os. 3. Strict low-sodium diet, agree with fluid restriction as well. 4. Continue Lopressor 50 mg b.i.d.. 5. If renal function continues to worsen could add an IV dobutamine drip at 2-5 mcg/kg/min and possibly reduce diuretic dose. (4) CAD (coronary artery disease): (5) Elevated troponin: Patient's high sensitivity troponin I levels are 42.7 and 46.8 pg/mL, this is not consistent with an acute coronary syndrome. The patient has not had any angina pectoris. 1. Continue Lopressor 50 mg b.i.d.. 2. Continue Aspirin 81 mg daily. 3. Continue Atorvastatin 40 mg daily. (6) Atrial fibrillation, permanent: Patient has permanent atrial fibrillation and he appears to have some intermittent RVR. 1. Continue Eliquis 5 mg b.i.d.. 2. Continue Lopressor 50 mg b.i.d.. Thank you for asking us to see this patient in consultation. We will continue to follow along while hospitalized. Supervising Physician Co-Signing Physician Notes I saw and examined the patient this afternoon and agree with the documentation by Brian Sanchez PA-C. This afternoon the patient's condition appears to be worsening. He has become more short of breath and tachypneic. Minimal urine output. I ordered a dobutamine infusion and discussed this with the nursing staff. He has severely reduced LV systolic function. I'm hopeful we can effect a diuresis and improvement in renal function with dobutamine. If his BP holds steady we can try adding nitrates as well. The situation is critical and his overall prognosis is poor. If we fail to effect some change with dobutamine, I think the situation will become palliative. History of Present Illness Reason for Consultation: Acute CHF. Requesting Physician: Zion Robledo MD Attending Physician: Kenneth Nolan MD History of Present Illness Mr. Bonilla is a 77-year-old male with a history of CAD s/p CABG x 2 Vessels s/p D1 Stent in 2018, Ischemic Cardiomyopathy s/p [place] Single Chamber AICD 2018 (therapies were previously turned off per patient request), LVEF 15% to 20%, Permanent Atrial Fibrillation, Chronic Systolic CHF, Moderate Mitral Regurgitation, Type 2 Diabetes Mellitus, Chronic Kidney Disease, Anemia, Enlarged Prostate, and Hypoxia who was transported from [facility] on 06/28/23 for evaluation of SOB and Orthopnea. Patient states that his symptoms began about 7-10 days before presenting in the ER. Patient states that he was unable to sleep on his back, or lay flat because it causes his breathing to be extremely short. He also stated that his breathing gets faster with exertion. He has also had the following associated symptoms over the same time frame -- he describes lack of energy, worsening ANGELA, and leg swelling. Patient typically takes Bumex 2 mg in the morning, and sometimes around noon as needed (more often than not he takes Bumex 2 mg b.i.d..) However he has not been able to walk long distances to the group home's dispensary recently -- for example, on 06/28/23 he only took Bumex, Metoprolol, and a Baby Aspirin. He also admits that he has not been taking his Eliquis consistently due to his inability to walk to the dispensary. Patient denies any recent changes in his diet, dietary salt intake, or his fluid intake. He denies any recent changes in his medicines other than missing a few doses. Patient had a chest x-ray here which showed pulmonary edema and small bilateral pleural effusions. His BNP is elevated at 1964 pg/mL, high sensitivity troponin I levels are 42.7 and 46.8 pg/mL, potassium is elevated at 5.6 mmol/L, magnesium 2.6 mg/dL, BUN is elevated at 69 mg/dL, and his creatinine is elevated at 3.10 mg/dL. According to the chart -- he has a negative fluid balance of 315 mL. Patient certainly feels much better today than he did when he arrived at the ER. He is much less short of breath although he does not attempt to lie down because he is still experiencing orthopnea. Patient has not experienced any chest pain, heaviness, tightness, pressure, or discomfort. He denies any neck, jaw, back, or arm pain. He is in permanent atrial fibrillation and his ventricular response rate was elevated on admission, currently his heart rate in atrial fibrillation is running in the mid 90s to 105 bpm while he is at a state of rest. Patient denies any syncope or near-syncope. Allergies Allergy/AdvReac Type Severity Reaction Status Date / Time No Known Allergies Allergy Verified 05/20/23 15:13 Home Medications Medication Instructions Recorded Confirmed Type glimepiride 1 mg tablet 1 mg PO DAILY 06/29/20 06/28/23 History hydralazine 10 mg tablet 10 mg PO TID #90 tabs 03/06/21 06/28/23 Rx aspirin 81 mg tablet,delayed 81 mg PO DAILY 05/20/23 06/28/23 History release atorvastatin 40 mg tablet (Lipitor) 40 mg PO DAILY 05/20/23 06/28/23 History bumetanide 2 mg tablet 2 mg PO DAILY 05/20/23 06/28/23 History apixaban 5 mg tablet (Eliquis) 5 mg PO BID #0 tabs 05/23/23 06/28/23 Rx metoprolol tartrate 25 mg tablet 50 mg (2 x 25 mg) PO BID #0 tabs 05/23/23 06/28/23 Rx Patient History Medical History (Updated 06/29/23 @ 12:42 by Brian aSnchez PA-C) Ischemic cardiomyopathy CKD (chronic kidney disease) Type 2 diabetes mellitus Hypocalcemia Valvular heart disease Heart failure CAD (coronary artery disease), [place] coronary artery Constipation Chronic congestive heart failure Uremic encephalopathy Nausea & vomiting Acute hyponatremia Acute kidney injury Myocardial infarct Atherosclerotic heart disease coronary artery bypass grafting: Marvin to LAD. Saphenous vein graft to un known vessel PCI to the 1st diagonal 11/24/2016 Hypertension Hypokalemia Hypercholesterolemia Enlarged prostate Surgical History Presence of single chamber implantable cardioverter-defibrillator (ICD) [place]. Implant 12/2018 S/P triple vessel bypass H/O heart artery stent Family History Grandmother Diabetes Social History Smoking Status: Never smoker Tobacco Type: Cigarettes Do You Dip or Chew Tobacco: No; Hx Alcohol Use: No Hx Substance Use: No Preferred Language: Georgian Communication Ability: Effective Retirement Administrator Required: No Beliefs That Will Affect Care: None marital status: Single Current Living Situation: Other Current Living Situation Comment: [facility] Feels Safe at Home: Yes Assistive Devices: None Review of Systems Review of Systems: -- He has not had any fevers, chills, co ugh, or sputum production. -- He denies hemoptysis. -- He denies any melena or hematochezia. -- 10 point ROS completed and is negativ e with the exception of what is mentioned in the HPI. Physical Exam Physical Exam: Current vital signs blood pressure 113/82. Pulse 101 and irregularly irregular, respiratory rate 20, SpO2 is 97% on O2 at 4 L/min via nasal cannula GENERAL: Patient in no acute distress. HEENT: Head is atraumatic, normocephalic. EOM's intact. Facies symmetric. No perioral cyanosis. NECK: JVD is present. JVP is elevated. Carotid upstrokes are + 2 bilaterally without bruits. CHEST/LUNGS: Absent breath sounds in bilateral bases, scattered crackles otherwise. CVS: S1 and S2 are irregularly irregular, borderline tachycardic without murmurs, gallops, or rubs. PMI is nonpalpable. No lifts, heaves, or thrills. No abdominal aortic or renal bruits. ABDOMINAL EXAM: Bowel sounds are present. EXTREMITIES: No clubbing or cyanosis. +1 bipedal edema. Intact radial pulses bilaterally. NEUROLOGIC EXAM: Patient is awake, alert, and oriented. Pleasant and cooperative. Answers questions appropriately. Speech is clear. 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 -- A ventricular triplet is documented, one 5 beat run of NSVT. EKG 06/28/23: -- Atrial fibrillation with rapid ventri cular response and premature ventricular vs aberrantly conducted complexes. -- Left axis deviation. -- RBBB. -- T-wave abnormality, consider lateral ischemia. -- Abnormal EKG. -- When compared to 05/20/2023 tracing; No no significant change was found. Results & Data Vital Signs (Past 12 Hours) Vital Signs Pulse Pulse Resp BP BP Pulse Ox O2 Del Method 06/29/23 08:48 121 H 22 113/82 97 Nasal Cannula 06/29/23 07:40 100 H 06/29/23 05:40 88 22 114/85 97 06/29/23 03:30 85 22 114/85 100 06/29/23 01:07 96 Nasal Cannula 06/29/23 00:10 100 H 18 117/90 98 06/28/23 23:04 90 O2 Flow Rate 06/29/23 08:48 4 06/29/23 07:40 06/29/23 05:40 06/29/23 03:30 06/29/23 01:07 4 06/29/23 00:10 06/28/23 23:04 Laboratory Results Laboratory Results - last 24 hr 06/28/23 06/28/23 06/28/23 11:20 11:28 13:37 WBC 7.39 RBC 4.30 L Hgb 13.3 L Hct 42.1 MCV 97.9 MCH 30.9 MCHC 31.6 L RDW Std Deviation 57.0 H RDW Coeff of Tommie 16.2 H Plt Count 211 MPV 11.8 Immature Gran % (Auto) 0.3 Neut % (Auto) 79.4 Lymph % (Auto) 11.5 Hughes % (Auto) 6.9 Eos % (Auto) 1.2 Baso % (Auto) 0.7 Neut # (Auto) 5.87 Lymph # (Auto) 0.85 L Hughes # (Auto) 0.51 Eos # (Auto) 0.09 Baso # (Auto) 0.05 Immature Gran # (Auto) 0.02 PT Cancelled INR Cancelled APTT Cancelled PTT Ratio Cancelled VBG pH 7.33 L VBG pCO2 42 VBG pO2 27 VBG HCO3 22 VBG O2 Saturation < 60.0 VBG Base Excess -3.7 Sodium 138 Potassium 5.6 H Chloride 105 Carbon Dioxide 21 Anion Gap 12 H BUN 69 H Creatinine 3.10 H Est Cr Clr Drug Dosing 20.6 Est GFR ( Amer) 21.5 Est GFR (Non-Af Amer) 18.5 BUN/Creatinine Ratio 22.3 H Glucose 298 H POC Glucose Calcium 8.9 Ionized Calcium Magnesium 2.6 H Total Bilirubin 1.6 H AST 21 ALT 29 Alkaline Phosphatase 73 Troponin I High Sens 42.7 H B-Natriuretic Peptide 1964 H Total Protein 7.3 Albumin 4.3 Globulin 3.0 Albumin/Globulin Ratio 1.4 Urine Color Urine Appearance Urine pH Ur Specific [place] Urine Protein Urine Glucose (UA) Urine Ketones Urine Blood Urine Nitrite Urine Bilirubin Urine Urobilinogen Ur Leukocyte Esterase Urine WBC (Auto) Urine RBC (Auto) U Hyaline Cast (Auto) U Epithel Cells (Auto) Urine Bacteria (Auto) SARS-CoV-2 (PCR) NEGATIVE Influenza Type A (PCR) Negative Influenza Type B (PCR) Negative RSV (RT-PCR) Negative 06/28/23 06/28/23 06/28/23 13:40 14:17 16:46 WBC RBC Hgb Hct MCV MCH MCHC RDW Std Deviation RDW Coeff of Tommie Plt Count MPV Immature Gran % (Auto) Neut % (Auto) Lymph % (Auto) Hughes % (Auto) Eos % (Auto) Baso % (Auto) Neut # (Auto) Lymph # (Auto) Hughes # (Auto) Eos # (Auto) Baso # (Auto) Immature Gran # (Auto) PT 11.5 INR 1.1 APTT 28 PTT Ratio 1.0 VBG pH VBG pCO2 VBG pO2 VBG HCO3 VBG O2 Saturation VBG Base Excess Sodium 138 Potassium 4.7 Chloride 104 Carbon Dioxide 24 Anion Gap 10 BUN 71 H Creatinine 3.20 H Est Cr Clr Drug Dosing 20.0 Est GFR ( Amer) 20.7 Est GFR (Non-Af Amer) 17.8 BUN/Creatinine Ratio 22.2 H Glucose 224 H POC Glucose Calcium 8.4 L Ionized Calcium Magnesium Total Bilirubin AST ALT Alkaline Phosphatase Troponin I High Sens 46.8 H B-Natriuretic Peptide Total Protein Albumin Globulin Albumin/Globulin Ratio Urine Color Yellow Urine Appearance Clear Urine pH 5.5 Ur Specific [place] 1.011 Urine Protein 1+ H Urine Glucose (UA) Negative Urine Ketones Negative Urine Blood Negative Urine Nitrite Negative Urine Bilirubin Negative Urine Urobilinogen Negative Ur Leukocyte Esterase Negative Urine WBC (Auto) 0-5 Urine RBC (Auto) 0-2 U Hyaline Cast (Auto) 3-5 H U Epithel Cells (Auto) 0-2 Urine Bacteria (Auto) None Seen SARS-CoV-2 (PCR) Influenza Type A (PCR) Influenza Type B (PCR) RSV (RT-PCR) 06/28/23 06/28/23 06/28/23 17:47 20:26 21:04 WBC RBC Hgb Hct MCV MCH MCHC RDW Std Deviation RDW Coeff of Tommie Plt Count MPV Immature Gran % (Auto) Neut % (Auto) Lymph % (Auto) Hughes % (Auto) Eos % (Auto) Baso % (Auto) Neut # (Auto) Lymph # (Auto) Hughes # (Auto) Eos # (Auto) Baso # (Auto) Immature Gran # (Auto) PT INR APTT PTT Ratio VBG pH VBG pCO2 VBG pO2 VBG HCO3 VBG O2 Saturation VBG Base Excess Sodium 137 Potassium 4.7 Chloride 104 Carbon Dioxide 24 Anion Gap 9 BUN 70 H Creatinine 3.26 H Est Cr Clr Drug Dosing 19.6 Est GFR ( Amer) 20.2 Est GFR (Non-Af Amer) 17.4 BUN/Creatinine Ratio 21.5 H Glucose 168 H POC Glucose 193 H 181 H Calcium 8.1 L Ionized Calcium Magnesium Total Bilirubin AST ALT Alkaline Phosphatase Troponin I High Sens B-Natriuretic Peptide Total Protein Albumin Globulin Albumin/Globulin Ratio Urine Color Urine Appearance Urine pH Ur Specific [place] Urine Protein Urine Glucose (UA) Urine Ketones Urine Blood Urine Nitrite Urine Bilirubin Urine Urobilinogen Ur Leukocyte Esterase Urine WBC (Auto) Urine RBC (Auto) U Hyaline Cast (Auto) U Epithel Cells (Auto) Urine Bacteria (Auto) SARS-CoV-2 (PCR) Influenza Type A (PCR) Influenza Type B (PCR) RSV (RT-PCR) 06/28/23 06/29/23 06/29/23 23:53 06:25 09:00 WBC 6.77 RBC 3.86 L Hgb 11.8 L Hct 38.1 L MCV 98.7 MCH 30.6 MCHC 31.0 L RDW Std Deviation 55.8 H RDW Coeff of Tommie 15.9 H Plt Count 185 MPV 11.8 Immature Gran % (Auto) 0.3 Neut % (Auto) 73.6 Lymph % (Auto) 17.1 Hughes % (Auto) 7.1 Eos % (Auto) 1.3 Baso % (Auto) 0.6 Neut # (Auto) 4.98 Lymph # (Auto) 1.16 L Hughes # (Auto) 0.48 Eos # (Auto) 0.09 Baso # (Auto) 0.04 Immature Gran # (Auto) 0.02 PT INR APTT PTT Ratio VBG pH VBG pCO2 VBG pO2 VBG HCO3 VBG O2 Saturation VBG Base Excess Sodium 139 Potassium 5.1 Chloride 107 Carbon Dioxide 22 Anion Gap 10 BUN 72 H Creatinine 3.19 H Est Cr Clr Drug Dosing 18.4 Est GFR ( Amer) 20.8 Est GFR (Non-Af Amer) 17.9 BUN/Creatinine Ratio 22.6 H Glucose 162 H POC Glucose 143 H Calcium 8.5 L Ionized Calcium 1.04 L Magnesium 2.5 H Total Bilirubin AST ALT Alkaline Phosphatase Troponin I High Sens B-Natriuretic Peptide Total Protein Albumin Globulin Albumin/Globulin Ratio Urine Color Urine Appearance Urine pH Ur Specific [place] Urine Protein Urine Glucose (UA) Urine Ketones Urine Blood Urine Nitrite Urine Bilirubin Urine Urobilinogen Ur Leukocyte Esterase Urine WBC (Auto) Urine RBC (Auto) U Hyaline Cast (Auto) U Epithel Cells (Auto) Urine Bacteria (Auto) SARS-CoV-2 (PCR) Influenza Type A (PCR) Influenza Type B (PCR) RSV (RT-PCR) Medications Administered Medication List Apixaban (Apixaban 5 Mg Tablet) 5 mg PO BID [facility] Stop: 07/28/23 20:59 Last Admin: 06/29/23 08:51 Dose: 5 mg Documented By: Admin: 06/28/23 20:21 Dose: 5 mg Documented By: JUDIT Aspirin (Aspirin 81 Mg Ectab) 81 mg PO DAILY [facility] Stop: 07/29/23 08:59 Last Admin: 06/29/23 08:51 Dose: 81 mg Documented By: ANU Atorvastatin Calcium (Atorvastatin 40 Mg Tab) 40 mg PO DAILY [facility] Stop: 07/29/23 08:59 Last Admin: 06/29/23 08:50 Dose: 40 mg Documented By: ANU Bumetanide 2 mg/ Syringe 8 mls @ 4 mls/min IV BID@0900,1700 DANIELLE Stop: 07/29/23 08:59 Last Admin: 06/29/23 08:51 Dose: 4 mls/min Documented By: ANU Insulin Aspart (Insulin Aspart Per Unit Charge) 0 units SC ACHS DANIELLE Stop: 07/28/23 16:29 Last Admin: 06/29/23 10:12 Dose: Not Given Documented By: Admin: 06/28/23 20:24 Dose: Not Given Documented By: Admin: 06/28/23 18:17 Dose: Not Given Documented By: JUDIT Insulin Glargine (Lantus Per Unit Charge) 7 units SQ QAM DANIELLE Stop: 07/29/23 08:59 Last Admin: 06/29/23 10:13 Dose: Not Given Documented By: ANU Metoprolol Tartrate (Metoprolol Tartrate 50 Mg Tab) 50 mg PO BID DANIELLE Stop: 07/28/23 20:59 Last Admin: 06/29/23 08:51 Dose: 50 mg Documented By: Admin: 06/28/23 20:22 Dose: 50 mg Documented By: JUDIT Discontinued Medications Furosemide (Furosemide 40 Mg/4 Ml Vial) 80 mg IV ONE ONE Stop: 06/28/23 12:13 Last Admin: 06/28/23 12:45 Dose: 80 mg Documented By: MICHAEL Furosemide (Furosemide 40 Mg/4 Ml Vial) 120 mg IV ONE ONE Stop: 06/28/23 15:35 Last Admin: 06/28/23 16:07 Dose: 120 mg Documented By: CHUCHO Insulin Human Regular 5 units/ (Syringe) 5 mls @ 30 mls/min IV NOW ONE Stop: 06/28/23 13:16 Last Admin: 06/28/23 13:37 Dose: Not Given Documented By: MICHAEL Calcium Gluconate () 1,000 mg in 60 mls @ 240 mls/hr IV NOW STA Stop: 06/28/23 22:08 Last Infusion: 06/28/23 22:37 Dose: Infused Documented By: Admin: 06/28/23 22:03 Dose: 240 mls/hr Documented By: JUDIT PG Care Time/CCT Total # of Minutes Spent Total Time Spent with Patient: Total time spent is greater than 50% in coordination of care (as documented) at patient's floor/unit and/or counseling patient:48 Coding [place] [address] INT INP/OBS CARE MIN Patient Type Established Medical Decision Making High Complexity Diagnoses Acute on chronic systolic CHF (congestive heart failure) I50.23 Pulmonary edema J81.0 Chronicity: acute Ischemic cardiomyopathy I25.5 Coronary artery disease involving [place] coronary artery of sh[place]ann[place] heart without angina pectoris I25.10 Associated angina: without angina Coronary Disease-Associated Artery/Lesion type: [place] artery [place] vs. transplanted heart: shosh[place]ann[place] heart Elevated troponin R79.89 Atrial fibrillation, permanent I48.21 Time Spent (min) 80 (2) Pulmonary edema Chronicity: acute Qualified Code(s): J81.0 - Acute pulmonary edema (4) CAD (coronary artery disease) Associated angina: without angina Coronary Disease-Associated Artery/Lesion type: [place] artery [place] vs. transplanted heart: shosh[place]bannock heart Qualified Code(s): I25.10 - Atherosclerotic heart disease of [place] coronary artery withou t angina pectoris
[2023-06-29] MEDS: LANTUS PER UNIT CHARGE SQ SCH (10:13)
--- NOTE | 2023-06-29 14:01 | Ultrasound Report ---
BILATERAL LOWER EXTREMITY VENOUS DOPPLER HISTORY: Acute pain and swelling of the lower legs B/L LE edema, no taking eliquis as instructed COMPARISON STUDY: None. FINDINGS: There is normal compressibility, flow, and augmentation within the bilateral lower extremit y deep venous systems. IMPRESSION: No DVT within the right or left lower extremity. ACT 112: Negative or not required by law. Electronically signed by: Albert Ruth M.D. 06/29/2023 2:00 PM
[2023-06-29] MEDS ORDERED: STAT IV Infusion **Titration per Protocol STA (16:10)
[2023-06-29] MEDS: DOBUTamine / D5W 500 MG/250 ML BAG IV SCH (17:29)
--- NOTE | 2023-06-29 18:48 | Hospitalist Progress Note ---
Date of Service June 29, 2023 Assessment & Plan (1) Acute on chronic diastolic CHF (congestive heart failure): Plan: Worsening SOB at rest and with exertion, orthopnea, and bilateral lower extremity swelling x 7-10 days CXR revealed cardiomegaly with mild interstitial pulmonary edema and small bilateral pleural effusions BNP elevated at 1964 (most recently 612 on 05/20/2023) Echocardiogram on 05/21/2023 revealed severely reduced left ventricular systolic function; LVEF 15-20% Patient continues to have minimal urine output despite aggressive Bumex course. His condition appears to be worsening. Continue to follow cardiology's recommendations. Dobutamine infusion added to regimen to hopefully effective diuresis and improve renal function. If blood pressure hold steady, consider adding nitrates as well. If dobutamine does not affect some change, this situation will most likely become palliative. Daily weights Strict I&O monitoring AHA, low-sodium diet with 1500 mL fluid restriction Bumex 2 mg IV BID17 (2) Atrial fibrillation with rapid ventricular response: Plan: EKG on arrival revealed atrial fibrillation with RVR at 118 bpm; QTc 532 (caution use of QT prolonging agents) Patient reports has not been taking his Eliquis consistently at the longterm, as he was unable to walk to the pill line Continue Eliquis, metoprolol Hold hydralazine for now in the event that additional metoprolol needs to be given (3) Elevated troponin: Plan: Troponin elevated at 42.7-->46.8 Clinically, patient denies chest pain Likely demand ischemia in the setting of acute on chronic heart failure Continuous telemetry monitoring (4) Acute kidney injury superimposed on chronic kidney disease: Plan: BUN 69, creatinine 3.10 (baseline around 2.25), and EGFR 18.5 Avoid nephrotoxic agents for possible Diuresis (as above) Trend BMP q4h x 2 (5) Type 2 diabetes mellitus: Plan: Last A1c at 6.9% on 05/21/2023 Glucose 298 on admission; 5u regular insulin IV ordered in the ED, however patient refused Hold glimepiride Monitor for hypoglycemia Lantus 7 u QAM while inpatient SSI; with target BSG range 110-140mg/dL, CF 50, carb ratio 20 T2DM diet BSG ACHS Adjust regimen as needed (6) Hyperkalemia: Plan: Mild; K 5.6 on arrival Insulin given in the ED + Diuresis (as above) Trend BMP (7) Anemia: Plan: Chronic; Hgb 13.3 on arrival No signs of active bleeding on clinical exam Plan CODE STATUS: DNR/DNI AHA, low-sodium, T2DM diet (1500 mL fluid restriction) VTE PPx: On Eliquis Admission and Anticipated Discharge Date Admission Date: June 28, 2023 Subjective Patient seen and evaluated at bedside. He continues to be tachypneic and tachycardic and experiences shortness of breath when talking. He has had minimal urine output despite continued diuresis with Bumex. He does have severely reduced LV systolic function and CKD. Given the status of his cardiorenal syndrome, dobutamine was added by cardiology to hopefully increase diuresis and improve his renal function. His blood pressures have been soft but stable. Continue close monitoring overnight. The patient had no concerns at the time my discussion with him. His overall prognosis is poor. Physical Exam Physical Exam: General: No acute distress, but tachypneic and tachycardic. Conversationally dyspneic. Skin: The skin was without rashes, erythema, edema, or bruising. Cardiac: Irregularly irregular, tachycardic in 110s. Pulm: Scattered crackles throughout lung young. No breath sounds in bilateral bases. Tachypneic in 20s to 30s. Abdominal: Positive bowel sounds x 4. Soft, nontender, without masses or organomegaly. No guarding or rebound tenderness. Neuro: A&O x3. No focal neurological deficits. Pleasant, cooperative, respectful. Results & Data Results & Data Vital Signs (Past 12 Hours) Vital Signs Temp Pulse Pulse Resp BP BP Pulse Ox 06/29/23 17:00 115 H 36 H 99 06/29/23 15:54 109 H 06/29/23 15:01 105 H 37 H 93 06/29/23 15:01 111/80 06/29/23 12:00 105/70 06/29/23 12:00 93 H 23 94 06/29/23 11:30 89 25 H 97 06/29/23 11:10 107/67 06/29/23 11:10 91 H 35 H 94 06/29/23 11:00 80 06/29/23 11:00 06/29/23 11:00 36.5 C 06/29/23 08:48 121 H 22 113/82 97 06/29/23 07:40 100 H O2 Del Method O2 Flow Rate FiO2 06/29/23 17:00 30 06/29/23 15:54 06/29/23 15:01 Nasal Cannula 4 06/29/23 15:01 06/29/23 12:00 06/29/23 12:00 06/29/23 11:30 06/29/23 11:10 06/29/23 11:10 Nasal Cannula 4 06/29/23 11:00 06/29/23 11:00 Nasal Cannula 4 06/29/23 11:00 06/29/23 08:48 Nasal Cannula 4 06/29/23 07:40 Laboratory Results Reviewed CBC Reviewed chemistries Diagnostic Findings Reviewed venous Doppler study FINDINGS: There is normal compressibility, flow, and augmentation within the bilateral lower extremity deep venous systems. IMPRESSION: No DVT within the right or left lower extremity. PG Care Time/CCT Total # of Minutes Spent Total Time Spent with Patient: Total time spent is greater than 50% in coordination of care (as documented) at patient's floor/unit and/or counseling patient: Coding Level of Care Code 54270 SUB INP/OBS CARE 3/50MIN Diagnoses Acute on chronic diastolic CHF (congestive heart failure) I50.33 Atrial fibrillation with rapid ventricular response I48.91 Elevated troponin R79.89 Acute kidney injury superimposed on chronic kidney disease N17.9; N18.9 Type 2 diabetes mellitus E11.9 Hyperkalemia E87.5 Anemia D64.9
[2023-06-30 04:53] LABS: Basophils # (auto) 0.04 K/uL (0.00-0.20); Basophils % (auto) 0.6 %; Eosinophils # (auto) 0.23 K/uL (0.00-0.50); Eosinophils % (auto) 3.4 %; Hematocrit (blood only) 35.6 % (42.0-52.0); Hemoglobin 11.1 g/dl (14.0-18.0); Immature Granulocytes # (auto) 0.02 K/uL (0.01-0.20); Immature Granulocytes % (auto) 0.3 %; Lymphocytes # (auto) 1.21 K/uL (1.20-3.40); Lymphocytes % (auto) 18.1 %; Mean Corpuscular Hemoglobin 30.3 pg (25.0-34.0); Mean Corpuscular Hgb Conc 31.2 g/dL (32.0-36.0); Mean Corpuscular Volume 97.3 fL (80.0-100.0); Mean Platelet Volume 11.7 fL (9.4-12.4); Monocytes # (auto) 0.52 K/uL (0.11-0.59); Monocytes % (auto) 7.8 %; Neutrophils # (auto) 4.67 K/uL (1.40-6.50); Neutrophils % (auto) 69.8 %; Platelet Count 175 K/uL (130-400); RDW Coefficient of Variation 15.4 % (11.5-14.5); RDW Standard Deviation 54.4 fL (36.4-46.3); Red Blood Count 3.66 M/uL (4.70-6.10); White Blood Count 6.69 K/ul (4.8-10.8)
[2023-06-30 05:08] LABS: BUN Creatinine Ratio 23.2 (10-20); Calcium 7.5 mg/dl (8.6-10.3); Est GFR (African American) 20.1 ml/min; Est GFR (Non-African American) 17.4 ml/min; Potassium 4.4 mmol/L (3.5-5.1)
--- NOTE | 2023-06-30 09:49 | Cardiology Progress Note ---
Date of Service June 30, 2023 Assessment & Plan (1) Acute on chronic systolic CHF (congestive heart failure): Plan: He seems improved. He was started on a dobutamine infusion last night. CPAP was also employed in order to improve pulmonary vascular congestion and the work of breathing. He affected some diuresis. Renal function appears to be stable. I would continue the dobutamine infusion at the current rate with the additional diuretics scheduled today. Hopefully will continue to make progress. The dobutamine infusion could be increased and nitroglycerin could be added for worsening symptoms. If he fails to progress despite these efforts I think we are in a more palliative situation. If he responds well over the next few days his diuretic regimen will need to be intensified at the time of discharge. He reported taking 4 mg of bumetanide d aily. He may need to take a thiazide diuretic such as metolazone in addition. (2) Pulmonary edema: Plan: Lung examination not entirely consistent with pulmonary edema. Right-sided breath sounds are certainly less notable than the left. I would repeat an x-ray today and consider an additional primary pulmonary etiology for symptoms if he fails to respond to more diuresis. (3) Ischemic cardiomyopathy: Plan: Severe. On beta-blockade and hydralazine. The remaining medications are relatively contraindicated given his degree of renal dysfunction. (4) CAD (coronary artery disease): (5) Elevated troponin: (6) Atrial fibrillation, permanent: Plan: Rate control may vary depending on his clinical state. Reasonable control at this time. Continue beta-blockade. Continue systemic anticoagulation. Plan We can continue the dobutamine infusion provided he is affecting some diuresis Dobutamine infusion can be increased if urine output declines monitoring his renal function closely Continue current doses of diuretics Continue metoprolol Continue Eliquis Consider the addition of topical nitrates if his blood pressure will tolerate If his respiratory status declines or does not improve despite notable diuresis I would entertain the possibility of a primary pulmonary etiology especially given his lung exam. Repeat chest x-ray today CPAP on a p.r.n. basis Admission and Anticipated Discharge Date Admission Date: June 28, 2023 Subjective This morning the patient claims to be feeling better. He states that his breathing is notably improved. He did use the CPAP most of last evening but is on supplemental oxygen exclusively now. No chest pain. No coughing. Review of Systems Review of Systems: Per HPI Physical Exam Physical Exam: The patient is alert and oriented. Mood and affect appeared normal. He answered all questions appropriately. Using supplemental oxygen HEENT: Pupils are equal and reactive to light and accommodation. Extraocular movements are intact. The sclerae are anicteric. Neuro: Cranial nerves intact Lungs: Essentially clear on the left side with reduced breath sounds on the right side. No rales. Slightly increased respiratory effort. No expiratory wheezing. Cardiac: Heart demonstrates an irregular rhythm. Normal S1 and S2. No murmurs on examination. Pulses: The patient has palpable radial pulses bilaterally that are equal in intensity Extremities: There was no evidence of hypoperfusion. There is no cyanosis or clubbing. There is no edema. Skin: I did not appreciate any rashes on examination today. Results & Data Vital Signs (Past 12 Hours) Vital Signs Temp Pulse Resp BP Pulse Ox O2 Del Method FiO2 06/30/23 08:00 74 06/30/23 05:00 77 12 93 06/30/23 05:00 94/62 L 06/30/23 04:00 95 H 26 H 91 06/30/23 04:00 36.5 C 06/30/23 03:00 87 16 97 06/30/23 03:00 119/74 06/30/23 02:00 88 30 H 98 06/30/23 02:00 106/81 06/30/23 01:00 97/72 L 06/30/23 01:00 69 29 H 93 06/30/23 00:23 81 22 100 30 06/30/23 00:00 79 0 L 100 06/30/23 00:00 124/79 06/30/23 00:00 36.8 C 06/30/23 00:00 90 06/29/23 23:29 CPAP 10 06/29/23 23:01 80 18 98 06/29/23 23:01 107/83 06/29/23 23:00 78 28 H 95 06/29/23 22:00 109 H 28 H 97 06/29/23 22:00 119/88 Laboratory Results Abnormal Lab Results 06/29/23 06/29/23 06/29/23 11:11 16:02 20:32 WBC RBC Hgb Hct MCV MCH MCHC RDW Std Deviation RDW Coeff of Tommie Plt Count MPV Immature Gran % (Auto) Neut % (Auto) Lymph % (Auto) [place] % (Auto) Eos % (Auto) Baso % (Auto) Neut # (Auto) Lymph # (Auto) [place] # (Auto) Eos # (Auto) Baso # (Auto) Immature Gran # (Auto) Sodium Potassium Chloride Carbon Dioxide Anion Gap BUN Creatinine Est Cr Clr Drug Dosing Est GFR ( Amer) Est GFR (Non-Af Amer) BUN/Creatinine Ratio Glucose POC Glucose 226 H 237 H 211 H Calcium B-Natriuretic Peptide 06/30/23 04:30 WBC 6.69 RBC 3.66 L Hgb 11.1 L Hct 35.6 L MCV 97.3 MCH 30.3 MCHC 31.2 L RDW Std Deviation 54.4 H RDW Coeff of Tommie 15.4 H Plt Count 175 MPV 11.7 Immature Gran % (Auto) 0.3 Neut % (Auto) 69.8 Lymph % (Auto) 18.1 [place] % (Auto) 7.8 Eos % (Auto) 3.4 Baso % (Auto) 0.6 Neut # (Auto) 4.67 Lymph # (Auto) 1.21 [place] # (Auto) 0.52 Eos # (Auto) 0.23 Baso # (Auto) 0.04 Immature Gran # (Auto) 0.02 Sodium 140 Potassium 4.4 Chloride 107 Carbon Dioxide 22 Anion Gap 11 BUN 76 H Creatinine 3.27 H Est Cr Clr Drug Dosing 18.0 Est GFR ( Amer) 20.1 Est GFR (Non-Af Amer) 17.4 BUN/Creatinine Ratio 23.2 H Glucose 140 H POC Glucose Calcium 7.5 L B-Natriuretic Peptide 1811 H PG Care Time/CCT Total # of Minutes Spent Total Time Spent with Patient: Total time spent is greater than 50% in coordination of care (as documented) at patient's floor/unit and/or counseling patient: Coding Level of Care Code 64789 SUB INP/OBS CARE 2/35MIN Diagnoses Acute on chronic systolic CHF (congestive heart failure) I50.23 Pulmonary edema J81.0 Chronicity: acute Ischemic cardiomyopathy I25.5 Coronary artery disease involving [place] coronary artery of [place] heart without angina pectoris I25.10 Coronary Disease-Associated Artery/Lesion type: [place] artery [place] vs. transplanted heart: [place] heart Associated angina: without angina Elevated troponin R79.89 Atrial fibrillation, permanent I48.21 (2) Pulmonary edema Chronicity: acute Qualified Code(s): J81.0 - Acute pulmonary edema (4) CAD (coronary artery disease) Coronary Disease-Associated Artery/Lesion type: [place] artery [place] vs. transplanted heart: [place] heart Associated angina: without angina Qualified Code(s): I25.10 - Atherosclerotic heart disease of [place] coronary artery wi thout angina pectoris
--- NOTE | 2023-06-30 12:15 | XRay Report ---
XR chest 1V portable HISTORY: 77 years-old Male dyspnea acute shortness of breath COMPARISON: 06/28/2023 TECHNIQUE: AP view of the chest FINDINGS: Median sternotomy. Left subclavian pacer/AICD. Atherosclerosis of the aorta. Pulmonary vascular conge stion with interstitial coarsening. No pneumothorax. Small pleural effusions with mild bibasilar opac ities. IMPRESSION: 1. Cardiomegaly with pulmonary edema. 2. Small pleural effusions with mild bibasilar opacities suggestive of atelectasis. ACT 112: Negative or not required by law. The above report was generated using voice recognition software. It may contain grammatical, syntax o r spelling errors. Electronically signed by: Albert Ruth M.D. 06/30/2023 12:13 PM
--- NOTE | 2023-06-30 13:33 | Hospitalist Progress Note ---
Date of Service June 30, 2023 Assessment & Plan (1) Acute on chronic diastolic CHF (congestive heart failure): Plan: - Presented with worsening SOB at rest and with exertion, orthopnea, and bilateral lower extremity swelling x 7-10 days. - CXR on admission revealed cardiomegaly with mild interstitial pulmonary edema and small bilateral pleural effusions. - BNP on admission elevated at 1964 (most recently 612 on 05/20/2023). BNP remains elevated today at 1811. - Echocardiogram on 05/21/2023 revealed severely reduced left ventricular systolic function; LVEF 15-20%. - Patient appears to have some response to diuresis and dobutamine infusion. - Continue the dobutamine infusion at current rate with additional diuresis. -- Dobutamine infusion could be increased and nitroglycerin could be added for worsening symptoms if urine output declines, as long as blood pressure and renal function remain stable. -- Renal function appears to be stable. Continue to closely monitor. - Continue to follow cardiology's recommendations. - Chest x-ray from today, 06/29, revealed pulmonary edema. Cardiology feels as though lung examination is not entirely consistent with this. -- Consider additional primary pulmonary etiology for clinical presentation if respiratory status declines patient fails to respond to more diuresis. - Daily weights - Strict I&O monitoring - AHA, low-sodium diet with 1500 mL fluid restriction - Bumex 2 mg IV BID17 - Continue supplemental oxygen and CPAP as needed - If he responds well over the next few days, his diuretic regimen will need to be intensified at time of discharge. He may need to take a thiazide diuretic (such as metolazone) in addition. (2) Atrial fibrillation with rapid ventricular response: Plan: - EKG on arrival revealed atrial fibrillation with RVR at 118 bpm; QTc 532 (caution use of QT prolonging agents) - Patient reports has not been taking his Eliquis consistently at the nursing home, as he was unable to walk to the pill line - Continue Eliquis, metoprolol - Hold hydralazine for now in the event that additional metoprolol needs to be given (3) Elevated troponin: Plan: Troponin elevated at 42.7-->46.8 Clinically, patient denies chest pain Likely demand ischemia in the setting of acute on chronic heart failure Continuous telemetry monitoring (4) Acute kidney injury superimposed on chronic kidney disease: Plan: On admission, BUN 69, creatinine 3.10 (baseline around 2.25), and EGFR 18.5 Avoid nephrotoxic agents for possible Diuresis (as above) (5) Type 2 diabetes mellitus: Plan: Last A1c at 6.9% on 05/21/2023 Glucose 298 on admission; 5u regular insulin IV ordered in the ED, however patient refused Hold glimepiride Monitor for hypoglycemia Lantus 7 u QAM while inpatient SSI; with target BSG range 110-140mg/dL, CF 50, carb ratio 20 T2DM diet BSG ACHS Adjust regimen as needed (6) Hyperkalemia: Plan: Mild; K 5.6 on arrival Insulin given in the ED + Diuresis (as above) Trend BMP (7) Anemia: Plan: Chronic; Hgb 13.3 on arrival No signs of active bleeding on clinical exam Plan CODE STATUS: DNR/DNI AHA, low-sodium, T2DM diet (1500 mL fluid restriction) VTE PPx: On Eliquis Admission and Anticipated Discharge Date Admission Date: June 28, 2023 Subjective Patient seen and evaluated at bedside. He reports that he feels significantly better today and that his breathing is significantly improved. He denies any dyspnea at this time. He states that he used the CPAP last night, but is now stable on supplemental oxygen via nasal cannula. We discussed the current plan and need for further diuresis, and patient is agreeable with this. His blood pressures are normalized at this time, which does provide some further options if needed for additional diuresis. He denies any coughing, dyspnea, chest pain. Physical Exam Physical Exam: General: No acute distress, nondiaphoretic. Skin: The skin was without rashes, erythema, edema, or bruising. Cardiac: Irregularly irregular, tachycardic in 110s. Pulm: Scattered crackles throughout, reduced breath sounds on right side. No expiratory wheezing or rales. Slightly increased respiratory effort. Supplemental oxygen via NC. Abdominal: Positive bowel sounds x 4. Soft, nontender, without masses or organomegaly. No guarding or rebound tenderness. Neuro: A&O x3. No focal neurological deficits. Pleasant, cooperative, respectful. Results & Data Results & Data Vital Signs (Past 12 Hours) Vital Signs Temp Pulse Pulse Resp BP BP Pulse Ox 06/30/23 12:59 06/30/23 11:37 36.8 C 113 H 22 127/82 96 06/30/23 10:42 36.5 C 06/30/23 09:25 128/72 06/30/23 09:25 82 34 H 97 06/30/23 08:00 06/30/23 08:00 74 06/30/23 05:00 77 12 93 06/30/23 05:00 94/62 L 06/30/23 04:00 95 H 26 H 91 06/30/23 04:00 36.5 C 06/30/23 03:00 87 16 97 06/30/23 03:00 119/74 06/30/23 02:00 88 30 H 98 06/30/23 02:00 106/81 Pulse Ox O2 Del Method O2 Flow Rate O2 Flow Rate 06/30/23 12:59 95 4 06/30/23 11:37 Nasal Cannula 4.0 06/30/23 10:42 06/30/23 09:25 06/30/23 09:25 Nasal Cannula 4 06/30/23 08:00 4 06/30/23 08:00 06/30/23 05:00 06/30/23 05:00 06/30/23 04:00 06/30/23 04:00 06/30/23 03:00 06/30/23 03:00 06/30/23 02:00 06/30/23 02:00 Laboratory Results Reviewed CBC Reviewed BMP Reviewed BNP Diagnostic Findings Reviewed chest x-ray 06/30/2023 FINDINGS: Median sternotomy. Left subclavian pacer/AICD. Atherosclerosis of the aorta. Pulmonary vascular congestion with interstitial coarsening. No pneumothorax. Small pleural effusions with mild bibasilar opacities. IMPRESSION: 1. Cardiomegaly with pulmonary edema. 2. Small pleural effusions with mild bibasilar opacities suggestive of atelectasis. PG Care Time/CCT Total # of Minutes Spent Total Time Spent with Patient: Total time spent is greater than 50% in coordination of care (as documented) at patient's floor/unit and/or counseling patient: Coding Level of Care Code 88584 SUB INP/OBS CARE 2/35MIN Diagnoses Acute on chronic diastolic CHF (congestive heart failure) I50.33 Atrial fibrillation with rapid ventricular response I48.91 Elevated troponin R79.89 Acute kidney injury superimposed on chronic kidney disease N17.9; N18.9 Type 2 diabetes mellitus E11.9 Hyperkalemia E87.5 Anemia D64.9
[2023-07-01 05:11] LABS: Basophils # (auto) 0.03 K/uL (0.00-0.20); Basophils % (auto) 0.5 %; Eosinophils # (auto) 0.21 K/uL (0.00-0.50); Eosinophils % (auto) 3.5 %; Hematocrit (blood only) 35.5 % (42.0-52.0); Hemoglobin 11.2 g/dl (14.0-18.0); Immature Granulocytes # (auto) 0.01 K/uL (0.01-0.20); Immature Granulocytes % (auto) 0.2 %; Lymphocytes % (auto) 18.5 %; Mean Corpuscular Hemoglobin 30.9 pg (25.0-34.0); Mean Corpuscular Hgb Conc 31.5 g/dL (32.0-36.0); Mean Corpuscular Volume 98.1 fL (80.0-100.0); Mean Platelet Volume 11.8 fL (9.4-12.4); Monocytes % (auto) 6.7 %; Neutrophils # (auto) 4.21 K/uL (1.40-6.50); Neutrophils % (auto) 70.6 %; Platelet Count 180 K/uL (130-400); RDW Coefficient of Variation 15.7 % (11.5-14.5); RDW Standard Deviation 55.6 fL (36.4-46.3); Red Blood Count 3.62 M/uL (4.70-6.10); White Blood Count 5.96 K/ul (4.8-10.8)
[2023-07-01 05:25] LABS: BUN Creatinine Ratio 21.9 (10-20); Calcium 7.7 mg/dl (8.6-10.3); Creatinine Clr Calc Pharmacy 18.4 ml/min; Est GFR (African American) 20.8 ml/min; Est GFR (Non-African American) 17.9 ml/min; Potassium 4.5 mmol/L (3.5-5.1)
--- NOTE | 2023-07-01 12:12 | Cardiology Progress Note ---
Date of Service July 01, 2023 Assessment & Plan (1) Acute on chronic systolic CHF (congestive heart failure): Plan: -improving on intravenous dobutamine and Bumex. -continue current regimen for another 24-48 hours. -BUN and creatinine are improving gradually. -may require more aggressive diuretics at time of discharge. (2) Ischemic cardiomyopathy: Plan: -LVEF severely reduced at 15-20%. -cannot use ACEI/ARB due to renal disease. -would use hydralazine and nitrates. -would convert metoprolol tartrate to metoprolol succinate prior to discha rge. (3) CAD (coronary artery disease): Plan: -s/p CABG x2 in the , D1 stent in 2019. -quiescent on medical management. (4) Atrial fibrillation, permanent: Plan: -continue rate control and long-term anticoagulation strategy. Admission and Anticipated Discharge Date Admission Date: June 28, 2023 Subjective The patient is resting comfortably in bed without complaints of chest pain. His dyspnea is improving. Physical Exam Physical Exam: In general is a well-developed well-nourished male in no acute distress. HEENT exam is negative. Neck is supple with full carotid upstrokes. There are no carotid bruits. Jugular is pressure is flat at 90. There is no thyromegaly. Cardiovascular exam reveals irregular irregular rhythm with distant heart sounds. Lungs note decreased breath sounds at the bases but no rales. Abdomen is obese without bruits. Extremities reveal intact radial pulses bilaterally. There is no peripheral edema. Results & Data Vital Signs (Past 12 Hours) Vital Signs Temp Pulse Resp BP Pulse Ox 07/01/23 04:55 36.6 C 07/01/23 04:00 95 H 21 123/88 96 07/01/23 03:00 99 H 19 114/83 94 07/01/23 02:14 91 H 07/01/23 02:00 75 11 L 91/70 L 97 07/01/23 01:00 82 17 112/75 95 Diagnostic Findings Telemetry notes rate controlled atrial fibrillation. PG Care Time/CCT Total # of Minutes Spent Total Time Spent with Patient: Total time spent is greater than 50% in coordination of care (as documented) at patient's floor/unit and/or counseling patient: Coding Level of Care Code 60732 SUB INP/OBS CARE 3/50MIN Diagnoses Acute on chronic systolic CHF (congestive heart failure) I50.23 Ischemic cardiomyopathy I25.5 Coronary artery disease involving [place] coronary artery of [place] heart without angina pectoris I25.10 Coronary Disease-Associated Artery/Lesion type: [place] artery [place] vs. transplanted heart: [place] heart Associated angina: without angina Atrial fibrillation, permanent I48.21 (3) CAD (coronary artery disease) Coronary Disease-Associated Artery/Lesion type: [place] artery [place] vs. transplanted heart: [place] heart Associated angina: without angina Qualified Code(s): I25.10 - Atherosclerotic heart disease of [place] coronary artery without angina pectoris
--- NOTE | 2023-07-01 16:55 | Hospitalist Progress Note ---
Date of Service July 01, 2023 Assessment & Plan (1) Acute on chronic diastolic CHF (congestive heart failure): Plan: - Presented with worsening SOB at rest and with exertion, orthopnea, and bilateral lower extremity swelling x 7-10 days. - CXR on admission revealed cardiomegaly with mild interstitial pulmonary edema and small bilateral pleural effusions. - BNP on admission elevated at 1964 (most recently 612 on 05/20/2023). BNP remains elevated today at 1811. - Echocardiogram on 05/21/2023 revealed severely reduced left ventricular systolic function; LVEF 15-20%. - Patient appears to have some response to diuresis and dobutamine infusion. - Continue the dobutamine infusion at current rate with additional diuresis. -- Dobutamine infusion could be increased and nitroglycerin could be added for worsening symptoms if urine output declines, as long as blood pressure and renal function remain stable. -- Renal function appears to be stable. Continue to closely monitor. - Continue to follow cardiology's recommendations. - Chest x-ray from today, 06/29, revealed pulmonary edema. Cardiology feels as though lung examination is not entirely consistent with this. -- Consider additional primary pulmonary etiology for clinical presentation if respiratory status declines patient fails to respond to more diuresis. - Daily weights - Strict I&O monitoring - AHA, low-sodium diet with 1500 mL fluid restriction - Bumex 2 mg IV BID17 - Continue supplemental oxygen and CPAP as needed - If he responds well over the next few days, his diuretic regimen will need to be intensified at time of discharge. He may need to take a thiazide diuretic (such as metolazone) in addition. (2) Atrial fibrillation with rapid ventricular response: Plan: - EKG on arrival revealed atrial fibrillation with RVR at 118 bpm; QTc 532 (caution use of QT prolonging agents) - Patient reports has not been taking [facility] consistently [facility], as he was unable to walk to the pill line - Continue Eliquis, metoprolol - Hold hydralazine for now in the event that additional metoprolol needs to be given (3) Elevated troponin: Plan: Troponin elevated at 42.7-->46.8 Clinically, patient denies chest pain Likely demand ischemia in the setting of acute on chronic heart failure Continuous telemetry monitoring (4) Acute kidney injury superimposed on chronic kidney disease: Plan: On admission, BUN 69, creatinine 3.10 (baseline around 2.25), and EGFR 18.5 Avoid nephrotoxic agents for possible Diuresis (as above) (5) Type 2 diabetes mellitus: Plan: Last A1c at 6.9% on 05/21/2023 Glucose 298 on admission; 5u regular insulin IV ordered in the ED, however patient refused Patient continued to refuse insulin while hospitalized Resumed glimepiride 4 blood sugar control T2DM diet BSG ACHS (6) Hyperkalemia: Plan: Mild; K 5.6 on arrival Insulin given in the ED + Diuresis (as above) Trend BMP (7) Anemia: Plan: Chronic; Hgb 13.3 on arrival No signs of active bleeding on clinical exam Plan Resumed glimepiride in setting of patient continuously refusing insulin. CODE STATUS: DNR/DNI AHA, low-sodium, T2DM diet (1500 mL fluid restriction) VTE PPx: On Eliquis Admission and Anticipated Discharge Date Admission Date: June 28, 2023 Subjective Patient seen and evaluated at bedside. He reports worsened shortness of breath and was tachypneic at the time my evaluation. He states that his shortness of breath resolves when he is able to stand or sit upright in a chair. Confirmed with half-way guards in the room that the patient could be transferred to bedside chair. We moved him to the bedside chair and his tachypnea resolved. Plan is to continue with Bumex and dobutamine for the next 24-48 hours. Additionally, we discussed the patient refusing insulin. He states that he refuses insulin because this is not what he takes outside of the hospital. I explained that it is just another form of diabetes management that provides more control in the hospital setting. Patient continued to refuse insulin. We agreed to resume his glimepiride for blood sugar control. Physical Exam Physical Exam: General: No acute distress, nondiaphoretic. Skin: The skin was without rashes, erythema, edema, or bruising. Cardiac: Irregularly irregular. Pulm: Scattered crackles throughout, reduced breath sounds on right side. No expiratory wheezing or rales. Slightly increased respiratory effort. 95% on room air. Abdominal: Positive bowel sounds x 4. Soft, nontender, without masses or organomegaly. No guarding or rebound tenderness. Neuro: A&O x3. No focal neurological deficits. Pleasant, cooperative, respectful. Results & Data Results & Data Vital Signs (Past 12 Hours) Vital Signs Temp Pulse Pulse Resp BP Pulse Ox O2 Del Method 07/01/23 16:00 107 H 18 95 Room Air 07/01/23 12:00 102 H 14 117/86 99 Room Air 07/01/23 08:00 Room Air 07/01/23 08:00 36.6 C 102 H 14 113/72 97 Nasal Cannula 07/01/23 04:55 36.6 C O2 Flow Rate 07/01/23 16:00 07/01/23 12:00 07/01/23 08:00 07/01/23 08:00 2 07/01/23 04:55 Laboratory Results Reviewed CBC Reviewed chemistries PG Care Time/CCT Total # of Minutes Spent Total Time Spent with Patient: Total time spent is greater than 50% in coordination of care (as documented) at patient's floor/unit and/or counseling patient: Coding Level of Care Code 05385 SUB INP/OBS CARE 2/35MIN Diagnoses Acute on chronic diastolic CHF (congestive heart failure) I50.33 Atrial fibrillation with rapid ventricular response I48.91 Elevated troponin R79.89 Acute kidney injury superimposed on chronic kidney disease N17.9; N18.9 Type 2 diabetes mellitus E11.9 Hyperkalemia E87.5 Anemia D64.9
[2023-07-02 07:39] LABS: Hematocrit (blood only) 35.6 % (42.0-52.0); Hemoglobin 11.3 g/dl (14.0-18.0); Mean Corpuscular Hemoglobin 30.9 pg (25.0-34.0); Mean Corpuscular Hgb Conc 31.7 g/dL (32.0-36.0); Mean Corpuscular Volume 97.3 fL (80.0-100.0); Mean Platelet Volume 11.5 fL (9.4-12.4); Platelet Count 187 K/uL (130-400); RDW Coefficient of Variation 15.8 % (11.5-14.5); RDW Standard Deviation 55.2 fL (36.4-46.3); Red Blood Count 3.66 M/uL (4.70-6.10); White Blood Count 6.06 K/ul (4.8-10.8)
[2023-07-02 07:55] LABS: BUN Creatinine Ratio 25.3 (10-20); Calcium 7.8 mg/dl (8.6-10.3); Creatinine Clr Calc Pharmacy 20.6 ml/min; Est GFR (African American) 23.8 ml/min; Est GFR (Non-African American) 20.5 ml/min; Potassium 4.3 mmol/L (3.5-5.1)
[2023-07-02] MEDS: GLIMEPIRIDE 2 MG TAB PO SCH (09:09)
--- NOTE | 2023-07-02 11:14 | XRay Report ---
XR chest 1V portable HISTORY: Shortness of breath. COMPARISON: Chest 06/30/2023. FINDINGS: No pneumothorax. The cardiac silhouette remains enlarged. There are poststernotomy changes and left-sided single lead pacemaker. Mild interstitial pulmonary edema and small bilateral pleural e ffusions persist. IMPRESSION: Cardiomegaly with small bilateral pleural effusions and mild interstitial pulmonary edema. This is si milar to the prior study. ACT 112: Negative or not required by law. Electronically signed by: David Nina M.D. 07/02/2023 11:13 AM
[2023-07-02] MEDS: ALBUT/IPRATROP 3MG/0.5MG NEB 3 ML VIAL NEB STA (11:18)
[2023-07-02] MEDS: BUMETANIDE 2 MG in SYRINGE 0 ML IV ONE (11:56)
[2023-07-02] MEDS: NITROGLYCERIN 2% OINTMENT 30GM TUBE EXT SCH (11:57)
[2023-07-02] MEDS: metOLazone 2.5 MG TABLET PO ONE (11:57)
--- NOTE | 2023-07-02 13:30 | Hospitalist Progress Note ---
Date of Service July 02, 2023 Assessment & Plan (1) Acute on chronic diastolic CHF (congestive heart failure): Plan: - Presented with worsening SOB at rest and with exertion, orthopnea, and bilateral lower extremity swelling x 7-10 days. - CXR on admission revealed cardiomegaly with mild interstitial pulmonary edema and small bilateral pleural effusions. - BNP on admission elevated at 1964 (most recently 612 on 05/20/2023). BNP remains elevated today at 1811. - Echocardiogram on 05/21/2023 revealed severely reduced left ventricular systolic function; LVEF 15-20%. - CXR from today, 07/01, similar to prior imaging with small bilateral pleural effusions and mild interstitial pulmonary edema. - Patient continues to be in heart failure despite Bumex and dobutamine. He was tachycardic today. - Dobutamine infusion discontinued 07/02/2023. - Started metolazone as adjunctive therapy to Bumex. - Started hydralazine and nitro ointment for afterload reduction. - BUN remains the same, creatinine gradually improving. Renal function appears to be stable. Continue to closely monitor. - Continue to follow cardiology's recommendations. - Daily weights - Strict I&O monitoring - AHA, low-sodium diet with 1500 mL fluid restriction - Continue supplemental oxygen and CPAP as needed (2) Atrial fibrillation with rapid ventricular response: Plan: - EKG on arrival revealed atrial fibrillation with RVR at 118 bpm; QTc 532 (caution use of QT prolonging agents) - Patient reports has not been taking his [facility] consistently [facility], as he was unable to walk to the pill line - Continue Eliquis, metoprolol, hydralazine (3) Elevated troponin: Plan: Troponin elevated at 42.7-->46.8 Clinically, patient denies chest pain Likely demand ischemia in the setting of acute on chronic heart failure Continuous telemetry monitoring (4) Acute kidney injury superimposed on chronic kidney disease: Plan: On admission, BUN 69, creatinine 3.10 (baseline around 2.25), and EGFR 18.5 Avoid nephrotoxic agents for possible Diuresis (as above) (5) Type 2 diabetes mellitus: Plan: Last A1c at 6.9% on 05/21/2023 Glucose 298 on admission; 5u regular insulin IV ordered in the ED, however patient refused Patient continued to refuse insulin while hospitalized Resumed glimepiride 4 blood sugar control T2DM diet BSG ACHS (6) Hyperkalemia: Plan: Mild; K 5.6 on arrival Insulin given in the ED + Diuresis (as above) Trend BMP (7) Anemia: Plan: Chronic; Hgb 13.3 on arrival No signs of active bleeding on clinical exam Plan Discontinue dobutamine. Started hydralazine, nitro ointment, metolazone. Ordered DuoNeb and CXR. CODE STATUS: DNR/DNI AHA, low-sodium, T2DM diet (1500 mL fluid restriction) VTE PPx: On Eliquis Admission and Anticipated Discharge Date Admission Date: June 28, 2023 Subjective Patient seen and evaluated at bedside with senior care guards in the room. This morning he reports he was experiencing dyspnea. He was given a DuoNeb which he states improved his shortness of breath. He is definitely less short of breath and tachypneic at the time my evaluation compared to yesterday. He does still remain slightly tachycardic around 110 bpm. He reports some frustration about the speed of his recovery. I discussed the changes made to his regimen for hopefully more diuresis. Physical Exam Physical Exam: General: No acute distress, nondiaphoretic. Skin: The skin was without rashes, erythema, edema, or bruising. Cardiac: Irregularly irregular. Pulm: Scattered crackles throughout, reduced breath sounds on right side. No expiratory wheezing or rales. Slightly increased respiratory effort. 93% on 1 L. Abdominal: Positive bowel sounds x 4. Soft, nontender, without masses or organomegaly. No guarding or rebound tenderness. Neuro: A&O x3. No focal neurological deficits. Pleasant, cooperative, respectful. Results & Data Results & Data Vital Signs (Past 12 Hours) Vital Signs Temp Pulse Resp BP Pulse Ox O2 Del Method O2 Flow Rate 07/02/23 11:18 107 H 22 93 Nasal Cannula 1 07/02/23 10:33 36.4 C L 88 22 113/93 93 Nasal Cannula 2 07/02/23 07:33 37.0 C 120 H 20 123/93 90 Room Air 07/02/23 04:00 36.5 C 103 H 19 125/29 L 90 Room Air 07/02/23 02:55 36.5 C 103 H 19 125/29 L 90 Room Air Laboratory Results Reviewed CBC Reviewed chemistries Diagnostic Findings Reviewed CXR 07/02/2023 FINDINGS: No pneumothorax. The cardiac silhouette remains enlarged. There are poststernotomy changes and left-sided single lead pacemaker. Mild interstitial pulmonary edema and small bilateral pleural effusions persist. IMPRESSION: Cardiomegaly with small bilateral pleural effusions and mild interstitial pulmonary edema. This is similar to the prior study. PG Care Time/CCT Total # of Minutes Spent Total Time Spent with Patient: Total time spent is greater than 50% in coordination of care (as documented) at patient's floor/unit and/or counseling patient: Coding Level of Care Code 17654 SUB INP/OBS CARE 3/50MIN Diagnoses Acute on chronic diastolic CHF (congestive heart failure) I50.33 Atrial fibrillation with rapid ventricular response I48.91 Elevated troponin R79.89 Acute kidney injury superimposed on chronic kidney disease N17.9; N18.9 Type 2 diabetes mellitus E11.9 Hyperkalemia E87.5 Anemia D64.9
[2023-07-02] MEDS: hydrALAZINE 10 MG TAB PO SCH (14:03)
[2023-07-02] MEDS: ISOSORBIDE DINITRATE 20 MG TAB PO SCH (18:29)
[2023-07-03 06:33] LABS: Hematocrit (blood only) 36.4 % (42.0-52.0); Hemoglobin 11.7 g/dl (14.0-18.0); Mean Corpuscular Hemoglobin 30.7 pg (25.0-34.0); Mean Corpuscular Hgb Conc 32.1 g/dL (32.0-36.0); Mean Corpuscular Volume 95.5 fL (80.0-100.0); Mean Platelet Volume 11.6 fL (9.4-12.4); Platelet Count 202 K/uL (130-400); RDW Coefficient of Variation 15.9 % (11.5-14.5); RDW Standard Deviation 55.2 fL (36.4-46.3); Red Blood Count 3.81 M/uL (4.70-6.10)
[2023-07-03 06:58] LABS: BUN Creatinine Ratio 24.1 (10-20); Calcium 8.1 mg/dl (8.6-10.3); Creatinine Clr Calc Pharmacy 18.4 ml/min; Est GFR (African American) 20.7 ml/min; Est GFR (Non-African American) 17.8 ml/min; Potassium 4.1 mmol/L (3.5-5.1)
--- NOTE | 2023-07-03 08:00 | Hospitalist Progress Note ---
Date of Service July 03, 2023 Assessment & Plan (1) Acute on chronic diastolic CHF (congestive heart failure): Plan: - Presented with worsening SOB at rest and with exertion, orthopnea, and bilateral lower extremity swelling x 7-10 days. - CXR on admission revealed cardiomegaly with mild interstitial pulmonary edema and small bilateral pleural effusions. - BNP on admission elevated at 1964 (most recently 612 on 05/20/2023). BNP remains elevated today at 1811. - Echocardiogram on 05/21/2023 revealed severely reduced left ventricular systolic function; LVEF 15-20%. - CXR 07/01, similar to prior imaging with small bilateral pleural effusions and mild interstitial pulmonary edema. - Dobutamine infusion discontinued 07/02/2023. - Continue hydralazine and isosorbide for afterload reduction. - Continue to closely monitor renal function. - Improvement in respiratory status today. Monitor overnight. Potential discharge back to the longterm tomorrow, 07/04/2023. - Daily weights - Strict I&O monitoring - AHA, low-sodium diet with 1500 mL fluid restriction - Continue supplemental oxygen and CPAP as needed (2) Atrial fibrillation with rapid ventricular response: Plan: - EKG on arrival revealed atrial fibrillation with RVR at 118 bpm; QTc 532 (caution use of QT prolonging agents) - Patient reports has not been taking his Eliquis consistently at the [facility], as he was unable to walk to the pill line - Continue Eliquis, metoprolol, hydralazine (3) Elevated troponin: Plan: Troponin elevated at 42.7-->46.8 Clinically, patient denies chest pain Likely demand ischemia in the setting of acute on chronic heart failure Continuous telemetry monitoring (4) Acute kidney injury superimposed on chronic kidney disease: Plan: On admission, BUN 69, creatinine 3.10 (baseline around 2.25), and EGFR 18.5 Avoid nephrotoxic agents for possible Diuresis (as above) (5) Type 2 diabetes mellitus: Plan: Last A1c at 6.9% on 05/21/2023 Glucose 298 on admission; 5u regular insulin IV ordered in the ED, however patient refused Patient continued to refuse insulin while hospitalized Resumed glimepiride 4 blood sugar control T2DM diet BSG ACHS (6) Hyperkalemia: Plan: Mild; K 5.6 on arrival Insulin given in the ED + Diuresis (as above) Trend BMP (7) Anemia: Plan: Chronic; Hgb 13.3 on arrival No signs of active bleeding on clinical exam Plan Monitored oxygen demand and respiratory status. Continue current regimen of Bumex, hydralazine, isosorbide and monitor overnight. Potential discharge back to longterm tomorrow. CODE STATUS: DNR/DNI AHA, low-sodium, T2DM diet (1500 mL fluid restriction) VTE PPx: On Eliquis Admission and Anticipated Discharge Date Admission Date: June 28, 2023 Subjective Patient seen and evaluated at bedside open guards in the room. He denies any dyspnea or shortness of breath today. His oxygen saturations remaining stable on room air. Monitor overnight, if patient remains stable, he can be discharged tomorrow on Bumex, hydralazine, and isosorbide. Physical Exam Physical Exam: General: No acute distress, nondiaphoretic. Skin: The skin was without rashes, erythema, edema, or bruising. Cardiac: Irregularly irregular. Pulm: Clear to auscultation. No expiratory wheezing or rales. Slightly increased respiratory effort. 95% on room air. Abdominal: Positive bowel sounds x 4. Soft, nontender, without masses or organomegaly. No guarding or rebound tenderness. Neuro: A&O x3. No focal neurological deficits. Pleasant, cooperative, respectful. Results & Data Results & Data Vital Signs (Past 12 Hours) Vital Signs Temp Pulse Resp BP Pulse Ox O2 Del Method O2 Flow Rate 07/03/23 07:34 36.5 C 88 24 129/88 95 Nasal Cannula 2 07/03/23 03:00 36.4 C L 95 H 18 115/73 98 Room Air 07/02/23 22:25 36.9 C 90 30 H 113/82 95 Nasal Cannula 2.0 07/02/23 20:57 Nasal Cannula 1 Laboratory Results Reviewed CBC Reviewed chemistries PG Care Time/CCT Total # of Minutes Spent Total Time Spent with Patient: Total time spent is greater than 50% in coordination of care (as documented) at patient's floor/unit and/or counseling patient: Coding Level of Care Code 36861 SUB INP/OBS CARE 2/35MIN Diagnoses Acute on chronic diastolic CHF (congestive heart failure) I50.33 Atrial fibrillation with rapid ventricular response I48.91 Elevated troponin R79.89 Acute kidney injury superimposed on chronic kidney disease N17.9; N18.9 Type 2 diabetes mellitus E11.9 Hyperkalemia E87.5 Anemia D64.9
[2023-07-04 06:33] LABS: Hematocrit (blood only) 38.7 % (42.0-52.0); Hemoglobin 12.2 g/dl (14.0-18.0); Mean Corpuscular Hemoglobin 30.3 pg (25.0-34.0); Mean Corpuscular Hgb Conc 31.5 g/dL (32.0-36.0); Mean Platelet Volume 11.7 fL (9.4-12.4); Platelet Count 210 K/uL (130-400); RDW Coefficient of Variation 15.9 % (11.5-14.5); Red Blood Count 4.03 M/uL (4.70-6.10)
[2023-07-04 07:15] LABS: Calcium 6.2 mg/dl (8.6-10.3); Creatinine Clr Calc Pharmacy 23.7 ml/min; Est GFR (African American) 28.1 ml/min; Est GFR (Non-African American) 24.3 ml/min
[2023-07-04] MEDS: POTASSIUM CHLORIDE CRTAB 20 MEQ TABCR PO STA (08:58)
[2023-07-04 12:37] LABS: Magnesium 2.3 mg/dl (1.7-2.4); Potassium 4.2 mmol/L (3.5-5.1)
--- NOTE | 2023-07-04 17:14 | Discharge Summary ---
Discharge Summary Date of Service July 04, 2023 Notes For Next Care Provider Patient has severely reduced LF systolic function. Overall prognosis is poor. If he continues to have heart failure exacerbations despite more aggressive diuresis regimen, I think the situation will become palliative. Medication Changes From Visit Diuretic regimen: Bumex 2 mg p.o. twice daily, hydralazine 10 mg p.o. 3 times daily, isosorbide 10 mg p.o. twice daily Admission HPI Per Admitting Provider Alis is a 77-year-old male with PMH of A-fib (on Eliquis), heart failure, ischemic cardiomyopathy, syncope, ICD, T2DM, HTN, and chronic kidney disease. He presented via EMS from [facility] for worsening SOB both at rest and with exertion x 7-10 days. Patient reports he is unable to sleep on his back, or lay flat because it causes his breathing to stop. He also notes that his breathing gets faster with exertion. Associated symptoms include lack of energy, worseni ng ANGELA, and leg swelling. He reports that he takes Bumex 2 mg in the morning, and sometimes around noon as needed (he normally takes around 4 mg daily). However he has not been able to walk long distances to the pill line recently; for instance today he only took Bumex, metoprolol, and a baby aspirin. He has not been taking his Eliquis consistently due to inability to walk to the pill line. He denies any recent changes in diet, and reports he watches his salt intake very carefully, but notes that he has been consuming additional salt to provide more energy recently. She denies smoking, tobacco use, or recent alcohol use. He does report he is a DNR/DNI as well as a Jehovah's witness and would not like blood transfusions without consultation. Patient is mildly tachycardic at 105 bpm at time of admission; SpO2 95% on 2 L NC. ED course: Lasix 80 mg IV ROS: Patient endorses lightheadedness when standing, dizziness, chest palpitations, productive cough, worsening SOB with exertion and at rest, and swelling around the ankles. Patient denies fever, chills, night-sweats, WOODS, fainting, falling, chest pain, pleuritic CP, hemoptysis, abdominal pain, N/V/D, changes in urinary/bowel hab its, or numbness/tingling in the arms or legs. Admission Exam Per Admitting Provider General: Moderate respiratory distress; sitting 90 degrees in bed; non-toxic appearing; well-nourished; SpO2 95% on 2 L NC HEENT: normocephalic, atraumatic; no scleral icterus; PERRLA w/ EOMs intact; moist mucus membrane; vision and hearing grossly intact Neck: supple; positive for JVP; no lymphadenopathy; trachea midline Skin: warm, dry without signs of tenting; no cyanosis; no rashes, bruising, lesions, or erythema noted CV: chest wall NTP; irregularly irregular rhythm tachycardic around 110-120 bpm; S1/S2 normal; no murmurs/rubs/gallops; pulses intact and symmetric at radial, D P, and PT Lungs: Moderate acute respiratory distress; conversationally dyspneic; symmetrical chest wall expansion; diminished breath sounds across all lung young with bibasilar basilar crackles in the lower lung young bilaterally ABD: Soft, NTP; BS present; no rebound/guarding; no distention MSK: no tics or fasciculations; +1 pitting edema noted in the LEs b/l around the ankles and calves, nonerythematous Neuro: A&Ox3; normal mood and affect; fluent speech; no focal deficits; sensation grossly intact in the LEs b/l Principal Dx & Hospital Course #1 = Principal Diagnosis (1) Acute on chronic diastolic CHF (congestive heart failure): - Presented with worsening SOB at rest and with exertion, orthopnea, and bilate ral lower extremity swelling x 7-10 days. - CXR on admission revealed cardiomegaly with mild interstitial pulmonary edema and small bilateral pleural effusions. - BNP on admission elevated at 1964 (most recently 612 on 05/20/2023). BNP remains elevated today at 1811. - Echocardiogram on 05/21/2023 revealed severely reduced left ventricular systolic function; LVEF 15-20%. - CXR 07/01, similar to prior imaging with small bilateral pleural effusions and mild interstitial pulmonary edema. - Dobutamine infusion discontinued 07/02/2023. - Continue hydralazine and isosorbide for afterload reduction. - Continue to closely monitor renal function. - Improvement in respiratory status. No longer requiring supplemental oxygen. 96% on room air at time of discharge. - Daily weights - Strict I&O monitoring - AHA, low-sodium diet with 1500 mL fluid restriction - Continue supplemental oxygen and CPAP as needed (2) Atrial fibrillation with rapid ventricular response: - EKG on arrival revealed atrial fibrillation with RVR at 118 bpm; QTc 532 (caution use of QT prolonging agents) - Patient reports has not been taking his Eliquis consistently at the senior living, as he was unable to walk to the pill line - Continue Eliquis, metoprolol, hydralazine (3) Elevated troponin: Troponin elevated at 42.7-->46.8 on presentation Clinically, patient denies chest pain Likely demand ischemia in the setting of acute on chronic heart failure (4) Acute kidney injury superimposed on chronic kidney disease: On admission, BUN 69, creatinine 3.10 (baseline around 2.25), and EGFR 18.5 Avoid nephrotoxic agents for possible Diuresis (as above) (5) Type 2 diabetes mellitus: Last A1c at 6.9% on 05/21/2023 Glucose 298 on admission; 5u regular insulin IV ordered in the ED, however patient refused Patient continued to refuse insulin while hospitalized Resumed glimepiride 4 blood sugar control T2DM diet BSG ACHS (6) Hyperkalemia: Mild; K 5.6 on arrival Insulin given in the ED + Diuresis (as above) Trend BMP (7) Anemia: Chronic; Hgb 13.3 on arrival No signs of active bleeding on clinical exam Plan CODE STATUS: DNR/DNI AHA, low-sodium, T2DM diet (1500 mL fluid restriction) VTE PPx: On Eliquis Discharge Exam General: No acute distress, nondiaphoretic. Skin: The skin was without rashes, erythema, edema, or bruising. Cardiac: Irregularly irregular. Pulm: Clear to auscultation. No expiratory wheezing or rales. 96% on room air. Abdominal: Positive bowel sounds x 4. Soft, nontender, without masses or organomegaly. No guarding or rebound tenderness. Neuro: A&O x3. No focal neurological deficits. Pleasant, cooperative, respectful. Updated Medication List Medication Instructions Recorded Confirmed Type glimepiride 1 mg tablet 1 mg PO DAILY 06/29/20 06/28/23 History hydralazine 10 mg tablet 10 mg PO TID #90 tabs 03/06/21 06/28/23 Rx aspirin 81 mg tablet,delayed 81 mg PO DAILY 05/20/23 06/28/23 History release atorvastatin 40 mg tablet (Lipitor) 40 mg PO DAILY 05/20/23 06/28/23 History apixaban 5 mg tablet (Eliquis) 5 mg PO BID #0 tabs 05/23/23 06/28/23 Rx metoprolol tartrate 25 mg tablet 50 mg (2 x 25 mg) PO BID #0 tabs 05/23/23 06/28/23 Rx bumetanide 2 mg tablet 2 mg PO BID #60 tabs 07/04/23 06/28/23 Rx isosorbide dinitrate 20 mg tablet 10 mg (1/2 x 20 mg) PO 07/04/23 Rx BID@0700,1200 #60 tabs Hospital Stay Data Consultations 06/28/23 12:29 ED Decision to Admit Stat 06/28/23 16:58 Consult Cardiology Routine Diagnostic Imagining Performed 06/29/23 US venous doppler LE BI Urgent Pending Results Patient Have Any Pending Studies at Discharge: No Discharge Instructions Given to Patient (Per Discharging Provider) FOR SCI CORTNEY: Mr. Bonilla was admitted due to acute on chronic diastolic CHF. Chest x-ray from this hospitalization revealed bilateral pleural effusions with mild interstitial pulmonary edema. He was on a dobutamine infusion, with only slight improvement in diuresis and respiratory status. He was on Bumex 2 mg IV twice daily, and hydralazine and isosorbide were added to his regimen for afterload reduction. He did have an improvement in his diuresis and respiratory status with this regimen. He no longer requires supplemental oxygen to maintain stable O2 saturation. Recommendations: * Continue Bumex 2 mg p.o. twice daily, hydralazine 10 mg 3 p.o. times daily, isosorbide 10 mg p.o. twice daily. * Continue glimepiride for blood sugar control. * Continue metoprolol and Eliquis for ischemic cardiomyopathy, coronary artery disease, and A-fib. * Avoid nephrotoxic agents when possible. * Recommend AHA, low-sodium, T2DM diet with 1800 mL fluid restriction. * Repeat CBC and BMP in 1 week to monitor electrolytes and renal function. Overall, Mr. Bonilla's prognosis is poor. If he continues to have heart failure exacerbations despite more aggressive diuretic regimen, I believe the situation will become palliative. Best regards, Lupe Randhawa PA-C Total Time Total Time Spent Total Time Spent (In Minutes): Greater than 30 minutes spent completing this discharge process including direct patient care, medication reconciliation, documentation, review of labs and images, and coordination of care. Coding Level of Care Code 73720 INP/OBS DISCH >30 MIN Diagnoses Acute on chronic diastolic CHF (congestive heart failure) I50.33 Atrial fibrillation with rapid ventricular response I48.91 Elevated troponin R79.89 Acute kidney injury superimposed on chronic kidney disease N17.9; N18.9 Type 2 diabetes mellitus E11.9 Hyperkalemia E87.5 Anemia D64.9
== END 2023-07-04 16:10 | DRG 291 ==
LOC: ED 10:56 → SUATTDRO 12:53 → EDINP 12:53 → 1E 14:25 → 2E 07-01 17:56

== ENCOUNTER 2023-08-11 10:21 | Inpatient (IN) ==
--- NOTE | 2023-08-11 10:42 | Emergency Department Note ---
Impression & Plan Acute on chronic systolic CHF (congestive heart failure), Atrial fibrillation with rapid ventricular response, Acute kidney injury superimposed on CKD ED Provider Note Provider: Jared Hong MD DATE OF SERVICE: 08/11/2023 CHIEF COMPLAINT: Rapid A-fib, breathing issues, swelling HISTORY OF PRESENT ILLNESS: Patient is a 78-year-old gentleman significant past medical history of permanent A-fib, CHF, CKD presenting here today from the care home due to concerns for CHF and fluid overload as well as rapid A-fib. Patient reports that 4 days ago he had a total of 5 mg of Bumex with maybe only trace improvement of his breathing issues. Some swelling of the legs but not severe according the patient. The last week or 2 no significant falls trauma or syncope reported. Denies any pain or chest pain. Denies abdominal symptoms states he does not have much of an appetite. Patient reports his breathing just is not getting that much better. PAST MEDICAL HISTORY: As noted above MEDICATIONS: Reviewed medication list with the patient from the present. Taken his Eliquis in EMS today but not his other medications including metoprolol by his report. SOCIAL HISTORY: [facility]mate at the [facility] PHYSICAL EXAM: GENERAL: alert and oriented in no acute distress on stretcher, guards at bedside Head: normocephalic and atraumatic EYES: No injection, discharge or icterus. NECK: Trachea midline. Supple. ENT: Mucous membranes pink and moist. LUNGS: Airway patent. No retractions but mildly tachypneic at rest. Breath sounds with crackles in the bases HEART: Irregularly tachycardic rate and rhythm. No chest wall tenderness ABDOMEN: Soft and non-tender, without guarding or rebound. SKIN: Acyanotic, warm, dry, without rashes EXTREMITIES: Without tenderness with 1+ bilateral lower extremity edema. NEUROLOGICAL: No focal deficits. No aphasia. No facial droop or slurred speech. EK bpm atrial fibrillation rapid ventricular response. Left axis. QTc 527. No clear acute ST segment elevation. CONTINUOUS CARDIAC MONITORING: was ordered and showed a heart rate of 100s-130s bpm in atrial fibrillation occasional PVCs as well as what appears to be occasional pauses Patient's laboratory studies and imaging reviewed. Differential includes Reactive airway disease, pneumonia, pneumothorax, COPD, CHF, infections, cardiac ischemia, pulmonary embolism, musculoskeletal, gastrointestinal, as well as other pathologies. IMPRESSION/MEDICAL DECISION MAKING: Patient rapid A-fib upon arrival. Will order metoprolol for some rate control. Exacerbating probably his underlying CHF. Significant history on prior review of admission this spring of CKD as well. Has been on some increased dose of Bumex without improvement. Will see if he can affect some improvement with rate control. Not hypoxic respite mildly tachypneic. Anticoagulated doubt VTE. Doubt this is infectious but respiratory viral panel and chest x-ray ordered to exclude pneumonia or COVID/flu/RSV. Patient without significant abdominal complaints or complaint of chest pain. Troponin was sent and question demand exacerbation. Doubt true new acute ACS. Blood work here without significant cytosis. Minimal stable anemia. Chest x- ray per report with cardiomegaly mild pulmonary edema and bibasilar densities/effusions that are persistent. This seems consistent with his complaint of feeling shortness of breath and having some fluid overload. Does have frequent episodes of PVCs and some episodes that almost appear like V. tach. Discussed with the pacemaker device solar manufacturer's representative after interrogation and appears to be all A-fib significantly worsened with increased rate since yesterday. Patient is having better rate control after some IV metoprolol here. Given some IV magnesium for additional cardiac stabilization. Blood work significant for worsened renal function creatinine now 3.49. Troponin 41 stable compared to previous at this time. Hospitalized here in June required dobutamine for diuresis and may again however will need better rate control 2/2 his afib. Later while here slightly hypoxic requiring mild oxygen supplementation. Will bring into the hospital for further care. Hospitalist contacted. DIAGNOSIS: Rapid atrial fibrillation, shortness of breath, CHF, [place] on CKD DISPOSITION: Hospitalist will evaluate Patient was agreeable with this plan. Critical Care I have personally spent 34 minutes of critical care time in the direct management of this patient. This includes bedside care, interpretation of diagnostic studies, and testing, discussion with consultants, patient, and other required patient management activities. These 34 minutes is in excess of all separately billable procedures. Past Med/Surg History Problem List (Updated 08/11/23 @ 13:35 by David Lopez PA-C) CKD (chronic kidney disease), stage IV Acute kidney injury superimposed on CKD (Acute) Atrial fibrillation with rapid ventricular response (Acute) CAD (coronary artery disease) Ischemic cardiomyopathy Atrial fibrillation, permanent Acute on chronic systolic CHF (congestive heart failure) (Acute) Pulmonary edema (Acute) Anemia Acute kidney injury superimposed on chronic kidney disease CKD (chronic kidney disease) Type 2 diabetes mellitus Closed fracture nasal bone (Acute) Atrial fibrillation with rapid ventricular response (Acute) Syncope (Acute) Atrial fibrillation with RVR Pleural effusion Pulmonary nodule COVID-19 (Acute) Fluid overload (Acute) Failure of outpatient treatment (Acute) COVID-19 Chronic kidney disease Enlarged prostate Chronic congestive heart failure Anticoagulant long-term use Shortness of breath (Acute) Back pain Atrial fibrillation (Acute) Hearing loss Urinary retention Medical History (Updated 08/11/23 @ 13:35 by David Lopez PA-C) Hypoxia Hyperkalemia Elevated troponin Hypocalcemia Valvular heart disease Heart failure CAD (coronary artery disease), [place] coronary artery Constipation Uremic encephalopathy Nausea & vomiting Acute hyponatremia Acute kidney injury Myocardial infarct Atherosclerotic heart disease coronary artery bypass grafting: Marvin to LAD. Saphenous vein graft to unknown vessel PCI to the 1st diagonal 11/24/2016 Hypertension Hypokalemia Hypercholesterolemia Surgical History Presence of single chamber implantable cardioverter-defibrillator (ICD) [place]. 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: No Beliefs That Will Affect Care: None marital status: Single Current Living Situation: Other Current Living Situation Comment: [facility] Feels Safe at Home: Yes Assistive Devices: None Allergies Allergies Allergy/AdvReac Type Severity Reaction Status Date / Time No Known Allergies Allergy Verified 08/11/23 13:10 Home Meds Home Medications Medication Instructions Recorded Confirmed glimepiride 1 mg tablet 1 mg PO DAILY 06/29/20 08/11/23 aspirin 81 mg tablet,delayed 81 mg PO DAILY 05/20/23 08/11/23 release atorvastatin 40 mg tablet (Lipitor) 40 mg PO DAILY 05/20/23 08/11/23 Previous Rx's Medication Instructions Recorded hydralazine 10 mg tablet 10 mg PO TID #90 tabs 03/06/21 apixaban 5 mg tablet (Eliquis) 5 mg PO BID #0 tabs 05/23/23 metoprolol tartrate 25 mg tablet 50 mg (2 x 25 mg) PO BID #0 tabs 05/23/23 bumetanide 2 mg tablet 2 mg PO BID #60 tabs 07/04/23 isosorbide dinitrate 20 mg tablet 10 mg (1/2 x 20 mg) PO 07/04/23 BID@0700,1200 #60 tabs Results & Data (ED) Vital Signs Vital Signs - 24 hr 08/11/23 10:23 08/11/23 10:37 08/11/23 11:03 Temperature 36.5 C Temperature Source Temporal Artery Scan Pulse Rate 132 H 144 H 123 H Pulse Rate from SpO2 Sensor Respiratory Rate 22 22 Blood Pressure 124/89 Blood Pressure Mean 100 Pulse Oximetry 95 95 Sepsis Recent Fever Within 48 Hours No Sepsis New/Unexplained Change in Mental Status N/A Sepsis Action Taken by Nursing No Action Required 08/11/23 11:05 08/11/23 11:13 08/11/23 11:27 Temperature Temperature Source Pulse Rate 144 H 99 H Pulse Rate from SpO2 Sensor 104 H Respiratory Rate 42 H Blood Pressure 124/103 H Blood Pressure Mean Pulse Oximetry 95 86 L Sepsis Recent Fever Within 48 Hours Sepsis New/Unexplained Change in Mental Status Sepsis Action Taken by Nursing 08/11/23 11:30 08/11/23 11:30 08/11/23 11:33 Temperature Temperature Source Pulse Rate 99 H 114 H Pulse Rate from SpO2 Sensor 118 H Respiratory Rate 31 H Blood Pressure 101/79 101/79 Blood Pressure Mean 88 Pulse Oximetry 79 L Sepsis Recent Fever Within 48 Hours Sepsis New/Unexplained Change in Mental Status Sepsis Action Taken by Nursing 08/11/23 11:54 08/11/23 11:55 08/11/23 12:09 Temperature Temperature Source Pulse Rate 126 H 116 H Pulse Rate from SpO2 Sensor 125 H Respiratory Rate 24 Blood Pressure 106/81 106/79 Blood Pressure Mean 96 Pulse Oximetry 85 L Sepsis Recent Fever Within 48 Hours Sepsis New/Unexplained Change in Mental Status Sepsis Action Taken by Nursing 08/11/23 12:32 Temperature Temperature Source Pulse Rate 102 H Pulse Rate from SpO2 Sensor Respiratory Rate Blood Pressure 115/84 Blood Pressure Mean Pulse Oximetry Sepsis Recent Fever Within 48 Hours Sepsis New/Unexplained Change in Mental Status Sepsis Action Taken by Nursing Laboratory Data 08/11/23 11:00 08/11/23 11:00 Lab Results 08/11/23 08/11/23 Range/Units 11:00 11:24 WBC 6.46 (4.8-10.8) K/ul RBC 4.30 L (4.70-6.10) M/uL Hgb 12.8 L (14.0-18.0) g/dl Hct 40.7 L (42.0-52.0) % MCV 94.7 (80.0-100.0) fL MCH 29.8 (25.0-34.0) pg MCHC 31.4 L (32.0-36.0) g/dL RDW Std Deviation 55.2 H (36.4-46.3) fL RDW Coeff of Tommie 15.9 H (11.5-14.5) % Plt Count 198 (130-400) K/uL MPV 11.4 (9.4-12.4) fL Immature Gran % (Auto) 0.3 % Neut % (Auto) 81.8 % Lymph % (Auto) 9.8 % Jerome % (Auto) 7.0 % Eos % (Auto) 0.8 % Baso % (Auto) 0.3 % Neut # (Auto) 5.29 (1.40-6.50) K/uL Lymph # (Auto) 0.63 L (1.20-3.40) K/uL Jerome # (Auto) 0.45 (0.11-0.59) K/uL Eos # (Auto) 0.05 (0.00-0.50) K/uL Baso # (Auto) 0.02 (0.00-0.20) K/uL Immature Gran # (Auto) 0.02 (0.01-0.20) K/uL PT 13.0 H (9.0-12.0) Seconds INR 1.2 H (0.9-1.1) APTT 28 (21-31) Seconds PTT Ratio 1.0 Sodium 139 (136-145) mmol/L Potassium 4.7 (3.5-5.1) mmol/L Chloride 102 (98-107) mmol/L Carbon Dioxide 21 (21-32) mmol/L Anion Gap 16 H (3-11) BUN 70 H (6-23) mg/dl Creatinine 3.49 H (0.6-1.4) mg/dl Est Cr Clr Drug Dosing Not Reportable Est GFR ( Amer) 18.5 ml/min Est GFR (Non-Af Amer) 15.9 ml/min BUN/Creatinine Ratio 20.1 H (10-20) Glucose 185 H (70-99(Fasting)) mg/dl Calcium 9.0 (8.6-10.3) mg/dl Magnesium 2.5 H (1.7-2.4) mg/dl Total Bilirubin 2.2 H (0.2-1.0) mg/dl AST 31 (13-39) U/L ALT 37 (7-52) U/L Alkaline Phosphatase 80 (34-104) U/L Troponin I High Sens 41.4 H (0-20) pg/ml B-Natriuretic Peptide 2202 H (0-100) pg/ml Total Protein 7.4 (6.0-8.3) gm/dl Albumin 4.1 (3.4-5.0) gm/dl Globulin 3.3 (2.5-4.0) gm/dl Albumin/Globulin Ratio 1.2 (0.9-2) Adenovirus (PCR) Not Detected (NotDetected) B. pertussis DNA (PCR) Not Detected (NotDetected) B.parapertussis DNA PCR Not Detected (NotDetected) C. pneumoniae DNA (PCR) Not Detected (NotDetected) Coronavirus OC43 (PCR) Not Detected (NotDetected) Coronavirus HKU1 (PCR) Not Detected (NotDetected) Coronavirus 229E (PCR) Not Detected (NotDetected) SARS-CoV-2 (PCR) Not Detected (NotDetected) Coronavirus NL63 (PCR) Not Detected (NotDetected) Human Metapneumovir PCR Not Detected (NotDetected) Influenza Type A (PCR) Not Detected (NotDetected) Influenza Type B (PCR) Not Detected (NotDetected) M. pneumoniae (PCR) Not Detected (NotDetected) Parainfluenza 1 (PCR) Not Detected (NotDetected) Parainfluenza 2 (PCR) Not Detected (NotDetected) Parainfluenza 3 (PCR) Not Detected (NotDetected) Parainfluenza 4 (PCR) Not Detected (NotDetected) RSV (PCR) Not Detected (NotDetected) Entero/Rhino (PCR) Not Detected (NotDetected) Administered Medications Discontinued Medications Magnesium Sulfate/Dextrose (Magnesium Sulfate / D5w) 1 gm in 100 mls @ 400 mls/hr IV Q15M DANIELLE Stop: 08/11/23 11:44 Last Infusion: 08/11/23 12:32 Dose: Infused Documented By: Admin: 08/11/23 12:14 Dose: 400 mls/hr Documented By: ERNIE Metoprolol Tartrate (Metoprolol Tartrate 1 Mg/Ml Vial) 5 mg IV NOW STA Stop: 08/11/23 10:38 Last Admin: 08/11/23 11:05 Dose: 5 mg Documented By: ERNIE Metoprolol Tartrate (Metoprolol Tartrate 1 Mg/Ml Vial) 5 mg IV NOW STA Stop: 08/11/23 11:59 Last Admin: 08/11/23 12:09 Dose: 5 mg Documented By: ERNIE Imaging Data Radiologist's Impression: Chest X-Ray 08/11/23 10:37 XR chest 1V portable HISTORY: 78 years-old Male Dyspnea, afb rvr chf acute shortness of breath COMPARISON: 07/02/2023 TECHNIQUE: AP view of the chest FINDINGS: Cardiac silhouette is enlarged. Median sternotomy. Left subclavian pacer/ICD. No pneumothorax. Pulmonary vascular congestion with interstitial coarsening. Small pleural effusions with mild bibasilar densities. IMPRESSION: 1. Cardiomegaly with mild pulmonary edema. 2. Small pleural effusions with persistent mild bibasilar densities, unchanged. ACT 112: Negative or not required by law. The above report was generated using voice recognition software. It may contain grammatical, syntax or spelling errors. Electronically signed by: Albert Ruth M.D. 08/11/2023 11:33 AM Discharge Plan Visit Data Chief Complaint: Shortness of Breath/Dyspnea Stated Complaint: chf exacerbation ED Provider: Jared Hong Discharge Problem: Acute on chronic systolic CHF (congestive heart failure), Atrial fibrillation with rapid ventricular response, Acute kidney injury superimposed on CKD Patient Disposition: Being Evaluated by Hospitalist Forms Stand Alone Forms: My [facility] [employer] Prescriptions Prescriptions: No Action glimepiride 1 mg tablet 1 mg PO DAILY hydralazine 10 mg Tablet 10 mg PO TID Qty: 90 0RF atorvastatin [Lipitor] 40 mg Tablet 40 mg PO DAILY aspirin 81 mg Tablet,Delayed Release (Dr/Ec) 81 mg PO DAILY metoprolol tartrate 25 mg Tablet 50 mg PO BID Qty: 0 0RF Eliquis 5 mg Tablet 5 mg PO BID Qty: 0 0RF isosorbide dinitrate 20 mg Tablet 10 mg PO BID@0700,1200 Qty: 60 0RF bumetanide 2 mg tablet 2 mg PO BID Qty: 60 0RF Referrals Referrals: [facility] MONTELONGO [Primary Care Provider] -
[2023-08-11] MEDS: METOPROLOL TARTRATE 1 MG/ML VIAL IV STA ×2 (11:05→12:09)
[2023-08-11 11:30] LABS: Basophils # (auto) 0.02 K/uL (0.00-0.20); Basophils % (auto) 0.3 %; Eosinophils # (auto) 0.05 K/uL (0.00-0.50); Eosinophils % (auto) 0.8 %; Hematocrit (blood only) 40.7 % (42.0-52.0); Hemoglobin 12.8 g/dl (14.0-18.0); Immature Granulocytes # (auto) 0.02 K/uL (0.01-0.20); Immature Granulocytes % (auto) 0.3 %; Lymphocytes # (auto) 0.63 K/uL (1.20-3.40); Lymphocytes % (auto) 9.8 %; Mean Corpuscular Hemoglobin 29.8 pg (25.0-34.0); Mean Corpuscular Hgb Conc 31.4 g/dL (32.0-36.0); Mean Corpuscular Volume 94.7 fL (80.0-100.0); Mean Platelet Volume 11.4 fL (9.4-12.4); Monocytes # (auto) 0.45 K/uL (0.11-0.59); Neutrophils # (auto) 5.29 K/uL (1.40-6.50); Neutrophils % (auto) 81.8 %; Platelet Count 198 K/uL (130-400); RDW Coefficient of Variation 15.9 % (11.5-14.5); RDW Standard Deviation 55.2 fL (36.4-46.3); White Blood Count 6.46 K/ul (4.8-10.8)
--- NOTE | 2023-08-11 11:34 | XRay Report ---
XR chest 1V portable HISTORY: 78 years-old Male Dyspnea, afb rvr chf acute shortness of breath COMPARISON: 07/02/2023 TECHNIQUE: AP view of the chest FINDINGS: Cardiac silhouette is enlarged. Median sternotomy. Left subclavian pacer/ICD. No pneumothorax. Pulmon boyd vascular congestion with interstitial coarsening. Small pleural effusions with mild bibasilar den sities. IMPRESSION: 1. Cardiomegaly with mild pulmonary edema. 2. Small pleural effusions with persistent mild bibasilar densities, unchanged. ACT 112: Negative or not required by law. The above report was generated using voice recognition software. It may contain grammatical, syntax o r spelling errors. Electronically signed by: Albert Ruth M.D. 08/11/2023 11:33 AM
[2023-08-11 11:45] LABS: Alanine Aminotransferase 37 U/L (7-52); Albumin Globulin Ratio 1.2 (0.9-2); Albumin Level 4.1 gm/dl (3.4-5.0); Alkaline Phosphatase 80 U/L (34-104); Anion Gap 16 (3-11); Aspartate Aminotransferase 31 U/L (13-39); BUN Creatinine Ratio 20.1 (10-20); Bilirubin,Total 2.2 mg/dl (0.2-1.0); Blood Urea Nitrogen 70 mg/dl (6-23); Carbon Dioxide 21 mmol/L (21-32); Chloride 102 mmol/L (98-107); Est GFR (African American) 18.5 ml/min; Est GFR (Non-African American) 15.9 ml/min; Globulin 3.3 gm/dl (2.5-4.0); Glucose 185 mg/dl (70-99(Fasting)); Magnesium 2.5 mg/dl (1.7-2.4); Potassium 4.7 mmol/L (3.5-5.1); Sodium 139 mmol/L (136-145); Total Protein 7.4 gm/dl (6.0-8.3)
[2023-08-11 11:50] LABS: Troponin I High Sensitivity 41.4 pg/ml (0-20)
[2023-08-11 11:59] LABS: INR 1.2 (0.9-1.1); Partial Thromboplastin Time 28 Seconds (21-31)
[2023-08-11] MEDS: MAGNESIUM SULFATE / D5W 1 GM/100 ML BAG IV SCH (12:14)
[2023-08-11 12:37] LABS: Adenovirus PCR Not Detected (NotDetected); Bordetella parapertussis PCR Not Detected (NotDetected); Bordetella pertussis PCR Not Detected (NotDetected); Chlamydia pneumoniae PCR Not Detected (NotDetected); Coronavirus 229E PCR Not Detected (NotDetected); Coronavirus CoV-2 (COVID19)PCR Not Detected (NotDetected); Coronavirus HKU1 PCR Not Detected (NotDetected); Coronavirus NL63 PCR Not Detected (NotDetected); Coronavirus OC43PCR Not Detected (NotDetected); Human Metapneumovirus PCR Not Detected (NotDetected); Influenza A PCR Not Detected (NotDetected); Influenza B PCR Not Detected (NotDetected); Mycoplasma pneumoniae PCR Not Detected (NotDetected); Parainfluenza Virus 1 PCR Not Detected (NotDetected); Parainfluenza Virus 2 PCR Not Detected (NotDetected); Parainfluenza Virus 3 PCR Not Detected (NotDetected); Parainfluenza Virus 4 PCR Not Detected (NotDetected); Respiratory Syncytial VirusPCR Not Detected (NotDetected); Rhinovirus/Enterovirus PCR Not Detected (NotDetected)
--- NOTE | 2023-08-11 12:45 | History & Physical Report ---
Date of Service August 11, 2023 Assessment & Plan (1) Atrial fibrillation with rapid ventricular response: Plan: Worsening SOB and leg swelling that began on 08/08 [employer] negative ECG on arrival revealed A-fib with RVR at 126 bpm Eliquis 5mg BID (dose-reduce if needed) Continue metoprolol tartrate 50 mg p.o. BID Additional metoprolol tartrate 5 mg IV q6h as needed for HR >140bpm A.m. CBC, BMP, mag (2) Acute on chronic systolic CHF (congestive heart failure): Plan: BNP elevated at 2202 (most recently 1811 on 06/30/2023) Last echocardiogram on 05/21/2023 revealed severely reduced EF at 15 to 20% and severely dilated left atrium; RVSP elevated at 4050mmHg (caution fluids) Continue hydralazine and isosorbide dihydrate Bumex 2 mg p.o. BID --> 4mg IV BID17 Daily weights Strict I and O monitoring AHA, low-sodium diet (fluid restrict at 1500 mL) (3) Type 2 diabetes mellitus: Plan: Last A1c at 6.9% on 05/21/2023 Glucose 185 on admission Hold glimepiride Will defer basal insulin in the setting of poor kidney function SSI; with target BSG range 110-140mg/dL, CF 50, carb ratio 15 T2DM diet BSG ACHS Adjust regimen as needed AM A1c (4) CKD (chronic kidney disease), stage IV: Plan: BUN 70, creatinine 3.49 (baseline around 2.49), EGFR 15.9 Avoid nephrotoxic agents for possible Follow a.m. BMP Plan Disposition: Admit to PCU telemetry DNR/DNI AHA, low-sodium (1500 mL fluid restriction) VTE PPx: On Eliquis History of Present Illness Chief Complaint: SOB/Dyspnea Primary Care Provider: REGINALD Snell is a 78-year-old male with PMH of A-fib w/ RVR (on Eliquis), CHF, ischemic cardiomyopathy, syncope, ICD, T2DM, HTN, and chronic kidney disease. He presented via EMS from [facility] on 08/10 for worsening SOB and LE edema x 2 days. Per [facility] staff, he also developed A-fib with RVR at 150 bpm today. Recent [place] hospitalization from 06/27 - 4/30 for decompensated heart failure and A-fib with RVR. He reports he has been conversationally dyspneic. Patient reports that he took his Bumex today, and has good consistency with taking the Bumex. He does note and consistently taking Eliquis, as the pill line is far from his cell, and he has difficulty walking that distance. No recent change in medications. He endorses both SOB at rest and with exertion; unsure if it is worse when he lies flat on his back. No syncopal episodes. No sick contacts. He does not use supplemental oxygen at home. His legs and ankles have been swelling for the past 4 days. No recent change in diet; he reports that he gets good protein, and his diet consists mainly of pasta and rice. He does watch his salt intake. In regard to weight changes, he reports he is actually lost some weight; no appetite. Patient is mildly tachycardic at 102 bpm as well as hypoxic at 85 SpO2 on RA at time of admission. ED course: Metoprolol titrate 5 mg IV x 2 Magnesium sulfate 1 g IV x 1 ROS: Patient endorses lightheadedness when standing, SOB at rest and with exertion, intermittent chest palpitations, dry cough, and b/l leg swelling. Patient denies fever, chills, nightsweats, body aches, syncope, dizziness, WOODS, chest pain, chest tightness/pressure, hemoptysis, orthopnea, abdominal pain, N/V/D, change in urinary/bowel habits, blood in urine/stool, or N/T/pain in the legs or arms. Allergies Allergy/AdvReac Type Severity Reaction Status Date / Time No Known Allergies Allergy Verified 08/11/23 13:10 Home Medications Medication Instructions Recorded Confirmed Type glimepiride 1 mg tablet 1 mg PO DAILY 06/29/20 08/11/23 History hydralazine 10 mg tablet 10 mg PO TID #90 tabs 03/06/21 08/11/23 Rx aspirin 81 mg tablet,delayed 81 mg PO DAILY 05/20/23 08/11/23 History release atorvastatin 40 mg tablet (Lipitor) 40 mg PO DAILY 05/20/23 08/11/23 History apixaban 5 mg tablet (Eliquis) 5 mg PO BID #0 tabs 05/23/23 08/11/23 Rx metoprolol tartrate 25 mg tablet 50 mg (2 x 25 mg) PO BID #0 tabs 05/23/23 08/11/23 Rx bumetanide 2 mg tablet 2 mg PO BID #60 tabs 07/04/23 08/11/23 Rx isosorbide dinitrate 20 mg tablet 10 mg (1/2 x 20 mg) PO 07/04/23 08/11/23 Rx BID@0700,1200 #60 tabs Past Med/Surg History Problem List (Updated 08/11/23 @ 13:35 by David Lopez PA-C) CKD (chronic kidney disease), stage IV Acute kidney injury superimposed on CKD (Acute) Atrial fibrillation with rapid ventricular response (Acute) CAD (coronary artery disease) Ischemic cardiomyopathy Atrial fibrillation, permanent Acute on chronic systolic CHF (congestive heart failure) (Acute) Pulmonary edema (Acute) Anemia Acute kidney injury superimposed on chronic kidney disease CKD (chronic kidney disease) Type 2 diabetes mellitus Closed fracture nasal bone (Acute) Atrial fibrillation with rapid ventricular response (Acute) Syncope (Acute) Atrial fibrillation with RVR Pleural effusion Pulmonary nodule COVID-19 (Acute) Fluid overload (Acute) Failure of outpatient treatment (Acute) COVID-19 Chronic kidney disease Enlarged prostate Chronic congestive heart failure Anticoagulant long-term use Shortness of breath (Acute) Back pain Atrial fibrillation (Acute) Hearing loss Urinary retention Medical History (Updated 08/11/23 @ 13:35 by David Lopez PA-C) Hypoxia Hyperkalemia Elevated troponin Hypocalcemia Valvular heart disease Heart failure CAD (coronary artery disease), [place] coronary artery Constipation Uremic encephalopathy Nausea & vomiting Acute hyponatremia Acute kidney injury Myocardial infarct Atherosclerotic heart disease coronary artery bypass grafting: Marvin to LAD. Saphenous vein graft to unknown vessel PCI to the 1st diagonal 11/24/2016 Hypertension Hypokalemia Hypercholesterolemia Surgical History Presence of single chamber implantable cardioverter-defibrillator (ICD) [place]. Implant 12/2018 S/P triple vessel bypass H/O heart artery stent Family History Grandmother Diabetes Social History Smoking Status: Former smoker Tobacco Type: Cigarettes Second Hand Exposure: No; Do You Dip or Chew Tobacco: No; Tobacco Cessation Education Requested by Patient: No Hx Alcohol Use: No Hx Substance Use: No Preferred Language: Cantonese Amharic Communication Ability: Effective Director Of Diagnostic Imaging Required: No Beliefs That Will Affect Care: Alevism Alevism Beliefs: Jehova Witness marital status: Single Current Living Situation: Other Current Living Situation Comment: correctional facility Other Information That Helps Us Care for You: No Feels Safe at Home: Yes Safety Concerns: Feels Safe At This Time Assistive Devices: None Review of Systems Review of Systems: See HPI above Physical Exam 2 Physical Exam: General: Mild respiratory distress; non-toxic appearing; well-nourished; cooperative HEENT: normocephalic, atraumatic; no scleral icterus; PERRLA; moist mucus membrane; vision and hearing grossly intact Neck: supple; no lymphadenopathy; trachea midline Skin: warm, dry without signs of tenting; no cyanosis; no rashes, bruising, lesions, or erythema noted CV: chest wall NTP; irregularly irregular rhythm, tachycardic around 105 bpm; S1/S2 normal; no murmurs/rubs/gallops; pulses intact and symmetric at radial, DP, and PT Lungs: Mild acute respiratory distress; conversationally dyspneic; symmetrical chest wall expansion; clear breath sounds across all lung young w/o adventitious sounds; no wheezing ABD: Soft, NTP; BS present; no rebound/guarding; no distention MSK: no tics or fasciculations; +2 pitting edema in the lower extremities extending up to the knees bilaterally, nonerythematous Neuro: A&Ox3; normal mood and affect; fluent speech; no focal deficits; sensation grossly intact in the LEs b/l Results & Data Results & Data Vital Signs (Past 12 Hours) Vital Signs Temp Pulse Resp BP Pulse Ox 08/11/23 12:32 102 H 115/84 08/11/23 12:09 116 H 106/79 08/11/23 11:55 106/81 08/11/23 11:54 126 H 24 85 L 08/11/23 11:33 114 H 31 H 79 L 08/11/23 11:30 101/79 08/11/23 11:30 99 H 101/79 08/11/23 11:27 99 H 42 H 86 L 08/11/23 11:13 95 08/11/23 11:05 144 H 124/103 H 08/11/23 11:03 123 H 08/11/23 10:37 144 H 22 95 08/11/23 10:23 36.5 C 132 H 22 124/89 95 Laboratory Results Abnormal lab results 08/11/23 Range/Units 11:00 RBC 4.30 L (4.70-6.10) M/uL Hgb 12.8 L (14.0-18.0) g/dl Hct 40.7 L (42.0-52.0) % MCHC 31.4 L (32.0-36.0) g/dL RDW Std Deviation 55.2 H (36.4-46.3) fL RDW Coeff of Tommie 15.9 H (11.5-14.5) % Lymph # (Auto) 0.63 L (1.20-3.40) K/uL PT 13.0 H (9.0-12.0) Seconds INR 1.2 H (0.9-1.1) Anion Gap 16 H (3-11) BUN 70 H (6-23) mg/dl Creatinine 3.49 H (0.6-1.4) mg/dl BUN/Creatinine Ratio 20.1 H (10-20) Glucose 185 H (70-99(Fasting)) mg/dl Magnesium 2.5 H (1.7-2.4) mg/dl Total Bilirubin 2.2 H (0.2-1.0) mg/dl Troponin I High Sens 41.4 H (0-20) pg/ml B-Natriuretic Peptide 2202 H (0-100) pg/ml Diagnostic Findings Chest X-Ray 08/11/23 10:37 XR chest 1V portable HISTORY: 78 years-old Male Dyspnea, afb rvr chf acute shortness of breath COMPARISON: 07/02/2023 TECHNIQUE: AP view of the chest FINDINGS: Cardiac silhouette is enlarged. Median sternotomy. Left subclavian pacer/ICD. No pneumothorax. Pulmonary vascular congestion with interstitial coarsening. Small pleural effusions with mild bibasilar densities. IMPRESSION: 1. Cardiomegaly with mild pulmonary edema. 2. Small pleural effusions with persistent mild bibasilar densities, unchanged. ACT 112: Negative or not required by law. The above report was generated using voice recognition software. It may contain grammatical, syntax or spelling errors. Electronically signed by: Albert Ruth M.D. 08/11/2023 11:33 AM ECG Additional Comments: ECG revealed A-fib with RVR and PVCs at 123 bpm; QTc 527 (caution use of QT prolonging agents) Code Status & VTE Plan Code Status DNR/DNI VTE Prophylaxis Plan VTE Prophylaxis will be ordered: Yes Supervising Physician Co-Signing Physician Notes Patient seen and examined, chart reviewed, case discussed with David Lopez PA-C and I agree with the assessment and plan as above except as otherwise noted Labs and images reviewed 78-year-old male inmate with history of A-fib RVR, CHF, nonischemic cardiomyopathy, type II DM, CKD who presented with worsened shortness of breath chest pain and lower extremity edema. Did have a transient episode of A-fib RVR, rate 100s while in the ER. He endorses dyspnea on exertion, orthopnea, and shortness of breath in conversation. He has been taking his Bumex. He does sometimes miss his medications as he has to walk a significant distance to get his medications at the present. He thinks he takes his medications about half the time on average over the course of the week. Have creatinine is chronically elevated with baseline ranging around 2.83.2, is slightly above normal baseline at 3.49 at time of admission. He is clinically volume overloaded with lower extremity edema, diminished lung sounds with crackles, and BNP of 2202. Agree with management including diuresis above. DDx does include PE with intermittent compliance with his Eliquis. Will continue his Eliquis; CTA is limited by renal function. He also has intermittent worsened dyspnea which seems to correlate with heart rate may be having runs of RVR leading to increased dyspnea. Heart of approximately 100, blood pressure is stable and he is saturating normally on room air at time of bedside assessment. Agree with above. PG Care Time/CCT Total # of Minutes Spent Total Time Spent with Patient: Total time spent is greater than 50% in coordination of care (as documented) at patient's floor/unit and/or counseling patient: C[place] [address] INT INP/OBS CARE 3/75MIN Patient Type Established History Comprehensive Exam Comprehensive Medical Decision Making High Complexity Diagnoses Atrial fibrillation with rapid ventricular response I48.91 Acute on chronic systolic CHF (congestive heart failure) I50.23 Type 2 diabetes mellitus E11.9 CKD (chronic kidney disease), stage IV N18.4
[2023-08-11] MEDS ORDERED: DEXTROSE 50% 50 ML SYRINGE IV PRN (15:53)
[2023-08-11] MEDS ORDERED: CARBOHYDRATES FOR HYPOGLYCEMIA PO PRN (15:53)
[2023-08-11] MEDS ORDERED: GLUCOSE 40% GEL 15 GM TUBE PO PRN (15:53)
[2023-08-11] MEDS ORDERED: ACETAMINOPHEN 325 MG TAB PO PRN (15:53)
[2023-08-11] MEDS ORDERED: GLUCAGON FOR INJ 1 MG VIAL SQ PRN (15:53)
[2023-08-11] MEDS ORDERED: GLUCOSE 10 TAB/TUBE PO PRN (15:53)
[2023-08-11] MEDS: hydrALAZINE 10 MG TAB PO SCH (17:00)
[2023-08-11] MEDS: BUMETANIDE 4 MG in SYRINGE 0 ML IV SCH (17:01)
[2023-08-11] MEDS: Patient's HEIGHT &/or WEIGHT Needed STA (17:09)
[2023-08-11] MEDS: INSULIN ASPART PER UNIT CHARGE SC SCH (17:10)
[2023-08-11] MEDS: METOPROLOL TARTRATE 50 MG TAB PO SCH (20:33)
[2023-08-11] MEDS: APIXABAN 5 MG TABLET PO SCH (20:49)
[2023-08-11] MEDS ORDERED: APIXABAN 2.5 MG TAB PO SCH (21:00)
--- NOTE | 2023-08-11 21:31 | Electrocardiogram Report ---
Test Reason : Blood Pressure : / mmHG Vent. Rate : 126 BPM Atrial Rate : 000 BPM P-R Int : 000 ms QRS Dur : 144 ms QT Int : 364 ms P-R-T Axes : 000 -69 113 degrees QTc Int : 527 ms Atrial fibrillation with rapid ventricular response with premature ventricular or aberrantly conducte d complexes Left axis deviation Non-specific intra-ventricular conduction block Cannot rule out Anterior infarct , age undetermined T wave abnormality, consider lateral ischemia Abnormal ECG When compared with ECG of 28-JUN-2023 11:04, Minimal criteria for Anterior infarct are now Present Confirmed by Cholo Mosquera ([id number]) on 08/11/2023 9:31:14 PM Referred By: Confirmed By:Cholo Mosquera
[2023-08-11] MEDS: METOPROLOL TARTRATE 1 MG/ML VIAL IV PRN (21:51)
[2023-08-11] MEDS ORDERED: ONDANSETRON INJ 2 MG/ML 2 ML VIAL IV PRN (22:17)
[2023-08-11] MEDS: ONDANSETRON INJ 2 MG/ML 2 ML VIAL IV STA (22:27)
[2023-08-12 06:21] LABS: Appearance Urine Clear (Clear); Bacteria Urine Automated None Seen (None Seen); Bilirubin Urine Negative (Negative); Blood Urine Negative (Negative); Cast Urine Automated 0-2 /lpf (0-2); Color Urine Yellow; Epithelial Cell Urine Auto 0-2 /hpf (0-2); Glucose Urine UA Negative (Negative); Ketones Urine Trace (Negative); Leukocyte Esterase Urine Negative (Negative); Nitrite Urine Negative (Negative); Protein Urine 1+ (Negative); RBC Urine Automated 0-2 /hpf (0-2); Specific Gravity Urine 1.012 (1.000-1.030); Urobilinogen Urine Negative (Negative); WBC Urine Automated 0-5 /hpf (0-5)
[2023-08-12 06:32] LABS: Basophils # (auto) 0.02 K/uL (0.00-0.20); Basophils % (auto) 0.3 %; Eosinophils # (auto) 0.01 K/uL (0.00-0.50); Eosinophils % (auto) 0.1 %; Hematocrit (blood only) 38.8 % (42.0-52.0); Hemoglobin 12.1 g/dl (14.0-18.0); Immature Granulocytes # (auto) 0.02 K/uL (0.01-0.20); Immature Granulocytes % (auto) 0.3 %; Lymphocytes # (auto) 1.12 K/uL (1.20-3.40); Mean Corpuscular Hemoglobin 29.4 pg (25.0-34.0); Mean Corpuscular Hgb Conc 31.2 g/dL (32.0-36.0); Mean Corpuscular Volume 94.2 fL (80.0-100.0); Mean Platelet Volume 12.1 fL (9.4-12.4); Monocytes # (auto) 0.77 K/uL (0.11-0.59); Monocytes % (auto) 10.3 %; Neutrophils # (auto) 5.52 K/uL (1.40-6.50); Platelet Count 194 K/uL (130-400); RDW Coefficient of Variation 15.5 % (11.5-14.5); RDW Standard Deviation 53.7 fL (36.4-46.3); Red Blood Count 4.12 M/uL (4.70-6.10); White Blood Count 7.46 K/ul (4.8-10.8)
[2023-08-12 06:45] LABS: BUN Creatinine Ratio 21.2 (10-20); Calcium 8.3 mg/dl (8.6-10.3); Creatinine Clr Calc Pharmacy 14.5 ml/min; Est GFR (African American) 16.1 ml/min; Est GFR (Non-African American) 13.9 ml/min; Magnesium 2.9 mg/dl (1.7-2.4); Potassium 5.1 mmol/L (3.5-5.1)
[2023-08-12 06:58] LABS: Estimated Average Glucose 151 mg/dl; Hemoglobin A1C 6.9 % (4.5-5.6)
[2023-08-12 07:01] LABS: INR 1.5 (0.9-1.1); Prothrombin Time 15.7 Seconds (9.0-12.0)
[2023-08-12] MEDS: ISOSORBIDE DINITRATE 20 MG TAB PO SCH (07:24)
[2023-08-12] MEDS: ATORVASTATIN 40 MG TAB PO SCH (09:07)
[2023-08-12] MEDS: ASPIRIN 81 MG ECTAB PO SCH (09:07)
--- NOTE | 2023-08-12 15:46 | Hospitalist Progress Note ---
Date of Service August 12, 2023 Assessment & Plan (1) Atrial fibrillation with rapid ventricular response: Plan: some of his a.fib with RVR could be compensatory in the setting of #2 below some of it could be from noncompliance with metoprolol either way rates are improving with simply putting him on his usual metoprolol tartrate of 50mg BID of note - given his severe CHF - he should be on metoprolol succinate can make the switch this admission TSH May 2023 wnl K/mag wnl (2) Acute on chronic systolic CHF (congestive heart failure): Plan: Last echocardiogram 05/21/2023 - EF 15-20% He is severely decompensated on examination today Typically takes bumex 2mg BID [facility] took an extra bumex 1mg due to worsening LE edema and dyspnea received 4mg of bumex IV this am with such his creatinine continues to rise; Creatinine now 4 (baseline high 2's/3) - c/w cardio-renal syndrome discussed his care with on-call cardiology will hold hydralazine to allow higher BPs to improve inotropy and hopefully improve renal perfusion will start dobutamine 5mcg/kg/min this evening once drip is running give bumex 2mg IV x 1 and follow UOP response BMP am cont metoprolol 50mg BID prognosis is guarded (3) Type 2 diabetes mellitus: Plan: Hba1c 6.9% this admission hold PO agents novolog SSI (4) CKD (chronic kidney disease), stage IV: Plan: Basline Creatinine high 2's Patient now with EVERETT as below (5) Acute kidney injury: Plan: cardio-renal syndrome in setting of severe systolic CHF attempts at diuresis since admission has led to ongoing increase in creatinine creatinine now 4 to help with inotropy and to improve renal perfusion will start dobutamine 5mcg/kg/min BMP am (6) Ischemic cardiomyopathy: Plan: known ischemic CM with resulting severe systolic CHF, EF 15-20% on last echo 2023 (7) Presence of single chamber implantable cardioverter-defibrillator (ICD): Plan: interrogation completed yesterday no recent discharges multiple episodes of SVT noted on interrogation - due to rapid a.fib histogram showed that at least 10-15% of the time his HRs are >100 BPM Plan DVT proph - Eliquis Admission and Anticipated Discharge Date Admission Date: August 11, 2023 Subjective tele overnight a.fib - rates as high as 130s, now improving to <100 during the visit he reports his breathing is better than at admission however, still short of breath with activity and still with LE edema ICD interrogation done yesterday - 5+ years of battery life HR histogram - about 10-15% of time is spent with HR >100 pt denies [facility] indis[facility] Review of Systems Review of Systems: gen - no fevers cv - no chest pains pulm - mild cough GI - no abd pain Physical Exam Physical Exam: gen - lying comfortably in bed, NAD neck - JVD to the jaw mouth - MMM heart - borderline tachy, s1 s2, irregularly irregular, no obvious murmur lungs - diffuse rales nearly all lung segments, occasional faint end-exp wheeze b/l abd - soft, body wall edema, BS+, NT ext - 1+ edema b/l, pulses 2+ b/l psych - a/o x 3 Results & Data Results & Data Vital Signs (Past 12 Hours) Vital Signs Temp Pulse Pulse Resp BP Pulse Ox O2 Del Method 08/12/23 14:00 93 H 08/12/23 11:37 36.5 C 118 H 22 116/83 85 L Room Air 08/12/23 07:51 36.4 C L 103 H 20 107/82 96 Nasal Cannula 08/12/23 07:45 Nasal Cannula 08/12/23 07:00 111 H 08/12/23 04:01 92 H 24 O2 Flow Rate 08/12/23 14:00 08/12/23 11:37 08/12/23 07:51 2 08/12/23 07:45 2 08/12/23 07:00 08/12/23 04:01 Laboratory Results Laboratory Results - last 24 hr 08/11/23 08/12/23 08/12/23 16:42 05:26 05:40 WBC 7.46 RBC 4.12 L Hgb 12.1 L Hct 38.8 L MCV 94.2 MCH 29.4 MCHC 31.2 L RDW Std Deviation 53.7 H RDW Coeff of Tommie 15.5 H Plt Count 194 MPV 12.1 Immature Gran % (Auto) 0.3 Neut % (Auto) 74.0 Lymph % (Auto) 15.0 [place] % (Auto) 10.3 Eos % (Auto) 0.1 Baso % (Auto) 0.3 Neut # (Auto) 5.52 Lymph # (Auto) 1.12 L [place]undy # (Auto) 0.77 H Eos # (Auto) 0.01 Baso # (Auto) 0.02 Immature Gran # (Auto) 0.02 PT 15.7 H INR 1.5 H Sodium 137 Potassium 5.1 Chloride 103 Carbon Dioxide 20 L Anion Gap 14 H BUN 83 H Creatinine 3.91 H D Est Cr Clr Drug Dosing 14.5 Est GFR ( Amer) 16.1 Est GFR (Non-Af Amer) 13.9 BUN/Creatinine Ratio 21.2 H Glucose 97 POC Glucose 158 H Estimat Average Glucose 151 Hemoglobin A1c 6.9 H Calcium 8.3 L Magnesium 2.9 H Urine Color Urine Appearance Urine pH Ur Specific Maskell Urine Protein Urine Glucose (UA) Urine Ketones Urine Blood Urine Nitrite Urine Bilirubin Urine Urobilinogen Ur Leukocyte Esterase Urine WBC (Auto) Urine RBC (Auto) U Hyaline Cast (Auto) U Epithel Cells (Auto) Urine Bacteria (Auto) Nasal Screen MRSA (PCR) Negative 08/12/23 06:02 WBC RBC Hgb Hct MCV MCH MCHC RDW Std Deviation RDW Coeff of Otmmie Plt Count MPV Immature Gran % (Auto) Neut % (Auto) Lymph % (Auto) [place] % (Auto) Eos % (Auto) Baso % (Auto) Neut # (Auto) Lymph # (Auto) [place]undy # (Auto) Eos # (Auto) Baso # (Auto) Immature Gran # (Auto) PT INR Sodium Potassium Chloride Carbon Dioxide Anion Gap BUN Creatinine Est Cr Clr Drug Dosing Est GFR ( Amer) Est GFR (Non-Af Amer) BUN/Creatinine Ratio Glucose POC Glucose Estimat Average Glucose Hemoglobin A1c Calcium Magnesium Urine Color Yellow Urine Appearance Clear Urine pH 5.0 Ur Specific [place]askell 1.012 Urine Protein 1+ H Urine Glucose (UA) Negative Urine Ketones Trace H Urine Blood Negative Urine Nitrite Negative Urine Bilirubin Negative Urine Urobilinogen Negative Ur Leukocyte Esterase Negative Urine WBC (Auto) 0-5 Urine RBC (Auto) 0-2 U Hyaline Cast (Auto) 0-2 U Epithel Cells (Auto) 0-2 Urine Bacteria (Auto) None Seen Nasal Screen MRSA (PCR) PG Care Time/CCT Total # of Minutes Spent Total Time Spent with Patient: Total time spent is greater than 50% in coordination of care (as documented) at patient's floor/unit and/or counseling patient: Coding Level of Care Code 55219 SUB INP/OBS CARE 3/50MIN Diagnoses Atrial fibrillation with rapid ventricular response I48.91 Acute on chronic systolic CHF (congestive heart failure) I50.23 Type 2 diabetes mellitus E11.9 CKD (chronic kidney disease), stage IV N18.4 Acute kidney injury N17.9 Ischemic cardiomyopathy I25.5 Presence of single chamber implantable cardioverter-defibrillator (ICD) Z95.810
[2023-08-12 16:45] LABS: BUN Creatinine Ratio 22.5 (10-20); Calcium 7.7 mg/dl (8.6-10.3); Creatinine Clr Calc Pharmacy 13.9 ml/min; Est GFR (African American) 15.3 ml/min; Est GFR (Non-African American) 13.2 ml/min; Potassium 4.9 mmol/L (3.5-5.1)
[2023-08-12] MEDS ORDERED: STAT IV Infusion **Titration per Protocol STA (18:25)
[2023-08-12] MEDS ORDERED: DOBUTamine / D5W 500 MG/250 ML BAG IV SCH (18:30)
[2023-08-12] MEDS: DEXTROSE IV SCH (19:19)
[2023-08-12] MEDS: DOBUTAMINE IV SCH (19:19)
[2023-08-12] MEDS: BUMETANIDE 2 MG in SYRINGE 0 ML IV ONE (20:19)
[2023-08-13 07:09] LABS: Calcium 7.4 mg/dl (8.6-10.3); Potassium 4.1 mmol/L (3.5-5.1)
[2023-08-13 07:14] LABS: Creatinine Clr Calc Pharmacy 15.3 ml/min; Est GFR (African American) 17.2 ml/min; Est GFR (Non-African American) 14.8 ml/min
[2023-08-13] MEDS: BUMETANIDE 3 MG in SYRINGE 0 ML IV ONE (10:23)
--- NOTE | 2023-08-13 12:25 | Hospitalist Progress Note ---
Date of Service August 13, 2023 Assessment & Plan (1) Acute on chronic systolic CHF (congestive heart failure): Plan: Last echocardiogram 05/21/2023 - EF 15-20% Remains decompensated on examination but volume status is improved from prior Typically takes bumex 2mg BID back at longterm A few days ago at the longterm he took an extra bumex 1mg due to worsening LE edema and dyspnea During first 24 hours of this hospitalization attempts at diuresis led to rise in creatinine with peak of 4 (baseline high 2's/3) - c/w cardio-renal syndrome discussed his care with on-call cardiology started dobutamine 5mcg/kg/min with hopes of improving inotropy and improving renal perfusion he has had good urine output with such and Cr improved to 3.7 today cont dobutamine infusion cont metoprolol (ultimately needs to be converted to meto succ) hold hydralazine cont nitrates plan 2-3mg of bumex IV BID moving forward patient does wish to see cardiology to discuss options for care -- consult placed to Dr Chandra (2) Atrial fibrillation with rapid ventricular response: Plan: some of his a.fib with RVR could be compensatory in the setting of #1 some of it could be from noncompliance with metoprolol either way rates are improved with simply putting him on his usual metoprolol tartrate of 50mg BID of note - given his severe CHF - he should be on metoprolol succinate can make the switch this admission TSH May 2023 wnl K/mag wnl (3) Type 2 diabetes mellitus: Plan: Hba1c 6.9% hold PO agents novolog SSI (4) CKD (chronic kidney disease), stage IV: Plan: Basline Creatinine high 2's Patient now with [facility] (5) Acute kidney injury: Plan: cardio-renal syndrome in setting of severe systolic CHF attempts at diuresis since admission led to ongoing increase in creatinine creatinine peak 4 mild improvement to 3.7 today - likely due to improved renal perfusion from IV dobutamine BMP am (6) Ischemic cardiomyopathy: Plan: known ischemic CM with resulting severe systolic CHF, EF 15-20% on last echo 2023 (7) Presence of single chamber implantable cardioverter-defibrillator (ICD): Plan: interrogation completed hospital day #1 no recent discharges multiple episodes of SVT noted on interrogation - due to rapid a.fib histogram showed that at least 10-15% of the time his HRs are >100 BPM Plan DVT proph - Eliquis Admission and Anticipated Discharge Date Admission Date: August 11, 2023 Subjective tele - a.fib, rates acceptable with most HRs <100 patient resting comfortably in bed states breathing is better he really hasn't been out of bed using urinal to collect his voids denies chest pain denies abd pain we had lengthy discussion about his cardiac and renal status and what this entails for him tolerating dobutamine infusion Review of Systems Review of Systems: gen - no fevers cv - no chest pain, no PND; edema legs improved GI - no N/V Physical Exam Physical Exam: gen - lying comfortably in bed, NAD neck - JVD remains -- to the jaw mouth - MMM heart - rate <100, s1 s2, irregularly irregular, no obvious murmur lungs - diffuse rales extending 1/[address] up back but improved from prior exam, no wheezes today abd - soft, body wall edema, BS+, NT ext - no edema b/l, pulses 2+ b/l psych - a/o x 3 Results & Data Results & Data Vital Signs (Past 12 Hours) Vital Signs Pulse Pulse Resp BP Pulse Ox O2 Del Method O2 Flow Rate 08/13/23 08:03 80 20 133/75 97 Nasal Cannula 2 08/13/23 08:01 76 08/13/23 03:00 72 17 131/71 Laboratory Results Laboratory Results - last 24 hr 08/12/23 08/13/23 16:15 06:06 Sodium 135 L 139 Potassium 4.9 4.1 Chloride 102 105 Carbon Dioxide 22 21 Anion Gap 11 13 H BUN 92 H 89 H Creatinine 4.08 H 3.71 H D Est Cr Clr Drug Dosing 13.9 15.3 Est GFR ( Amer) 15.3 17.2 Est GFR (Non-Af Amer) 13.2 14.8 BUN/Creatinine Ratio 22.5 H 24.0 H Glucose 131 H 60 L Calcium 7.7 L 7.4 L PG Care Time/CCT Total # of Minutes Spent Total Time Spent with Patient: Total time spent is greater than 50% in coordination of care (as documented) at patient's floor/unit and/or counseling patient: Coding Level of Care Code 25766 SUB INP/OBS CARE 2/35MIN Diagnoses Acute on chronic systolic CHF (congestive heart failure) I50.23 Atrial fibrillation with rapid ventricular response I48.91 Type 2 diabetes mellitus E11.9 CKD (chronic kidney disease), stage IV N18.4 Acute kidney injury N17.9 Ischemic cardiomyopathy I25.5 Presence of single chamber implantable cardioverter-defibrillator (ICD) Z95.810
[2023-08-13] MEDS: BUMETANIDE 2 MG in SYRINGE 0 ML IV ONE (21:16)
[2023-08-14 06:42] LABS: BUN Creatinine Ratio 23.1 (10-20); Calcium 7.3 mg/dl (8.6-10.3); Est GFR (African American) 19.5 ml/min; Est GFR (Non-African American) 16.8 ml/min; Potassium 3.7 mmol/L (3.5-5.1)
[2023-08-14] MEDS: BUMETANIDE 3 MG in SYRINGE 0 ML IV SCH (08:17)
--- NOTE | 2023-08-14 10:06 | Cardiology Consultation ---
Date of Consultation August 14, 2023 Assessment & Plan (1) CAD (coronary artery disease): (2) Ischemic cardiomyopathy: (3) Atrial fibrillation, permanent: (4) Acute on chronic systolic CHF (congestive heart failure): Plan 1. Decompensated left ventricular systolic failure: He is known to have a severe ischemic cardiomyopathy. Unclear precipitant. It is possible this simply represents progression of his heart disease. He seems to have an element of cardiorenal syndrome. Difficulty affecting a diuresis with normal regimen at this point. I think we are nearing a palliative situation. We can make some inquiries regarding more advanced therapies. 2. Ischemic cardiomyopathy: As an outpatient he was on hydralazine, isosorbide and metoprolol. Other therapies were not felt to be appropriate given his level of renal dysfunction. Hydralazine currently being held to facilitate better renal perfusion and diuresis. With a would be a candidate for more advanced therapy such as an LVAD is unclear. However, I will make some increase in this regard. 3. Coronary disease: History of surgical and percutaneous revascularization. No recent symptoms suggestive of coronary insufficiency or angina. No recent elevation in cardiac biomarkers. He will continue his daily aspirin and high- dose atorvastatin. 4. Atrial fibrillation: Permanent. Some elevated rates at the time of admission likely due to his decompensated heart failure. Now improved. Continue metoprolol and Eliquis. Eliquis appears appropriately dosed based on his age and weight. 5. Mitral regurgitation: Moderate. He seems to be affecting a good diuresis on dobutamine and bumetanide. I think we will continue the infusion in today watching his renal function and outputs. It is very likely that without some significant change in his therapy i.e. advanced therapies, this process will simply repeat itself and will eventually be in a palliative situation. History of Present Illness Reason for Consultation: Congestive heart failure Requesting Physician: Bina Attending Physician: Jim Curran MD History of Present Illness The patient is a 78-year-old gentleman with history coronary artery disease status post surgical and percutaneous revascularization, associated ischemic cardiomyopathy, decompensated left ventricular failure and permanent atrial fibrillation who was admitted to the hospital for symptoms of progressive lower extremity edema and dyspnea. Patient states that over several weeks he noticed worsening lower extremity edema. This was eventually followed by difficulty breathing even with little activity. He did not describe overt orthopnea. He denies dizziness or lightheadedness. He has not been aware of any palpitations. No symptoms of chest pain. In the past has been some concern about compliance with medications due to difficulty getting the medicines in the alf, but he does claim to be compliant recently. Patient has undergone some diuresis. Two days ago he was started on dobutamine infusion which appears to have improved his diuresis significantly. States that his symptoms have improved over the past couple of days. His lower extremity edema is now resolved. Allergies Allergy/AdvReac Type Severity Reaction Status Date / Time No Known Allergies Allergy Verified 08/11/23 13:10 Home Medications Medication Instructions Recorded Confirmed Type glimepiride 1 mg tablet 1 mg PO DAILY 06/29/20 08/11/23 History hydralazine 10 mg tablet 10 mg PO TID #90 tabs 03/06/21 08/11/23 Rx aspirin 81 mg tablet,delayed 81 mg PO DAILY 05/20/23 08/11/23 History release atorvastatin 40 mg tablet (Lipitor) 40 mg PO DAILY 05/20/23 08/11/23 History apixaban 5 mg tablet (Eliquis) 5 mg PO BID #0 tabs 05/23/23 08/11/23 Rx metoprolol tartrate 25 mg tablet 50 mg (2 x 25 mg) PO BID #0 tabs 05/23/23 08/11/23 Rx bumetanide 2 mg tablet 2 mg PO BID #60 tabs 07/04/23 08/11/23 Rx isosorbide dinitrate 20 mg tablet 10 mg (1/2 x 20 mg) PO 07/04/23 08/11/23 Rx BID@0700,1200 #60 tabs Patient History Medical History (Updated 08/13/23 @ 05:57 by Jim Curran MD) Hypoxia Hyperkalemia Elevated troponin Hypocalcemia Valvular heart disease Heart failure CAD (coronary artery disease), [place] coronary artery Constipation Uremic encephalopathy Nausea & vomiting Acute hyponatremia Myocardial infarct Atherosclerotic heart disease coronary artery bypass grafting: Marvin to LAD. Saphenous vein graft to unknown vessel PCI to the 1st diagonal 11/24/2016 Hypertension Hypokalemia Hypercholesterolemia Surgical History Presence of single chamber implantable cardioverter-defibrillator (ICD) [place]. Implant 12/2018 S/P triple vessel bypass H/O heart artery stent Family History Grandmother Diabetes Social History Smoking Status: Former smoker Tobacco Type: Cigarettes Second Hand Exposure: No; Do You Dip or Chew Tobacco: No; Tobacco Cessation Education Requested by Patient: No Hx Alcohol Use: No Hx Substance Use: No Preferred Language: Cantonese Setswana Communication Ability: Effective Whip Operator Required: No Beliefs That Will Affect Care: Synagogue Synagogue Beliefs: Jeh[employer] Witness marital status: Single Current Living Situation: Other Current Living Situation Comment: correctional facility Other Information That Helps Us Care for You: No Feels Safe at Home: Yes Safety Concerns: Feels Safe At This Time Assistive Devices: None Review of Systems Review of Systems: Per HPI Physical Exam Physical Exam: The patient is alert and oriented. Mood and affect appeared normal. He answered all questions appropriately. Sitting upright HEENT: Pupils are equal and reactive to light and accommodation. Extraocular movements are intact. The sclerae are anicteric. Neuro: Cranial nerves intact Lungs: Rales in both lung young to the mid lung. No expiratory wheezing. Normal respiratory effort. Cardiac: Heart demonstrates an irregular rhythm but normal rate. Normal S1 and S2. No murmurs on examination. Pulses: The patient has palpable radial pulses bilaterally that are equal in intensity Extremities: There was no evidence of hypoperfusion. There is no cyanosis or clubbing. There is no edema. Skin: I did not appreciate any rashes on examination today. Results & Data Vital Signs (Past 12 Hours) Vital Signs Temp Pulse Pulse Resp BP Pulse Ox O2 Del Method 08/14/23 07:47 36.3 C L 84 18 136/80 98 Nasal Cannula 08/14/23 07:40 91 H 08/14/23 02:59 36.4 C L 78 19 106/67 95 Nasal Cannula 08/13/23 23:00 89 08/13/23 22:09 Nasal Cannula 08/13/23 22:02 37.2 C 103 H 18 123/75 97 Nasal Cannula O2 Flow Rate 08/14/23 07:47 2.0 08/14/23 07:40 08/14/23 02:59 08/13/23 23:00 06/09/24 22:09 2 08/13/23 22:02 2 Laboratory Results Abnormal Lab Results 08/14/23 05:46 Sodium 139 Potassium 3.7 Chloride 104 Carbon Dioxide 23 Anion Gap 12 H BUN 77 H Creatinine 3.34 H D Est Cr Clr Drug Dosing 17.0 Est GFR ( Amer) 19.5 Est GFR (Non-Af Amer) 16.8 BUN/Creatinine Ratio 23.1 H Glucose 66 L Calcium 7.3 L Diagnostic Findings Echocardiogram obtained 05/21/2023: Severely reduced LV systolic function with ejection fraction of 15-20%. Mild left ventricular dilation. Severe left atrial dilation. Moderate mitral regurgitation. Elevated right ventricular systolic pressure. PG Care Time/CCT Total # of Minutes Spent Total Time Spent with Patient: Total time spent is greater than 50% in coordination of care (as documented) at patient's floor/unit and/or counseling patient: Coding Level of Care Code 79011 INT INP/OBS CARE 3/75MIN Diagnoses Coronary artery disease involving seneca coronary artery of [place] heart without angina pectoris I25.10 Coronary Disease-Associated Artery/Lesion type: [place] artery [place] vs. transplanted heart: [place] heart Associated angina: without angina Ischemic cardiomyopathy I25.5 Atrial fibrillation, permanent I48.21 Acute on chronic systolic CHF (congestive heart failure) I50.23 (1) CAD (coronary artery disease) Coronary Disease-Associated Artery/Lesion type: [place] artery [place] vs. transplanted heart: [place] heart Associated angina: without angina Qualified Code(s): I25.10 - Atherosclerotic heart disease of [place] coronary artery without angina pectoris
--- NOTE | 2023-08-14 23:38 | Hospitalist Progress Note ---
Date of Service August 14, 2023 Assessment & Plan (1) Acute on chronic systolic CHF (congestive heart failure): Plan: Decompensation improving with use of dobutamine infusion & bumex BID. Creatinine decreasing, good UOP, weight decreasing. Last echocardiogram 05/21/2023 - EF 15-20% During first 24 hours of this hospitalization attempts at diuresis led to rise in creatinine with peak of 4 (baseline high 2's/3) - c/w cardio-renal syndrome Started dobutamine 5mcg/kg/min with hopes of improving inotropy and improving renal perfusion Fortunately he has responded well to the dobutamine with good UOP and Cr again improved today to 3.34 cont dobutamine infusion at 5mcg cont metoprolol (ultimately needs to be converted to meto succ) cont to hold hydralazine cont nitrates plan 3mg of bumex IV BID BMP am appreciate Dr Chandra's consultation see his note -- ? of pursuing more advanced therapies (LVAD, etc)? defer such to cardiology (2) Atrial fibrillation with rapid ventricular response: Plan: some of his a.fib with RVR was likely compensatory in the setting of #1 some of it could have been from noncompliance with metoprolol either way rates are improved with simply putting him on his usual metoprolol tartrate of 50mg BID of note - given his severe CHF - he should be on metoprolol succinate make the switch later in the admission TSH wnl - May 2023 K/mag wnl (3) Type 2 diabetes mellitus: Plan: Hba1c 6.9% holding glimepiride suspect the low AM glucose levels likely due to retained glimepiride in the setting of advanced kidney disease he should NOT resume glimepiride at discharge; contraindicated due to the advanced CKD novolog SSI prn (4) CKD (chronic kidney disease), stage IV: Plan: Basline Creatinine high 2's Baseline CrCl 15-25 Patient now with [facility] - see below (5) Acute kidney injury: Plan: cardio-renal syndrome in setting of severe systolic CHF creatinine peak 4 again improved today to 3.3 improvement likely due to improved renal perfusion from IV dobutamine BMP am (6) Ischemic cardiomyopathy: Plan: known ischemic CM with resulting severe systolic CHF, EF 15-20% on last echo 2023 (7) Presence of single chamber implantable cardioverter-defibrillator (ICD): Plan: interrogation completed hospital day #1 no recent discharges multiple episodes of SVT noted on interrogation - due to rapid a.fib histogram showed that at least 10-15% of the time his HRs are >100 BPM (8) Hypoglycemia: Plan: likely 2nd to pre-hospital glimepiride in the setting of advanced kidney disease repeat BSG later in the day today was normal BMP am would NOT resume any sulfonylurea at discharge Plan DVT proph - Eliquis slowly progressing appreciate Dr Chandra's consultation Admission and Anticipated Discharge Date Admission Date: August 11, 2023 Subjective tele overnight - a.fib, most rates <100, some low 100s patient resting in bed comfortably states his breathing is much improved no dyspnea at rest no PND/orthopnea no peripheral edema no chest pain Review of Systems Review of Systems: CV - no chest pains pulm - no cough GI - no abd pain Physical Exam Physical Exam: gen - lying comfortably in bed, NAD neck - JVD present but mild and much improved today mouth - MMM heart - rate ~100, s1 s2, irregularly irregular, no obvious murmur lungs - mild basilar rales b/l - much improved from prior exams; good airation; no wheezes; no increased work of breathing abd - soft, NT, ND, BS+, no HSM ext - no edema b/l, pulses 2+ b/l psych - a/o x 3 Results & Data Results & Data Vital Signs (Past 12 Hours) Vital Signs Temp Pulse Pulse Resp BP Pulse Ox O2 Del Method 08/14/23 19:10 36.6 C 99 H 18 113/72 96 Nasal Cannula 08/14/23 15:27 36.6 C 98 H 18 106/69 95 Nasal Cannula 08/14/23 15:23 99 H Laboratory Results Laboratory Results - last 24 hr 08/14/23 08/14/23 05:46 15:50 Sodium 139 Potassium 3.7 Chloride 104 Carbon Dioxide 23 Anion Gap 12 H BUN 77 H Creatinine 3.34 H D Est Cr Clr Drug Dosing 17.0 Est GFR ( Amer) 19.5 Est GFR (Non-Af Amer) 16.8 BUN/Creatinine Ratio 23.1 H Glucose 66 L POC Glucose 112 H Calcium 7.3 L PG Care Time/CCT Total # of Minutes Spent Total Time Spent with Patient: Total time spent is greater than 50% in coordination of care (as documented) at patient's floor/unit and/or counseling patient: Coding Level of Care Code 51949 SUB INP/OBS CARE 2/35MIN Diagnoses Acute on chronic systolic CHF (congestive heart failure) I50.23 Atrial fibrillation with rapid ventricular response I48.91 Type 2 diabetes mellitus E11.9 CKD (chronic kidney disease), stage IV N18.4 Acute kidney injury N17.9 Ischemic cardiomyopathy I25.5 Presence of single chamber implantable cardioverter-defibrillator (ICD) Z95.810 Hypoglycemia E16.2
[2023-08-15 06:54] LABS: BUN Creatinine Ratio 20.5 (10-20); Calcium 7.4 mg/dl (8.6-10.3); Creatinine Clr Calc Pharmacy 16.4 ml/min; Est GFR (African American) 18.6 ml/min; Est GFR (Non-African American) 16.1 ml/min; Potassium 3.9 mmol/L (3.5-5.1)
[2023-08-15] MEDS: SENNA 8.6 MG TAB PO SCH (09:09)
[2023-08-15] MEDS: POLYETHYLENE (MIRALAX) 17 GM PACK PO SCH (09:18)
--- NOTE | 2023-08-15 13:37 | Hospitalist Progress Note ---
Date of Service August 15, 2023 Assessment & Plan (1) Acute on chronic systolic CHF (congestive heart failure): Plan: Decompensation improving with use of dobutamine infusion & bumex BID. Creatinine decreasing, good UOP, weight decreasing. Last echocardiogram 05/21/2023 - EF 15-20% During first 24 hours of this hospitalization attempts at diuresis led to rise in creatinine with peak of 4 (baseline high 2's/3) - c/w cardio-renal syndrome Placed on dobutamine drip to improve inotropic and renal perfusion. Good response to this regimen, good urine output and creatinine improvement Dobutamine drip discontinued 08/15/2023 Return to oral regimen of Bumex and monitor if patient can maintain euvolemia Per cardiology, the [facility] does not have staff familiar with advanced therapies for heart failure. Therefore, referrals for advanced therapies are most likely not worthwhile at this point. This is likely a palliative situation, consider consulting palliative care cont metoprolol (ultimately needs to be converted to meto succ) cont oral home Bumex regimen cont nitrates cont isosorbide cont to hold hydralazine appreciate Dr Chandra's consultation (2) Atrial fibrillation with rapid ventricular response: Plan: some of his a.fib with RVR was likely compensatory in the setting of #1 some of it could have been from noncompliance with metoprolol either way rates are improved with simply putting him on his usual metoprolol tartrate of 50mg BID of note - given his severe CHF - he should be on metoprolol succinate make the switch later in the admission TSH wnl - May 2023 K/mag wnl (3) Type 2 diabetes mellitus: Plan: Hba1c 6.9% holding glimepiride suspect the low AM glucose levels likely due to retained glimepiride in the setting of advanced kidney disease he should NOT resume glimepiride at discharge; contraindicated due to the advanced CKD novolog SSI prn (4) CKD (chronic kidney disease), stage IV: Plan: Basline Creatinine high 2's Baseline CrCl 15-25 Patient now with [facility] - see below (5) Acute kidney injury: Plan: cardio-renal syndrome in setting of severe systolic CHF creatinine peak 4 Improved today to 3.47 improvement likely due to improved renal perfusion from IV dobutamine BMP am (6) Presence of single chamber implantable cardioverter-defibrillator (ICD): Plan: interrogation completed hospital day #1 no recent discharges multiple episodes of SVT noted on interrogation - due to rapid a.fib histogram showed that at least 10-15% of the time his HRs are >100 BPM (7) Hypoglycemia: Plan: likely 2nd to pre-hospital glimepiride in the setting of advanced kidney disease repeat BSG later in the day today was normal BMP am would NOT resume any sulfonylurea at discharge Plan Discussed case with cardiology Discussed discharge planning with case management Stopped dobutamine drip DVT proph - Eliquis CODE STATUS: DNR/DNI Admission and Anticipated Discharge Date Admission Date: August 11, 2023 Subjective Patient seen and evaluated at bedside with [facility] guards in the room. He is resting comfortably in bed on room air. He denies any shortness of breath, difficulty breathing, orthopnea, palpitations, or chest pain. Heart rate has been controlled today. Will stop dobutamine drip today and see how patient does overnight. He is anxious to be discharged, but has no further complaints at this time. Physical Exam Physical Exam: General: No acute distress, nondiaphoretic, well-developed, well-nourished. Skin: The skin was without rashes, erythema, edema, or bruising. Cardiac: Irregular rhythm, normal rate, without murmurs gallops or rubs. Pulm: Mild basilar rales bilaterally, improved. Good aeration, no wheezes. No increased work of breathing or respiratory distress. Abdominal: Soft, nontender, nondistended. Bowel sounds present. Neuro: A&O x3. No focal neurological deficits. Results & Data Results & Data Vital Signs (Past 12 Hours) Vital Signs Temp Pulse Pulse Resp BP Pulse Ox O2 Del Method 08/15/23 11:23 36.3 C L 81 18 114/69 18 L Nasal Cannula 08/15/23 09:00 Room Air 08/15/23 07:36 36.5 C 83 18 99/54 L 93 Nasal Cannula 08/15/23 07:34 81 08/15/23 03:22 36.5 C 90 20 108/72 94 Room Air O2 Flow Rate 08/15/23 11:23 2.0 08/15/23 09:00 08/15/23 07:36 2.0 08/15/23 07:34 08/15/23 03:22 Laboratory Results Reviewed [facility] PG Care Time/CCT Total # of Minutes Spent Total Time Spent with Patient: Total time spent is greater than 50% in coordination of care (as documented) at patient's floor/unit and/or counseling patient: Coding Level of Care Code 80170 SUB INP/OBS CARE 3/50MIN Diagnoses Acute on chronic systolic CHF (congestive heart failure) I50.23 Atrial fibrillation with rapid ventricular response I48.91 Type 2 diabetes mellitus E11.9 CKD (chronic kidney disease), stage IV N18.4 Acute kidney injury N17.9 Presence of single chamber implantable cardioverter-defibrillator (ICD) Z95.810 Hypoglycemia E16.2
--- NOTE | 2023-08-15 16:56 | Cardiology Progress Note ---
Date of Service August 15, 2023 Assessment & Plan (1) CAD (coronary artery disease): (2) Ischemic cardiomyopathy: (3) Atrial fibrillation, permanent: (4) Acute on chronic systolic CHF (congestive heart failure): Plan 1. Decompensated left ventricular systolic failure: He has affected a good diuresis on dobutamine. Dobutamine stopped today. Will switch back to oral regimen of Bumex to see if he can maintain euvolemia. I had discussion with his physician at the present facility. They do not have staff familiar with advanced therapies for heart failure. As such, I am not sure any referral is worthwhile. Patient is likely in a palliative situation. 2. Ischemic cardiomyopathy: He can continue metoprolol and isosorbide. Hydralazine currently being held. Not a good candidate for additional therapies given his renal dysfunction. 3. Coronary disease: Continue aspirin high-dose atorvastatin. 4. Atrial fibrillation: Permanent. Some elevated rates at the time of admission likely due to his decompensated heart failure. Now improved. Continue metoprolol and Eliquis. Eliquis appears appropriately dosed based on his age and weight. 5. Mitral regurgitation: Moderate. Admission and Anticipated Discharge Date Admission Date: August 11, 2023 Subjective This afternoon the patient claimed he feeling well. He denies significant bre thing difficulty. No chest pain. No palpitations. No lower extremity edema. Review of Systems Review of Systems: Per HPI Physical Exam Physical Exam: The patient is alert and oriented. Mood and affect appeared normal. He answered all questions appropriately. HEENT: Pupils are equal and reactive to light and accommodation. Extraocular movements are intact. The sclerae are anicteric. Neuro: Cranial nerves intact Lungs: Rales in both lung young to the mid lung. No expiratory wheezing. Normal respiratory effort. Cardiac: Heart demonstrates an irregular rhythm but normal rate. Normal S1 and S2. No murmurs on examination. Pulses: The patient has palpable radial pulses bilaterally that are equal in intensity Extremities: There was no evidence of hypoperfusion. There is no cyanosis or clubbing. There is no edema. Skin: I did not appreciate any rashes on examination today. Results & Data Vital Signs (Past 12 Hours) Vital Signs Temp Pulse Pulse Resp BP Pulse Ox O2 Del Method 08/15/23 16:00 Room Air 08/15/23 15:44 36.6 C 97 H 18 105/68 95 Nasal Cannula 08/15/23 15:00 86 08/15/23 11:23 36.3 C L 81 18 114/69 18 L Nasal Cannula 08/15/23 09:00 Room Air 08/15/23 07:36 36.5 C 83 18 99/54 L 93 Nasal Cannula 08/15/23 07:34 81 O2 Flow Rate 08/15/23 16:00 08/15/23 15:44 2.0 08/15/23 15:00 08/15/23 11:23 2.0 08/15/23 09:00 08/15/23 07:36 2.0 08/15/23 07:34 Laboratory Results Abnormal Lab Results 08/15/23 05:44 Sodium 139 Potassium 3.9 Chloride 104 Carbon Dioxide 25 Anion Gap 10 BUN 71 H Creatinine 3.47 H Est Cr Clr Drug Dosing 16.4 Est GFR ( Amer) 18.6 Est GFR (Non-Af Amer) 16.1 BUN/Creatinine Ratio 20.5 H Glucose 98 Calcium 7.4 L PG Care Time/CCT Total # of Minutes Spent Total Time Spent with Patient: Total time spent is greater than 50% in coordination of care (as documented) at patient's floor/unit and/or counseling patient: Coding Level of Care Code 71619 SUB INP/OBS CARE 235MIN Diagnoses Coronary artery disease involving algaaciq coronary artery of algaaciq heart without angina pectoris I25.10 Coronary Disease-Associated Artery/Lesion type: algaaciq artery [place] vs. transplanted heart: algaaciq heart Associated angina: without angina Ischemic cardiomyopathy I25.5 Atrial fibrillation, permanent I48.21 Acute on chronic systolic CHF (congestive heart failure) I50.23 (1) CAD (coronary artery disease) Coronary Disease-Associated Artery/Lesion type: algaaciq artery [place] vs. transplanted heart: algaaciq heart Associated angina: without angina Qualified Code(s): I25.10 - Atherosclerotic heart disease of algaaciq coronary artery without angina pectoris
[2023-08-16 06:53] LABS: Hematocrit (blood only) 37.1 % (42.0-52.0); Hemoglobin 11.8 g/dl (14.0-18.0); Mean Corpuscular Hemoglobin 29.5 pg (25.0-34.0); Mean Corpuscular Hgb Conc 31.8 g/dL (32.0-36.0); Mean Corpuscular Volume 92.8 fL (80.0-100.0); Mean Platelet Volume 11.1 fL (9.4-12.4); Platelet Count 198 K/uL (130-400); RDW Coefficient of Variation 15.6 % (11.5-14.5); RDW Standard Deviation 52.8 fL (36.4-46.3); White Blood Count 6.36 K/ul (4.8-10.8)
[2023-08-16 07:22] LABS: Creatinine Clr Calc Pharmacy 18.6 ml/min; Est GFR (African American) 21.8 ml/min; Est GFR (Non-African American) 18.8 ml/min; Potassium 4.3 mmol/L (3.5-5.1)
[2023-08-16] MEDS: BUMETANIDE 1 MG TAB PO SCH (09:46)
--- NOTE | 2023-08-16 16:15 | Discharge Summary ---
Discharge Summary Date of Service August 16, 2023 Principal Dx & Hospital Course #1 = Principal Diagnosis (1) Acute on chronic systolic CHF (congestive heart failure): During first 24 hours of this hospitalization attempts at diuresis led to rise in creatinine with peak of 4 (baseline high 2's/3) - c/w cardio-renal syndrome Placed on dobutamine drip to improve inotropic and renal perfusion. Good response to this regimen, good urine output and creatinine improvement Decompensation improving with use of dobutamine infusion & bumex BID. Dobutamine drip discontinued 08/15/2023 Last echocardiogram 05/21/2023 - EF 15-20% Returned to oral regimen of Bumex, patient maintained euvolemia Per cardiology, [facility] not have [facility] familiar with advanced therapies for heart failure. Therefore, referrals for advanced therapies are most likely not worthwhile at this point. This is likely a palliative situation. Discussed having an outpatient appointment with palliative care to establish goals of care, however patient declined at this time. Metoprolol converted to metoprolol succinate 50 mg twice daily. Was previously on metoprolol tartrate 50 mg twice daily. cont oral home Bumex regimen cont nitrates cont isosorbide cont hydralazine, but have low threshold for holding it due to hypotension (2) Atrial fibrillation with rapid ventricular response: some of his a.fib with RVR was likely compensatory in the setting of #1 some of it could have been from noncompliance with metoprolol either way rates are improved with simply putting him on his usual metoprolol tartrate of 50mg BID of note - given his severe CHF - he should be on metoprolol succinate Switched to metoprolol succinate on discharge TSH wnl - May 2023 K/mag wnl (3) Type 2 diabetes mellitus: Hba1c 6.9% holding glimepiride suspect the low AM glucose levels likely due to retained glimepiride in the setting of advanced kidney disease Discontinued glimepiride at discharge; contraindicated due to the advanced CKD (4) CKD (chronic kidney disease), stage IV: Basline Creatinine high 2's Baseline CrCl 15-25 Patient now with [facility] - see below (5) Acute kidney injury: cardio-renal syndrome in setting of severe systolic CHF creatinine peak 4 Improved to 3.05 on day of discharge improvement likely due to improved renal perfusion from IV dobutamine (6) Hypoglycemia: likely 2nd to pre-hospital glimepiride in the setting of advanced kidney disease repeat BSG later in the day today was normal BMP am would NOT resume any sulfonylurea moving forward (7) Presence of single chamber implantable cardioverter-defibrillator (ICD): interrogation completed hospital day #1 no recent discharges multiple episodes of SVT noted on interrogation - due to rapid a.fib histogram showed that at least 10-15% of the time his HRs are >100 BPM Plan DVT proph - Eliquis CODE STATUS: DNR/DNI Notes For Next Care Provider Patient's complicated cardiac history most likely a palliative situation at this time. Discussed having an outpatient appointment with palliative care to establish goals of care, however patient declined at this time. Medication Changes From Visit Switched to metoprolol succinate 50 mg twice daily. Was previously on metoprolol to tartrate 50 mg twice daily. Discontinued glimepiride, as this is contraindicated in advanced CKD. Admission HPI Per Admitting Provider Alis is a 78-year-old male with PMH of A-fib w/ RVR (on Eliquis), CHF, ischemic cardiomyopathy, syncope, ICD, T2DM, HTN, and chronic kidney disease. He presented via EMS from [facility] on 08/10 for worsening SOB and LE edema x 2 days. Per [facility] staff, he also developed A-fib with RVR at 150 bpm today. Recent [place] hospitalization from 06/27 - 07/03 for decompensated heart failure and A-fib with RVR. He reports he has been conversationally dyspneic. Patient reports that he took his Bumex today, and has good consistency with taking the Bumex. He does note and consistently taking Eliquis, as the pill line is far from his cell, and he has difficulty walking that distance. No recent change in medications. He endorses both SOB at rest and with exertion; unsure if it is worse when he lies flat on his back. No syncopal episodes. No sick contacts. He does not use supplemental oxygen at home. His legs and ankles have been swelling for the past 4 days. No recent change in diet; he reports that he gets good protein, and his diet consists mainly of pasta and rice. He does watch his salt intake. In regard to weight changes, he reports he is actually lost some weight; no appetite. Patient is mildly tachycardic at 102 bpm as well as hypoxic at 85 SpO2 on RA at time of admission. ED course: Metoprolol titrate 5 mg IV x 2 Magnesium sulfate 1 g IV x 1 ROS: Patient endorses lightheadedness when standing, SOB at rest and with exertion, intermittent chest palpitations, dry cough, and b/l leg swelling. Patient denies fever, chills, nightsweats, body aches, syncope, dizziness, WOODS, chest pain, chest tightness/pressure, hemoptysis, orthopnea, abdominal pain, N/V/D, change in urinary/bowel habits, blood in urine/stool, or N/T/pain in the legs or arms. Admission Exam Per Admitting Provider General: Mild respiratory distress; non-toxic appearing; well-nourished; cooperative HEENT: normocephalic, atraumatic; no scleral icterus; PERRLA; moist mucus membrane; vision and hearing grossly intact Neck: supple; no lymphadenopathy; trachea midline Skin: warm, dry without signs of tenting; no cyanosis; no rashes, bruising, lesions, or erythema noted CV: chest wall NTP; irregularly irregular rhythm, tachycardic around 105 bpm; S1/S2 normal; no murmurs/rubs/gallops; pulses intact and symmetric at radial, DP, and PT Lungs: Mild acute respiratory distress; conversationally dyspneic; symmetrical chest wall expansion; clear breath sounds across all lung young w/o adventitious sounds; no wheezing ABD: Soft, NTP; BS present; no rebound/guarding; no distention MSK: no tics or fasciculations; +2 pitting edema in the lower extremities extending up to the knees bilaterally, nonerythematous Neuro: A&Ox3; normal mood and affect; fluent speech; no focal deficits; sensation grossly intact in the LEs b/l Discharge Exam General: No acute distress, nondiaphoretic, well-developed, well-nourished. Skin: The skin was without rashes, erythema, edema, or bruising. Cardiac: Irregular rhythm, normal rate, without murmurs gallops or rubs. Pulm: Mild basilar rales bilaterally, improved. Good aeration, no wheezes. No increased work of breathing or respiratory distress. Abdominal: Soft, nontender, nondistended. Bowel sounds present. Neuro: A&O x3. No focal neurological deficits. Updated Medication List Medication Instructions Recorded Confirmed Type hydralazine 10 mg tablet 10 mg PO TID #90 tabs 03/06/21 08/11/23 Rx aspirin 81 mg tablet,delayed 81 mg PO DAILY 05/20/23 08/11/23 History release atorvastatin 40 mg tablet (Lipitor) 40 mg PO DAILY 05/20/23 08/11/23 History apixaban 5 mg tablet (Eliquis) 5 mg PO BID #0 tabs 05/23/23 08/11/23 Rx bumetanide 2 mg tablet 2 mg PO BID #60 tabs 07/04/23 08/11/23 Rx isosorbide dinitrate 20 mg tablet 10 mg (1/2 x 20 mg) PO 07/04/23 08/11/23 Rx BID@0700,1200 #60 tabs metoprolol succinate 50 mg 50 mg PO BID #60 tabs 08/16/23 Rx tablet,extended release 24 hr Hospital Stay Data Consultations 08/11/23 12:35 ED Decision to Admit Stat 08/13/23 12:25 Consult Cardiology Routine Pending Results Patient Have Any Pending Studies at Discharge: No Discharge Instructions Given to Patient (Per Discharging Provider) FOR CORTNEY SCI: Mr. Bonilla was admitted to the hospital with acute on chronic systolic congestive heart failure. He required a dobutamine drip to produce good urine output and renal perfusion. He was returned to his oral regimen of Bumex and maintained euvolemia. Additionally, he had A-fib with RVR, likely compensatory in the setting of acute on chronic CHF. He had an acute kidney injury due to cardiorenal syndrome in setting of severe systolic CHF. After improved renal perfusion from IV dobutamine, creatinine returned to baseline. Overall, patient has a poor prognosis. I did have a discussion with Mr. Bonilla about an appointment with palliative care, however he was not interested at this time. Upon discharge from the hospital: * Switched to metoprolol succinate 50 mg twice daily for rate control with severe CHF. Was previously on metoprolol tartrate 50 mg twice daily. * Discontinued glimepiride. This is contraindicated in advanced CKD. I suspect his low morning glucose levels are likely due to retained glimepiride in the setting of advanced CKD. * Closely monitor blood pressures, and have a low threshold to hold hydralazine in setting of hypotension. * Continue oral Bumex regimen, continue nitrates, continue isosorbide, continue Eliquis, continue Lipitor, continue aspirin. It is very important that Mr. Bonilla receives his Bumex and metoprolol as prescribed to prevent decompensation and acute heart failure exacerbation. Additionally, it is important that he takes his Eliquis as prescribed to prevent stroke or PE. 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 Thank you, Lupe Randhawa PA-C Total Time Total Time Spent Total Time Spent (In Minutes): Greater than 30 minutes spent completing this discharge process including direct patient care, medication reconciliation, documentation, review of labs and images, and coordination of care. Coding Level of Care Code 25422 INP/OBS DISCH >30 MIN Diagnoses Acute on chronic systolic CHF (congestive heart failure) I50.23 Atrial fibrillation with rapid ventricular response I48.91 Type 2 diabetes mellitus E11.9 CKD (chronic kidney disease), stage IV N18.4 Acute kidney injury N17.9 Hypoglycemia E16.2 Presence of single chamber implantable cardioverter-defibrillator (ICD) Z95.810
== END 2023-08-16 15:58 | DRG 291 ==
LOC: ED 10:21 → 4W 13:23 → SUATTDRO 13:23 → 4W 15:09
DX: Z79.84 Long term (current) use of oral hypoglycemic drugs; Z87.891 Personal history of nicotine dependence; Z95.810 Presence of automatic (implantable) cardiac defibrillator; E11.649 Type 2 diabetes mellitus with hypoglycemia without coma; Z79.82 Long term (current) use of aspirin; Z91.128 Patient's intentional underdosing of medication regimen for other reason; I25.5 Ischemic cardiomyopathy; T44.7X6A Underdosing of beta-adrenoreceptor antagonists, initial encounter; Z79.899 Other long term (current) drug therapy; Z95.5 Presence of coronary angioplasty implant and graft; N17.9 Acute kidney failure, unspecified; Z66 Do not resuscitate; N18.4 Chronic kidney disease, stage 4 (severe); I50.23 Acute on chronic systolic (congestive) heart failure; Z11.52 Encounter for screening for COVID-19; I25.10 Atherosclerotic heart disease of native coronary artery without angina pectoris; T38.3X5A Adverse effect of insulin and oral hypoglycemic [antidiabetic] drugs, initial encounter; I13.0 Hypertensive heart and chronic kidney disease with heart failure and stage 1 through stage 4 chronic kidney disease, or unspecified chronic kidney disease; I48.91 Unspecified atrial fibrillation; E11.22 Type 2 diabetes mellitus with diabetic chronic kidney disease; Z95.1 Presence of aortocoronary bypass graft; Z79.01 Long term (current) use of anticoagulants

== ENCOUNTER 2023-09-03 10:44 | Inpatient (IN) ==
[2023-09-03 11:14] LABS: Base Excess VBG 0.2 mEq/L; HCO3 VBG 26 mmol/L; Oxygen Saturation VBG < 60.0 %; PCO2 VBG 46 mmHg (38-50); PO2 VBG < 20 mmHg; pH VBG 7.36 (7.36-7.41)
--- NOTE | 2023-09-03 11:20 | XRay Report ---
XR chest 1V portable CLINICAL HISTORY: Dyspnea COMPARISON STUDY: Chest CT March 04, 2021. Chest radiograph August 11, 2023. FINDINGS: There are median sternotomy wires and a left subclavian pacer/AICD. Cardiomegaly is unchang ed. There is no pneumothorax. Small bilateral pleural effusions with bibasilar opacities are similar to prior exam. There is mild interstitial thickening, similar to prior study. IMPRESSION: 1. Cardiomegaly with mild interstitial pulmonary edema, similar to prior exam. 2. No significant change in small bilateral pleural effusions with associated bibasilar opacities. ACT 112: Negative or not required by law. Electronically signed by: Graham Emmanuel M.D. 09/03/2023 11:18 AM
--- NOTE | 2023-09-03 11:27 | Emergency Department Note ---
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 In the last 24 hours he has noticed increasing dyspnea when he tries to lay flat or sleep. He has to sit upright. He has noticed some slight increased edema of his lower extremities. He has been coughing more. No fever or chills. The patient did take an extra Bumex this morning with really no extra urine output. The patient's O2 saturations were at 90% today at the [facility]. He was placed on oxygen and sent to our hospital. He has been hospitalized before for CHF exacerbations. PMHx/PSHx/Social Hx: See Below PHYSICAL EXAM: GENERAL: Patient is in no acute distress. HEENT: No acute trauma, normocephalic atraumatic, mucous membranes moist, no nasal congestion. NECK: No stridor, no adenopathy, no meningismus, trachea is midline. LUNGS: Crackles on the left especially in the lower lobes. The right lower lung sounds are diminished. HEART: 3/6 systolic murmur, irregular rhythm, normal rate. ABDOMEN: Soft, nontender, no peritonitis. EXTREMITIES: No cyanosis, full range of motion of all the joints without pain or difficulty. Mild bilateral pedal edema. NEUROLOGIC: Oriented x 3, no acute motor or sensory deficits, no focal weakness. SKIN: No jaundice, no diaphoresis. DIFFERENTIAL DIAGNOSIS: CHF exacerbation, fluid overload, bronchitis or pneumonia, AR, anemia, pleural effusion, among others. EMERGENCY DEPARTMENT PROCEDURES: MEDICAL DECISION MAKING: There is no leukocytosis. A mild anemia was seen, this is baseline looking back at previous testing. INR slightly elevated at 1.2, likely from his Eliquis use. VBG did not show acidosis or CO2 retention. Creatinine was elevated consistent with his chronic renal failure. No electrolyte abnormality in need of emergent correction. No concerning liver enzyme elevation. Cardiac troponin was slightly elevated. This troponin elevation could be secondary to cardiac injury or just mismatch from his dyspnea. ECG showed atrial fibrillation, no obvious acute ST elevation. BNP was elevated consistent with CHF and fluid overload. Urinalysis did not show infection. Respiratory bio fire was negative. Chest x- ray does show CHF and cardiomegaly. The patient presents with increasing dyspnea. He has a history of heart failure and appears to be in heart failure today. I suspect his fluid overload has led to his dyspnea. Patient was given 2 mg of IV Bumex. Given the dyspnea, given the CHF, given his cardiac history, I do think a hospital stay is warranted. I did speak with the patient and case management. The on-call hospitalist was consulted. Prior/Outside records/notes reviewed: Today's EMS notes describing the patient's presentation and transport to this hospital. ECG per my interpretation: Indication was shortness of breath. The ECG shows atrial fibrillation with PVCs. The rate is 105. There is a left bundle branch block. There is no acute ST elevation. The QTc is 473. Continuous Cardiac Monitoring per my interpretation: An order was placed for continuous cardiac monitoring. The monitor shows a rate of 90 with atrial fibrillation. Imaging/x-ray results per my interpretation: Chest x-ray shows cardiomegaly and some mild to moderate CHF. No focal infiltrate. Chronic Medical/Social conditions affecting care: Advanced age, currently incarcerated Care/Management discussed with: Case management, the on-call hospitalist. Level of care consideration(s): After review of the information above and other included data: --I believe the patient requires escalation of care to admission DISPOSITION: Admission Past Med/Surg History Problem List Cardiac defibrillator in place (Acute) Cardiomegaly (Acute) CHF (congestive heart failure) (Acute) SOB (shortness of breath) (Acute) Acute and chronic respiratory failure Hypoglycemia Acute kidney injury CKD (chronic kidney disease), stage IV Acute kidney injury superimposed on CKD (Acute) Atrial fibrillation with rapid ventricular response (Acute) CAD (coronary artery disease) Ischemic cardiomyopathy Atrial fibrillation, permanent Acute on chronic systolic CHF (congestive heart failure) (Acute) Pulmonary edema (Acute) Anemia Acute kidney injury superimposed on chronic kidney disease CKD (chronic kidney disease) Type 2 diabetes mellitus Closed fracture nasal bone (Acute) Atrial fibrillation with rapid ventricular response (Acute) Syncope (Acute) Atrial fibrillation with RVR Pleural effusion Pulmonary nodule COVID-19 (Acute) Fluid overload (Acute) Failure of outpatient treatment (Acute) COVID-19 Chronic kidney disease Enlarged prostate Chronic congestive heart failure Anticoagulant long-term use Shortness of breath (Acute) Back pain Atrial fibrillation (Acute) Hearing loss Urinary retention Medical History Hypoxia Hyperkalemia Elevated troponin Hypocalcemia Valvular heart disease Heart failure CAD (coronary artery disease), [place] coronary artery Constipation Uremic encephalopathy Nausea & vomiting Acute hyponatremia Myocardial infarct Atherosclerotic heart disease coronary artery bypass grafting: Marvin to LAD. Saphenous vein graft to unknown vessel PCI to the 1st diagonal 11/24/2016 Hypertension Hypokalemia Hypercholesterolemia Surgical History Presence of single chamber implantable cardioverter-defibrillator (ICD) [place]. 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: No Beliefs That Will Affect Care: Restorationism Restorationism Beliefs: Jehova Witness marital status: Single Current Living Situation: Other Current Living Situation Comment: [facility] Feels Safe at Home: Yes Assistive Devices: None Allergies Allergies Allergy/AdvReac Type Severity Reaction Status Date / Time No Known Allergies Allergy Verified 09/03/23 12:44 Home Meds Home Medications Medication Instructions Recorded Confirmed aspirin 81 mg tablet,delayed 81 mg PO DAILY 05/20/23 09/03/23 release atorvastatin 40 mg tablet (Lipitor) 40 mg PO DAILY 05/20/23 09/03/23 Previous Rx's Medication Instructions Recorded hydralazine 10 mg tablet 10 mg PO TID #90 tabs 03/06/21 apixaban 5 mg tablet (Eliquis) 5 mg PO BID #0 tabs 05/23/23 bumetanide 2 mg tablet 2 mg PO BID #60 tabs 07/04/23 isosorbide dinitrate 20 mg tablet 10 mg (1/2 x 20 mg) PO 07/04/23 BID@0700,1200 #60 tabs metoprolol succinate 50 mg 50 mg PO BID #60 tabs 08/16/23 tablet,extended release 24 hr Results & Data (ED) Vital Signs Vital Signs - 24 hr 09/03/23 10:52 09/03/23 10:55 09/03/23 11:06 Temperature 36.9 C Temperature Source Temporal Artery Scan Pulse Rate 90 90 Pulse Rate from SpO2 Sensor Respiratory Rate 25 H Respiratory Effort / Characteristics Non-Labored Spontaneous Respiratory Depth Normal Blood Pressure 99/85 L Blood Pressure Mean 89 Pulse Oximetry 92 Oxygen Delivery Method Room Air Room Air Oxygen Flow Rate Sepsis Recent Fever Within 48 Hours No Sepsis New/Unexplained Change in Mental Status No Sepsis Action Taken by Nursing No Action Required Pulse Oximetry Post Tiitration 92 09/03/23 12:12 Temperature Temperature Source Pulse Rate 95 H Pulse Rate from SpO2 Sensor 98 H Respiratory Rate 26 H Respiratory Effort / Characteristics Respiratory Depth Blood Pressure 108/88 Blood Pressure Mean 94 Pulse Oximetry 96 Oxygen Delivery Method Nasal Cannula Oxygen Flow Rate 3.5 Sepsis Recent Fever Within 48 Hours Sepsis New/Unexplained Change in Mental Status Sepsis Action Taken by Nursing Pulse Oximetry Post Tiitration Home Medications Current Medication List: was personally reviewed by me Laboratory Data Attestation: I reviewed the patient's lab results. 09/03/23 10:55 09/03/23 10:55 Lab Results 09/03/23 09/03/23 Range/Units 10:55 11:52 WBC 7.61 (4.8-10.8) K/ul RBC 4.01 L (4.70-6.10) M/uL Hgb 11.7 L (14.0-18.0) g/dl Hct 37.5 L (42.0-52.0) % MCV 93.5 (80.0-100.0) fL MCH 29.2 (25.0-34.0) pg MCHC 31.2 L (32.0-36.0) g/dL RDW Std Deviation 55.5 H (36.4-46.3) fL RDW Coeff of Tommie 16.3 H (11.5-14.5) % Plt Count 223 (130-400) K/uL MPV 11.6 (9.4-12.4) fL Immature Gran % (Auto) 0.3 % Neut % (Auto) 74.9 % Lymph % (Auto) 13.5 % [place] % (Auto) 9.1 % Eos % (Auto) 1.7 % Baso % (Auto) 0.5 % Neut # (Auto) 5.70 (1.40-6.50) K/uL Lymph # (Auto) 1.03 L (1.20-3.40) K/uL [place] # (Auto) 0.69 H (0.11-0.59) K/uL Eos # (Auto) 0.13 (0.00-0.50) K/uL Baso # (Auto) 0.04 (0.00-0.20) K/uL Immature Gran # (Auto) 0.02 (0.01-0.20) K/uL PT Cancelled 12.5 H INR Cancelled 1.2 H APTT Cancelled 29 PTT Ratio Cancelled 1.1 VBG pH 7.36 (7.36-7.41) VBG pCO2 46 (38-50) mmHg VBG pO2 < 20 mmHg VBG HCO3 26 mmol/L VBG O2 Saturation < 60.0 % VBG Base Excess 0.2 mEq/L Sodium 136 (136-145) mmol/L Potassium 4.7 (3.5-5.1) mmol/L Chloride 101 (98-107) mmol/L Carbon Dioxide 25 (21-32) mmol/L Anion Gap 10 (3-11) BUN 65 H (6-23) mg/dl Creatinine 2.76 H (0.6-1.4) mg/dl Est Cr Clr Drug Dosing 20.2 ml/min Est GFR ( Amer) 24.5 ml/min Est GFR (Non-Af Amer) 21.2 ml/min BUN/Creatinine Ratio 23.6 H (10-20) Glucose 294 H (70-99(Fasting)) mg/dl Calcium 8.6 (8.6-10.3) mg/dl Magnesium 2.3 (1.7-2.4) mg/dl Total Bilirubin 1.3 H (0.2-1.0) mg/dl AST 11 L (13-39) U/L ALT 19 (7-52) U/L Alkaline Phosphatase 65 (34-104) U/L Troponin I High Sens 30.9 H (0-20) pg/ml B-Natriuretic Peptide 2914 H (0-100) pg/ml Total Protein 6.7 (6.0-8.3) gm/dl Albumin 3.8 (3.4-5.0) gm/dl Globulin 2.9 (2.5-4.0) gm/dl Albumin/Globulin Ratio 1.3 (0.9-2) Administered Medications Hydralazine HCl (Hydralazine 10 Mg Tab) 10 mg PO TID DANIELLE Stop: 10/03/23 14:36 Last Admin: 09/03/23 15:49 Dose: 10 mg Documented By: FREDRICK Bumetanide 2 mg/ Syringe 8 mls @ 4 mls/min IV BID@0900,1700 DANIELLE Stop: 10/03/23 16:59 Last Admin: 09/03/23 17:27 Dose: 4 mls/min Documented By: FREDRICK Discontinued Medications Bumetanide 2 mg/ Syringe 8 mls @ 4 mls/min IV ONE ONE Stop: 09/03/23 11:17 Last Admin: 09/03/23 12:14 Dose: 4 mls/min Documented By: MR Imaging Data Radiologist's Impression: Chest X-Ray 09/03/23 10:57 XR chest 1V portable CLINICAL HISTORY: Dyspnea COMPARISON STUDY: Chest CT March 04, 2021. Chest radiograph August 11, 2023. FINDINGS: There are median sternotomy wires and a left subclavian pacer/AICD. Cardiomegaly is unchanged. There is no pneumothorax. Small bilateral pleural effusions with bibasilar opacities are similar to prior exam. There is mild interstitial thickening, similar to prior study. IMPRESSION: 1. Cardiomegaly with mild interstitial pulmonary edema, similar to prior exam. 2. No significant change in small bilateral pleural effusions with associated bibasilar opacities. ACT 112: Negative or not required by law. Electronically signed by: Graham Emmanuel M.D. 09/03/2023 11:18 AM Discharge Plan Visit Data Chief Complaint: Shortness of Breath/Dyspnea ED Provider: Jairo Turk Discharge Problem: SOB (shortness of breath), CHF (congestive heart failure), Cardiomegaly, Cardiac defibrillator in place Patient Disposition: Admitted As Inpatient Condition: Fair Discharge Instructions Interventions: ED Discharge Assessment Last Done: 09/03/23 14:35 Discharge Problem: CHF (congestive heart failure) Qualifiers: Heart failure type: unspecified Heart failure chronicity: acute on chronic Q ualified Code(s): I50.9 - Heart failure, unspecified
[2023-09-03 11:28] LABS: Basophils # (auto) 0.04 K/uL (0.00-0.20); Basophils % (auto) 0.5 %; Eosinophils # (auto) 0.13 K/uL (0.00-0.50); Eosinophils % (auto) 1.7 %; Hematocrit (blood only) 37.5 % (42.0-52.0); Hemoglobin 11.7 g/dl (14.0-18.0); Immature Granulocytes # (auto) 0.02 K/uL (0.01-0.20); Immature Granulocytes % (auto) 0.3 %; Lymphocytes # (auto) 1.03 K/uL (1.20-3.40); Lymphocytes % (auto) 13.5 %; Mean Corpuscular Hemoglobin 29.2 pg (25.0-34.0); Mean Corpuscular Hgb Conc 31.2 g/dL (32.0-36.0); Mean Corpuscular Volume 93.5 fL (80.0-100.0); Mean Platelet Volume 11.6 fL (9.4-12.4); Monocytes # (auto) 0.69 K/uL (0.11-0.59); Monocytes % (auto) 9.1 %; Neutrophils % (auto) 74.9 %; Platelet Count 223 K/uL (130-400); RDW Coefficient of Variation 16.3 % (11.5-14.5); RDW Standard Deviation 55.5 fL (36.4-46.3); Red Blood Count 4.01 M/uL (4.70-6.10); White Blood Count 7.61 K/ul (4.8-10.8)
[2023-09-03 11:36] LABS: Albumin Globulin Ratio 1.3 (0.9-2); Albumin Level 3.8 gm/dl (3.4-5.0); BUN Creatinine Ratio 23.6 (10-20); Bilirubin,Total 1.3 mg/dl (0.2-1.0); Calcium 8.6 mg/dl (8.6-10.3); Creatinine Clr Calc Pharmacy 20.2 ml/min; Est GFR (African American) 24.5 ml/min; Est GFR (Non-African American) 21.2 ml/min; Globulin 2.9 gm/dl (2.5-4.0); Magnesium 2.3 mg/dl (1.7-2.4); Potassium 4.7 mmol/L (3.5-5.1); Total Protein 6.7 gm/dl (6.0-8.3)
[2023-09-03 11:42] LABS: Troponin I High Sensitivity 30.9 pg/ml (0-20)
[2023-09-03 12:08] LABS: Adenovirus PCR Not Detected (NotDetected); Bordetella parapertussis PCR Not Detected (NotDetected); Bordetella pertussis PCR Not Detected (NotDetected); Chlamydia pneumoniae PCR Not Detected (NotDetected); Coronavirus 229E PCR Not Detected (NotDetected); Coronavirus CoV-2 (COVID19)PCR Not Detected (NotDetected); Coronavirus HKU1 PCR Not Detected (NotDetected); Coronavirus NL63 PCR Not Detected (NotDetected); Coronavirus OC43PCR Not Detected (NotDetected); Human Metapneumovirus PCR Not Detected (NotDetected); Influenza A PCR Not Detected (NotDetected); Influenza B PCR Not Detected (NotDetected); Mycoplasma pneumoniae PCR Not Detected (NotDetected); Parainfluenza Virus 1 PCR Not Detected (NotDetected); Parainfluenza Virus 2 PCR Not Detected (NotDetected); Parainfluenza Virus 3 PCR Not Detected (NotDetected); Parainfluenza Virus 4 PCR Not Detected (NotDetected); Respiratory Syncytial VirusPCR Not Detected (NotDetected); Rhinovirus/Enterovirus PCR Not Detected (NotDetected)
[2023-09-03] MEDS: BUMETANIDE 2 MG in SYRINGE 0 ML IV ONE (12:14)
[2023-09-03] MEDS ORDERED: ALUMINUM/MAGNESIUM SUSP 30 ML UDC PO PRN ×2 (12:32→12:34)
[2023-09-03] MEDS ORDERED: ACETAMINOPHEN 325 MG TAB PO PRN ×2 (12:32→12:34)
[2023-09-03] MEDS ORDERED: ZOLPIDEM TARTRATE 5 MG TAB PO PRN (12:34)
[2023-09-03] MEDS ORDERED: MoRPHine SULFATE 2 MG/ML CARP IV PRN (12:34)
[2023-09-03] MEDS ORDERED: ONDANSETRON INJ 2 MG/ML 2 ML VIAL IV PRN (12:34)
[2023-09-03] MEDS ORDERED: NITROGLYCERIN SL 0.4 MG/TAB TAB SL PRN (12:34)
[2023-09-03] MEDS ORDERED: POLYETHYLENE (MIRALAX) 17 GM PACK PO PRN (12:34)
[2023-09-03 13:01] LABS: Appearance Urine Clear (Clear); Bacteria Urine Automated None Seen (None Seen); Bilirubin Urine Negative (Negative); Blood Urine Negative (Negative); Cast Urine Automated 0-2 /lpf (0-2); Color Urine Yellow; Epithelial Cell Urine Auto 0-2 /hpf (0-2); Glucose Urine UA Trace (Negative); Ketones Urine Negative (Negative); Leukocyte Esterase Urine Negative (Negative); Nitrite Urine Negative (Negative); Protein Urine 1+ (Negative); RBC Urine Automated 0-2 /hpf (0-2); Urobilinogen Urine Negative (Negative); WBC Urine Automated 0-5 /hpf (0-5)
--- NOTE | 2023-09-03 13:43 | History & Physical Report ---
Date of Service September 03, 2023 Assessment & Plan (1) Acute on chronic systolic CHF (congestive heart failure): Plan: Recurrent acute on chronic CHF, EF 15 to 20%, defibrillator Continue IV Bumex 2 mg IV every 12 Daily weight Monitor intake output (2) Acute and chronic respiratory failure: Plan: Due to the CHF exacerbation Oxygen supplementation IV diuresis (3) Atrial fibrillation, permanent: Plan: Chronic On metoprolol Rate more or less controlled Continue Eliquis (4) Ischemic cardiomyopathy: Plan: Status post CABG, continue aspirin statins, metoprolol EF 15 to 20% Poor prognosis (5) Atrial fibrillation with rapid ventricular response: (6) CKD (chronic kidney disease): Plan: CKD stage III-IV Stable Daily BMP History of Present Illness Chief Complaint: SOB Primary Care Provider: REGINALD Severino 78-year-old male with past medical history significant for acute on chronic systolic CHF, ischemic cardiomyopathy, history of CABG, D1 stent in 2018, EF 15 to 20%, permanent A-fib, on Eliquis, metoprolol, recent admission with similar symptoms such as increasing shortness of breath, leg swelling, currently A-fib is under control rate is in 90s, he was discharged on Bumex 2 mg twice a day, he continue his other medicine, he was discharged on August 15. In ER he is hypoxic placed on oxygen 2 L, reports feeling better, received IV Bumex. As per prior cardiology evaluation , palliative care was recommended. Patient denies any chest pain, denies nausea vomiting fever chills, does have lower extremity swelling, he is not sure if it is any worse. He has a chronic kidney disease, stage III , he cannot be on Entresto or Farxiga. He is BNP is 2900, chest x-ray cardiomegaly with mild interstitial pulmonary edema Allergies Allergy/AdvReac Type Severity Reaction Status Date / Time No Known Allergies Allergy Verified 09/03/23 12:44 Home Medications Medication Instructions Recorded Confirmed Type hydralazine 10 mg tablet 10 mg PO TID #90 tabs 03/06/21 09/03/23 Rx aspirin 81 mg tablet,delayed 81 mg PO DAILY 05/20/23 09/03/23 History release atorvastatin 40 mg tablet (Lipitor) 40 mg PO DAILY 05/20/23 09/03/23 History apixaban 5 mg tablet (Eliquis) 5 mg PO BID #0 tabs 05/23/23 09/03/23 Rx bumetanide 2 mg tablet 2 mg PO BID #60 tabs 07/04/23 09/03/23 Rx isosorbide dinitrate 20 mg tablet 10 mg (1/2 x 20 mg) PO 07/04/23 09/03/23 Rx BID@0700,1200 #60 tabs metoprolol succinate 50 mg 50 mg PO BID #60 tabs 08/16/23 09/03/23 Rx tablet,extended release 24 hr Past Med/Surg History Problem List (Updated 09/03/23 @ 13:41 by Mahnaz James MD) Acute and chronic respiratory failure Hypoglycemia Acute kidney injury CKD (chronic kidney disease), stage IV Acute kidney injury superimposed on CKD (Acute) Atrial fibrillation with rapid ventricular response (Acute) CAD (coronary artery disease) Ischemic cardiomyopathy Atrial fibrillation, permanent Acute on chronic systolic CHF (congestive heart failure) (Acute) Pulmonary edema (Acute) Anemia Acute kidney injury superimposed on chronic kidney disease CKD (chronic kidney disease) Type 2 diabetes mellitus Closed fracture nasal bone (Acute) Atrial fibrillation with rapid ventricular response (Acute) Syncope (Acute) Atrial fibrillation with RVR Pleural effusion Pulmonary nodule COVID-19 (Acute) Fluid overload (Acute) Failure of outpatient treatment (Acute) COVID-19 Chronic kidney disease Enlarged prostate Chronic congestive heart failure Anticoagulant long-term use Shortness of breath (Acute) Back pain Atrial fibrillation (Acute) Hearing loss Urinary retention Medical History (Updated 09/03/23 @ 13:41 by Mahnaz James MD) Hypoxia Hyperkalemia Elevated troponin Hypocalcemia Valvular heart disease Heart failure CAD (coronary artery disease), [place] coronary artery Constipation Uremic encephalopathy Nausea & vomiting Acute hyponatremia Myocardial infarct Atherosclerotic heart disease coronary artery bypass grafting: Marvin to LAD. Saphenous vein graft to unknown vessel PCI to the 1st diagonal 11/24/2016 Hypertension Hypokalemia Hypercholesterolemia Surgical History Presence of single chamber implantable cardioverter-defibrillator (ICD) [place]. Implant 12/2018 S/P triple vessel bypass H/O heart artery stent Family History Grandmother Diabetes Social History Smoking Status: Former smoker Tobacco Type: Cigarettes Second Hand Exposure: No; Do You Dip or Chew Tobacco: No; Hx Alcohol Use: No Hx Substance Use: No Preferred Language: Occitan Communication Ability: Effective Unclaimed Property Officer Required: No Beliefs That Will Affect Care: Orthodox Orthodox Beliefs: Jehova Witness marital status: Single Current Living Situation: Other Current Living Situation Comment: [facility] Feels Safe at Home: Yes Assistive Devices: None Review of Systems Review of Systems: All systems reviewed & are unremarkable except as noted in Subjective Physical Exam Physical Exam: GENERAL: Patient is in no acute distress. HEENT: No acute trauma, normocephalic atraumatic, mucous membranes moist, no nasal congestion. NECK: No stridor, no adenopathy, no meningismus, trachea is midline. LUNGS: Crackles on the left especially in the lower lobes. The right lower lung sounds are diminished. HEART: 3/6 systolic murmur, irregular rhythm, normal rate. ABDOMEN: Soft, nontender, no peritonitis. EXTREMITIES: No cyanosis, full range of motion of all the joints without pain or difficulty. Mild bilateral pedal edema. NEUROLOGIC: Oriented x 3, no acute motor or sensory deficits, no focal weakness. SKIN: No jaundice, no diaphoresis. Results & Data Results & Data Vital Signs (Past 12 Hours) Vital Signs Temp Pulse Resp BP Pulse Ox O2 Del Method O2 Flow Rate 09/03/23 12:12 95 H 26 H 108/88 96 Nasal Cannula 3.5 09/03/23 11:06 90 09/03/23 10:55 Room Air 09/03/23 10:52 36.9 C 90 25 H 99/85 L 92 Room Air Laboratory Results Abnormal lab results 09/03/23 09/03/23 Range/Units 10:55 12:40 RBC 4.01 L (4.70-6.10) M/uL Hgb 11.7 L (14.0-18.0) g/dl Hct 37.5 L (42.0-52.0) % MCHC 31.2 L (32.0-36.0) g/dL RDW Std Deviation 55.5 H (36.4-46.3) fL RDW Coeff of [place]mie 16.3 H (11.5-14.5) % Lymph # (Auto) 1.03 L (1.20-3.40) K/uL [place] # (Auto) 0.69 H (0.11-0.59) K/uL BUN 65 H (6-23) mg/dl Creatinine 2.76 H (0.6-1.4) mg/dl BUN/Creatinine Ratio 23.6 H (10-20) Glucose 294 H (70-99(Fasting)) mg/dl Total Bilirubin 1.3 H (0.2-1.0) mg/dl AST 11 L (13-39) U/L Troponin I High Sens 30.9 H (0-20) pg/ml B-Natriuretic Peptide 2914 H (0-100) pg/ml Urine Protein 1+ H (Negative) Urine Glucose (UA) Trace H (Negative) Diagnostic Findings Chest X-Ray 09/03/23 10:57 XR chest 1V portable CLINICAL HISTORY: Dyspnea COMPARISON STUDY: Chest CT March 04, 2021. Chest radiograph August 11, 2023. FINDINGS: There are median sternotomy wires and a left subclavian pacer/AICD. Cardiomegaly is unchanged. There is no pneumothorax. Small bilateral pleural effusions with bibasilar opacities are similar to prior exam. There is mild interstitial thickening, similar to prior study. IMPRESSION: 1. Cardiomegaly with mild interstitial pulmonary edema, similar to prior exam. 2. No significant change in small bilateral pleural effusions with associated bibasilar opacities. ACT 112: Negative or not required by law. Electronically signed by: Graham Emmanuel M.D. 09/03/2023 11:18 AM Code Status & VTE Plan Code Status DNR PG Care Time/CCT Total # of Minutes Spent Total Time Spent with Patient: Total time spent is greater than 50% in coordination of care (as documented) at patient's floor/unit and/or counseling patient: Coding Level of Care Code 10561 INT INP/OBS CARE 3/75MIN Diagnoses Acute on chronic systolic CHF (congestive heart failure) I50.23 Acute and chronic respiratory failure J96.20 Atrial fibrillation, permanent I48.21 Ischemic cardiomyopathy I25.5 Atrial fibrillation with rapid ventricular response I48.91 CKD (chronic kidney disease) N18.9 Chronic kidney disease stage: unspecified stage (6) CKD (chronic kidney disease) Chronic kidney disease stage: unspecified stage Qualified Code(s): N18.9 - Chronic kidney disease, unspecified
[2023-09-03 14:00] LABS: INR 1.2 (0.9-1.1); Partial Thromboplastin Ratio 1.1; Partial Thromboplastin Time 29 Seconds (21-31); Prothrombin Time 12.5 Seconds (9.0-12.0)
--- NOTE | 2023-09-03 14:30 | Electrocardiogram Report ---
Test Reason : Blood Pressure : / mmHG Vent. Rate : 105 BPM Atrial Rate : 000 BPM P-R Int : 000 ms QRS Dur : 154 ms QT Int : 358 ms P-R-T Axes : 000 -65 117 degrees QTc Int : 473 ms Atrial fibrillation with rapid ventricular response with premature ventricular or aberrantly conducte d complexes Left axis deviation Left bundle branch block Abnormal ECG When compared with ECG of 11-AUG-2023 10:50, No significant change Confirmed by Cholo Mosquera ([id number]) on 09/03/2023 2:30:01 PM Referred By: Mere SCI Confirmed By:Cholo Mosquera
[2023-09-03] MEDS: hydrALAZINE 10 MG TAB PO SCH (15:49)
[2023-09-03] MEDS: BUMETANIDE 2 MG in SYRINGE 0 ML IV SCH (17:27)
[2023-09-03] MEDS: METOPROLOL SUCC 50MG EXT REL TAB PO SCH (20:15)
[2023-09-03] MEDS: APIXABAN 2.5 MG TAB PO SCH (20:15)
[2023-09-04] MEDS: ISOSORBIDE DINITRATE 20 MG TAB PO SCH ×2 (06:06→16:42)
[2023-09-04 06:32] LABS: Hematocrit (blood only) 40.2 % (42.0-52.0); Hemoglobin 12.5 g/dl (14.0-18.0); Mean Corpuscular Hemoglobin 28.7 pg (25.0-34.0); Mean Corpuscular Hgb Conc 31.1 g/dL (32.0-36.0); Mean Corpuscular Volume 92.4 fL (80.0-100.0); Mean Platelet Volume 12.3 fL (9.4-12.4); Platelet Count 231 K/uL (130-400); RDW Coefficient of Variation 16.4 % (11.5-14.5); RDW Standard Deviation 55.7 fL (36.4-46.3); Red Blood Count 4.35 M/uL (4.70-6.10); White Blood Count 6.87 K/ul (4.8-10.8)
--- NOTE | 2023-09-04 06:37 | Hospitalist Progress Note ---
Date of Service September 04, 2023 Assessment & Plan (1) Acute on chronic HFrEF (heart failure with reduced ejection fraction): (2) Mitral regurgitation: (3) CKD (chronic kidney disease), stage IV: (4) Atrial fibrillation, permanent: (5) Ischemic cardiomyopathy: Plan Pt is a 78 yo male with a past medical history of a fib on eliquis, HFrEF, CKD stage IV, DMT2, and CAD who presents to the hospital on 09/02 for acute CHF exac. #Acute on chronic systolic CHF (congestive heart failure) - Recurrent acute on chronic CHF, last EF May 2023; 15 to 20%, defibrillator - Continue IV Bumex 2 mg IV every 12h - continue diuresis today #Acute and chronic respiratory failure - most likely due to the CHF exacerbation - Oxygen supplementation - IV diuresis #Atrial fibrillation, permanent - continue home metoprolol - Rate more or less controlled, goal <110s - Continue home Eliquis #Ischemic cardiomyopathy - Status post CABG, continue aspirin statins, metoprolol - EF 15 to 20% in may 2023 #CKD stage IV - baseline Cr appears to be around 3.0 - will dikrishnae carefully Admission and Anticipated Discharge Date Admission Date: September 03, 2023 Supervising Physician Co-Signing Physician Notes I personally examined the patient and verified all lewis points of history and exam, discussed case, and agree with decision making with Dr Feliz Breathing feeling better than before. Feels bad very quickly. Understands that his heart disease is very severe. Notes with a degree of ambivalence about wanting to just be able to pass peacefully, but at the same time does wonder if there is anything else that could be done. We have a good and very ben discussion of his very limited options with his very severe congestive heart failure. He expresses good understanding and understandably wants time to be able to think about what is/is not available. Vitals noted, in general he is awake and alert pleasant no distress. HEENT normocephalic atraumatic mucous membranes moist. Breathing unlabored no accessory muscle use good effort. Skin shows no rashes no pallor or icterus. Neuro without focal deficits. Severe systolic CHF causing acute hypoxic respiratory failure due to acute on chronic HFrEFvery limited options. Continuing to diurese. Discussed ongoing aggressive care versus fully comfort measures only as well as shades of aleman in between. Patient expressed good understanding of his options and wants time to consider what he feels will be most in line with his goals of care anticoagulated Subjective Pt is a 78 yo male with a past medical history of a fib on eliquis, HFrEF, CKD stage IV, DMT2, and CAD who presents to the hospital on 09/02 for acute CHF exac. Today, pt states that he is feeling a better today, states his breathing feels better after the dose of IV bumex. He states his weight had no changed the last few days and he has stayed at 60 kg per the scale at the [facility] but 2 nights ago noted increased swelling in his legs and that he could no longer lay flat due to shortness of breath. That has improved since being here. No chest pain, SOB, or abdominal pain this morning, generally feeling well. Review of Systems Review of Systems: Per HPI. Physical Exam Physical Exam: General:Alert and oriented, no acute distress, HEENT: Normocephalic, moist oral mucosa, Cardio: Irregular rhythm with tachycardia low 100s, no murmur, Resp:Lungs clear to auscultation b/l, no wheezes or rhonchi, GI: Soft and nontender, nondistended, bowel sounds active Skin: Warm, pink, dry, Results & Data Results & Data Vital Signs (Past 12 Hours) Vital Signs Temp Resp BP Pulse Ox O2 Del Method O2 Flow Rate 09/04/23 02:04 94 Nasal Cannula 1 09/03/23 22:24 36.7 C 18 122/96 95 Room Air 09/03/23 19:55 Room Air 09/03/23 19:13 36.6 C 18 112/82 94 Room Air Resident Activity Tracking Resident Involvement: Resident Care Provided Care Provided: Adult Hospital Medicine
[2023-09-04] MEDS: ASPIRIN 81 MG ECTAB PO SCH (08:52)
[2023-09-04] MEDS: ATORVASTATIN 40 MG TAB PO SCH (08:52)
--- NOTE | 2023-09-04 09:32 | Discharge Summary ---
Date of Service September 04, 2023 Admission HPI Per Admitting Provider 78-year-old male with past medical history significant for acute on chronic systolic CHF, ischemic cardiomyopathy, history of CABG, D1 stent in 2019, EF 15 to 20%, permanent A-fib, on Eliquis, metoprolol, recent admission with similar symptoms such as increasing shortness of breath, leg swelling, currently A-fib is under control rate is in 90s, he was discharged on Bumex 2 mg twice a day, he continue his other medicine, he was discharged on August 15. In ER he is hypoxic placed on oxygen 2 L, reports feeling better, received IV Bumex. As per prior cardiology evaluation , palliative care was recommended. Patient denies any chest pain, denies nausea vomiting fever chills, does have lower extremity swelling, he is not sure if it is any worse. He has a chronic kidney disease, stage III , he cannot be on Entresto or Farxiga. He is BNP is 2900, chest x-ray cardiomegaly with mild interstitial pulmonary edema Discharge Data Allergies Allergy/AdvReac Type Severity Reaction Status Date / Time No Known Allergies Allergy Verified 09/03/23 12:44 Consultations 09/03/23 11:51 ED Decision to Admit Stat 09/03/23 12:32 Consult Cardiology Routine 09/03/23 13:45 Consult Palliative Care Stat Discharge Plan Discharge Items Reason For Visit: CHF Condition on Discharge: Fair Follow-up/Referrals: Mere MONTELONGO [Primary Care Provider] - Medications and DC Order Prescriptions: No Action hydralazine 10 mg Tablet 10 mg PO TID Qty: 90 0RF atorvastatin [Lipitor] 40 mg Tablet 40 mg PO DAILY aspirin 81 mg Tablet,Delayed Release (Dr/Ec) 81 mg PO DAILY Eliquis 5 mg Tablet 5 mg PO BID Qty: 0 0RF isosorbide dinitrate 20 mg Tablet 10 mg PO BID@0700,1200 Qty: 60 0RF bumetanide 2 mg tablet 2 mg PO BID Qty: 60 0RF metoprolol succinate 50 mg tablet extended release 24 hr 50 mg PO BID Qty: 60 0RF Admission Data Admit Date/Time: 09/03/23 12:34 Attending Provider: Arvind Espinosa Admit Provider: Mahnaz James Primary Care Provider: Mere MONTELONGO Other Providers: Mahnaz James; Kenneth Nolan; Dixie Murcia
--- NOTE | 2023-09-04 09:59 | Communication Note ---
Date of Service: September 04, 2023 Consult received/appreciated/chart reviewed. There is no acute need/urgent inpatient need documented in the chart and patient is planned for DC today. I will defer the consult in favor of OP clinic visit. I have notified primary team. TS 15min in chart review and communication with medical teams. Patient not seen, NO charge submitted. Thank you for allowing us to participate in the ongoing care of this patient. Please page with any additional concerns. Iveth Murcia DNP Director, Palliative Medicine
[2023-09-04 10:56] LABS: Albumin Level 3.8 gm/dl (3.4-5.0); Bilirubin,Total 1.7 mg/dl (0.2-1.0); Calcium 8.9 mg/dl (8.6-10.3); Potassium 4.7 mmol/L (3.5-5.1)
[2023-09-04 11:02] LABS: Albumin Globulin Ratio 1.3 (0.9-2); BUN Creatinine Ratio 23.7 (10-20); Creatinine Clr Calc Pharmacy 18.1 ml/min; Est GFR (African American) 21.5 ml/min; Est GFR (Non-African American) 18.6 ml/min; Total Protein 6.8 gm/dl (6.0-8.3)
--- NOTE | 2023-09-04 13:16 | Cardiology Consultation ---
Date of Consultation September 04, 2023 Assessment & Plan (1) Acute on chronic HFrEF (heart failure with reduced ejection fraction): (2) Ischemic cardiomyopathy: (3) Atrial fibrillation, permanent: (4) CAD (coronary artery disease): (5) CKD (chronic kidney disease): (6) Mitral regurgitation: (7) Elevated troponin: (8) Cardiac defibrillator in place: Plan ASSESSMENT/PLAN: 1. Acute on chronic heart failure with reduced EF: NYHA class IV. Likely to be recurrent and has been recurrent requiring hospitalizations multiple times this year. Inotropic therapy has been utilized during 2 previous hospitalizations. He was not felt to be candidate for mechanical support given limitations of care for this at his correctional facility. If this is found to be an option in the future, can be referred to tertiary care center to consider LVAD. Otherwise, he is hypervolemic. Can further titrate Bumex if needed. Diuril 250 mg IV x 1 now with Bumex to follow this afternoon. Try to maintain net negative fluid balance of at least 1 to 2 L negative. Closely monitor renal function and electrolytes. Low-sodium diet. Daily weights. Strict I's and O's. Continue metoprolol succinate. ARNI/JINA inhibitor/ARB not utilized given advanced CKD. No SGLT2 inhibitor and mineralocorticoid receptor antagonist given advanced CKD. Continue hydralazine. Increase isosorbide dinitrate to 20 mg p.o. 3 times daily. 2. Ischemic cardiomyopathy: Severely reduced LV systolic function. ICD in place however he wants therapy disabled. Plan as above. 3. Permanent atrial fibrillation: Heart rate acceptable. Could consider further titration of beta-carolynn if no issues in the past after heart failure better compensated. Continue anticoagulation for stroke risk reduction. 4. CAD s/p CABG x 3 and PCI: Details of his revascularization not entirely known. No angina. Continue aspirin 81 mg daily. Continue high intensity statin therapy. 5. CKD: Seems to be within his baseline. Plan as above. 6. Mitral regurgitation: Nonsevere. No specific therapy necessary at this ti me. 7. ICD: He wishes for ICD therapy to be disabled. He requests DNR/DNI, including disabling ICD therapy understanding that without such therapy, significant arrhythmia can take his life. He expressed understanding and was consistent in his wishes. Reached out to electrophysiology to make them aware so that adjustments can be made as appropriate. 8. Elevated troponin: High-sensitivity troponin slightly elevated. Likely due to heart failure exacerbation. 9. Disposition: Poor prognosis. Recurrent heart failure exacerbations very likely as already noted with high likelihood of returning to the hospital in the near future. Recommend palliative care consultation. Medical therapy adjustments to try to improve quality of life. Cardiology will continue to follow. Plan of care communicated with Dr. Espinosa of the primary hospitalist service. Highly complex medical issues. Thank you for allowing me to participate in the care of your patient. Please call for any other questions or concerns. Sincerely, Richard Mosquera M.D. History of Present Illness Reason for Consultation: CHF Requesting Physician: Dr. James Attending Physician: Arvind Espinosa, History of Present Illness Mr. Bonilla is a pleasant 78-year-old gentleman with a history significant for ischemic cardiomyopathy s/p ICD, heart failure with reduced EF, CAD s/p CABG x 3 (2001 [place]), PCI ([place] ~ 2016), CKD, permanent atrial fibrillation, myocardial infarction's, hypertension, and dyslipidemia. His primary apartment leasing consultant is Dr. Chandra. He was admitted on 09/03/2023 with heart failure exacerbation. He was previously hospitalized earlier this month on 08/11/2023 and discharged on 08/16/2023 while requiring dobutamine infusion and intravenous diuretics. Previous to that, he was hospitalized in June 2023 where dobutamine was also used. He was hospitalized in May 2023 with syncope felt to be due to ventricular arrhythmia in which point ICD therapy was reinstated, after previously being disabled. He reports that on this particular occasion, he became acutely short of breath with orthopnea. He has had increased edema. His weight has been stable and he weighs himself regularly. He maintains a low-sodium diet. While here, he has received intravenous Bumex and his symptoms have improved but are not back to baseline. He has a chronic cough. He denies ICD therapy, chest pain, syncope, near syncope, palpitations, melena, hematochezia, or hematuria. He states that he wants to be DNR/DNI and wants his ICD therapy disabled. He recalls that it was reinstated. Dr. Chandra has outlined in the past that palliative care consultation would be appropriate as it did not appear as though advanced mechanical therapies would be available at his correctional facility. He has reached out to the physician at [facility]. Review of systems: As above. Review of systems otherwise negative/unremarkable. Family history: Noncontributory. Social history: Smoked from age [age] but none since. Denies alcohol or drug abuse. He has not been . No children. Had a home in [place], [place]. Resides at [facility]. Guards were at the bedside. Allergies Allergy/AdvReac Type Severity Reaction Status Date / Time No Known Allergies Allergy Verified 09/03/23 12:44 Home Medications Medication Instructions Recorded Confirmed Type hydralazine 10 mg tablet 10 mg PO TID #90 tabs 03/06/21 09/03/23 Rx aspirin 81 mg tablet,delayed 81 mg PO DAILY 05/20/23 09/03/23 History release atorvastatin 40 mg tablet (Lipitor) 40 mg PO DAILY 05/20/23 09/03/23 History apixaban 5 mg tablet (Eliquis) 5 mg PO BID #0 tabs 05/23/23 09/03/23 Rx bumetanide 2 mg tablet 2 mg PO BID #60 tabs 07/04/23 09/03/23 Rx isosorbide dinitrate 20 mg tablet 10 mg (1/2 x 20 mg) PO 07/04/23 09/03/23 Rx BID@0700,1200 #60 tabs metoprolol succinate 50 mg 50 mg PO BID #60 tabs 08/16/23 09/03/23 Rx tablet,extended release 24 hr Problem List (Updated 09/04/23 @ 13:32 by Cholo Mosquera MD) Mitral regurgitation Acute on chronic HFrEF (heart failure with reduced ejection fraction) Cardiac defibrillator in place (Acute) Cardiomegaly (Acute) CHF (congestive heart failure) (Acute) SOB (shortness of breath) (Acute) Acute and chronic respiratory failure Hypoglycemia Acute kidney injury CKD (chronic kidney disease), stage IV Acute kidney injury superimposed on CKD (Acute) Atrial fibrillation with rapid ventricular response (Acute) CAD (coronary artery disease) Ischemic cardiomyopathy Atrial fibrillation, permanent Acute on chronic systolic CHF (congestive heart failure) (Acute) Pulmonary edema (Acute) Anemia Acute kidney injury superimposed on chronic kidney disease CKD (chronic kidney disease) Type 2 diabetes mellitus Closed fracture nasal bone (Acute) Atrial fibrillation with rapid ventricular response (Acute) Syncope (Acute) Atrial fibrillation with RVR Pleural effusion Pulmonary nodule COVID-19 (Acute) Fluid overload (Acute) Failure of outpatient treatment (Acute) COVID-19 Chronic kidney disease Enlarged prostate Chronic congestive heart failure Anticoagulant long-term use Shortness of breath (Acute) Back pain Atrial fibrillation (Acute) Hearing loss Urinary retention Patient History Medical History Hypoxia Hyperkalemia Elevated troponin Hypocalcemia Valvular heart disease Heart failure CAD (coronary artery disease), [place] coronary artery Constipation Uremic encephalopathy Nausea & vomiting Acute hyponatremia Myocardial infarct Atherosclerotic heart disease coronary artery bypass grafting: Marvin to LAD. Saphenous vein graft to un known vessel PCI to the 1st diagonal 11/24/2016 Hypertension Hypokalemia Hypercholesterolemia Surgical History Presence of single chamber implantable cardioverter-defibrillator (ICD) [place]. Implant 12/2018 S/P triple vessel bypass H/O heart artery stent Family History Grandmother Diabetes Social History Smoking Status: Former smoker Tobacco Type: Cigarettes Second Hand Exposure: No; Do You Dip or Chew Tobacco: No; Hx Alcohol Use: No Hx Substance Use: No Preferred Language: Cantonese Mauritian Communication Ability: Unable Product Marketing Executive Required: No Beliefs That Will Affect Care: Congregation Congregation Beliefs: Jehova Witness marital status: Single Current Living Situation: Other Current Living Situation Comment: [facility] Feels Safe at Home: Yes Assistive Devices: None Physical Exam Physical Exam: Gen.: No acute distress. Alert and oriented. HEENT: Anicteric sclera. Neck: JVD to the mandible. No bruits. Normal carotid upstrokes bilaterally. Cardiac: No ventricular heave. Irregularly irregular. Normal S1-S2. 2/6 systolic murmur. Pulmonary: Decreased breath sounds at the right base and rales at the left base. Abdomen: Soft, nontender, nondistended, with normoactive bowel sounds. No bruits noted. Extremities: 2+ radial pulses bilaterally. 1+ posterior tibialis pulses bilaterally. 1+ bilateral lower extremity edema. No cyanosis. Psychiatric: Affect appears appropriate. Results & Data Vital Signs (Past 12 Hours) Vital Signs Temp Resp BP Pulse Ox O2 Del Method O2 Flow Rate 09/04/23 12:00 97 Nasal Cannula 2 09/04/23 11:50 83 L Room Air 09/04/23 11:00 36.8 C 18 116/84 95 Nasal Cannula 1 09/04/23 07:54 36.8 C 16 118/87 97 Nasal Cannula 1 09/04/23 02:04 94 Nasal Cannula 1 Intake & Output 09/02/23 09/03/23 09/04/23 09/05/23 06:59 06:59 06:59 06:59 Intake Total 440 / 440 Output Total 600 / 600 Balance -160 / -160 Weight 158 lb 11.725 oz Laboratory Results Laboratory Results - last 24 hr 09/03/23 09/03/23 09/03/23 11:52 15:27 Unknown WBC RBC Hgb Hct MCV MCH MCHC RDW Std Deviation RDW Coeff of Tommie Plt Count MPV PT 12.5 H INR 1.2 H APTT 29 PTT Ratio 1.1 Sodium Potassium Chloride Carbon Dioxide Anion Gap BUN Creatinine Est Cr Clr Drug Dosing Est GFR ( Amer) Est GFR (Non-Af Amer) BUN/Creatinine Ratio Glucose Calcium Total Bilirubin AST ALT Alkaline Phosphatase Troponin I High Sens 31.8 H Total Protein Albumin Globulin Albumin/Globulin Ratio Nasal Screen MRSA (PCR) Negative 09/04/23 05:42 WBC 6.87 RBC 4.35 L Hgb 12.5 L Hct 40.2 L MCV 92.4 MCH 28.7 MCHC 31.1 L RDW Std Deviation 55.7 H RDW Coeff of Tommie 16.4 H Plt Count 231 MPV 12.3 PT INR APTT PTT Ratio Sodium 137 Potassium 4.7 Chloride 101 Carbon Dioxide 24 Anion Gap 12 H BUN 73 H Creatinine 3.08 H D Est Cr Clr Drug Dosing 18.1 Est GFR ( Amer) 21.5 Est GFR (Non-Af Amer) 18.6 BUN/Creatinine Ratio 23.7 H Glucose 235 H Calcium 8.9 Total Bilirubin 1.7 H AST 12 L ALT 21 Alkaline Phosphatase 72 Troponin I High Sens Total Protein 6.8 Albumin 3.8 Globulin 3.0 Albumin/Globulin Ratio 1.3 Nasal Screen MRSA (PCR) Diagnostic Findings Labs reviewed and notable for abnormal renal function, normal potassium, nonelevated transaminase levels, mild anemia. Echo 05/21/2023: Severely reduced LV systolic function. EF 15 to 20%. Severe hypokinesis involving the basal anterolateral and inferior segments. Otherwise most of the LV is akinetic or mildly dyskinetic. Severe left atrial dilation. Mildly reduced RV systolic function. Moderate MR. Mild to moderate TR. Moderately elevated RVSP. Telemetry personally reviewed: Has refused telemetry at approximately 6 PM on 09/03/2023. Prior to that, atrial fibrillation and nonsustained ventricular tac hycardia. ECG personally reviewed 09/03/2023: Atrial fibrillation with 105 bpm. PVCs versus aberrantly conducted complexes. LBBB. Chest x-ray 09/03/2023: Mild interstitial pulmonary edema and small bilateral pleural effusions as per radiology. Medications Administered Current Inpatient Medications Acetaminophen (Acetaminophen 325 Mg Tab) 650 mg PO Q4H PRN PRN Reason: Pain or Fever Stop: 10/03/23 12:33 Apixaban (Apixaban 2.5 Mg Tab) 2.5 mg PO BID DANIELLE Stop: 10/03/23 20:59 Last Admin: 09/04/23 08:52 Dose: 2.5 mg Aspirin (Aspirin 81 Mg Ectab) 81 mg PO DAILY DANIELLE Stop: 10/04/23 08:59 Last Admin: 09/04/23 08:52 Dose: 81 mg Atorvastatin Calcium (Atorvastatin 40 Mg Tab) 40 mg PO DAILY DANIELLE Stop: 10/04/23 08:59 Last Admin: 09/04/23 08:52 Dose: 40 mg Hydralazine HCl (Hydralazine 10 Mg Tab) 10 mg PO TID DANIELLE Stop: 10/03/23 14:36 Last Admin: 09/04/23 08:52 Dose: 10 mg Bumetanide 2 mg/ Syringe 8 mls @ 4 mls/min IV BID@0900,1700 [facility] Stop: 10/03/23 16:59 Last Admin: 09/04/23 08:53 Dose: 4 mls/min Chlorothiazide Sodium 250 mg/ (Dextrose) 59 mls @ 200 mls/hr IV ONE ONE Stop: 09/04/23 13:47 Isosorbide Dinitrate (Isosorbide Dinitrate 20 Mg Tab) 10 mg PO BID@0700,1200 [facility] Stop: 10/04/23 06:59 Last Admin: 09/04/23 11:37 Dose: 10 mg Metoprolol Succinate (Metoprolol Succ 50mg Ext Rel Tab) 50 mg PO BID DANIELLE Stop: 10/03/23 20:59 Last Admin: 09/04/23 08:52 Dose: 50 mg Morphine Sulfate (Morphine Sulfate 2 Mg/Ml Carp) 2 mg IV Q30M PRN PRN Reason: Chest Pain Stop: 09/17/23 12:33 Nitroglycerin (Nitroglycerin Sl 0.4 Mg/Tab Tab) 0.4 mg SL Q5M PRN PRN Reason: Chest Pain Stop: 10/03/23 12:33 Ondansetron HCl (Ondansetron Inj 2 Mg/Ml 2 Ml Vial) 4 mg IV Q6H PRN PRN Reason: Nausea Stop: 10/03/23 12:33 Polyethylene Glycol (Polyethylene (Miralax) 17 Gm Pack) 17 gm PO DAILY PRN PRN Reason: Constipation Stop: 10/03/23 12:33 Zolpidem Tartrate (Zolpidem Tartrate 5 Mg Tab) 5 mg PO HS PRN PRN Reason: Sleep Stop: 10/03/23 12:33 PG Care Time/CCT Total # of Minutes Spent Total Time Spent with Patient: Total time spent is greater than 50% in coordination of care (as documented) at patient's floor/unit and/or counseling patient: Coding Level of Care Code 00056 INT INP/OBS CARE 3/75MIN Diagnoses Acute on chronic HFrEF (heart failure with reduced ejection fraction) I50.23 Ischemic cardiomyopathy I25.5 Atrial fibrillation, permanent I48.21 Coronary artery disease involving [place] coronary artery of [place] heart without angina pectoris I25.10 Coronary Disease-Associated Artery/Lesion type: [place] artery [place] vs. transplanted heart: [place] heart Associated angina: without angina CKD (chronic kidney disease) N18.9 Chronic kidney disease stage: unspecified stage Mitral regurgitation I34.0 Elevated troponin R79.[address] Z95.810 (4) CAD (coronary artery disease) Coronary Disease-Associated Artery/Lesion type: [place] artery [place] vs. transplanted heart: [place] heart Associated angina: without angina Qualified Code(s): I25.10 - Atherosclerotic heart disease of [place] coronary artery without angina pectoris (5) CKD (chronic kidney disease) Chronic kidney disease stage: unspecified stage Qualified Code(s): N18.9 - Chronic kidney disease, unspecified
[2023-09-04] MEDS: CHLOROTHIAZIDE SODIUM 250 MG in DEXTROSE 5% 50 ML IV ONE (13:44)
--- NOTE | 2023-09-04 18:17 | Billing Data ---
Date of Service September 04, 2023 Coding Level of Care Code 24177 SUB INP/OBS CARE MIN
[2023-09-05] MEDS: CHLOROTHIAZIDE SODIUM 250 MG in DEXTROSE 5% 50 ML IV ONE (06:26)
--- NOTE | 2023-09-05 06:38 | Hospitalist Progress Note ---
Date of Service September 05, 2023 Assessment & Plan (1) Acute on chronic HFrEF (heart failure with reduced ejection fraction): (2) Mitral regurgitation: (3) CKD (chronic kidney disease), stage IV: (4) Atrial fibrillation, permanent: (5) Ischemic cardiomyopathy: Plan Pt is a 78 yo male with a past medical history of a fib on eliquis, HFrEF, CKD stage IV, DMT2, and CAD who presents to the hospital on 09/02 for acute CHF exac. #Acute on chronic systolic CHF (congestive heart failure) - Recurrent acute on chronic CHF, last EF May 2023; 15 to 20%, defibrillator - Continue IV Bumex 2 mg IV every 12h - continue diuresis today #Acute and chronic respiratory failure - most likely due to the CHF exacerbation - Oxygen supplementation - IV diuresis #Atrial fibrillation, permanent - continue home metoprolol - Rate more or less controlled, goal <110s - Continue home Eliquis #Ischemic cardiomyopathy - Status post CABG, continue aspirin statins, metoprolol - EF 15 to 20% in may 2023 #CKD stage IV - baseline Cr appears to be around 3.0 - will marine carefully Admission and Anticipated Discharge Date Admission Date: September 03, 2023 Subjective Pt is a 78 yo male with a past medical history of a fib on eliquis, HFrEF, CKD stage IV, DMT2, and CAD who presents to the hospital on 09/02 for acute CHF exac. Today, Review of Systems Review of Systems: Per HPI. Physical Exam Physical Exam: General:Alert and oriented, no acute distress, HEENT: Normocephalic, moist oral mucosa, Cardio: Irregular rhythm with tachycardia low 100s, no murmur, Resp:Lungs clear to auscultation b/l, no wheezes or rhonchi, GI: Soft and nontender, nondistended, bowel sounds active Skin: Warm, pink, dry, Results & Data Results & Data Vital Signs (Past 12 Hours) Vital Signs Temp Pulse Resp BP Pulse Ox O2 Del Method O2 Flow Rate 09/04/23 22:57 71 18 106/76 93 Room Air 09/04/23 19:54 Nasal Cannula 1 09/04/23 19:37 36.6 C 97 H 18 111/83 98 Nasal Cannula 2
[2023-09-05] MEDS: BUMETANIDE 4 MG in SYRINGE 0 ML IV SCH (08:46)
[2023-09-05 09:21] LABS: BUN Creatinine Ratio 25.1 (10-20); Calcium 8.1 mg/dl (8.6-10.3); Creatinine Clr Calc Pharmacy 18.2 ml/min; Est GFR (African American) 21.6 ml/min; Est GFR (Non-African American) 18.6 ml/min; Potassium 4.2 mmol/L (3.5-5.1)
--- NOTE | 2023-09-05 10:11 | Discharge Summary ---
Date of Service September 05, 2023 Admission HPI Per Admitting Provider Chief Complaint: SOB Primary Care Provider: REGINALD Severino 78-year-old male with past medical history significant for acute on chronic systolic CHF, ischemic cardiomyopathy, history of CABG, D1 stent in 2019, EF 15 to 20%, permanent A-fib, on Eliquis, metoprolol, recent admission with similar symptoms such as increasing shortness of breath, leg swelling, currently A-fib is under control rate is in 90s, he was discharged on Bumex 2 mg twice a day, he continue his other medicine, he was discharged on August 15. In ER he is hypoxic placed on oxygen 2 L, reports feeling better, received IV Bumex. As per prior cardiology evaluation , palliative care was recommended. Patient denies any chest pain, denies nausea vomiting fever chills, does have lower extremity swelling, he is not sure if it is any worse. He has a chronic kidney disease, stage III , he cannot be on Entresto or Farxiga. He is BNP is 2900, chest x-ray cardiomegaly with mild interstitial pulmonary edema Admission Exam Per Admitting Provider GENERAL: Patient is in no acute distress. HEENT: No acute trauma, normocephalic atraumatic, mucous membranes moist, no nasal congestion. NECK: No stridor, no adenopathy, no meningismus, trachea is midline. LUNGS: Crackles on the left especially in the lower lobes. The right lower lung sounds are diminished. HEART: 3/6 systolic murmur, irregular rhythm, normal rate. ABDOMEN: Soft, nontender, no peritonitis. EXTREMITIES: No cyanosis, full range of motion of all the joints without pain or difficulty. Mild bilateral pedal edema. NEUROLOGIC: Oriented x 3, no acute motor or sensory deficits, no focal weakness. SKIN: No jaundice, no diaphoresis. Principal Diagnosis Acute heart failure exac Discharge Exam General:Alert and oriented, no acute distress, HEENT: Normocephalic, moist oral mucosa, Cardio: Irregular rhythm with tachycardia 90s, no murmur, Resp:Lungs clear to auscultation b/l, no wheezes or rhonchi, GI: Soft and nontender, nondistended, bowel sounds active Skin: Warm, pink, dry, Discharge Data Allergies Allergy/AdvReac Type Severity Reaction Status Date / Time No Known Allergies Allergy Verified 09/03/23 12:44 Consultations 09/03/23 11:51 ED Decision to Admit Stat 09/03/23 12:32 Consult Cardiology Routine 09/03/23 13:45 Consult Palliative Care Stat Hospital Course (1) Acute on chronic HFrEF (heart failure with reduced ejection fraction): (2) Mitral regurgitation: (3) CKD (chronic kidney disease), stage IV: (4) Atrial fibrillation, permanent: (5) Ischemic cardiomyopathy: Plan Pt is a 78 yo male with a past medical history of a fib on eliquis, HFrEF, CKD stage IV, DMT2, and CAD who presents to the hospital on 09/02 for acute CHF exac. #Acute on chronic systolic CHF (congestive heart failure) - Recurrent acute on chronic CHF, last EF May 2023; 15 to 20% - no longer requiring oxygen, back to baseline breathing per pt - Plan for continued dieresis with: 2 mg Bumex twice daily, metolazone 2.5 mg Monday, Monday, Monday - continue with low sodium diet and daily weights - did have conversation with pt about next steps as his EF is very poor and he is likely to continue to have hospitalizations due to very poor heart function, pt understanding that his life is limited, discussed hospice and ultimately sounds like this is his goal is to start hospice. - DNR/DNI- ICD was disabled #Acute and chronic respiratory failure, resolved - most likely due to the CHF exacerbation #Atrial fibrillation, permanent, chronic - continue home metoprolol - Rate more or less controlled, goal <110s - Continue home Eliquis #Ischemic cardiomyopathy - Status post CABG, continue aspirin statins, metoprolol - EF 15 to 20% in may 2023 - plan to move towards comfort care as per above #CKD stage IV - baseline Cr appears to be around 3.0, today Cr was 3.07 - diuresed carefully - would continue to monitor kidney function/electrolytes with continued PO dieresis and adjust as appropriate Total Time Total Time Spent Total Time Spent (In Minutes): <30 Discharge Plan Discharge Items [facility] Disposition: [facility] Reason For Visit: CHF Discharge Diagnosis: HFrEF Condition on Discharge: Fair Activity: Per Instructions section Non-emergency contact: Primary Care Provider Call non-emergency contact if: you have any medication questions Follow-up/Referrals: Mere MONTELONGO [Primary Care Provider] - Diet: Regular Addtl Attending Provider Instructions: Pt is a 78 yo male with a past medical history of a fib on eliquis, HFrEF, CKD stage IV, DMT2, and CAD who presents to the hospital on 09/02 for acute CHF exac. #Acute on chronic systolic CHF (congestive heart failure) - Recurrent acute on chronic CHF, last EF May 2023; 15 to 20% - no longer requiring oxygen, back to baseline breathing per pt - Plan for continued dieresis with: 2 mg Bumex twice daily, metolazone 2.5 mg Monday, Monday, Monday - continue with low sodium diet and daily weights - did have conversation with pt about next steps as his EF is very poor and he is likely to continue to have hospitalizations due to very poor heart function, pt understanding that his life is limited, discussed hospice and ultimately sounds like this is his goal is to start hospice. - DNR/DNI- ICD was disabled #Acute and chronic respiratory failure, resolved - most likely due to the CHF exacerbation #Atrial fibrillation, permanent, chronic - continue home metoprolol - Rate more or less controlled, goal <110s - Continue home Eliquis #Ischemic cardiomyopathy - Status post CABG, continue aspirin statins, metoprolol - EF 15 to 20% in may 2023 - plan to move towards comfort care as per above #CKD stage IV - baseline Cr appears to be around 3.0, today Cr was 3.07 - diuresed carefully - would continue to monitor kidney function/electrolytes with continued PO dieresis and adjust as appropriate Pending Studies at Discharge: No Stand-Alone Forms: My [facility] Skilled Items Patient informed of condition?: Yes Discharge Level of Care: Other Communicable Disease: No Discharge Prognosis: Stable Lines: None Urinary Catheter: No Medications and DC Order Prescriptions: New metolazone 2.5 mg tablet See Rx Instructions .ROUTE .COMPLEX Qty: 30 0RF Rx Instructions: 2.5 mg orally- Monday, Monday, Monday Continued hydralazine 10 mg Tablet 10 mg PO TID Qty: 90 0RF atorvastatin [Lipitor] 40 mg Tablet 40 mg PO DAILY aspirin 81 mg Tablet,Delayed Release (Dr/Ec) 81 mg PO DAILY Eliquis 5 mg Tablet 5 mg PO BID Qty: 0 0RF isosorbide dinitrate 20 mg Tablet 10 mg PO BID@0700,1200 Qty: 60 0RF bumetanide 2 mg tablet 2 mg PO BID Qty: 60 0RF metoprolol succinate 50 mg tablet extended release 24 hr 50 mg PO BID Qty: 60 0RF Discharge Orders: Discharge Order (Routine); Ordered 09/05/23 Ordered By: Madina Oliveira Admission Data Admit Date/Time: 09/03/23 12:34 Attending Provider: Arvind Espinosa Admit Provider: Mahnaz James Primary Care Provider: Mere MONTELONGO Other Providers: Mahnaz James; Kenneth Nolan; Dixie Murcia Supervising Physician Co-Signing Physician Notes I personally examined the patient and verified all lewis points of history and exam, discussed case, and agree with decision making with Dr Feliz breathing feeling okay. Has decided that he definitely wants a hospice approach. Called the assisted physician to inform of this plan. Discussed that patient mostly was asking about how sublingual morphine would assist with dyspnea, but also that he still might want p.o. diuretics but just not rehospitalizations/etc.etc. awaiting ICD to be deactivated at the time of this dictation, but cardiology noted that this would happen prior to his being discharged. Vitals noted, in general he is awake and alert pleasant no distress. HEENT normocephalic atraumatic mucous membranes moist. Breathing unlabored no accessory muscle use good effort. Skin shows no rashes no pallor or icterus. Neuro without focal deficits. Severe systolic CHF causing acute hypoxic respiratory failure due to acute on chronic HFrEFvery limited options. Home, hospice plan. As noted at the time of this dictation we are still awaiting cardiology deactivating his ICD, but they are aware and will do so prior to his being discharged.
--- NOTE | 2023-09-05 13:39 | Cardiology Progress Note ---
Date of Service September 05, 2023 Assessment & Plan (1) Acute on chronic HFrEF (heart failure with reduced ejection fraction): (2) Ischemic cardiomyopathy: (3) Atrial fibrillation, permanent: (4) CAD (coronary artery disease): (5) CKD (chronic kidney disease): (6) Mitral regurgitation: (7) Elevated troponin: (8) Cardiac defibrillator in place: Plan ASSESSMENT/PLAN: 1. Acute on chronic heart failure with reduced EF: NYHA class IV. Likely to be recurrent and has been recurrent requiring hospitalizations multiple times this year. Inotropic therapy has been utilized during 2 previous hospitalizations. He was not felt to be candidate for mechanical support given limitations of care for this at his correctional facility. Volume status much improved and he feels back to baseline. Primary hospitalist service reports that he would likely be returning to assisted today. Can resume 2 mg Bumex twice daily there and would recommend metolazone 2.5 mg Monday, Monday, Monday. Would recommend close monitoring of renal function and electrolytes. Further adjustments can be made based on clinical response and labs. Low-sodium diet. Daily weights. Strict I's and O's. Continue metoprolol succinate. ARNI/JINA inhibitor/ARB not utilized given advanced CKD. No SGLT2 inhibitor and mineralocorticoid receptor antagonist given advanced CKD. Continue hydralazine. Continue increased dose of isosorbide dinitrate 20 mg p.o. 3 times daily. 2. Ischemic cardiomyopathy: Severely reduced LV systolic function. ICD in place however he wants therapy disabled. Plan as above. 3. Permanent atrial fibrillation: Heart rate acceptable. Could consider further titration of beta-carolynn if no issues in the past after heart failure better compensated. Continue anticoagulation for stroke risk reduction. Based on current weight and age, 5 mg of Eliquis twice daily would be appropriate. 4. CAD s/p CABG x 3 and PCI: Details of his revascularization not entirely known. No angina. Continue aspirin 81 mg daily. Continue high intensity statin therapy. 5. CKD: Seems to be within his baseline. Plan as above. 6. Mitral regurgitation: Nonsevere. No specific therapy necessary at this time. 7. ICD: He wishes for ICD therapy to be disabled. He requests DNR/DNI, including disabling ICD therapy understanding that without such therapy, significant arrhythmia can take his life. He expressed understanding and was consistent in his wishes. Reached out to his night auditor who plans on having his ICD therapy disabled. 8. Elevated troponin: High-sensitivity troponin slightly elevated. Likely due to heart failure exacerbation. 9. Disposition: Poor prognosis. Recurrent heart failure exacerbations very likely as already noted with high likelihood of returning to the hospital in the near future. Recommend palliative care consultation. Medical therapy adjustments to try to improve quality of life. Plan of care communicated with Dr. Espinosa of the primary hospitalist service. Dr. Espinosa has notified me that he will be turning to his correctional facility with hospice. Admission and Anticipated Discharge Date Admission Date: September 03, 2023 Subjective Patient seen this morning. Breathing feels back to baseline. Denies orthopnea. He denies chest pain, syncope, near syncope, palpitations. He denies bleeding. He was accompanied by 2 guards. Physical Exam Physical Exam: Gen.: No acute distress. Alert. HEENT: Anicteric sclera. Neck: JVD significantly improved and only mild with hepatojugular reflux. Cardiac: No ventricular heave. Irregularly irregular. Normal heart rate. Normal S1-S2. 2/6 systolic murmur. Pulmonary: Decreased breath sounds at the right base and minimal rales at the left base. Abdomen: Soft, nontender, nondistended, with normoactive bowel sounds. No bruits noted. Extremities: 2+ radial pulses bilaterally. 1+ posterior tibialis pulses bilaterally. 1+ left lower extremity edema. Trace right lower extremity edema. No cyanosis. Psychiatric: Affect appears appropriate. Results & Data Vital Signs (Past 12 Hours) Vital Signs Temp Pulse Resp BP Pulse Ox O2 Del Method 09/05/23 08:00 36.8 C 95 H 18 105/72 94 Room Air Intake & Output 09/03/23 09/04/23 09/05/23 09/06/23 06:59 06:59 06:59 06:59 Intake Total 440 / 440 743 / 743 Output Total 600 / 600 1550 / 1550 Balance -160 / -160 -807 / -807 Weight 158 lb 11.725 oz 156 lb 15.506 oz Laboratory Results Laboratory Results - last 24 hr 09/05/23 08:38 Sodium 134 L Potassium 4.2 Chloride 97 L Carbon Dioxide 28 Anion Gap 9 BUN 77 H Creatinine 3.07 H Est Cr Clr Drug Dosing 18.2 Est GFR ( Amer) 21.6 Est GFR (Non-Af Amer) 18.6 BUN/Creatinine Ratio 25.1 H Glucose 291 H Calcium 8.1 L Diagnostic Findings Labs reviewed and notable for normal potassium, abnormal but stable renal function. Medications Administered Current Inpatient Medications Acetaminophen (Acetaminophen 325 Mg Tab) 650 mg PO Q4H PRN PRN Reason: Pain or Fever Stop: 10/03/23 12:33 Apixaban (Apixaban 2.5 Mg Tab) 2.5 mg PO BID DANIELLE Stop: 10/03/23 20:59 Last Admin: 09/05/23 08:46 Dose: 2.5 mg Aspirin (Aspirin 81 Mg Ectab) 81 mg PO DAILY DANIELLE Stop: 10/04/23 08:59 Last Admin: 09/05/23 08:46 Dose: 81 mg Atorvastatin Calcium (Atorvastatin 40 Mg Tab) 40 mg PO DAILY DANIELLE Stop: 10/04/23 08:59 Last Admin: 09/05/23 08:46 Dose: 40 mg Hydralazine HCl (Hydralazine 10 Mg Tab) 10 mg PO TID [facility] Stop: 10/03/23 14:36 Last Admin: 09/05/23 08:46 Dose: 10 mg Bumetanide 4 mg/ Syringe 16 mls @ 4 mls/min IV BID@0900,1700 [facility] Stop: 10/05/23 08:59 Last Admin: 09/05/23 08:46 Dose: 4 mls/min Isosorbide Dinitrate (Isosorbide Dinitrate 20 Mg Tab) 20 mg PO TID@0700,1200,1700 [facility] Stop: 10/04/23 16:59 Last Admin: 09/05/23 12:21 Dose: 20 mg Metoprolol Succinate (Metoprolol Succ 50mg Ext Rel Tab) 50 mg PO BID DANIELLE Stop: 10/03/23 20:59 Last Admin: 09/05/23 08:46 Dose: 50 mg Morphine Sulfate (Morphine Sulfate 2 Mg/Ml Carp) 2 mg IV Q30M PRN PRN Reason: Chest Pain Stop: 09/17/23 12:33 Nitroglycerin (Nitroglycerin Sl 0.4 Mg/Tab Tab) 0.4 mg SL Q5M PRN PRN Reason: Chest Pain Stop: 10/03/23 12:33 Ondansetron HCl (Ondansetron Inj 2 Mg/Ml 2 Ml Vial) 4 mg IV Q6H PRN PRN Reason: Nausea Stop: 10/03/23 12:33 Polyethylene Glycol (Polyethylene (Miralax) 17 Gm Pack) 17 gm PO DAILY PRN PRN Reason: Constipation Stop: 10/03/23 12:33 Zolpidem Tartrate (Zolpidem Tartrate 5 Mg Tab) 5 mg PO HS PRN PRN Reason: Sleep Stop: 10/03/23 12:33 PG Care Time/CCT Total # of Minutes Spent Total Time Spent with Patient: Total time spent is greater than 50% in coordination of care (as documented) at patient's floor/unit and/or counseling patient: Coding Level of Care Code 76857 SUB INP/OBS CARE 3/50MIN Diagnoses Acute on chronic HFrEF (heart failure with reduced ejection fraction) I50.23 Ischemic cardiomyopathy I25.5 Atrial fibrillation, permanent I48.21 Coronary artery disease involving [place] coronary artery of [place] heart without angina pectoris I25.10 Coronary Disease-Associated Artery/Lesion type: [place] artery [place] vs. transplanted heart: [place] heart Associated angina: without angina CKD (chronic kidney disease) N18.9 Chronic kidney disease stage: unspecified stage Mitral regurgitation I34.0 Elevated troponin R79.[address] Z95.810 (4) CAD (coronary artery disease) Coronary Disease-Associated Artery/Lesion type: [place] artery [place] vs. transplanted heart: [place] heart Associated angina: without angina Qualified Code(s): I25.10 - Atherosclerotic heart disease of [place] coronary artery without angina pectoris (5) CKD (chronic kidney disease) Chronic kidney disease stage: unspecified stage Qualified Code(s): N18.9 - Chronic kidney disease, unspecified
--- NOTE | 2023-09-05 15:52 | Billing Data ---
Date of Service September 05, 2023 Coding Level of Care Code 88720 IN/OBS DISCH 30 MIN/LESS
--- NOTE | 2023-09-05 17:44 | Communication Note ---
Date of Service: September 05, 2023 At the patient's request the ICD therapies were deactivated. I used the [employer] net programmer to deactivate his ICD therapies. He has aware of the no shocks or therapies will be administered should he suffer a life-threatening arrhythmia.
== END 2023-09-05 18:25 | DRG 291 ==
LOC: ED 10:44 → 2E 12:34 → SUATTDRO 12:34 → 2E 14:35